=== PATIENT | female | born 1945 | race Caucasian/White ===

== ENCOUNTER 2016-03-24 13:30 | Emergency (ER) | payer OTHER ==
[~2016-03-24] VITALS: Ht 162.6 cm; Wt 52.0 kg
[~2016-03-24 13:30] MED LIST: ASPEC81 PO; CHOL1000 PO; CLB200 PO; Curamin PO; PROCOSA PO; SNK PO; ULT50X PO; [UNRECOGNIZED DRUG - CODE] TOP; [UNRECOGNIZED DRUG - OTHER] TOP
[2016-03-24 13:34] VITALS: TEMP 36.9; Ht 162.6 cm; Wt 52.0 kg
[2016-03-24 14:53] VITALS: O2SAT 97
[2016-03-24] MEDS ORDERED: GABA-113 PO (15:02)
[2016-03-24 15:03] LABS: URINE APPEARANCE CLEAR (CLEAR); URINE BILIRUBIN NEG (NEG); URINE COLOR YELLOW; URINE NITRITE NEG (NEG); URINE PH 8.5 (4.5-7.5); URINE SPECIFIC GRAVITY 1.003 (1.000-1.030); UROBILINOGEN NEG (NEG)
[2016-03-24 15:04] LABS: BASO % 0.2 %; BASO ABS # 0.02 K/uL (0-0.2); COMPLETE YES; EOS % 1.4 %; HEMATOCRIT 45.6 % (37-47); IG% 0.2 %; LYMPH % 24.4 %; LYMPH ABS # 1.98 K/uL (1.2-3.4); MEAN CELL VOLUME 91.2 fL (80-100); MEAN CORPUSCULAR HEMOGLOBIN 30.2 pg (25-34); MEAN CORPUSCULAR HGB CONC 33.1 g/dl (32-36); MEAN PLATELET VOLUME 10.2 fL (7.4-10.4); NEUT % 67.8 %; PLATELET COUNT 234 K/uL (130-400); WHITE BLOOD COUNT 8.11 K/uL (4.8-10.8)
[2016-03-24 15:04] LABS: MANUAL MICROSCOPIC REQUIRED? NO; REVIEW REQ? NO
--- NOTE | 2016-03-24 15:05 | DIAGNOSTIC IMAGING REPORT ---
CHEST ONE VIEW PORTABLE CLINICAL HISTORY: cp hypertension COMPARISON STUDY: 03/07/2015 FINDINGS: The bones soft tissues and hemidiaphragms are normal. The cardiomediastinal silhouette is normal. The lungs are clear. The pulmonary vasculature is normal. Old fracture mid left humeral shaft. Unchanging right upper quadrant calcifications. IMPRESSION: Negative chest. Electronically signed by: Tani Ham M.D. 03/24/2016 3:04 PM Dictated Date/Time: 03/24/2016 3:03 PM
[2016-03-24] MEDS ORDERED: MAGN250T8 PO (15:07)
[2016-03-24 15:25] LABS: BLOOD UREA NITROGEN 16 mg/dl (7-18); CALCIUM 8.9 mg/dl (8.5-10.1); CARBON DIOXIDE 28 mmol/L (21-32); CHLORIDE 104 mmol/L (98-107); CREATININE 0.92 mg/dl (0.60-1.20); GLUCOSE 73 mg/dl (70-99); SODIUM 141 mmol/L (136-145)
[2016-03-24 15:53] LABS: INR 0.9 (0.9-1.1); PROTHROMBIN TIME (PATIENT) 10.1 SECONDS (9.0-12.0)
[2016-03-24 15:56] LABS: POTASSIUM 4.2 mmol/L (3.5-5.1)
[2016-03-24 15:58] LABS: MAGNESIUM 2.6 mg/dl (1.8-2.4)
[2016-03-24] MEDS ORDERED: SODIUM CHLORIDE 0.9% 1000ML 1,000 ML IV SCH (16:38)
--- NOTE | 2016-03-24 16:42 | History and Physical ---
History & Physical Date & Time of Service: Mar 24, 2016 at 16:42 Chief Complaint: High Blood Pressure,Dizziness,Weakness Primary Care Physician: Cecelia Miles M.D. Past Medical/Surgical History Medical Problems: (1) Benign hypertension Status: Chronic Family History Diabetes mellitus Heart disease Hypertension Social History Smoking Status: Never Smoker Immunizations History of Influenza Vaccine: Unknown History of Tetanus Vaccine?: Unknown History of Pneumococcal: Unknown History of Hepatitis B Vaccine: Unknown Multi-Drug Resistant Organisms History of MDRO: No Allergies Coded Allergies: Penicillins (Verified Allergy, Severe, SWELLING OF EYES, HIVES & RASH, ) Hydrocodone (Verified Adverse Reaction, Unknown, NAUSEA AND VOMITING, 03/24) Home Medications Scheduled Gabapentin (Neurontin), 300 MG PO TID [Curamin], 1 CAPSULES PO BID Scheduled PRN Cholecalciferol (Vitamin D3), 1 TAB PO DAILY PRN for PRN Magnesium Oxide (Mg Supplement (Magnesium), 1 TAB PO UD PRN for LOW MAGNESIUM LEVELS Scar Treatment Products (Mederma), 1 DOSE TOP DAILY PRN for Pain Physical Exam Vital Signs Date Time Temp Pulse Resp B/P Pulse Ox O2 Delivery O2 Flow Rate FiO2 03/24/16 16:05 66 18 150/82 98 03/24/16 15:01 68 03/24/16 14:53 97 Room Air 03/24/16 13:34 36.9 76 16 188/89 97 Room Air Diagnostics Laboratory Results Results Past 24 Hours Test 03/24/16 14:40 03/24/16 14:50 03/24/16 14:58 03/24/16 15:37 Range/Units Urine Color YELLOW Urine Appearance CLEAR CLEAR Urine pH 8.5 4.5-7.5 Urine Specific [place] 1.003 1.000-1.030 Urine Protein NEG NEG Urine Glucose (UA) NEG NEG Urine Ketones NEG NEG Urine Occult Blood NEG NEG Urine Nitrite NEG NEG Urine Bilirubin NEG NEG Urine Urobilinogen NEG NEG Urine Leukocyte Esterase TRACE NEG Urine WBC (Auto) 1-5 0-5 /hpf Urine RBC (Auto) 0-4 0-4 /hpf Urine Hyaline Casts (Auto) 0 0-5 /lpf Urine Epithelial Cells (Auto) 10-20 0-5 /lpf Urine Bacteria (Auto) NEG NEG White Blood Count 8.11 4.8-10.8 K/uL Red Blood Count 5.00 4.2-5.4 M/uL Hemoglobin 15.1 12.0-16.0 g/dL Hematocrit 45.6 37-47 % Mean Corpuscular Volume 91.2 80-100 fL Mean Corpuscular Hemoglobin 30.2 25-34 pg Mean Corpuscular Hemoglobin Concent 33.1 32-36 g/dl Platelet Count 234 130-400 K/uL Mean Platelet Volume 10.2 7.4-10.4 fL Neutrophils (%) (Auto) 67.8 % Lymphocytes (%) (Auto) 24.4 % Monocytes (%) (Auto) 6.0 % Eosinophils (%) (Auto) 1.4 % Basophils (%) (Auto) 0.2 % Neutrophils # (Auto) 5.49 1.4-6.5 K/uL Lymphocytes # (Auto) 1.98 1.2-3.4 K/uL Monocytes # (Auto) 0.49 0.11-0.59 K/uL Eosinophils # (Auto) 0.11 0-0.5 K/uL Basophils # (Auto) 0.02 0-0.2 K/uL RDW Standard Deviation 45.4 36.4-46.3 fL RDW Coefficient of Variation 13.7 11.5-14.5 % Immature Granulocyte % (Auto) 0.2 % Immature Granulocyte # (Auto) 0.02 0.00-0.02 K/uL Sodium Level 141 136-145 mmol/L Potassium Level 4.2 3.5-5.1 mmol/L Chloride Level 104 98-107 mmol/L Carbon Dioxide Level 28 21-32 mmol/L Anion Gap 9.0 3-11 mmol/L Blood Urea Nitrogen 16 7-18 mg/dl Creatinine 0.92 0.60-1.20 mg/dl Est Creatinine Clear Calc Drug Dose 45.4 ml/min Estimated GFR () 72.1 Estimated GFR (Non- 62.2 BUN/Creatinine Ratio 17.0 10-20 Random Glucose 73 70-99 mg/dl Calcium Level 8.9 8.5-10.1 mg/dl Magnesium Level 2.6 1.8-2.4 mg/dl Thyroid Stimulating Hormone (TSH) 2.950 0.300-4.500 uIu/ml Free Thyroxine 1.00 0.80-1.60 ng/dl Bedside Troponin I 0.020 0-0.045 ng/ml Prothrombin Time 10.1 9.0-12.0 SECONDS Prothromb Time International Ratio 0.9 0.9-1.1 Activated Partial Thromboplast Time 25.3 21.0-31.0 SECONDS Partial Thromboplastin Ratio 1.0 Test 03/24/16 16:38 Range/Units Impression VTE Prophylaxis VTE Risk Assessment Done? Y/N: Yes Risk Level: Moderate
[2016-03-24] MEDS ORDERED: ALUMINUM/MAGNESIUM/SIMETH (MAALOX MAX) 30 ML UDC PO PRN (16:45)
[2016-03-24] MEDS ORDERED: NITROGLYCERIN 0.4 MG SL PER TAB CHARGE SL PRN (16:45)
[2016-03-24] MEDS ORDERED: ACETAMINOPHEN 325 MG TAB PO PRN (16:45)
[2016-03-24] MEDS ORDERED: KETOROLAC TROMETHAMINE 15 MG/ML VIAL IV PRN (16:45)
[2016-03-24] MEDS ORDERED: [UNRECOGNIZED DRUG - OTHER] SCH (16:45)
[2016-03-24] MEDS ORDERED: ONDANSETRON INJ 2 MG/ML 2 ML VIAL IV PRN (16:45)
[2016-03-24] MEDS ORDERED: CHOLECALCIFEROL 1000 INTER.UNIT TAB PO PRN (16:45)
[2016-03-24] MEDS ORDERED: MAGNESIUM HYDROXIDE SUSP 30 ML UDC PO PRN (16:45)
[2016-03-24] MEDS ORDERED: POLYETHYLENE (MIRALAX) 17 GM PACK PO PRN (16:45)
--- NOTE | 2016-03-24 17:56 | Progress Note ---
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 with chronic radiculopathy chronic neuropathic pain presented to ER with complain of feeling weak, lightheaded, dizzy spell , had some SOB BP was elevated Pt recently started on gabapentin for chronic neuropathic pain Dose increased to 300 mg PO TID on 02/27/16 yesterday she took Motrin for joint pain today checked her BP was elevated SBP in 174mm hg ( no prior hx of HTN -does not take any meds ) office Visits BP shows SBP usually in 120-130's called [facility] weekend clinic -pt is asked to come to ED for evaluation in the ED BP was elevated 188/89 Cxray -no active disease EKG -NSR , T wave inversion on V1 /V6 , compared with EKG in [facility] 07/2008 -no significant change after arrival to ED pt's symptom has resolved no chest pain or SOB BP was elevated due to anxiety pt also mentions of dizzy spell improved markedly P/E: gen ; no apparent distress HEENT : sclera non icteric , PERRLA/EOMI HT: regular S1/S2 Lungs: CTA abdomen : soft , non tender Ext : no lower ext edema neuro : no focal deficit A/P : Dizzy spell /lightheadedness: possible due to Neurontin side effect dose increased recently to 300 mg TID due to neuropathic pain asked to reduce the dose to 300 mg PO BID then gradual taper to 100 mg TID out pt follow up with Family physician Chest discomfort: possible due to HTN /anxiety related no evidence of ACS -no new EKG change , lab work unremarkable symptom resolved pt wants to go home and have evaluation done as out pt out pt stress test HTN: no prior Dx possible due to anxiety takes NSAID's for chronic arthritis pain asked to avoid NSAID's follow up with Family physician in office Pt evaluated in ED medically stable to be discharged home will arrange for ER follow up with Dr Miles
[2016-03-24 18:45] VITALS: BP 156/82; PULSE 74; O2SAT 98
[2016-03-24] MEDS ORDERED: IV FLUIDS COMPLETED PRN (19:30)
[2016-03-24] MEDS ORDERED: HEPARIN SOD 5000 UNIT/0.5 ML CARP SQ SCH (21:00)
[2016-03-24] MEDS ORDERED: GABAPENTIN 300 MG CAP PO SCH (21:00)
--- NOTE | 2016-03-24 21:32 | EMERGENCY ROOM VISIT NOTE ---
History Report prepared by Abbey: Celine Randolph Under the Supervision of: Dr. Edin Hummel M.D. First contact with patient: 14:12 Chief Complaint: WEAKNESS Stated Complaint: HIGH BLOOD PRESSURE,DIZZINESS,WEAKNESS Nursing Triage Summary: pt here with weakness all over pt had knee injected on friday and having some leg pain recently, seen at dr millard office. pt states after injection, pt has been tired and weak, also on gabapentin and it was recently increased History of Present Illness The patient is a 70 year old female who presents to the Emergency Room with complaints of persistent hypertension over the past several days. The patient does not have a history of hypertension and has never been treated for high blood pressure. The patient notes that she was put on gabapentin for neuropathy this past January and had her dose increased on February 26. Four days ago, she had an injection in her left knee at the orthopedics office and the physician employment assistant she was seen by recommended that the patient take Motrin if she was not having relief of her pain with gabapentin. She took Motrin that evening. She took her blood pressure since she took Motrin and noticed that it was elevated. Today it was 174/95. She is unsure when her blood pressure was last taken at her doctor's office, but notes that it has always been normal or slightly low. The patient has never had issues with Motrin in the past but this was the first time that she took it while on gabapentin. She did call [facility] regarding her blood pressure and they both said that there is no interaction with Motrin and gabapentin. Today, the patient noticed some redness to her face. En route to the ER, she had some chest tightness that lasted about 5 minutes and has resolved. She did not feel lightheaded or short of breath. The patient reports that she has been feeling weak but this has been baseline since being started on gabapentin in January. She has had a few minor headaches recently, but denies a headache today. She states that they were not bad enough to take anything for pain. The patient notes that she was admitted to the hospital 10 years ago for an irregular heart rate but she is unsure of the exact details of her diagnosis. Denies fever, cold-like symptoms, abdominal pain, vomiting, urinary symptoms, or other complaints. Source of History: patient Onset: a few days ago Position: other (global) Symptom Intensity: 174/95 Quality: other (hypertension) Timing: other (persistent) Associated Symptoms: + weakness (baseline since starting gapapentin), No SOB , No abdominal pain, No fevers, No urinary symptoms, No vomiting Note: Other symptoms: chest tightness (resolved) Review of Systems See HPI for pertinent positives & negatives. A total of 10 systems reviewed and were otherwise negative. Past Medical & Surgical Medical Problems: (1) Benign hypertension (2) Chest pain Surgical Problems: (1) Post-operative state Family History Diabetes mellitus Heart disease Hypertension Social History Smoking Status: Never Smoker Housing Status: lives alone Current/Historical Medications Scheduled Gabapentin (Neurontin), 300 MG PO TID [Curamin], 1 CAPSULES PO BID Scheduled PRN Cholecalciferol (Vitamin D3), 1 TAB PO DAILY PRN for PRN Magnesium Oxide (Mg Supplement (Magnesium), 1 TAB PO UD PRN for LOW MAGNESIUM LEVELS Scar Treatment Products (Mederma), 1 DOSE TOP DAILY PRN for Pain Allergies Coded Allergies: Penicillins (Verified Allergy, Severe, SWELLING OF EYES, HIVES & RASH, ) Hydrocodone (Verified Adverse Reaction, Unknown, NAUSEA AND VOMITING, 03/24) Physical Exam Vital Signs Date Time Temp Pulse Resp B/P Pulse Ox O2 Delivery O2 Flow Rate FiO2 03/24/16 18:45 74 18 156/82 98 03/24/16 16:05 66 18 150/82 98 03/24/16 15:01 68 03/24/16 14:53 97 Room Air 03/24/16 13:34 36.9 76 16 188/89 97 Room Air Physical Exam Constitutional: Vital signs reviewed. Eyes: Pupils are equal round reactive to light. Conjunctiva are noninjected. ENT: Pharynx is clear without erythema or exudate. Mucous membranes are moist. Neck supple without meningeal signs. Respiratory: Clear to auscultation bilaterally. Breath sounds are equal bilaterally. Cardiovascular: Regular rate and rhythm. No rubs or gallops. GI: Soft, nondistended and nontender. Bowel sounds are present. Musculoskeletal: No peripheral edema. No lower extremity tenderness. Integumentary: No cyanosis. Neurological: The patient is awake and alert. No focal deficits. Psychiatric: Normal affect. Medical Decision & Procedures ER Provider Diagnostic Interpretation: X-ray results as stated below per interpretation by me and the radiologist: CHEST ONE VIEW PORTABLE CLINICAL HISTORY: cp hypertension COMPARISON STUDY: 03/07/2015 FINDINGS: The bones soft tissues and hemidiaphragms are normal. The cardiomediastinal silhouette is normal. The lungs are clear. The pulmonary vasculature is normal. Old fracture mid left humeral shaft. Unchanging right upper quadrant calcifications. IMPRESSION: Negative chest. Electronically signed by: Tani Ham M.D. 03/24/2016 3:04 PM Dictated Date/Time: 03/24/2016 3:03 PM Laboratory Results 03/24/16 14:50 Red Blood Count 5.00, Mean Corpuscular Volume 91.2, Mean Corpuscular Hemoglobin 30.2, Mean Corpuscular Hemoglobin Concent 33.1, Mean Platelet Volume 10.2, Neutrophils (%) (Auto) 67.8, Lymphocytes (%) (Auto) 24.4, Monocytes (%) (Auto) 6.0, Eosinophils (%) (Auto) 1.4, Basophils (%) (Auto) 0.2, Neutrophils # (Auto) 5.49, Lymphocytes # (Auto) 1.98, Monocytes # (Auto) 0.49, Eosinophils # (Auto) 0.11, Basophils # (Auto) 0.02 03/24/16 14:50 03/24/16 15:37 Test 03/24/16 14:40 03/24/16 14:50 03/24/16 14:58 03/24/16 15:37 Urine Color YELLOW Urine Appearance CLEAR (CLEAR) Urine pH 8.5 (4.5-7.5) Urine Specific [place] 1.003 (1.000-1.030) Urine Protein NEG (NEG) Urine Glucose (UA) NEG (NEG) Urine Ketones NEG (NEG) Urine Occult Blood NEG (NEG) Urine Nitrite NEG (NEG) Urine Bilirubin NEG (NEG) Urine Urobilinogen NEG (NEG) Urine Leukocyte Esterase TRACE (NEG) Urine WBC (Auto) 1-5 /hpf (0-5) Urine RBC (Auto) 0-4 /hpf (0-4) Urine Hyaline Casts (Auto) 0 /lpf (0-5) Urine Epithelial Cells (Auto) 10-20 /lpf (0-5) Urine Bacteria (Auto) NEG (NEG) White Blood Count 8.11 K/uL (4.8-10.8) Red Blood Count 5.00 M/uL (4.2-5.4) Hemoglobin 15.1 g/dL (12.0-16.0) Hematocrit 45.6 % (37-47) Mean Corpuscular Volume 91.2 fL (80-100) Mean Corpuscular Hemoglobin 30.2 pg (25-34) Mean Corpuscular Hemoglobin Concent 33.1 g/dl (32-36) Platelet Count 234 K/uL (130-400) Mean Platelet Volume 10.2 fL (7.4-10.4) Neutrophils (%) (Auto) 67.8 % Lymphocytes (%) (Auto) 24.4 % Monocytes (%) (Auto) 6.0 % Eosinophils (%) (Auto) 1.4 % Basophils (%) (Auto) 0.2 % Neutrophils # (Auto) 5.49 K/uL (1.4-6.5) Lymphocytes # (Auto) 1.98 K/uL (1.2-3.4) Monocytes # (Auto) 0.49 K/uL (0.11-0.59) Eosinophils # (Auto) 0.11 K/uL (0-0.5) Basophils # (Auto) 0.02 K/uL (0-0.2) RDW Standard Deviation 45.4 fL (36.4-46.3) RDW Coefficient of Variation 13.7 % (11.5-14.5) Immature Granulocyte % (Auto) 0.2 % Immature Granulocyte # (Auto) 0.02 K/uL (0.00-0.02) Anion Gap 9.0 mmol/L (3-11) Est Creatinine Clear Calc Drug Dose 45.4 ml/min Estimated GFR () 72.1 Estimated GFR (Non- 62.2 BUN/Creatinine Ratio 17.0 (10-20) Calcium Level 8.9 mg/dl (8.5-10.1) Thyroid Stimulating Hormone (TSH) 2.950 uIu/ml (0.300-4.500) Free Thyroxine 1.00 ng/dl (0.80-1.60) Bedside Troponin I 0.020 ng/ml (0-0.045) Prothrombin Time 10.1 SECONDS (9.0-12.0) Prothromb Time International Ratio 0.9 (0.9-1.1) Activated Partial Thromboplast Time 25.3 SECONDS (21.0-31.0) Partial Thromboplastin Ratio 1.0 D-Dimer 660 ug/L FEU (0-500) Magnesium Level 2.6 mg/dl (1.8-2.4) Laboratory results as reviewed by me. ECG Indication: chest pain Rate (beats per minute): 63 Rhythm: normal sinus Findings: RBBB (incomplete), no ectopy, other (no ST elevation) ED Course 1415: The patient was evaluated in room C12. A complete history and physical exam was performed. 1603: I reassessed the patient and talked to her about her test results. I recommended hospitalization for repeat cardiac enzymes. She agreed with the plan. 1610: I discussed the case [facility] The patient will be evaluated for further management. 1724: The patient was evaluated by . She requested that I discharge the patient. The patient will follow up with her doctor in 1-2 days. She requested that I reduce her dose of Neurontin to 300 twice a day. Medical Decision This is a 70-year-old female presents with weakness, elevated blood pressure and chest tightness. Differential diagnosis includes unstable angina, MA, anemia, metabolic derangement, hypertension, infection. I did perform a limited focused review of portions of the patient's old chart on the electronic medical record. The patient has had no recent pertinent visits to this hospital. I did evaluate the patient as noted above. The patient is presenting today with elevated blood pressures for the past several days. She noticed on the way here that she had some chest tightness but isn't sure if this was related to anxiety about her blood pressure. It was brief and only lasted 5 minutes and had no associated symptoms. She does state that she has had generalized weakness but this has been going on since she started gabapentin in January. IV access was established. The patient was placed on a continuous monitoring analyst. I did order and personally review the patient's 12-lead EKG and chest x-ray as described above. I did order and review the patient's blood work as noted in the electronic medical record. Her magnesium is slightly high. She did take a magnesium supplement today. She was told not to take any further supplements. Troponin is negative. Urinalysis did not show signs of infection. I did reassess the patient. She is currently asymptomatic. Her blood pressure improved significantly without any intervention. I did discuss the test results with her. I did recommend hospitalization for repeat cardiac enzymes in case her weakness and chest tightness may be secondary to underlying cardiac disease. She initially did agree. I did have the hospitalist assess the patient and after she was evaluated by the hospital she decided that she would prefer outpatient treatment. The patient was therefore discharged home and told to reduce her Neurontin dosage to 300 mg twice a day. I did discover after the patient was discharged Dr. Choudhury had ordered a d-dimer which came back 660. This is likely a false positive result due to her age. I did speak to Dr. Choudhury who stated that she really had a low clinical suspicion for PE and did not feel the patient needed to be called back to evaluate for pulmonary embolism. The patient had denied shortness of breath when she was here. Consults Time Called: 1605 Consulting Physician: Dr. Choudhuyr [facility] Hospitalist Returned Call: 1610 I discussed the case with her. The patient will be evaluated for further management. Impression Primary Impression: Acute chest pain Additional Impressions: Generalized weakness Elevated blood pressure reading Hypermagnesemia Scribe Attestation The scribe's documentation has been prepared under my direct and personally reviewed by me in its entirety. I confirm that the note above accurately reflects all work, treatment, procedures, and medical decision making performed by me. Departure Information Dispostion Being Evaluated By Hospitalist Referrals Cecelia Miles M.D. (PCP) Patient Instructions My [facility] [address] Problem Qualifiers
[2016-03-25] MEDS ORDERED: ASPIRIN 81 MG ECTAB PO SCH (09:00)
== END 2016-03-24 18:47 | disposition home or self-care (01) ==
LOC: ENRESERVTM → CANRESERV → ENRESERVDT → C.EDB 13:32 → CANBEDREQ 17:32 → C.EDC 18:47
DX: R07.89 Other chest pain (principal); R53.1 Weakness; R03.0 Elevated blood-pressure reading, without diagnosis of hypertension; E83.41 Hypermagnesemia; G62.9 Polyneuropathy, unspecified; I45.10 Unspecified right bundle-branch block; Z79.899 Other long term (current) drug therapy; Z88.0 Allergy status to penicillin; Z88.5 Allergy status to narcotic agent; Z83.3 Family history of diabetes mellitus; Z82.49 Family history of ischemic heart disease and other diseases of the circulatory system

== ENCOUNTER → 2016-06-06 | Outpatient (CLI) | payer OTHER ==
[~2016-06-06] MED LIST changes: -ASPEC81 PO; -CLB200 PO; +GABA-113 PO; +MAGN250T8 PO; -PROCOSA PO; -SNK PO; -ULT50X PO; -[UNRECOGNIZED DRUG - CODE] TOP
--- NOTE | 2016-06-06 15:59 | DIAGNOSTIC IMAGING REPORT ---
MRI OF THE LUMBAR SPINE WITHOUT IV CONTRAST CLINICAL HISTORY: Chronic low back pain. Bilateral lower extremity radiculopathy. COMPARISON STUDY: MRI of the lumbar spine dated 11/10/2006. CT scan of the lumbar spine dated 03/11/2007. TECHNIQUE: MRI of the lumbar spine is performed utilizing various T1 and T2-weighted sequences in the axial and sagittal planes. IV contrast was not administered for this examination. The examination is degraded by susceptibility artifact from extensive orthopedic hardware. FINDINGS: Lumbar spine: Vertebral body height is maintained throughout the lumbar spine. There is minimal retrolisthesis at L1-L2. Alignment is otherwise preserved. Marrow signal intensity is heterogeneous. There are postoperative changes from laminectomy and posterior fusion seen at L2-L3 and L5-S1. The orthopedic hardware is grossly intact. There is partial fusion anteriorly at L5-S1. There is no evidence of spondylolysis. Chronic degenerative endplate change is noted at L2-L3. Intervertebral discs: Findings suggest discectomy at L2-L3 and L5-S1. Degenerative disc desiccation is seen at the remaining lumbar levels. Moderate loss of height is present at L1-L2. Spinal cord: The visualized spinal cord is normal in morphology and signal intensity. The conus visualized terminates at the level of L1. The nerve roots of the cauda equina are normal in morphology. L1-L2: There is minimal posterior disc bulge with annular fissure. The central canal is clear. There is bilateral subarticular stenosis, with possible impingement on the exiting left L1 nerve root. L2-L3: The central canal and neural foramina are patent. L3-L4: There is minimal disc bulge with annular fissure. The central canal and neural foramina are patent. L4-L5: The central canal and neural foramina are patent. L5-S1: The central canal and neural foramina are widely patent. A 10 mm left-sided perineural cyst is again noted. This is similar in appearance to the 2007 examination. Sacrum: The visualized sacrum is normal in morphology and signal intensity. A large hemitransitional left-sided lumbosacral segment is again noted. Soft tissues: There is fatty atrophy of the paraspinous musculature. Again seen is a posterior fluid collection at the L5-S1 level which measures approximately 1.3 cm in AP diameter and 5 cm in transverse diameter. This has not significantly changed from 2007. There is slightly asymmetric atrophy of the right psoas muscle as compared to the left. IMPRESSION: 1. No acute bony abnormality is seen involving the lumbar spine. 2. There are postoperative changes from spinal fusion at L2-L3 and L5-S1. 3. There is no large disc herniation or acquired compromise of the central canal. 4. Degenerative changes as above. See discussion for detailed level by level analysis. Mild retrolisthesis at L1-L2 is new from previous. 5. A fluid collection seen posteriorly at L5-S1 has not significantly changed from 2007 and likely represents a chronic postoperative seroma. 6. A large hemitransitional left lumbosacral segment is again noted. Dictated: 06/06/2016 3:36 PM Transcribed: 06/06/2016 3:58 PM [email or web address] Electronically signed by: Shashank Mendieta M.D. 06/06/2016 4:00 PM Dictated Date/Time: 06/06/2016 3:36 PM
== END ==
LOC: C.MRI 14:46
PROVIDERS: ATTEND Neurological Surgery
DX: M79.2 Neuralgia and neuritis, unspecified (principal)

== ENCOUNTER → 2016-09-06 | Outpatient (CLI) | payer OTHER ==
--- NOTE | 2016-09-06 14:22 | DIAGNOSTIC IMAGING REPORT ---
LEFT ANKLE MIN 3 VIEWS CLINICAL HISTORY: LEFT ANKLE PAIN COMPARISON: None. DISCUSSION: The bones are severely osteopenic. There are old posterior back deformity is of the mid to distal tibia and fibula. No acute fractures are evident. The ankle mortise appears intact on these nonstress views. IMPRESSION: 1. Severe osteopenia 2. No acute fractures 3. Old post traumatic changes Electronically signed by: Shamar Sheridan M.D. 09/06/2016 2:21 PM Dictated Date/Time: 09/06/2016 2:20 PM
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
== END | disposition home or self-care (01) ==
LOC: C.RDSM 14:10
PROVIDERS: ATTEND Physician Assistant
DX: M25.572 Pain in left ankle and joints of left foot (principal); M25.562 Pain in left knee

== ENCOUNTER → 2017-02-06 | Outpatient (CLI) | payer OTHER ==
--- NOTE | 2017-02-06 14:36 | DIAGNOSTIC IMAGING REPORT ---
R FINGER(S) MIN 2 VIEWS CLINICAL HISTORY: TRIGGER THUMB RIGHT HAND COMPARISON: None. DISCUSSION: Interphalangeal joint is held in flexion. Moderate generalized degenerative changes throughout. No significant fracture or dislocation. Bony mineralization slightly diminished. There is no evidence for soft tissue swelling. IMPRESSION: The interphalangeal joint is held in flexion. Moderate generalized degenerative change and osteopenia. The above report was generated using voice recognition software. It may contain grammatical, syntax or spelling errors. Electronically signed by: Tani Ham M.D. 02/06/2017 2:35 PM Dictated Date/Time: 02/06/2017 2:34 PM
== END | disposition home or self-care (01) ==
LOC: C.RDSM 14:26
PROVIDERS: ATTEND Physician Assistant
DX: M65.311 Trigger thumb, right thumb (principal)

== ENCOUNTER → 2017-04-17 | Outpatient (CLI) | payer OTHER ==
--- NOTE | 2017-04-17 14:34 | DIAGNOSTIC IMAGING REPORT ---
R PELVIS UNILATERAL HIP 1 VIEW CLINICAL HISTORY: STATUS POST RIGHT HIP REPLACEMENT RIGHT HIP PAIN COMPARISON: Outside radiographs dated 06/20/2016 DISCUSSION: There are postsurgical changes of bilateral total hip arthroplasties. There is a chronic right hip 20 deformity. There are postsurgical changes present in the lower lumbar spine. There are no acute fractures. Postsurgical changes also involve the proximal right femur. There is exuberant proximal femoral cortical thickening. There is a complete transverse lucency within the lateral cortex of the proximal femur remains unchanged the prior study. IMPRESSION: Extensive postsurgical change, similar to the preceding study Electronically signed by: Shamar Sheridan M.D. 04/17/2017 2:33 PM Dictated Date/Time: 04/17/2017 2:30 PM
== END | disposition home or self-care (01) ==
LOC: C.RDSM 14:00
PROVIDERS: ATTEND Physician Assistant
DX: Z96.641 Presence of right artificial hip joint (principal)

== ENCOUNTER 2020-10-13 13:41 | Observation (INO) ==
[2020-10-13] MEDS ORDERED: levoFLOXacin/D5W 500 MG/100 ML BAG IV STA (13:51)
[2020-10-13] MEDS ORDERED: CLINDAMYCIN 900 MG in DEXTROSE 5% 50 ML IV STA (13:51)
[2020-10-13] MEDS ORDERED: HYDROmorphone INJ 0.5 MG/0.5 ML SYR IV STA (13:57)
--- NOTE | 2020-10-13 14:16 | Emergency Department Note ---
History of Present Illness General Chief complaint: Knee Injury/Pain Stated complaint: Open knee fracture Time Seen by Provider: 10/13/20 13:50 Source: patient and EMS Mode of arrival: EMS History of Present Illness Provider complaint: Right knee pain Onset (ago): hour(s) 1 Location: knee and right Radiation: non-radiation Severity: severe Pain Consistency: + constant Maximum Pain Intensity: 7 Quality: + sharp Relieved By: + movement (Narcotics) Exacerbated By: + movement Associated symptoms: no chest pain, no cough, no fever/chills, no headaches, no nausea/vomiting or no shortness of breath This is a 75-year-old female presenting with right knee pain which occurred about an hour prior to arrival. The patient was at [facility]. She went to the restroom and there was a wooden platform that was wet from the humidity and she slipped on hyperflexing her knee and hitting it. She has severe pain to the right knee. There is an open laceration there and the hardware is exposed. She rates her pain a 7 out of 10 in severity. It is better after she was given morphine by the ambulance crew. It is worse with movement. She describes it as sharp. She denies any other injury from the fall. She is sure she did not hit her head or neck and has no headache or neck pain. She did have some back pain prior to the fall but states that it is no worse at this time. She denies any hip pain or upper extremity injury. She states that she was there with some people and they held her up when she fell. She denies any recent illness, fever, cough or cold symptoms, chest pain, shortness of breath, abdominal pain, vomiting, diarrhea or urinary symptoms. She did have a total knee replacement in [address] Gaytan of [facility]. She states that she last ate breakfast today 30 a.m. She did have some sips of water right after this occurred. Home Medications Medication Instructions Recorded Confirmed Type magnesium 250 mg tablet 250 mg PO DAILY 12/02/17 10/13/20 History medical marijuana 1 applic TOPICAL UD 04/27/19 10/13/20 History cholecalciferol (vitamin D3) 25 25 mcg PO DAILY 05/16/20 10/13/20 History mcg (1,000 unit) capsule gabapentin 300 mg capsule 600 mg PO TID 10/13/20 10/13/20 History Allergies Allergy/AdvReac Type Severity Reaction Status Date / Time Penicillins Allergy Severe SWELLING Verified 10/13/20 14:13 OF EYES, HIVES & RASH hydrocodone AdvReac Unknown NAUSEA AND Verified 10/13/20 14:13 VOMITING Past Med/Surg History Medical History Acute chest pain Chest pain Elbow fracture, left Elbow fracture, right Elevated blood pressure reading Femur open fracture, right Foot pain, left Generalized weakness Hypermagnesemia Leg fracture, left Lumbar pain Lumbar radiculopathy Myofascial pain Osteoarthritis of spine with radiculopathy, cervical region Pelvis fracture Piriformis syndrome Right hip pain Sciatica associated with disorder of lumbar spine Spondylosis without myelopathy or radiculopathy, lumbar region Tibia/fibula fracture Traumatic arthritis of right hip Surgical History History of back surgery History of lumbar laminectomy for spinal cord decompression History of total left hip arthroplasty History of total right hip arthroplasty Postoperative state (03/31/13) Social History Smoking Status: Never smoker Hx Alcohol Use: No Hx Substance Use: Yes (THC) Preferred Language: Faroese Visual Impairment: No Limitations Hearing Ability: Normal marital status: Current Living Situation: Family Current Living Situation Comment: lives with son current occupational status: disabled Feels Safe at Home: Yes Review of Systems See HPI for pertinent positives & negatives. and A total of 10 systems reviewed and were otherwise negative Physical Exam Vital Signs Vital Signs - 24 hr 10/13/20 13:52 10/13/20 13:55 10/13/20 14:00 Temperature 36.6 C Temperature Source Oral Pulse Rate 78 70 76 Pulse Rate [Apical] Pulse Rate [Right Finger] Pulse Rate from SpO2 Sensor 78 75 Pulse Rhythm Regular Pulse Rhythm [Apical] Pulse Rhythm [Right Finger] Pulse Strength Normal Pulse Strength [Apical] Respiratory Rate 20 Respiratory Effort / Characteristics Non-Labored Respiratory Depth Normal Respiratory Pattern Regular Blood Pressure 213/92 H 213/92 H 193/84 H Blood Pressure [Left Arm] Blood Pressure Mean 132 132 120 Blood Pressure Mean [Left Arm] Blood Pressure Position Lying Blood Pressure Position [Left Arm] Pulse Oximetry 100 100 99 Oxygen Delivery Method Room Air Oxygen Flow Rate Sepsis Recent Fever Within 48 Hours No Sepsis New/Unexplained Change in Mental Status N/A Sepsis Action Taken by Nursing No Action Required End-Tidal CO2 10/13/20 14:30 10/13/20 15:00 10/13/20 15:30 Temperature Temperature Source Pulse Rate 66 112 H 82 Pulse Rate [Apical] Pulse Rate [Right Finger] Pulse Rate from SpO2 Sensor 65 109 H 83 Pulse Rhythm Pulse Rhythm [Apical] Pulse Rhythm [Right Finger] Pulse Strength Pulse Strength [Apical] Respiratory Rate Respiratory Effort / Characteristics Respiratory Depth Respiratory Pattern Blood Pressure 181/77 H 176/102 H 164/117 H Blood Pressure [Left Arm] Blood Pressure Mean 111 126 132 Blood Pressure Mean [Left Arm] Blood Pressure Position Blood Pressure Position [Left Arm] Pulse Oximetry 99 99 99 Oxygen Delivery Method Oxygen Flow Rate Sepsis Recent Fever Within 48 Hours Sepsis New/Unexplained Change in Mental Status Sepsis Action Taken by Nursing End-Tidal CO2 10/13/20 16:00 10/13/20 16:30 10/13/20 17:00 Temperature Temperature Source Pulse Rate 65 63 60 Pulse Rate [Apical] Pulse Rate [Right Finger] Pulse Rate from SpO2 Sensor 64 62 Pulse Rhythm Pulse Rhythm [Apical] Pulse Rhythm [Right Finger] Pulse Strength Pulse Strength [Apical] Respiratory Rate Respiratory Effort / Characteristics Respiratory Depth Respiratory Pattern Blood Pressure 164/82 H 168/81 H 175/83 H Blood Pressure [Left Arm] Blood Pressure Mean 109 110 113 Blood Pressure Mean [Left Arm] Blood Pressure Position Blood Pressure Position [Left Arm] Pulse Oximetry 100 100 Oxygen Delivery Method Oxygen Flow Rate Sepsis Recent Fever Within 48 Hours Sepsis New/Unexplained Change in Mental Status Sepsis Action Taken by Nursing End-Tidal CO2 28 25 10/13/20 17:18 10/13/20 18:49 10/13/20 19:05 Temperature 37.2 C 36.0 C L Temperature Source Oral Temporal Artery Scan Temporal Artery Scan Pulse Rate Pulse Rate [Apical] 85 72 Pulse Rate [Right Finger] 65 Pulse Rate from SpO2 Sensor Pulse Rhythm Pulse Rhythm [Apical] Regular Regular Pulse Rhythm [Right Finger] Regular Pulse Strength Pulse Strength [Apical] Normal Normal Respiratory Rate 18 14 13 Respiratory Effort / Characteristics Non-Labored Spontaneous Non-Labored Spontaneous Respiratory Depth Normal Normal Respiratory Pattern Regular Regular Blood Pressure Blood Pressure [Left Arm] 148/91 H 156/75 H 134/67 Blood Pressure Mean Blood Pressure Mean [Left Arm] 110 102 89 Blood Pressure Position Blood Pressure Position [Left Arm] Lying Lying Pulse Oximetry 99 100 100 Oxygen Delivery Method Oxymask Oxymask Oxygen Flow Rate 5 3 Sepsis Recent Fever Within 48 Hours Sepsis New/Unexplained Change in Mental Status Sepsis Action Taken by Nursing End-Tidal CO2 10/13/20 19:15 10/13/20 19:25 10/13/20 19:35 Temperature Temperature Source Temporal Artery Scan Temporal Artery Scan Temporal Artery Scan Pulse Rate Pulse Rate [Apical] 72 73 76 Pulse Rate [Right Finger] Pulse Rate from SpO2 Sensor Pulse Rhythm Pulse Rhythm [Apical] Regular Regular Regular Pulse Rhythm [Right Finger] Pulse Strength Pulse Strength [Apical] Normal Normal Normal Respiratory Rate 17 19 20 Respiratory Effort / Characteristics Non-Labored Spontaneous Non-Labored Spontaneous Non-Labored Spontaneous Respiratory Depth Normal Normal Normal Respiratory Pattern Regular Regular Regular Blood Pressure Blood Pressure [Left Arm] 152/74 H 141/69 H 126/66 Blood Pressure Mean Blood Pressure Mean [Left Arm] 100 93 86 Blood Pressure Position Blood Pressure Position [Left Arm] Lying Lying Lying Pulse Oximetry 100 92 100 Oxygen Delivery Method Nasal Cannula Nasal Cannula Nasal Cannula Oxygen Flow Rate 2 2 2 Sepsis Recent Fever Within 48 Hours Sepsis New/Unexplained Change in Mental Status Sepsis Action Taken by Nursing End-Tidal CO2 Constitutional: Vital signs reviewed. Eyes: Pupils are equal round reactive to light. Conjunctiva are noninjected. ENT: Pharynx is clear without erythema or exudate. Mucous membranes are moist. Neck supple without meningeal signs. Respiratory: Clear to auscultation bilaterally. Breath sounds are equal bilaterally. Cardiovascular: Regular rate and rhythm. No rubs or gallops. GI: Soft, nondistended and nontender. Bowel sounds are present. Musculoskeletal: Large open wound to the right knee with hardware visible. Knee kept in 90 degrees flexion. Normal distal dorsalis pedis pulse. No hip tenderness. Integumentary: No cyanosis. or jaundice. Neurological: The patient is awake and alert. No focal deficits. Motor and sensation are intact in the right toes. Psychiatric: Normal affect. Not anxious appearing. Course Consultations Consultation #1: Santos Aguilar recommended we call [facility] orthopedics as she has seen them. Patient stated that she also saw Dr. Rodriguez and would prefer Dr. Rodriguez. Time: 02:40 Consultation #2: I did discuss the case with Dr. Amador. I did mention that this was an open fracture and that I was treating her with IV antibiotics. He did review the x-rays. He stated he would call Dr. Hayes and call me back. Dr. Hayes called me back at 1505 stating the patient should go to [facility] as the joint was replaced by Dr. Gaytan. Time: 02:53 Consultation #3: Dr. Keys spoke to Dr. Gaytan at [facility] and stated that the patient should be transferred to a tertiary care center. Time: 16:09 Administered Medications Sodium Chloride (Nss) 500 mls @ 80 mls/hr IV .[id number] MARGARETH Stop: 11/12/20 13:59 Last Admin: 10/13/20 14:24 Dose: 80 mls/hr Documented by: [id number] Discontinued Medications Bupivacaine HCl (Bupivacaine 0.25% 30 Ml Vial) Confirm Administered Dose 30 ml .ROUTE .STK-MED ONE Stop: 10/13/20 17:28 Last Admin: 10/13/20 18:38 Dose: 30 ml Documented by: [id number] Epinephrine HCl (Epinephrine Inj 1 Mg/Ml Amp) Confirm Administered Dose 1 mg .ROUTE .STK-MED ONE Stop: 10/13/20 17:28 Last Admin: 10/13/20 18:39 Dose: 0.15 mg Documented by: [id number] Hydromorphone HCl (Hydromorphone Inj 0.5 Mg/0.5 Ml Syr) 0.5 mg IV NOW STA Stop: 10/13/20 13:58 Last Admin: 10/13/20 14:25 Dose: 0.25 mg Documented by: [id number] Clindamycin Phosphate 900 mg/ (Dextrose) 56 mls @ 112 mls/hr IV NOW STA Stop: 10/13/20 14:20 Last Infusion: 10/13/20 15:53 Dose: 0 mls/hr Documented by: [id number] Admin: 10/13/20 14:37 Dose: 112 mls/hr Documented by: [id number] Levofloxacin/Dextrose (Levaquin/D5w) 500 mg in 100 mls @ 100 mls/hr IV NOW STA Stop: 10/13/20 14:50 Last Infusion: 10/13/20 15:54 Dose: 0 mls/hr Documented by: [id number] Admin: 10/13/20 14:37 Dose: 100 mls/hr Documented by: [id number] Ketamine HCl (Ketamine Hcl Inj 50 Mg/Ml 10 Ml Vial) Confirm Administered Dose 500 mg .ROUTE .STK-MED ONE Stop: 10/13/20 16:18 Last Admin: 10/13/20 16:43 Dose: Not Given Documented by: [id number] Ondansetron HCl (Ondansetron Inj 2 Mg/Ml 2 Ml Vial) 4 mg IV NOW STA Stop: 10/13/20 15:25 Last Admin: 10/13/20 15:31 Dose: 4 mg Documented by: [id number] Ondansetron HCl (Ondansetron Inj 2 Mg/Ml 2 Ml Vial) Confirm Administered Dose 4 mg .ROUTE .STK-MED ONE Stop: 10/13/20 17:41 Last Admin: 10/13/20 17:47 Dose: 4 mg Documented by: [id number] Propofol (Propofol Iv Emulsion 10 Mg/Ml 20 Ml Vial) Confirm Administered Dose 200 mg IV .STK-MED ONE Stop: 10/13/20 16:18 Last Admin: 10/13/20 16:43 Dose: Not Given Documented by: [id number] Critical Care Time Critical Care Time: Yes Total Critical Care Time: 40 I have personally spent approximately 40 minutes of critical care time in the direct management of this patient. This includes bedside care, interpretation of diagnostic studies, and testing, discussion with consultants, patient, and family members, and other required patient management activities. These minutes are in excess of all separately billable procedures. Medical Decision Making Differential Diagnosis Femur fracture, tibial fracture, hardware displacement, knee dislocation, patellar dislocation Medical Records Attestation: I reviewed the patient's medical records. I did perform a limited focused review of portions of the patient's old chart on the electronic medical record. The patient was seen by pain management for thoracic facet syndrome in July. Home Medications Current Medication List: was personally reviewed by me Laboratory Data Attestation: I reviewed the patient's lab results. Result diagrams: 10/13/20 14:21 10/13/20 14:21 Lab Results 10/13/20 10/13/20 10/13/20 Range/Units 14:03 14:03 14:21 WBC (4.8-10.8) K/uL RBC (4.2-5.4) M/uL Hgb (12.0-16.0) g/dL Hct (37-47) % MCV (80-100) fL MCH (25-34) pg MCHC (32-36) g/dL RDW Std Deviation (36.4-46.3) fL RDW Coeff of Corby (11.5-14.5) % Plt Count (130-400) K/uL MPV (7.4-10.4) fL Immature Gran % (Auto) % Neut % (Auto) % Lymph % (Auto) % Swain % (Auto) % Eos % (Auto) % Baso % (Auto) % Neut # (Auto) (1.4-6.5) K/uL Lymph # (Auto) (1.2-3.4) K/uL Swain # (Auto) (0.11-0.59) K/uL Eos # (Auto) (0-0.5) K/uL Baso # (Auto) (0-0.2) K/uL Immature Gran # (Auto) (0.00-0.02) K/uL PT 10.3 (9.0-12.0) Seconds INR 1.0 (0.9-1.1) APTT 24.8 (21.0-31.0) Seconds PTT Ratio 0.9 Sodium (136-145) mmol/L Potassium (3.5-5.1) mmol/L Chloride (98-107) mmol/L Carbon Dioxide (21-32) mmol/L Anion Gap (3-11) BUN (7-18) mg/dl Creatinine (0.6-1.2) mg/dl Est Cr Clr Drug Dosing ml/min Est GFR ( Amer) ml/min Est GFR (Non-Af Amer) ml/min BUN/Creatinine Ratio (10-20) Glucose (70-99) mg/dl Calcium (8.5-10.1) mg/dl Total Bilirubin (0.2-1) mg/dl AST (15-37) U/L ALT (12-78) U/L Alkaline Phosphatase (45-117) U/L Total Protein (6.4-8.2) gm/dl Albumin (3.4-5.0) gm/dl Globulin (2.5-4.0) gm/dl Albumin/Globulin Ratio (0.9-2) COVID-19 [facility] SARS-CoV-2, RNA, NAAT NEGATIVE (NEGATIVE) 10/13/20 10/13/20 Range/Units 14:21 14:21 WBC 11.06 H (4.8-10.8) K/uL RBC 4.18 L (4.2-5.4) M/uL Hgb 13.0 (12.0-16.0) g/dL Hct 38.3 (37-47) % MCV 91.6 (80-100) fL MCH 31.1 (25-34) pg MCHC 33.9 (32-36) g/dL RDW Std Deviation 44.4 (36.4-46.3) fL RDW Coeff of Corby 13.3 (11.5-14.5) % Plt Count 295 (130-400) K/uL MPV 9.2 (7.4-10.4) fL Immature Gran % (Auto) 0.4 % Neut % (Auto) 84.4 % Lymph % (Auto) 9.5 % Swain % (Auto) 5.4 % Eos % (Auto) 0.2 % Baso % (Auto) 0.1 % Neut # (Auto) 9.34 H (1.4-6.5) K/uL Lymph # (Auto) 1.05 L (1.2-3.4) K/uL Swain # (Auto) 0.60 H (0.11-0.59) K/uL Eos # (Auto) 0.02 (0-0.5) K/uL Baso # (Auto) 0.01 (0-0.2) K/uL Immature Gran # (Auto) 0.04 H (0.00-0.02) K/uL PT (9.0-12.0) Seconds INR (0.9-1.1) APTT (21.0-31.0) Seconds PTT Ratio Sodium 140 (136-145) mmol/L Potassium 3.9 (3.5-5.1) mmol/L Chloride 112 H (98-107) mmol/L Carbon Dioxide 20 L (21-32) mmol/L Anion Gap 8.0 (3-11) BUN 17 (7-18) mg/dl Creatinine 0.75 (0.6-1.2) mg/dl Est Cr Clr Drug Dosing 54.1 ml/min Est GFR ( Amer) 89.1 ml/min Est GFR (Non-Af Amer) 76.9 ml/min BUN/Creatinine Ratio 23.2 H (10-20) Glucose 109 H (70-99) mg/dl Calcium 8.8 (8.5-10.1) mg/dl Total Bilirubin 0.4 (0.2-1) mg/dl AST 21 (15-37) U/L ALT 15 (12-78) U/L Alkaline Phosphatase 102 (45-117) U/L Total Protein 6.7 (6.4-8.2) gm/dl Albumin 3.3 L (3.4-5.0) gm/dl Globulin 3.4 (2.5-4.0) gm/dl Albumin/Globulin Ratio 1.0 (0.9-2) COVID-19 Eval Order SARS-CoV-2, RNA, NAAT (NEGATIVE) Imaging Data Radiologist's Impression: Chest X-Ray 10/13/20 13:51 XR chest 1V portable CLINICAL HISTORY: knee fracture COMPARISON STUDY: March 24, 2016 FINDINGS: No pneumothorax. No pleural effusion. No large infiltrates or consolidative lesions are seen. Cardiomediastinal silhouette is within normal limits in size. No significant pulmonary vascular congestion.. Osseous structures: Degenerative changes of the spine. IMPRESSION: 1. No acute pulmonary process. ACT 112: Negative or not required by law. The above report was generated using voice recognition software. It may contain grammatical, syntax or spelling errors. Electronically signed by: Glenda Solomon DO 10/13/2020 2:25 PM Knee X-Ray 10/13/20 13:51 RIGHT KNEE 2 VIEWS CLINICAL HISTORY: Right knee pain. Refusal to bear weight. FINDINGS: AP and crosstable lateral portable views of the right knee are correlated with leg length study dated 06/12/2020 and study dated 09/05/2011. The skeletal structures are osteopenic. There is chronic posttraumatic deformity of the femoral shaft status post buttress plate fixation. The stem of a right hip arthroplasty is partially visualized. A hinged right knee arthroplasty is in place with long tibial and femoral stems. There is fracture of the arthroplasty hinge at the femoral attachment, with associated flexion of the knee and anterior translation of the tibia at the knee joint. There is a fracture of the anterior tibial plateau. A large displaced fragment containing anchors is located within the inferior joint space anterior to the hinge of the arthroplasty. Overlying soft tissue edema is noted. There is mild superior subluxation of the patella. No additional fracture is identified. Overlying soft tissue edema is noted. IMPRESSION: 1. There is fracture at the femoral attachment of the arthroplasty hinge with associated flexion of the knee and anterior translation of the tibia at the knee joint. 2. There is an avulsion fracture from the anterior tibia which is displaced superiorly into the joint space. 3. No additional acute fracture is identified. Electronically signed by: Shashank Mendieta M.D. 10/13/2020 2:36 PM ECG Data Attestation: I personally reviewed and interpreted this ECG as follows: Indication: + other (Preop) Rate (beats per minute): 66 Rhythm: + normal sinus ECG [place]: + Normal ECG ST segments: no ST elevation ECG Findings: no PVCs MDM Narrative I did provide prehospital medical command for the patient. The patient was given a total of 10 mg of IV ketamine prior to the medical command call. I did order additional 10 mg of morphine IV and 4 mg of Zofran IV as the transport time was prolonged. I did evaluate the patient immediately on arrival as noted above. She had additional pain and was given 0.25 mg of Dilaudid IV. I did place an order for continuous cardiac monitoring. The monitor showed normal sinus rhythm at a rate of 75 bpm. I did order and personally review the patient's 12-lead EKG as described above. She has no acute ischemic changes. I did order and personally reviewed the images of the patient's chest x-ray and knee x-rays as described above. I did speak to multiple orthopedic physicians regarding this case as soon as I saw the x-rays as noted above. The patient developed vomiting and was given Zofran 4 mg IV. She states that pain medic ation often makes her vomit. I did order and review the patient's blood work as noted in the electronic medical record. Her white count was slightly elevated 11.06. CBC is otherwise unremarkable. Electrolytes demonstrate a chloride of 112 and carbon dioxide of 20. Covid screening is negative. I was speaking to [facility] when Dr. Hayes came down to see another patient in the ED. I did speak to him briefly about their plan to have her transferred to a tertiary care facility. He was gracious enough to offer to reduce the disarticulation under conscious sedation. He did come in to see the patient and when he noticed the severity of the injury he decided to take the patient immediately to the OR. He will arrange for transfer tomorrow to a tertiary care [facility] for more definitive care. She was emergently taken to the operating room. Impression & Plan Open fracture dislocation of knee joint, Dislocation of prosthetic knee joint Discharge Plan Visit Data Chief Complaint: Knee Injury/Pain Stated Complaint: Open knee fracture ED Provider: Edin Hummel Discharge Problem: Open fracture dislocation of knee joint, Dislocation of prosthetic knee joint Patient Disposition: Being Evaluated by Surgeon Discharge Instructions Interventions: ED Discharge Assessment Last Done: 10/13/20 17:09
[2020-10-13] MEDS: SODIUM CHLORIDE 0.9% 500 ML IV SCH ×2 (14:24→21:18)
--- NOTE | 2020-10-13 14:26 | XRay Report ---
XR chest 1V portable CLINICAL HISTORY: knee fracture COMPARISON STUDY: March 24, 2016 FINDINGS: No pneumothorax. No pleural effusion. No large infiltrates or consolidative lesions are seen. Cardiomediastinal silhouette is within normal limits in size. No significant pulmonary vascular congestion.. Osseous structures: Degenerative changes of the spine. IMPRESSION: 1. No acute pulmonary process. ACT 112: Negative or not required by law. The above report was generated using voice recognition software. It may contain grammatical, syntax o r spelling errors. Electronically signed by: Glenda Solomon DO 10/13/2020 2:25 PM
[2020-10-13 14:28] LABS: Basophils # (auto) 0.01 K/uL (0-0.2); Basophils % (auto) 0.1 %; Eosinophils # (auto) 0.02 K/uL (0-0.5); Eosinophils % (auto) 0.2 %; Hematocrit (blood only) 38.3 % (37-47); Immature Granulocytes # (auto) 0.04 K/uL (0.00-0.02); Immature Granulocytes % (auto) 0.4 %; Lymphocytes # (auto) 1.05 K/uL (1.2-3.4); Lymphocytes % (auto) 9.5 %; Mean Corpuscular Hemoglobin 31.1 pg (25-34); Mean Corpuscular Hgb Conc 33.9 g/dL (32-36); Mean Corpuscular Volume 91.6 fL (80-100); Mean Platelet Volume 9.2 fL (7.4-10.4); Monocytes % (auto) 5.4 %; Neutrophils # (auto) 9.34 K/uL (1.4-6.5); Neutrophils % (auto) 84.4 %; Platelet Count 295 K/uL (130-400); RDW Coefficient of Variation 13.3 % (11.5-14.5); RDW Standard Deviation 44.4 fL (36.4-46.3); Red Blood Count 4.18 M/uL (4.2-5.4); White Blood Count 11.06 K/uL (4.8-10.8)
--- NOTE | 2020-10-13 14:38 | XRay Report ---
RIGHT KNEE 2 VIEWS CLINICAL HISTORY: Right knee pain. Refusal to bear weight. FINDINGS: AP and crosstable lateral portable views of the right knee are correlated with leg length s anel dated 06/12/2020 and study dated 09/05/2011. The skeletal structures are osteopenic. There is chronic specialist diogo posttraumatic deformity of the femoral shaft status post buttress plate fixation. The stem of a r ight hip arthroplasty is partially visualized. A hinged right knee arthroplasty is in place with long tibial and femoral stems. There is fracture of the arthroplasty hinge at the femoral attachment, wit h associated flexion of the knee and anterior translation of the tibia at the knee joint. There is a fracture of the anterior tibial plateau. A large displaced fragment containing anchors is located wit hin the inferior joint space anterior to the hinge of the arthroplasty. Overlying soft tissue edema i s noted. There is mild superior subluxation of the patella. No additional fracture is identified. Ove rlying soft tissue edema is noted. IMPRESSION: 1. There is fracture at the femoral attachment of the arthroplasty hinge with associated flexion of t he knee and anterior translation of the tibia at the knee joint. 2. There is an avulsion fracture from the anterior tibia which is displaced superiorly into the joint space. 3. No additional acute fracture is identified. Electronically signed by: Shashank Mendieta M.D. 10/13/2020 2:36 PM
[2020-10-13 14:46] LABS: Partial Thromboplastin Ratio 0.9; Partial Thromboplastin Time 24.8 Seconds (21.0-31.0); Prothrombin Time 10.3 Seconds (9.0-12.0)
[2020-10-13 14:48] LABS: Albumin Level 3.3 gm/dl (3.4-5.0); BUN Creatinine Ratio 23.2 (10-20); Calcium 8.8 mg/dl (8.5-10.1); Creatinine Clr Calc Pharmacy 54.1 ml/min; Est GFR (African American) 89.1 ml/min; Est GFR (Non-African American) 76.9 ml/min; Potassium 3.9 mmol/L (3.5-5.1)
[2020-10-13 14:51] LABS: Bilirubin,Total 0.4 mg/dl (0.2-1); Globulin 3.4 gm/dl (2.5-4.0); Total Protein 6.7 gm/dl (6.4-8.2)
[2020-10-13] MEDS ORDERED: ONDANSETRON INJ 2 MG/ML 2 ML VIAL IV STA (15:24)
[2020-10-13] MEDS ORDERED: PROPOFOL IV EMULSION 10 MG/ML 20 ML VIAL IV ONE ×2 (16:17→17:07)
[2020-10-13] MEDS ORDERED: KETAMINE HCL INJ 50 MG/ML 10 ML VIAL ONE (16:17)
[2020-10-13] MEDS ORDERED: fentaNYL citrate 100 MCG/2 ML VIAL ONE (17:02)
[2020-10-13] MEDS ORDERED: MIDAZOLAM HCL 1 MG/ML 2ML VIAL ONE (17:02)
[2020-10-13] MEDS ORDERED: ONDANSETRON INJ 2 MG/ML 2 ML VIAL ONE ×2 (17:07→17:40)
[2020-10-13] MEDS ORDERED: LIDOCAINE 2% 2 ML VIAL/AMP(20MG/ML) INFIL ONE (17:07)
[2020-10-13] MEDS ORDERED: SUCCINYLCHOLINE CHLORIDE 20 MG/ML 10 ML VIAL IV ONE (17:07)
[2020-10-13] MEDS ORDERED: BUPIVACAINE 0.25% 30 ML VIAL ONE (17:27)
[2020-10-13] MEDS ORDERED: EPINEPHrine INJ 1 MG/ML AMP ONE (17:27)
--- NOTE | 2020-10-13 17:41 | Anesthesiology Consultation ---
Date of Service October 13, 2020 Assessment & Plan (1) Encounter for pre-operative examination: Chart Review Chart Review: Acceptable Risk for Surgery and Patient NOT seen in Pre Admission Testing Consults Requested none ASA [id number] Proposed Anesthesia Anesthesia Type: General (+RSI) Risk / Benefits Reviewed With: PT / POA / Parent / Guardian, Accepts Plan and Informed Consent Obtained History Surgery Operation Date: 10/13/20 11:05 Proposed Procedures p Closed Reduction Right Knee I & D - Aime Hayes, Height/Weight Height: 5 ft 4 in Weight: 54.6 kg Allergies Allergy/AdvReac Type Severity Reaction Status Date / Time Penicillins Allergy Severe SWELLING Verified 10/13/20 14:13 OF EYES, HIVES & RASH hydrocodone AdvReac Unknown NAUSEA AND Verified 10/13/20 14:13 VOMITING Medications Home Medications Medication Instructions Recorded Confirmed Last Taken magnesium 250 mg tablet 250 mg PO DAILY 12/02/17 10/13/20 Unknown medical marijuana 1 applic TOPICAL UD 04/27/19 10/13/20 Unknown cholecalciferol (vitamin D3) 25 25 mcg PO DAILY 05/16/20 10/13/20 Unknown mcg (1,000 unit) capsule gabapentin 300 mg capsule 600 mg PO TID 10/13/20 10/13/20 Unknown Active Medications Generic Name Dose Route Start Last Admin Trade Name Freq PRN Reason Stop Dose Admin Sodium Chloride 500 mls @ 80 mls/hr 10/13/20 14:00 10/13/20 14:24 Nss IV 11/12/20 13:59 80 mls/hr .[id number] MARGARETH Administration Past Medical History Medical History Acute chest pain Chest pain Elbow fracture, left Elbow fracture, right Elevated blood pressure reading Femur open fracture, right Foot pain, left Generalized weakness Hypermagnesemia Leg fracture, left Lumbar pain Lumbar radiculopathy Myofascial pain Osteoarthritis of spine with radiculopathy, cervical region Pelvis fracture Piriformis syndrome Right hip pain Sciatica associated with disorder of lumbar spine Spondylosis without myelopathy or radiculopathy, lumbar region Tibia/fibula fracture Traumatic arthritis of right hip Exercise / Class Metabolic Activity II 4-5 Yardwork/Stairs/Walk up hill Past Surgical History Surgical History History of back surgery History of lumbar laminectomy for spinal cord decompression History of total left hip arthroplasty History of total right hip arthroplasty Postoperative state (03/31/13) Past Anesthesia History No Hx of Anesthesia Complications and No Family Hx of Anesthesia Complications History of PONV No Hx of PONV and No Hx of Motion Sickness Social History Smoking Status: Never smoker Hx Alcohol Use: No Hx Substance Use: Yes (THC) Physical Exam Vital Signs Last Vital Signs Temp 37.2 C 10/13/20 17:18 Pulse 65 10/13/20 17:18 Resp 18 10/13/20 17:18 BP 148/91 H 10/13/20 17:18 Pulse Ox 99 10/13/20 17:18 ENMT Mouth: no dentition abnormality Thyromental Distance: > or= 3.5 Finger Breadths Mallampati Class: II Neck normal visual inspection Respiratory normal respiratory effort Auscultation: lungs clear to auscultation bilaterally Cardiovascular Rate/Rhythm: regular rate and regular rhythm Psychiatric Orientation: alert Testing Laboratory Results 10/13/20 14:21 10/13/20 14:21 PT 10.3 Seconds (9.0-12.0) 10/13/20 14: INR 1.0 (0.9-1.1) 10/13/20 14:21 APTT 24.8 Seconds (21.0-31.0) 10/13/20 14:21
--- NOTE | 2020-10-13 17:43 | History & Physical Report ---
Date of Service October 13, 2020 Assessment & Plan (1) Open wound of leg: I talked to her and her son about the diagnosis and treatment options. This will likely require a revision type of surgery. This may also require future plastics intervention. These are some procedures we will offer at this institution. However, she has a very large open wound on her right leg and I think it is best to take her to the operating room to perform a irrigation debridement and closed reduction. I discussed this with the [facility] orthopedist at the tertiary care facility and he was in agreement with this and we will likely keep her overnight tonight and then transfer her to [facility] tomorrow. Her and her son understand the risk, benefits, and alternatives to procedure elected to proceed. Questions were answered at bedside and consents were signed. The decision was made for surgery. History of Present Illness Chief Complaint: Open periprosthetic fracture dislocation of the right knee. Primary Care Provider: Jacek Jeffery DO Gillette is a pleasant 75-year-old female who underwent a right total knee arthroplasty by Dr. Gaytan in 2003. She had a [place] Scorpio prosthesis. She is a community ambulator without assistance. She lives with her son. She was in her usual state of health today when she tripped and fell directly onto her right knee. She sustained an open fracture dislocation of her right knee. The prosthesis dislocated and the tibial tuberosity fractured off the tibia. There is a large anterior skin tear and the implant is exposed. She came to the emergency room and orthopedics was consulted to evaluate and treat.. Allergies Allergy/AdvReac Type Severity Reaction Status Date / Time Penicillins Allergy Severe SWELLING Verified 10/13/20 14:13 OF EYES, HIVES & RASH hydrocodone AdvReac Unknown NAUSEA AND Verified 10/13/20 14:13 VOMITING Home Medications Medication Instructions Recorded Confirmed Type magnesium 250 mg tablet 250 mg PO DAILY 12/02/17 10/13/20 History medical marijuana 1 applic TOPICAL UD 04/27/19 10/13/20 History cholecalciferol (vitamin D3) 25 25 mcg PO DAILY 05/16/20 10/13/20 History mcg (1,000 unit) capsule gabapentin 300 mg capsule 600 mg PO TID 10/13/20 10/13/20 History Past Med/Surg History Medical History Acute chest pain Chest pain Elbow fracture, left Elbow fracture, right Elevated blood pressure reading Femur open fracture, right Foot pain, left Generalized weakness Hypermagnesemia Leg fracture, left Lumbar pain Lumbar radiculopathy Myofascial pain Osteoarthritis of spine with radiculopathy, cervical region Pelvis fracture Piriformis syndrome Right hip pain Sciatica associated with disorder of lumbar spine Spondylosis without myelopathy or radiculopathy, lumbar region Tibia/fibula fracture Traumatic arthritis of right hip Surgical History History of back surgery History of lumbar laminectomy for spinal cord decompression History of total left hip arthroplasty History of total right hip arthroplasty Postoperative state (03/31/13) Social History Smoking Status: Never smoker Hx Alcohol Use: No Hx Substance Use: Yes (THC) Preferred Language: Citizen Of [place] Visual Impairment: No Limitations Hearing Ability: Normal marital status: Current Living Situation: Family Current Living Situation Comment: lives with son current occupational status: disabled Feels Safe at Home: Yes Review of Systems All systems reviewed & are unremarkable except as noted in HPI & below. Physical Exam Physical examination the right knee, she is locked at 90 degrees. There is a large anterior skin tear and the prosthesis is fully exposed. She does have distal pulses.. Constitutional WD/WN, vitals as above Eyes PERRL, conjunctivae normal, anicteric sclerae ENMT external ear and nose normal, oropharynx normal Neck trachea midline, no thyromegaly Respiratory normal respiratory effort Cardiovascular RRR, no murmur, no edema Gastrointestinal (Abdomen) normal bowel sounds, soft, nontender, no hepatosplenomegaly Psychiatric A+Ox3, euthymic affect Results & Data Results & Data Laboratory Results . Diagnostic Findings X-rays of the right knee show a constrained right total knee arthroplasty with an anterior tibial dislocation and a fracture of the tibial tuberosity.. PG Care Time/CCT Total # of Minutes Spent Total Time Spent with Patient: Total time spent is greater than 50% in coordination of care (as documented) at patient's floor/unit and/or counseling patient: Coding Level of Care Code 39767 Initial Inpt Care Lvl 3 (57 - DECISION FOR SURGERY) Diagnoses Open wound of leg S81.809A
[2020-10-13] MEDS ORDERED: ePHEDrine sulfate 50 MG/ML SYR ONE (18:07)
[2020-10-13] MEDS ORDERED: VANCOMYCIN CONSULT ACTIVE PRN (19:19)
--- NOTE | 2020-10-13 19:30 | Operative Report ---
PG Post Operative Report Pre & Post Diagnosis Operation Date: 10/13/20 11:05 Pre-Op Diagnosis: Right open paraprosthetic fracture dislocation knee Post-Op Diagnosis: Right open paraprosthetic fracture dislocation knee I identified the patient and participated in the time-out.: Yes Procedure Operation Date: 10/13/20 11:05 Actual Procedures p Right Knee Irrigation and Debridement, Closed Reduction, Open Knee Dislocation - Aime Hayes DO Surgeon Aime Hayes DO Shoe Dyer None Estimated Blood Loss 5 Findings Consistent with Post-Op Diagnosis Specimens None Complications none Disposition Disposition: Recovery Room Indications eLta is a 75-year-old female who had a right knee replacement done by Dr. Gaytan in 2003. She was in her usual state of health until this evening when she tripped and fell. She sustained an open fracture dislocation of the right knee. She came to the emergency room. Orthopedics was consulted. The decision was made to go to the operating room to do an irrigation and debridement with a closed reduction of the right knee. Description of Procedure On October 13, 2020 Leta was brought from the emergency room to the preoperative holding area. The operative extremity was identified and signed. She was taken back the operating room and laid on the table in supine position. She was put under general anesthesia. The right knee was prepped and draped in sterile fashion. A timeout was done. The patient and the operative extremity was properly identified. Through manual manipulation the fractured tibial tubercle was lifted out from behind the polyethylene post and the knee was reduced. Once the knee was reduced any loose soft tissue fragments were removed. The knee was then irrigated with 9 L of normal saline solution with pulse lavage. I was able to mostly reduce the fracture but I did not fixate the fracture at this point. The decision already been made to transfer to a tertiary care facility for this part of the procedure. Once the joint had been properly cleaned, the large skin tear was closed with 3-0 nylon suture. She was then placed in a soft dressing and a knee immobilizer. She was then extubated and transferred to a [facility]. She was taken to the post anesthesia care unit in stable condition. She tolerated the procedure well. I attest to the content of the Intraoperative Record and any orders documented therein. Any exceptions are noted below.
--- NOTE | 2020-10-13 20:47 | Pharmacy Report ---
Pharmacy Vanc AUC Short Note - Date of Service October 13, 2020 - Assessment & Plan Assessment 75 year old F receiving vancomycin for treatment of fracture with exposed prothesis. Pertinent microbiologic data includes: N/A Day # 1 of antimicrobial therapy. Plan Vancomycin * AUC/VAMSI is the preferred PK/PD target for vancomycin * AUC guided dosing is effective and associated with decreased risk of nephrotoxicity compared to traditional trough targets * Start dose of 750 mg IV every 12 hours after vancomycin 1250 mg IV x 1 * Trough to be ordered based upon clinical picture Pharmacy will continue to follow and will adjust dose/frequency as necessary. Thank you.
[2020-10-13] MEDS ORDERED: VANCOMYCIN HCL 1,250 MG in SODIUM CHLORIDE 0.9% 250 ML IV ONE (21:00)
[2020-10-13] MEDS: ONDANSETRON INJ 2 MG/ML 2 ML VIAL IV PRN (21:01)
[2020-10-13] MEDS: SODIUM CHLORIDE 0.9% 1000ML 1,000 ML IV SCH (21:02)
--- NOTE | 2020-10-13 21:29 | Anesthesiology Progress Note ---
Date of Service October 13, 2020 Anesthesia Post Procedure Vital Signs Vital Signs: Temp Pulse Pulse Pulse Resp BP BP 10/13/20 20:55 36.3 C L 65 16 162/82 H 10/13/20 20:25 36.3 C L 73 16 136/64 10/13/20 19:55 36.4 C L 67 15 150/72 H 10/13/20 19:45 63 15 152/74 H 10/13/20 19:35 76 20 126/66 10/13/20 19:25 73 19 141/69 H 10/13/20 19:15 72 17 152/74 H 10/13/20 19:05 72 13 134/67 10/13/20 18:49 36.0 C L 85 14 156/75 H 10/13/20 17:18 37.2 C 65 18 148/91 H 10/13/20 17:00 60 175/83 H 10/13/20 16:30 63 168/81 H 10/13/20 16:00 65 164/82 H 10/13/20 15:30 82 164/117 H 10/13/20 15:00 112 H 176/102 H 10/13/20 14:30 66 181/77 H 10/13/20 14:00 76 193/84 H 10/13/20 13:55 36.6 C 70 20 213/92 H 10/13/20 13:52 78 213/92 H Pulse Ox 10/13/20 20:55 99 10/13/20 20:25 96 10/13/20 19:55 100 10/13/20 19:45 99 10/13/20 19:35 100 10/13/20 19:25 92 10/13/20 19:15 100 10/13/20 19:05 100 10/13/20 18:49 100 10/13/20 17:18 99 10/13/20 17:00 100 10/13/20 16:30 100 10/13/20 16:00 10/13/20 15:30 99 10/13/20 15:00 99 10/13/20 14:30 99 10/13/20 14:00 99 10/13/20 13:55 100 10/13/20 13:52 100 Pain Intensity Right Leg: Pain Intensity: 3 Transfer of Care Handoff Completed per policy Notes Mental Status: alert / awake / arousable Patient Amnestic to Procedure: Yes Nausea / Vomiting: adequately controlled Pain: adequately controlled Airway Patency, RR, SpO2: stable & adequate BP & HR: stable & adequate Hydration State: stable & adequate Anesthetic Complications: no major complications apparent
[2020-10-13] MEDS: ASPIRIN 81 MG ECTAB PO SCH (22:20)
[2020-10-13] MEDS: traMADol HCL 50 MG TABLET PO SCH (23:28)
[2020-10-14] MEDS: traMADol HCL 50 MG TABLET PO SCH ×4 (05:42→23:27)
[2020-10-14] MEDS: ONDANSETRON INJ 2 MG/ML 2 ML VIAL IV PRN ×2 (05:46→13:17)
[2020-10-14] MEDS: SODIUM CHLORIDE 0.9% 1000ML 1,000 ML IV SCH (06:18)
--- NOTE | 2020-10-14 08:56 | Orthopedic Progress Note ---
Date of Service October 14, 2020 Assessment & Plan (1) Open fracture dislocation of knee joint: At this point her knee is stable. She will need an open reduction internal fixation of the right tibial tuberosity fracture. She will also probably need subsequent washouts of the right knee joint to ensure it does not become infected. She is currently on IV vancomycin. A transfer to [facility] is already been set up. She is orthopedically stable for discharge to [facility]. She is to be nonweightbearing on her right knee for now. Debo Gillette was seen and examined at bedside this morning. Overall she is feeling much better. Her knee does not hurt her as much. She was able to get some sleep last night. She has no complaints.. Review of Systems All systems reviewed & are unremarkable except as noted in HPI & below. Physical Exam On physical examination of the right knee, the dressing is clean and dry the knee immobilizer is in place. She has active dorsiflexion plantarflexion of her right ankle. Sensation is intact.. Results & Data Results & Data Laboratory Results . Diagnostic Findings . PG Care Time/CCT Total # of Minutes Spent Total Time Spent with Patient: Total time spent is greater than 50% in coordination of care (as documented) at patient's floor/unit and/or counseling patient: Coding Level of Care Code 77952 Post Operative Follow-Up Diagnoses Open fracture dislocation of knee joint
--- NOTE | 2020-10-14 08:59 | Discharge Summary ---
Date of Service October 14, 2020 Admission HPI (Per Admitting) Leta is a pleasant 75-year-old female who underwent a right total knee arthroplasty by Dr. Gatyan in 2003. She had a [place] Scorpio prosthesis. She is a community ambulator without assistance. She lives with her son. She was in her usual state of health today when she tripped and fell directly onto her right knee. She sustained an open fracture dislocation of her right knee. The prosthesis dislocated and the tibial tuberosity fractured off the tibia. There is a large anterior skin tear and the implant is exposed. She came to the emergency room and orthopedics was consulted to evaluate and treat.. Admission Exam (Per Admitting) Physical examination the right knee, she is locked at 90 degrees. There is a large anterior skin tear and the prosthesis is fully exposed. She does have distal pulses.. Principal Diagnosis Same as "Discharge Diagnosis" noted below under Discharge Instructions. Discharge Exam On physical examination of the right knee, the dressing is clean and dry the knee immobilizer is in place. She has active dorsiflexion plantarflexion of her right ankle. Sensation is intact.. Discharge Data Consultations 10/14/20 08:52 Burn CD for patient Routine Procedures Performed Operation Date: 10/13/20 11:05 Actual Procedures p Right Knee Irrigation and Debridement, Closed Reduction, Open Knee Dislocation - Aime Hayes DO Hospital Course (1) Open fracture dislocation of knee joint: On October 13, 2020 Leta arrived at [facility] emergency room with an open fracture dislocation of her right knee. She had a right knee replacement done [address] Gaytan. She fell and fractured the proximal tibia and it was displaced behind the tibial component of the prosthesis. The knee prosthesis was fully exposed. After informed consent, I took her to the emergency room and did an open reduction with irrigation of the right knee. I was able to stabilize the injury. I also spoke with [facility] and a agreed to take the patient for further treatment. She stayed overnight in the hospital on IV vancomycin. The following day she was then discharged to [facility] in a knee immobilizer. PG Care Time/CCT Total # of Minutes Spent Total Time Spent with Patient: Total time spent is greater than 50% in coordination of care (as documented) at patient's floor/unit and/or counseling patient: Discharge Plan Discharge Items Patient Disposition: Transfer Acute Care Hospital Reason For Visit: OPEN FRACTURE DISLOCATION OF RIGHT KNEE Discharge Diagnosis: Open fracture dislocation of the right knee Activity: As commented below Non-emergency contact: Surgeon Call non-emergency contact if: your wound has increased redness and your wound has increased drainage Follow-up/Referrals: Jacek Jeffery DO [Primary Care Provider] - Diet: Regular Addtl Attending Provider Instructions: Remain in right knee immobilizer at all times Nonweightbearing for now Pending Studies at Discharge: No Stand-Alone Forms: My [facility] Skilled Items Patient informed of condition?: Yes DNR: No Discharge Level of Care: Other Communicable Disease: No Discharge Prognosis: Stable Lines: None Urinary Catheter: No Medications and DC Order Prescriptions: Continued magnesium 250 mg tablet 250 mg PO DAILY RF: 0 medical marijuana 1 applic topical UD RF: 0 cholecalciferol (vitamin D3) 25 mcg (1,000 unit) capsule 25 mcg PO DAILY RF: 0 gabapentin 300 mg capsule 600 mg PO TID RF: 0 Discharge Orders: Discharge Order (Routine); Ordered 10/14/20 Ordered By: Aime Hayes Admission Data Admit Date/Time: 10/13/20 19:20 Attending Provider: Aime Hayes Admit Provider: Aime Hayes Primary Care Provider: Jacek Jeffery
[2020-10-14] MEDS: VANCOMYCIN HCL 750 MG in SODIUM CHLORIDE 0.9% 250 ML IV SCH ×2 (09:44→20:21)
[2020-10-14] MEDS: ASPIRIN 81 MG ECTAB PO SCH ×2 (09:44→19:58)
[2020-10-14] MEDS: GABAPENTIN 600 MG TAB PO SCH ×2 (15:57→19:58)
[2020-10-14] MEDS: IBUPROFEN 600 MG TAB PO PRN (22:53)
[2020-10-15] MEDS: traMADol HCL 50 MG TABLET PO SCH ×3 (05:07→12:29)
--- NOTE | 2020-10-15 08:12 | Orthopedic Progress Note ---
Date of Service October 15, 2020 Assessment & Plan (1) Open fracture dislocation of knee joint: Overall she is doing fairly well. She is not any much pain in the right knee. She is on IV vancomycin for antimicrobial prophylaxis. She is on aspirin twice a day for DVT prophylaxis. She is nonweightbearing for now. We are awaiting transfer to [facility] for possible repeat I&D's of the knee and fixation of the tibial fracture. Debo Gillette was seen and examined at bedside this morning. Unfortunate she was unable to be transferred to [facility] yesterday. She is not having much pain in the knee. She is comfortable. She is in good spirits. She has no complaints.. Review of Systems All systems reviewed & are unremarkable except as noted in HPI & below. Physical Exam On physical examination of the right knee, the knee immobilizer is in place. Her foot is warm. She has active dorsiflexion plantarflexion of her right ankle.. Results & Data Results & Data Laboratory Results . Diagnostic Findings . PG Care Time/CCT Total # of Minutes Spent Total Time Spent with Patient: Total time spent is greater than 50% in coordination of care (as documented) at patient's floor/unit and/or counseling patient: Coding Level of Care Code 01369 Post Operative Follow-Up Diagnoses Open fracture dislocation of knee joint
[2020-10-15] MEDS: VANCOMYCIN HCL 750 MG in SODIUM CHLORIDE 0.9% 250 ML IV SCH (09:21)
[2020-10-15] MEDS: ASPIRIN 81 MG ECTAB PO SCH (09:21)
[2020-10-15] MEDS: GABAPENTIN 600 MG TAB PO SCH (09:21)
--- NOTE | 2020-10-15 10:07 | Pharmacy Report ---
Pharmacy Abx Dose Short Note - Date of Service October 15, 2020 - Assessment & Plan Assessment 75 year old F receiving Vancomcyin for fracture with exposed prothesis. Day # 3 Plan * Transfer to [facility] was not done yesterday. * Still awaiting possible transfer today. Ordered Vanco trough in case patient is still here this evening to assess therapy. Pharmacy will continue to follow and will adjust dose/frequency as necessary. Thank you.
[2020-10-15] MEDS: IBUPROFEN 600 MG TAB PO PRN (12:17)
[2020-10-15] MEDS: ONDANSETRON INJ 2 MG/ML 2 ML VIAL IV PRN (12:29)
[2020-10-15] MEDS ORDERED: VANCOMYCIN TROUGH ONE (20:30)
--- NOTE | 2020-10-16 10:09 | Electrocardiogram Report ---
Test Reason : Blood Pressure : / mmHG Vent. Rate : 066 BPM Atrial Rate : 066 BPM P-R Int : 128 ms QRS Dur : 092 ms QT Int : 454 ms P-R-T Axes : 065 004 074 degrees QTc Int : 475 ms Normal sinus rhythm Normal ECG When compared with ECG of 24-MAR-2016 14:42, No significant change Confirmed by Xavi Draper ([id number]) on 10/16/2020 10:09:04 AM Referred By: REFERRED SELF Confirmed By:Xavi Draper
== END 2020-10-15 12:53 | disposition short-term general hospital (02) ==
LOC: ED 13:41 → 3W 17:17 → OR 17:17

== ENCOUNTER 2022-02-01 12:47 | Inpatient (IN) ==
[2022-02-01 14:34] LABS: Basophils # (auto) 0.03 K/uL (0-0.2); Basophils % (auto) 0.2 %; Eosinophils # (auto) 0.03 K/uL (0-0.50); Eosinophils % (auto) 0.2 %; Hemoglobin 13.8 g/dl (12.0-16.0); Immature Granulocytes # (auto) 0.03 K/uL (0.00-0.02); Immature Granulocytes % (auto) 0.2 %; Lymphocytes # (auto) 0.94 K/uL (1.2-3.4); Lymphocytes % (auto) 7.4 %; Mean Corpuscular Hemoglobin 31.9 pg (25.0-34.0); Mean Corpuscular Hgb Conc 33.7 g/dL (32.0-36.0); Mean Corpuscular Volume 94.9 fL (80.0-100.0); Mean Platelet Volume 9.3 fL (9.4-12.3); Monocytes # (auto) 0.82 K/uL (0.24-0.82); Monocytes % (auto) 6.5 %; Neutrophils # (auto) 10.82 K/uL (1.4-6.5); Neutrophils % (auto) 85.5 %; Platelet Count 229 K/uL (130-400); RDW Coefficient of Variation 12.8 % (11.5-14.5); RDW Standard Deviation 45.1 fL (36.4-46.3); Red Blood Count 4.32 M/uL (3.93-5.22); White Blood Count 12.67 K/ul (4.8-10.8)
[2022-02-01 14:37] LABS: Appearance Urine Turbid (Clear); Bacteria Urine Automated 4+ (Negative); Bilirubin Urine Negative (Negative); Blood Urine 3+ (Negative); Color Urine Yellow; Epithelial Cell Urine Auto 20-30 /lpf (0-5); Glucose Urine UA Negative (Negative); Ketones Urine Negative (Negative); Leukocyte Esterase Urine 3+ (Negative); Nitrite Urine Positive (Negative); Protein Urine 2+ (Negative); RBC Urine Automated >30 /hpf (0-4); Specific Gravity Urine 1.019 (1.000-1.030); Urobilinogen Urine Negative (Negative); WBC Urine Automated >30 /hpf (0-5)
[2022-02-01 14:52] LABS: Albumin Globulin Ratio 1.3 (0.9-2); Albumin Level 4.1 gm/dl (3.4-5.0); BUN Creatinine Ratio 25.7 (10-20); Bilirubin,Total 0.6 mg/dl (0.2-1.0); Creatinine Clr Calc Pharmacy 49.2 ml/min; Est GFR (African American) 96.2 ml/min; Globulin 3.1 gm/dl (2.5-4.0); Potassium 4.4 mmol/L (3.5-5.1); Total Protein 7.2 gm/dl (6.0-8.3)
[2022-02-01] MEDS ORDERED: ACETAMINOPHEN 325 MG TAB PO STA (15:35)
[2022-02-01] MEDS ORDERED: cefTRIAXone SODIUM 2,000 MG/70 ML BAG IV STA (15:35)
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
[2022-02-01] MEDS ORDERED: SODIUM CHLORIDE 0.9% 1000ML 1,000 ML IV ONE (15:36)
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
[2022-02-01] MEDS ORDERED: VANCOMYCIN CONSULT ACTIVE PRN (17:50)
--- NOTE | 2022-02-01 18:22 | XRay Report ---
RIGHT KNEE 3 VIEWS CLINICAL HISTORY: Atraumatic right knee pain FINDINGS: AP, crosstable lateral, and sunrise views of the right knee are compared to study dated 09/25. The skeletal structures are osteopenic. No fracture is seen. A hinged right knee arthroplasty is in near anatomic alignment. There has been undersurface remodeling of the patella. No periprosthe tic lucency is seen. There is a joint effusion. Soft tissue swelling is seen around the knee. Posttra umatic change is partially visualized involving distal femoral shaft with a buttress plate partially imaged along the lateral cortex. IMPRESSION: 1. Soft tissue swelling and joint effusion with no acute bony abnormality identified. 2. A right knee arthroplasty is in near anatomic alignment. 3. Additional posttraumatic and postoperative changes as above. Electronically signed by: Shashank Mendieta M.D. 02/01/2022 6:20 PM
[2022-02-01] MEDS ORDERED: OPTIRAY 350 100ml IV ONE (18:45)
[2022-02-01] MEDS ORDERED: ACETAMINOPHEN 325 MG TAB PO PRN (18:55)
[2022-02-01] MEDS ORDERED: VANCOMYCIN HCL 1,000 MG in SODIUM CHLORIDE 0.9% 250 ML IV SCH (20:30)
--- NOTE | 2022-02-01 21:00 | CT Scan Report ---
CT SCAN OF THE RIGHT KNEE WITH IV CONTRAST CLINICAL HISTORY: Right knee swelling. COMPARISON STUDY: Radiographs of the right knee dated 02/01/2022. TECHNIQUE: Following the IV administration of 86 cc of Optiray 350, CT scan of the right knee is perf ormed from distal femur to the proximal tibia and fibula. Images reviewed in the axial, sagittal, and coronal planes. IV contrast was administered without complication. A dose lowering technique was uti lized adhering to the principles of ALARA. The examination is severely degraded by metallic artifact from a right knee arthroplasty and a buttress plate along the distal femur. This compromises diagnost ic utility. CT DOSE: 341.20 mGycm FINDINGS: The skeletal structures are heterogeneously osteopenic. There is chronic posttraumatic defo rmity of the distal femoral shaft with a buttress plate along the lateral cortex. There is also chron ic posttraumatic deformity of the proximal tibia. A right knee arthroplasty is in place. There has be en undersurface remodeling of the patella. Question periprosthetic lucency around the tibial componen t of the arthroplasty, greatest anteriorly. Surgical anchors are present in the anterior cortex of th e proximal tibia. No acute fracture is clearly identified. The joint space cannot be evaluated. Mild soft tissue swelling is present around the knee and in the upper calf. No organized fluid collection is seen to indicate abscess. There is generalized atrophy of the regional musculature. There is an in traluminal filling defect suggested within the popliteal vein. IMPRESSION: 1. The examination is severely degraded by metallic artifact from a right knee arthroplasty and a but tress plate in the distal femur. This compromises diagnostic utility. 2. There is an apparent intraluminal filling defect within the popliteal vein. This may be artifactua l. Consider a venous ultrasound to assess for deep venous thrombosis. 3. No acute bony abnormality is identified. 4. Periprosthetic lucency is suggested around the tibial component of the arthroplasty. Loosening is not excluded. 5. Nonspecific soft tissue edema is present around the knee and the upper calf. Correlate clinically for evidence of cellulitis. 6. No organized/drainable fluid collection is seen to suggest abscess. 7. The joint space cannot be evaluated. ACT 112: Negative or not required by law. Dictated: 02/01/2022 7:11 PM Transcribed: 02/01/2022 7:37 PM Britany [id number] [facility] Electronically signed by: Shashank Mendieta M.D. 02/01/2022 8:58 PM
[2022-02-01] MEDS: FERROUS SULFATE 325 MG TAB PO SCH (21:10)
[2022-02-01] MEDS: GABAPENTIN 600 MG TAB PO SCH (21:11)
[2022-02-02] MEDS ORDERED: IBUPROFEN 200 MG TAB PO STA (04:01)
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
[2022-02-02 07:58] LABS: Hematocrit (blood only) 37.3 % (34.1-44.9); Hemoglobin 12.3 g/dl (12.0-16.0); Mean Corpuscular Hemoglobin 31.5 pg (25.0-34.0); Mean Corpuscular Volume 95.6 fL (80.0-100.0); Mean Platelet Volume 9.2 fL (9.4-12.3); Platelet Count 194 K/uL (130-400); RDW Coefficient of Variation 12.9 % (11.5-14.5); RDW Standard Deviation 45.1 fL (36.4-46.3); White Blood Count 7.34 K/ul (4.8-10.8)
[2022-02-02] MEDS: GABAPENTIN 600 MG TAB PO SCH ×3 (08:19→20:17)
[2022-02-02] MEDS: FERROUS SULFATE 325 MG TAB PO SCH ×2 (08:19→20:17)
[2022-02-02] MEDS: CHOLECALCIFEROL 1,000 UNITS 25 MCG TAB PO SCH (08:21)
[2022-02-02] MEDS: CYANOCOBALAMIN (B-12) 500 MCG TABLET PO SCH (08:21)
[2022-02-02] MEDS: MAGNESIUM OXIDE 400 MG TAB PO SCH (08:22)
[2022-02-02 08:29] LABS: BUN Creatinine Ratio 19.4 (10-20); Creatinine Clr Calc Pharmacy 51.6 ml/min; Est GFR (African American) 97.6 ml/min; Est GFR (Non-African American) 84.2 ml/min; Potassium 3.8 mmol/L (3.5-5.1)
[2022-02-02 08:51] LABS: Appearance Synovial Fluid Cloudy; Color Synovial Fluid Pale Yellow; Mononuclear WBC Synovial 3.6 %; Polynuclear WBC Synovial 96.4 %; RBC Synovial Fluid Auto 10000 /uL; Source Synovial Fluid Right Knee; WBC Synovial Fluid Auto 61090 /ul (0-200)
--- NOTE | 2022-02-02 10:47 | Ultrasound Report ---
BILATERAL LOWER EXTREMITY VENOUS DOPPLER CLINICAL HISTORY: Lower extremity edema. Evaluate for deep venous thrombus. COMPARISON STUDY: No previous studies for comparison. TECHNIQUE: Sonography of the deep venous system of the bilateral lower extremities was performed. Co mpression and augmentation were evaluated. FINDINGS: The bilateral common femoral, superficial femoral and popliteal veins were compressible. A ugmentation was normal. Flow was shown within the deep calf vessels. IMPRESSION: No evidence of deep venous thrombus within the bilateral lower extremities. ACT 112: Negative or not required by law. Electronically signed by: Christoph Loco M.D. 02/02/2022 10:45 AM
--- NOTE | 2022-02-02 13:02 | Hospitalist Progress Note ---
Date of Service February 02, 2022 Assessment & Plan (1) Right knee pain: Plan: Right knee septic arthritis versus cellulitis: Complex past surgical history of right knee. Had right knee replacement in 2003; sustained open fracture dislocation of right knee in 2020. Underwent full revision of right knee replacement in [facility]. Presents with pain, swelling and overlying erythema of right knee. Leukocytosis present on admission. CRP and ESR mildly elevated. Venous duplex did not show any evidence of DVT Joint aspiration done on 02/02/2022; bili undersigned revealed: With 61,000 WBC with 96% polymorphonuclear cell and 10,000 RBC Gram stain and culture pending Plan; Continue on vancomycin for now; we will follow-up on culture and sensitivity results from microbiology. We will follow-up on recommendation by orthopedic. (2) Urinary tract infection: Plan: Started on ceftriaxone Urine culture gram-negative bacilli Await final culture and sensitivity. Plan Chronic conditions; Neuropathycontinue on gabapentin. DVT PPX on hold for possible DNR/DNI Admission and Anticipated Discharge Date Admission Date: February 01, 2022 Subjective Patient seen and examined at bedside. She reports improvement in pain and swelling of her right knee. She also reports improvement in her UTI symptoms. She underwent joint aspiration today by orthopedic. Review of Systems Review of Systems: All systems reviewed & are unremarkable except as noted in Subjective Physical Exam Physical Exam: General:She is alert oriented x3; not in any distress Chestbilateral vesicular breath sound CVSS1-S2 no murmur Abdomensoft nontender, BS =nt Extremitiesright kneeswelling present in superior aspect; redness improved compared to yesterday. ROM less painful. Skin-no rash. Neuro- grossly intact Results & Data Results & Data ([facility]) Vital Signs (Past 12 Hours) Vital Signs Temp Pulse Resp BP Pulse Ox O2 Del Method 02/02/22 07:42 36.6 C 61 16 126/63 96 Room Air Laboratory Results Laboratory Results WBC 7.34 K/ul (4.8-10.8) 02/02/22 07:32 RBC 3.90 M/uL (3.93-5.22) L 02/02/22 07:32 Hgb 12.3 g/dl (12.0-16.0) 02/02/22 07:32 Hct 37.3 % (34.1-44.9) 02/02/22 07:32 MCV 95.6 fL (80.0-100.0) 02/02/22 07:32 MCH 31.5 pg (25.0-34.0) 02/02/22 07:32 MCHC 33.0 g/dL (32.0-36.0) 02/02/22 07:32 RDW Std Deviation 45.1 fL (36.4-46.3) 02/02/22 07:32 RDW Coeff of Corby 12.9 % (11.5-14.5) 02/02/22 07:32 Plt Count 194 K/uL (130-400) 02/02/22 07:32 MPV 9.2 fL (9.4-12.3) L 02/02/22 07:32 Immature Gran % (Auto) 0.2 % 02/01/22 14:17 Neut % (Auto) 85.5 % 02/01/22 14:17 Lymph % (Auto) 7.4 % 02/01/22 14:17 Appling % (Auto) 6.5 % 02/01/22 14:17 Eos % (Auto) 0.2 % 02/01/22 14:17 Baso % (Auto) 0.2 % 02/01/22 14:17 Neut # (Auto) 10.82 K/uL (1.4-6.5) H 02/01/22 14:17 Lymph # (Auto) 0.94 K/uL (1.2-3.4) L 02/01/22 14:17 Appling # (Auto) 0.82 K/uL (0.24-0.82) 02/01/22 14:17 Eos # (Auto) 0.03 K/uL (0-0.50) 02/01/22 14:17 Baso # (Auto) 0.03 K/uL (0-0.2) 02/01/22 14:17 Immature Gran # (Auto) 0.03 K/uL (0.00-0.02) H 02/01/22 14:17 ESR 50 mm/hr (0-30) H 02/01/22 14:17 Sodium 139 mmol/L (136-145) 02/02/22 07:32 Potassium 3.8 mmol/L (3.5-5.1) 02/02/22 07:32 Chloride 109 mmol/L (98-107) H 02/02/22 07:32 Carbon Dioxide 25 mmol/L (21-32) 02/02/22 07:32 Anion Gap 5 (3-11) 02/02/22 07:32 BUN 13 mg/dl (6-23) 02/02/22 07:32 Creatinine 0.67 mg/dl (0.6-1.2) 02/02/22 07:32 Est Cr Clr Drug Dosing 51.6 ml/min 02/02/22 07:32 Est GFR ( Amer) 97.6 ml/min 02/02/22 07:32 Est GFR (Non-Af Amer) 84.2 ml/min 02/02/22 07:32 BUN/Creatinine Ratio 19.4 (10-20) 02/02/22 07:32 Glucose 72 mg/dl (70-99(Fasting)) 02/02/22 07:32 Lactate 0.7 mmol/L (0.4-2.0) 02/01/22 17:46 Calcium 8.0 mg/dl (8.5-10.1) L 02/02/22 07:32 Total Bilirubin 0.6 mg/dl (0.2-1.0) 02/01/22 14:17 AST 24 U/L (13-39) 02/01/22 14:17 ALT 15 U/L (7-52) 02/01/22 14:17 Alkaline Phosphatase 91 U/L (34-104) 02/01/22 14:17 C-Reactive Protein 1.42 mg/dl (0-0.5) H 02/01/22 14:17 Total Protein 7.2 gm/dl (6.0-8.3) 02/01/22 14:17 Albumin 4.1 gm/dl (3.4-5.0) 02/01/22 14:17 Globulin 3.1 gm/dl (2.5-4.0) 02/01/22 14:17 Albumin/Globulin Ratio 1.3 (0.9-2) 02/01/22 14:17 Urine Color Yellow 02/01/22 14:17 Urine Appearance Turbid (Clear) A 02/01/22 14:17 Urine pH 6.0 (4.5-7.5) 02/01/22 14:17 Ur Specific Golden 1.019 (1.000-1.030) 02/01/22 14:17 Urine Protein 2+ (Negative) H 02/01/22 14:17 Urine Glucose (UA) Negative (Negative) 02/01/22 14:17 Urine Ketones Negative (Negative) 02/01/22 14:17 Urine Blood 3+ (Negative) H 02/01/22 14:17 Urine Nitrite Positive (Negative) A 02/01/22 14:17 Urine Bilirubin Negative (Negative) 02/01/22 14:17 Urine Urobilinogen Negative (Negative) 02/01/22 14:17 Ur Leukocyte Esterase 3+ (Negative) H 02/01/22 14:17 Urine WBC (Auto) >30 /hpf (0-5) H 02/01/22 14:17 Urine RBC (Auto) >30 /hpf (0-4) H 02/01/22 14:17 U Hyaline Cast (Auto) 1-5 /lpf (0-5) 02/01/22 14:17 U Epithel Cells (Auto) 20-30 /lpf (0-5) H 02/01/22 14:17 Urine Bacteria (Auto) 4+ (Negative) H 02/01/22 14:17 Urine Yeast Not Reportable 02/01/22 14:17 Fluid Comment 02/02/22 Unknown Synovial Source Right Knee 02/02/22 Unknown Synovial Color Pale Yellow 02/02/22 Unknown Synovial Appearance Cloudy 02/02/22 Unknown Synovial WBC (Auto) 40366 /ul (0-200) H 02/02/22 Unknown Synovial RBC (Auto) 93661 /uL 02/02/22 Unknown Synovial Polynuclear % 96.4 % 02/02/22 Unknown Synovial Mononuclear % 3.6 % 02/02/22 Unknown SARS-CoV-2, RNA, NAAT NEGATIVE (NEGATIVE) 02/01/22 16:25 Impressions Knee X-Ray 02/01/22 15:39 RIGHT KNEE 3 VIEWS CLINICAL HISTORY: Atraumatic right knee pain FINDINGS: AP, crosstable lateral, and sunrise views of the right knee are compared to study dated 10/13/2020. The skeletal structures are osteopenic. No fracture is seen. A hinged right knee arthroplasty is in near anatomic a lignment. There has been undersurface remodeling of the patella. No periprosthetic lucency is seen. There is a joint effusion. Soft tissue swelling is seen around the knee. Posttraumatic change is partially visualized involving distal femoral shaft with a buttress plate partially imaged along the lateral cortex. IMPRESSION: 1. Soft tissue swelling and joint effusion with no acute bony abnormality identified. 2. A right knee arthroplasty is in near anatomic alignment. 3. Additional posttraumatic and postoperative changes as above. Electronically signed by: Shashnak Mendieta M.D. 02/01/2022 6:[address] 02/01/22 17:36 CT SCAN OF THE RIGHT KNEE WITH IV CONTRAST CLINICAL HISTORY: Right knee swelling. COMPARISON STUDY: Radiographs of the right knee dated 02/01/2022. TECHNIQUE: Following the IV administration of 86 cc of Optiray 350, CT scan of the right knee is performed from distal femur to the proximal tibia and fibula. Images reviewed in the axial, sagittal, and coronal planes. IV contrast was administered without complication. A dose lowering technique was utilized adhering to the principles of ALARA. The examination is severely degraded by metallic artifact from a right knee arthroplasty and a buttress plate along the distal femur. This compromises diagnostic utility. CT DOSE: 341.20 mGycm FINDINGS: The skeletal structures are heterogeneously osteopenic. There is chronic posttraumatic deformity of the distal femoral shaft with a buttress plate along the lateral cortex. There is also chronic posttraumatic deformity of the proximal tibia. A right knee arthroplasty is in place. There has been undersurface remodeling of the patella. Question periprosthetic lucency around the tibial component of the arthroplasty, greatest anteriorly. Surgical anchors are present in the anterior cortex of the proximal tibia. No acute fracture is clearly identified. The joint space cannot be evaluated. Mild soft tissue swelling is present around the knee and in the upper calf. No organized fluid collection is seen to indicate abscess. There is generalized atrophy of the regional musculature. There is an intraluminal filling defect suggested within the popliteal vein. IMPRESSION: 1. The examination is severely degraded by metallic artifact from a right knee arthroplasty and a buttress plate in the distal femur. This compromises diagnostic utility. 2. There is an apparent intraluminal filling defect within the popliteal vein. This may be artifactual. Consider a venous ultrasound to assess for deep venous thrombosis. 3. No acute bony abnormality is identified. 4. Periprosthetic lucency is suggested around the tibial component of the arthroplasty. Loosening is not excluded. 5. Nonspecific soft tissue edema is present around the knee and the upper calf. Correlate clinically for evidence of cellulitis. 6. No organized/drainable fluid collection is seen to suggest abscess. 7. The joint space cannot be evaluated. ACT 112: Negative or not required by law. Dictated: 02/01/2022 7:11 PM Transcribed: 02/01/2022 7:37 PM Britany [id number] [facility] Electronically signed by: Shashank Mendieta M.D. 02/01/2022 8:58 PM Venous Doppler Study 02/02/22 08:17 BILATERAL LOWER EXTREMITY VENOUS DOPPLER CLINICAL HISTORY: Lower extremity edema. Evaluate for deep venous thrombus. COMPARISON STUDY: No previous studies for comparison. TECHNIQUE: Sonography of the deep venous system of the bilateral lower extremities was performed. Compression and augmentation were evaluated. FINDINGS: The bilateral common femoral, superficial femoral and popliteal veins were compressible. Augmentation was normal. Flow was shown within the deep calf vessels. IMPRESSION: No evidence of deep venous thrombus within the bilateral lower extremities. ACT 112: Negative or not required by law. Electronically signed by: Christoph Loco M.D. 02/02/2022 10:45 AM
[2022-02-02] MEDS: cefTRIAXone SODIUM 2,000 MG in DEXTROSE 5% 50 ML IV SCH (15:29)
[2022-02-02] MEDS: VANCOMYCIN HCL 1,000 MG in SODIUM CHLORIDE 0.9% 250 ML IV SCH (20:14)
[2022-02-02] MEDS ORDERED: diphenhydrAMINE Capsule 25 MG CAP PO ONE (22:58)
[2022-02-03] MEDS: CHOLECALCIFEROL 1,000 UNITS 25 MCG TAB PO SCH (07:29)
[2022-02-03] MEDS: MAGNESIUM OXIDE 400 MG TAB PO SCH (07:29)
[2022-02-03] MEDS: CYANOCOBALAMIN (B-12) 500 MCG TABLET PO SCH (07:29)
[2022-02-03] MEDS: FERROUS SULFATE 325 MG TAB PO SCH ×2 (07:29→20:47)
[2022-02-03] MEDS: GABAPENTIN 600 MG TAB PO SCH ×3 (07:29→20:47)
--- NOTE | 2022-02-03 08:08 | Orthopedic Progress Note ---
Date of Service February 03, 2022 Assessment & Plan (1) Septic joint of right knee joint: Unfortunately, the aspiration came back with 61,000 white count and 96% polys. This is diagnostic for infection of the right knee. She is currently on IV vancomycin and ceftriaxone. She is not having much pain in the right knee at this time. As already been revised and removing all of the hardware is unlikely. She will likely need chronic suppressive antibiotics for her right knee. I would recommend consulting infectious disease and following their recommendations for chronic suppressive antibiotics once the cultures come back. She may also want to follow-up with her knee replacement surgeon in [place] so that they are aware and for their agreement with the chronic suppressive antibiotics. Please feel free to contact me by [place] text or personally on my cell phone at [phone] Subjective Leta was seen and examined at bedside this morning. Overall she is doing fairly well and in good spirits. She is not having much pain in the right knee. She has no new complaints.. Review of Systems All systems reviewed & are unremarkable except as noted in HPI & below. Physical Exam On physical examination of the right knee, there is no effusion today. There is no redness or signs of infection. She has good range of motion.. Results & Data Results & Data Laboratory Results . Diagnostic Findings . PG Care Time/CCT Total # of Minutes Spent Total Time Spent with Patient: Total time spent is greater than 50% in coordination of care (as documented) at patient's floor/unit and/or counseling patient: Coding Level of Care Code 54045 Subseq Hosp Care Lvl 2 Diagnoses Septic joint of right knee joint M00.9
[2022-02-03 08:13] LABS: Basophils # (auto) 0.03 K/uL (0-0.2); Basophils % (auto) 0.5 %; Eosinophils # (auto) 0.34 K/uL (0-0.50); Eosinophils % (auto) 6.1 %; Hematocrit (blood only) 39.8 % (34.1-44.9); Hemoglobin 13.1 g/dl (12.0-16.0); Immature Granulocytes # (auto) 0.02 K/uL (0.00-0.02); Immature Granulocytes % (auto) 0.4 %; Lymphocytes # (auto) 1.28 K/uL (1.2-3.4); Lymphocytes % (auto) 22.9 %; Mean Corpuscular Hemoglobin 31.7 pg (25.0-34.0); Mean Corpuscular Hgb Conc 32.9 g/dL (32.0-36.0); Mean Corpuscular Volume 96.4 fL (80.0-100.0); Mean Platelet Volume 9.1 fL (9.4-12.3); Monocytes # (auto) 0.43 K/uL (0.24-0.82); Monocytes % (auto) 7.7 %; Neutrophils # (auto) 3.49 K/uL (1.4-6.5); Neutrophils % (auto) 62.4 %; Platelet Count 213 K/uL (130-400); RDW Coefficient of Variation 12.9 % (11.5-14.5); RDW Standard Deviation 45.9 fL (36.4-46.3); Red Blood Count 4.13 M/uL (3.93-5.22); White Blood Count 5.59 K/ul (4.8-10.8)
[2022-02-03 08:41] LABS: BUN Creatinine Ratio 18.8 (10-20); Calcium 8.2 mg/dl (8.5-10.1); Est GFR (African American) 99.1 ml/min; Est GFR (Non-African American) 85.5 ml/min; Potassium 4.3 mmol/L (3.5-5.1)
--- NOTE | 2022-02-03 11:27 | Hospitalist Progress Note ---
Date of Service February 03, 2022 Assessment & Plan (1) Right knee pain: Plan: Right knee septic arthritis Complex past surgical history of right knee. Had right knee replacement in 2003; sustained open fracture dislocation of right knee in 2020. Underwent full revision of right knee replacement in [facility]. Presents with pain, swelling and overlying erythema of right knee. Leukocytosis present on admission. CRP and ESR mildly elevated. Venous duplex did not show any evidence of DVT Joint aspiration done on 02/02/2022; : With 61,000 WBC with 96% polymorphonuclear cell and 10,000 RBC Gram stain showed many polymorphonuclear cells Culture pending Plan; Evaluated by orthopedic today. As the knee has already been revised and removing of all hardware is unlikely. Patient will require chronic suppressive antibiotic for her right knee. Recommend consulting infectious disease and following recommendation for chronic suppressive antibiotic once culture come back. Awaiting culture results; will continue on ceftriaxone and vancomycin for now. We will consult ID after culture results are back. (2) Urinary tract infection: Plan: Started on ceftriaxone E. coli which is pansensitive. Plan Chronic conditions; Neuropathycontinue on gabapentin. DVT PPX on hold for possible DNR/DNI Admission and Anticipated Discharge Date Admission Date: February 01, 2022 Subjective Patient reports improvement in pain and swelling of her knee. She also reports that her urinary tract infection has improved. Afebrile in last 48 hours. Vital stable. Review of Systems Review of Systems: All systems reviewed & are unremarkable except as noted in Subjective Physical Exam Physical Exam: General:She is alert oriented x3; not in any distress Chestbilateral vesicular breath sound CVSS1-S2 no murmur Abdomensoft nontender, BS =nt Extremitiesright kneeswelling present in superior aspect; redness improved compared to yesterday. ROM less painful. Skin-no rash. Neuro- grossly intact Results & Data Results & Data ([facility]) Vital Signs (Past 12 Hours) Vital Signs Temp Pulse Resp BP Pulse Ox O2 Del Method 02/03/22 07:14 36.4 C L 74 16 165/80 H 93 Room Air Laboratory Results Laboratory Results WBC 5.59 K/ul (4.8-10.8) 02/03/22 07:52 RBC 4.13 M/uL (3.93-5.22) 02/03/22 07:52 Hgb 13.1 g/dl (12.0-16.0) 02/03/22 07:52 Hct 39.8 % (34.1-44.9) 02/03/22 07:52 MCV 96.4 fL (80.0-100.0) 02/03/22 07:52 MCH 31.7 pg (25.0-34.0) 02/03/22 07:52 MCHC 32.9 g/dL (32.0-36.0) 02/03/22 07:52 RDW Std Deviation 45.9 fL (36.4-46.3) 02/03/22 07:52 RDW Coeff of [place] 12.9 % (11.5-14.5) 02/03/22 07:52 Plt Count 213 K/uL (130-400) 02/03/22 07:52 MPV 9.1 fL (9.4-12.3) L 02/03/22 07:52 Immature Gran % (Auto) 0.4 % 02/03/22 07:52 Neut % (Auto) 62.4 % 02/03/22 07:52 Lymph % (Auto) 22.9 % 02/03/22 07:52 [place] % (Auto) 7.7 % 02/03/22 07:52 Eos % (Auto) 6.1 % 02/03/22 07:52 Baso % (Auto) 0.5 % 02/03/22 07:52 Neut # (Auto) 3.49 K/uL (1.4-6.5) 02/03/22 07:52 Lymph # (Auto) 1.28 K/uL (1.2-3.4) 02/03/22 07:52 [place] # (Auto) 0.43 K/uL (0.24-0.82) 02/03/22 07:52 Eos # (Auto) 0.34 K/uL (0-0.50) 02/03/22 07:52 Baso # (Auto) 0.03 K/uL (0-0.2) 02/03/22 07:52 Immature Gran # (Auto) 0.02 K/uL (0.00-0.02) 02/03/22 07:52 ESR 50 mm/hr (0-30) H 02/01/22 14:17 Sodium 139 mmol/L (136-145) 02/03/22 07:52 Potassium 4.3 mmol/L (3.5-5.1) 02/03/22 07:52 Chloride 110 mmol/L (98-107) H 02/03/22 07:52 Carbon Dioxide 22 mmol/L (21-32) 02/03/22 07:52 Anion Gap 7 (3-11) 02/03/22 07:52 BUN 12 mg/dl (6-23) 02/03/22 07:52 Creatinine 0.64 mg/dl (0.6-1.2) 02/03/22 07:52 Est Cr Clr Drug Dosing 54.0 ml/min 02/03/22 07:52 Est GFR ( Amer) 99.1 ml/min 02/03/22 07:52 Est GFR (Non-Af Amer) 85.5 ml/min 02/03/22 07:52 BUN/Creatinine Ratio 18.8 (10-20) 02/03/22 07:52 Glucose 78 mg/dl (70-99(Fasting)) 02/03/22 07:52 Lactate 0.7 mmol/L (0.4-2.0) 02/01/22 17:46 Calcium 8.2 mg/dl (8.5-10.1) L 02/03/22 07:52 Total Bilirubin 0.6 mg/dl (0.2-1.0) 02/01/22 14:17 AST 24 U/L (13-39) 02/01/22 14:17 ALT 15 U/L (7-52) 02/01/22 14:17 Alkaline Phosphatase 91 U/L (34-104) 02/01/22 14:17 C-Reactive Protein 1.42 mg/dl (0-0.5) H 02/01/22 14:17 Total Protein 7.2 gm/dl (6.0-8.3) 02/01/22 14:17 Albumin 4.1 gm/dl (3.4-5.0) 02/01/22 14:17 Globulin 3.1 gm/dl (2.5-4.0) 02/01/22 14:17 Albumin/Globulin Ratio 1.3 (0.9-2) 02/01/22 14:17 Urine Color Yellow 02/01/22 14:17 Urine Appearance Turbid (Clear) A 02/01/22 14:17 Urine pH 6.0 (4.5-7.5) 02/01/22 14:17 Ur Specific [place] 1.019 (1.000-1.030) 02/01/22 14:17 Urine Protein 2+ (Negative) H 02/01/22 14:17 Urine Glucose (UA) Negative (Negative) 02/01/22 14:17 Urine Ketones Negative (Negative) 02/01/22 14:17 Urine Blood 3+ (Negative) H 02/01/22 14:17 Urine Nitrite Positive (Negative) A 02/01/22 14:17 Urine Bilirubin Negative (Negative) 02/01/22 14:17 Urine Urobilinogen Negative (Negative) 02/01/22 14:17 Ur Leukocyte Esterase 3+ (Negative) H 02/01/22 14:17 Urine WBC (Auto) >30 /hpf (0-5) H 02/01/22 14:17 Urine RBC (Auto) >30 /hpf (0-4) H 02/01/22 14:17 U Hyaline Cast (Auto) 1-5 /lpf (0-5) 02/01/22 14:17 U Epithel Cells (Auto) 20-30 /lpf (0-5) H 02/01/22 14:17 Urine Bacteria (Auto) 4+ (Negative) H 02/01/22 14:17 Urine Yeast Not Reportable 02/01/22 14:17 Fluid Comment 02/02/22 Unknown Synovial Source Right Knee 02/02/22 Unknown Synovial Color Pale Yellow 02/02/22 Unknown Synovial Appearance Cloudy 02/02/22 Unknown Synovial WBC (Auto) 32803 /ul (0-200) H 02/02/22 Unknown Synovial RBC (Auto) 02290 /uL 02/02/22 Unknown Synovial Polynuclear % 96.4 % 02/02/22 Unknown Synovial Mononuclear % 3.6 % 02/02/22 Unknown SARS-CoV-2, RNA, NAAT NEGATIVE (NEGATIVE) 02/01/22 16:25 Impressions Knee X-Ray 02/01/22 15:39 RIGHT KNEE 3 VIEWS CLINICAL HISTORY: Atraumatic right knee pain FINDINGS: AP, crosstable lateral, and sunrise views of the right knee are compared to study dated 10/13/2020. The skeletal structures are osteopenic. No fracture is seen. A hinged right knee arthroplasty is in near anatomic alignment. There has been undersurface remodeling of the patella. No periprosthetic lucency is seen. There is a joint effusion. Soft tissue swelling is seen around the knee. Posttraumatic change is partially visualized involving distal femoral shaft with a buttress plate partially imaged along the lateral cortex. IMPRESSION: 1. Soft tissue swelling and joint effusion with no acute bony abnormality identified. 2. A right knee arthroplasty is in near anatomic alignment. 3. Additional posttraumatic and postoperative changes as above. Electronically signed by: Shashank Mendieta M.D. 02/01/2022 6:[address] 02/01/22 17:36 CT SCAN OF THE RIGHT KNEE WITH IV CONTRAST CLINICAL HISTORY: Right knee swelling. COMPARISON STUDY: Radiographs of the right knee dated 02/01/2022. TECHNIQUE: Following the IV administration of 86 cc of Optiray 350, CT scan of the right knee is performed from distal femur to the proximal tibia and fibula. Images reviewed in the axial, sagittal, and coronal planes. IV contrast was administered without complication. A dose lowering technique was utilized adhering to the principles of ALARA. The examination is severely degraded by metallic artifact from a right knee arthroplasty and a buttress plate along the distal femur. This compromises diagnostic utility. CT DOSE: 341.20 mGycm FINDINGS: The skeletal structures are heterogeneously osteopenic. There is chronic posttraumatic deformity of the distal femoral shaft with a buttress plate along the lateral cortex. There is also chronic posttraumatic deformity of the proximal tibia. A right knee arthroplasty is in place. There has been undersurface remodeling of the patella. Question periprosthetic lucency around the tibial component of the arthroplasty, greatest anteriorly. Surgical anchors are present in the anterior cortex of the proximal tibia. No acute fracture is clearly identified. The joint space cannot be evaluated. Mild soft tissue sw elling is present around the knee and in the upper calf. No organized fluid collection is seen to indicate abscess. There is generalized atrophy of the regional musculature. There is an intraluminal filling defect suggested within the popliteal vein. IMPRESSION: 1. The examination is severely degraded by metallic artifact from a right knee arthroplasty and a buttress plate in the distal femur. This compromises diagnostic utility. 2. There is an apparent intraluminal filling defect within the popliteal vein. This may be artifactual. Consider a venous ultrasound to assess for deep venous thrombosis. 3. No acute bony abnormality is identified. 4. Periprosthetic lucency is suggested around the tibial component of the arthroplasty. Loosening is not excluded. 5. Nonspecific soft tissue edema is present around the knee and the upper calf. Correlate clinically for evidence of cellulitis. 6. No organized/drainable fluid collection is seen to suggest abscess. 7. The joint space cannot be evaluated. ACT 112: Negative or not required by law. Dictated: 02/01/2022 7:11 PM Transcribed: 02/01/2022 7:37 PM Britany [id number] [facility] Electronically signed by: Shashank Mendieta M.D. 02/01/2022 8:58 PM Venous Doppler Study 02/02/22 08:17 BILATERAL LOWER EXTREMITY VENOUS DOPPLER CLINICAL HISTORY: Lower extremity edema. Evaluate for deep venous thrombus. COMPARISON STUDY: No previous studies for comparison. TECHNIQUE: Sonography of the deep venous system of the bilateral lower extremities was performed. Compression and augmentation were evaluated. FINDINGS: The bilateral common femoral, superficial femoral and popliteal veins were compressible. Augmentation was normal. Flow was shown within the deep calf vessels. IMPRESSION: No evidence of deep venous thrombus within the bilateral lower extremities. ACT 112: Negative or not required by law. Electronically signed by: Christoph Loco M.D. 02/02/2022 10:45 AM
--- NOTE | 2022-02-03 12:18 | Pharmacy Report ---
Pharmacy PK ABX Note - Date of Service February 03, 2022 - Assessment and Plan Assessment * 76 year old F receiving ceftriaxone and vancomycin for treatment of israel- sensitive E. coli UTI and septic arthritis (no growth in culture yet). Plan Vancomycin * Maintenance dose: 1000 mg IV every 24 hours * Regimen is predicted to achieve target AUC/VAMSI of 400-600 mg/L.hr * Random level ordered for: 02/04 Pharmacy will continue to follow and will adjust dose/frequency as necessary. Thank you. Pharmacy has transitioned to AUC monitoring for vancomycin. AUC/VAMSI is the preferred PK/PD target and is associated with decreased risk of nephrotoxicity compared to traditional trough targets.
[2022-02-03] MEDS: cefTRIAXone SODIUM 2,000 MG in DEXTROSE 5% 50 ML IV SCH (15:29)
[2022-02-03] MEDS: VANCOMYCIN HCL 1,000 MG in SODIUM CHLORIDE 0.9% 250 ML IV SCH (20:48)
[2022-02-04] MEDS: FERROUS SULFATE 325 MG TAB PO SCH ×2 (08:20→20:09)
[2022-02-04] MEDS: CYANOCOBALAMIN (B-12) 500 MCG TABLET PO SCH (08:20)
[2022-02-04] MEDS: GABAPENTIN 600 MG TAB PO SCH ×3 (08:21→20:08)
[2022-02-04] MEDS: ENOXAPARIN INJ 40 MG/0.4 ML SYR SQ SCH (08:21)
[2022-02-04] MEDS: CHOLECALCIFEROL 1,000 UNITS 25 MCG TAB PO SCH (08:21)
[2022-02-04] MEDS: MAGNESIUM OXIDE 400 MG TAB PO SCH (08:21)
[2022-02-04 08:57] LABS: Creatinine Clr Calc Pharmacy 42.1 ml/min; Est GFR (African American) 79.4 ml/min; Est GFR (Non-African American) 68.5 ml/min
--- NOTE | 2022-02-04 10:19 | Pharmacy Report ---
Pharmacy Vanc AUC Short Note - Date of Service February 04, 2022 - Assessment & Plan Assessment * 76 year old F receiving ceftriaxone and vancomycin for treatment of is[place]- sensitive E. coli UTI and septic arthritis (no growth in culture yet). Plan Vancomycin * AUC/VAMSI is the preferred PK/PD target for vancomycin * AUC guided dosing is effective and associated with decreased risk of nephrotoxicity compared to traditional trough targets * Random vancomycin level this AM was ~14 mcg/ml - current dosing of vancomycin 1000 mg iv q 24 hrs appropriate. This dosing regimen is estimated to achieve an AUC/VAMSI of 400-600 and may be associated with a 9% risk of nephrotoxicity * Will consider checking another random level in next 48 hours if continued * ID consulted, awaiting recommendations Pharmacy will continue to follow and will adjust dose/frequency as necessary. Thank you.
--- NOTE | 2022-02-04 10:38 | Hospitalist Progress Note ---
Date of Service February 04, 2022 Assessment & Plan (1) Right knee pain: Plan: Right knee septic arthritis Complex past surgical history of right knee. Had right knee replacement in 2003; sustained open fracture dislocation of right knee in 2020. Underwent full revision of right knee replacement in [facility]. Presents with pain, swelling and overlying erythema of right knee. Leukocytosis present on admission. CRP and ESR mildly elevated. Venous duplex did not show any evidence of DVT Joint aspiration done on 02/02/2022; : With 61,000 WBC with 96% polymorphonuclear cell and 10,000 RBC Gram stain showed many polymorphonuclear cells Culture no growth till date Plan; Cultures so far have been negative from the aspirate. She has responded well with ceftriaxone and vancomycin. Orthopedic recommends chronic suppressive antibiotic therapy for her knee to preserve her hardware. ID consulted; we will follow-up on recommendation. Awaiting culture results; will continue on ceftriaxone and vancomycin for now. (2) Urinary tract infection: Plan: on ceftriaxone day 3 Urine Cx pansensitive E.coli Plan Chronic conditions; Neuropathycontinue on gabapentin. DVT PPX on hold for possible DNR/DNI Admission and Anticipated Discharge Date Admission Date: February 01, 2022 Subjective Patient is comfortable; not in distress. Reports that her knee swelling has resolved. She is able to walk down the hallways without any difficulty. Review of Systems Review of Systems: All systems reviewed & are unremarkable except as noted in Subjective Physical Exam Physical Exam: General:She is alert oriented x3; not in any distress Chestbilateral vesicular breath sound CVSS1-S2 no murmur Abdomensoft nontender, BS =nt Extremities right knee; slightly swollen. ROM nonpainful. No erythema noticed. Skin-no rash. Neuro- grossly intact Results & Data Results & Data ([facility]) Vital Signs (Past 12 Hours) Vital Signs Temp Pulse Resp BP Pulse Ox O2 Del Method 02/04/22 07:56 36.6 C 84 18 146/68 H 96 Room Air Laboratory Results Laboratory Results WBC 5.59 K/ul (4.8-10.8) 02/03/22 07:52 RBC 4.13 M/uL (3.93-5.22) 02/03/22 07:52 Hgb 13.1 g/dl (12.0-16.0) 02/03/22 07:52 Hct 39.8 % (34.1-44.9) 02/03/22 07:52 MCV 96.4 fL (80.0-100.0) 02/03/22 07:52 MCH 31.7 pg (25.0-34.0) 02/03/22 07:52 MCHC 32.9 g/dL (32.0-36.0) 02/03/22 07:52 RDW Std Deviation 45.9 fL (36.4-46.3) 02/03/22 07:52 RDW Coeff of [place] 12.9 % (11.5-14.5) 02/03/22 07:52 Plt Count 213 K/uL (130-400) 02/03/22 07:52 MPV 9.1 fL (9.4-12.3) L 02/03/22 07:52 Immature Gran % (Auto) 0.4 % 02/03/22 07:52 Neut % (Auto) 62.4 % 02/03/22 07:52 Lymph % (Auto) 22.9 % 02/03/22 07:52 [place] % (Auto) 7.7 % 02/03/22 07:52 Eos % (Auto) 6.1 % 02/03/22 07:52 Baso % (Auto) 0.5 % 02/03/22 07:52 Neut # (Auto) 3.49 K/uL (1.4-6.5) 02/03/22 07:52 Lymph # (Auto) 1.28 K/uL (1.2-3.4) 02/03/22 07:52 [place] # (Auto) 0.43 K/uL (0.24-0.82) 02/03/22 07:52 Eos # (Auto) 0.34 K/uL (0-0.50) 02/03/22 07:52 Baso # (Auto) 0.03 K/uL (0-0.2) 02/03/22 07:52 Immature Gran # (Auto) 0.02 K/uL (0.00-0.02) 02/03/22 07:52 ESR 50 mm/hr (0-30) H 02/01/22 14:17 Sodium 139 mmol/L (136-145) 02/03/22 07:52 Potassium 4.3 mmol/L (3.5-5.1) 02/03/22 07:52 Chloride 110 mmol/L (98-107) H 02/03/22 07:52 Carbon Dioxide 22 mmol/L (21-32) 02/03/22 07:52 Anion Gap 7 (3-11) 02/03/22 07:52 BUN 12 mg/dl (6-23) 02/03/22 07:52 Creatinine 0.82 mg/dl (0.6-1.2) 02/04/22 08:10 Est Cr Clr Drug Dosing 42.1 ml/min 02/04/22 08:10 Est GFR ( Amer) 79.4 ml/min 02/04/22 08:10 Est GFR (Non-Af Amer) 68.5 ml/min 02/04/22 08:10 BUN/Creatinine Ratio 18.8 (10-20) 02/03/22 07:52 Glucose 78 mg/dl (70-99(Fasting)) 02/03/22 07:52 Lactate 0.7 mmol/L (0.4-2.0) 02/01/22 17:46 Calcium 8.2 mg/dl (8.5-10.1) L 02/03/22 07:52 Total Bilirubin 0.6 mg/dl (0.2-1.0) 02/01/22 14:17 AST 24 U/L (13-39) 02/01/22 14:17 ALT 15 U/L (7-52) 02/01/22 14:17 Alkaline Phosphatase 91 U/L (34-104) 02/01/22 14:17 C-Reactive Protein 1.42 mg/dl (0-0.5) H 02/01/22 14:17 Total Protein 7.2 gm/dl (6.0-8.3) 02/01/22 14:17 Albumin 4.1 gm/dl (3.4-5.0) 02/01/22 14:17 Globulin 3.1 gm/dl (2.5-4.0) 02/01/22 14:17 Albumin/Globulin Ratio 1.3 (0.9-2) 02/01/22 14:17 Urine Color Yellow 02/01/22 14:17 Urine Appearance Turbid (Clear) A 02/01/22 14:17 Urine pH 6.0 (4.5-7.5) 02/01/22 14:17 Ur Specific [place] 1.019 (1.000-1.030) 02/01/22 14:17 Urine Protein 2+ (Negative) H 02/01/22 14:17 Urine Glucose (UA) Negative (Negative) 02/01/22 14:17 Urine Ketones Negative (Negative) 02/01/22 14:17 Urine Blood 3+ (Negative) H 02/01/22 14:17 Urine Nitrite Positive (Negative) A 02/01/22 14:17 Urine Bilirubin Negative (Negative) 02/01/22 14:17 Urine Urobilinogen Negative (Negative) 02/01/22 14:17 Ur Leukocyte Esterase 3+ (Negative) H 02/01/22 14:17 Urine WBC (Auto) >30 /hpf (0-5) H 02/01/22 14:17 Urine RBC (Auto) >30 /hpf (0-4) H 02/01/22 14:17 U Hyaline Cast (Auto) 1-5 /lpf (0-5) 02/01/22 14:17 U Epithel Cells (Auto) 20-30 /lpf (0-5) H 02/01/22 14:17 Urine Bacteria (Auto) 4+ (Negative) H 02/01/22 14:17 Urine Yeast Not Reportable 02/01/22 14:17 Fluid Comment 02/02/22 Unknown Synovial Source Right Knee 02/02/22 Unknown Synovial Color Pale Yellow 02/02/22 Unknown Synovial Appearance Cloudy 02/02/22 Unknown Synovial WBC (Auto) 15594 /ul (0-200) H 02/02/22 Unknown Synovial RBC (Auto) 35464 /uL 02/02/22 Unknown Synovial Polynuclear % 96.4 % 02/02/22 Unknown Synovial Mononuclear % 3.6 % 02/02/22 Unknown Synovial Crystals 02/02/22 Unknown Random Vancomycin 13.3 mcg/ml (10-20) 02/04/22 08:10 SARS-CoV-2, RNA, NAAT NEGATIVE (NEGATIVE) 02/01/22 16:25 Impressions Knee X-Ray 02/01/22 15:39 RIGHT KNEE 3 VIEWS CLINICAL HISTORY: Atraumatic right knee pain FINDINGS: AP, crosstable lateral, and sunrise views of the right knee are compared to study dated 10/13/2020. The skeletal structures are osteopenic. No fracture is seen. A hinged right knee arthroplasty is in near anatomic alignment. There has been undersurface remodeling of the patella. No periprosthetic lucency is seen. There is a joint effusion. Soft tissue swelling is seen around the knee. Posttraumatic change is partially visualized involving distal femoral shaft with a buttress plate partially imaged along the lateral cortex. IMPRESSION: 1. Soft tissue swelling and joint effusion with no acute bony abnormality identified. 2. A right knee arthroplasty is in near anatomic alignment. 3. Additional posttraumatic and postoperative changes as above. Electronically signed by: Shashank Mendieta M.D. 02/01/2022 6:[address] 02/01/22 17:36 CT SCAN OF THE RIGHT KNEE WITH IV CONTRAST CLINICAL HISTORY: Right knee swelling. COMPARISON STUDY: Radiographs of the right knee dated 02/01/2022. TECHNIQUE: Following the IV administration of 86 cc of Optiray 350, CT scan of the right knee is performed from distal femur to the proximal tibia and fibula. Images reviewed in the axial, sagittal, and coronal planes. IV contrast was administered without complication. A dose lowering technique was utilized adhering to the principles of ALARA. The examination is severely degraded by metallic artifact from a right knee arthroplasty and a buttress plate along the distal femur. This compromises diagnostic utility. CT DOSE: 341.20 mGycm FINDINGS: The skeletal structures are heterogeneously osteopenic. There is chronic posttraumatic deformity of the distal femoral shaft with a buttress plate along the lateral cortex. There is also chronic posttraumatic deformity of the proximal tibia. A right knee arthroplasty is in place. There has been undersurface remodeling of the patella. Question periprosthetic lucency around the tibial component of the arthroplasty, greatest anteriorly. Surgical anchors are present in the anterior cortex of the proximal tibia. No acute fracture is clearly identified. The joint space cannot be evaluated. Mild soft tissue swelling is present around the knee and in the upper calf. No organized fluid collection is seen to indicate abscess. There is generalized atrophy of the regional musculature. There is an intraluminal filling defect suggested within the popliteal vein. IMPRESSION: 1. The examination is severely degraded by metallic artifact from a right knee arthroplasty and a buttress plate in the distal femur. This compromises diagnostic utility. 2. There is an apparent intraluminal filling defect within the popliteal vein. This may be artifactual. Consider a venous ultrasound to assess for deep venous thrombosis. 3. No acute bony abnormality is identified. 4. Periprosthetic lucency is suggested around the tibial component of the arthroplasty. Loosening is not excluded. 5. Nonspecific soft tissue edema is present around the knee and the upper calf. Correlate clinically for evidence of cellulitis. 6. No organized/drainable fluid collection is seen to suggest abscess. 7. The joint space cannot be evaluated. ACT 112: Negative or not required by law. Dictated: 02/01/2022 7:11 PM Transcribed: 02/01/2022 7:37 PM Britany [id number] [facility] Electronically signed by: Shashank Mendieta M.D. 02/01/2022 8:58 PM Venous Doppler Study 02/02/22 08:17 BILATERAL LOWER EXTREMITY VENOUS DOPPLER CLINICAL HISTORY: Lower extremity edema. Evaluate for deep venous thrombus. COMPARISON STUDY: No previous studies for comparison. TECHNIQUE: Sonography of the deep venous system of the bilateral lower extremities was performed. Compression and augmentation were evaluated. FINDINGS: The bilateral common femoral, superficial femoral and popliteal veins were compressible. Augmentation was normal. Flow was shown within the deep calf vessels. IMPRESSION: No evidence of deep venous thrombus within the bilateral lower extremities. ACT 112: Negative or not required by law. Electronically signed by: Christoph Loco M.D. 02/02/2022 10:45 AM
[2022-02-04] MEDS: cefTRIAXone SODIUM 1,000 MG in DEXTROSE 5% 50 ML IV SCH (12:00)
[2022-02-04] MEDS: VANCOMYCIN HCL 1,250 MG in SODIUM CHLORIDE 0.9% 250 ML IV SCH (14:12)
--- NOTE | 2022-02-04 17:44 | XRay Report ---
SINGLE VIEW CHEST CLINICAL HISTORY: PICC placement. FINDINGS: An AP, portable, upright chest radiograph is compared to study dated 10/13/2020. A left PICC line has been placed. The catheter is coiled within the region of the left innominate vein. The card iomediastinal silhouette is unremarkable. Chronic interstitial thickening similar to previous. The clotilde ngs and pleural spaces are clear. No pneumothorax is seen. The skeletal structures are osteopenic. Th e bony thorax is grossly intact. Fusion hardware is partially visualized in the lumbar spine. Gallsto mundo are seen in the right upper quadrant. IMPRESSION: 1. A PICC line is coiled in the region of the left innominate vein. Repositioning is indicated. 2. There is no airspace consolidation or pleural effusion. ACT 112: Negative or not required by law. Electronically signed by: Shashank Mendieta M.D. 02/04/2022 5:43 PM
[2022-02-04] MEDS ORDERED: VANCOMYCIN LEVEL ONE (19:30)
--- NOTE | 2022-02-04 20:19 | XRay Report ---
SINGLE VIEW CHEST CLINICAL HISTORY: PICC repositioning. FINDINGS: An AP, portable, upright chest radiograph is compared to study dated 02/04/2022. A left PIC C line has been repositioned. The tip projects over the cavoatrial junction. The cardiomediastinal si lhouette is unremarkable. Chronic interstitial thickening similar to previous. The lungs and pleural spaces are clear. No pneumothorax is seen. The skeletal structures are osteopenic. The bony thorax is grossly intact. Fusion hardware is partially visualized in the lumbar spine. Gallstones are seen in the right upper quadrant. IMPRESSION: 1. A PICC line has been repositioned. The tip now projects over the cavoatrial junction. 2. There is no airspace consolidation or pleural effusion. ACT 112: Negative or not required by law. Electronically signed by: Shashank Mendieta M.D. 02/04/2022 8:18 PM
[2022-02-04] MEDS ORDERED: IBUPROFEN 200 MG TAB PO PRN (20:32)
--- NOTE | 2022-02-05 06:50 | Orthopedic Progress Note ---
Date of Service February 05, 2022 Assessment & Plan (1) Septic joint of right knee joint: Unfortunately she is done with a septic right knee joint. She has extensive hardware in her knee including stems on both the femoral and tibial sides. Removing the hardware is not an option at this point. Her knee actually looks pretty good. She has good range of motion and minimal pain. Aspiration does show signs of a chronic infection. I think this is best treated with lifelong chronic suppressive antibiotics. It seems to be a fairly low virulent infection. I do not think that taking her to the operating room and washing out her knee would be of much benefit at this point, as her knee seems to be doing f airly well at this point and she will need lifelong chronic suppressive antibiotics anyway. I read the infectious disease report and I recommend following their recommendations for chronic suppressive antibiotics as well as follow-up with her orthopedist at [facility] in [place] to make sure that he is aware. If you have any further questions please feel free to contact me by [place] text or personally on my cell phone at [phone]. Debo Gillette was seen and examined at bedside. Overall she is doing okay. She was seen by infectious disease yesterday. She has a little bit of swelling in her knee but is not too bad. She is not having much knee pain. Her pain is improved since admission. She has no new complaints.. Review of Systems All systems reviewed & are unremarkable except as noted in HPI & below. Physical Exam On physical examination of the right knee, there is a minimal effusion. She has good range of motion. She has no signs of infection and little to no pain.. Results & Data Results & Data Laboratory Results . Diagnostic Findings . PG Care Time/CCT Total # of Minutes Spent Total Time Spent with Patient: Total time spent is greater than 50% in coordination of care (as documented) at patient's floor/unit and/or counseling patient: Coding Level of Care Code 32599 Subseq Hosp Care Lvl 2 Diagnoses Septic joint of right knee joint M00.9
[2022-02-05] MEDS: CYANOCOBALAMIN (B-12) 500 MCG TABLET PO SCH (08:30)
[2022-02-05] MEDS: FERROUS SULFATE 325 MG TAB PO SCH (08:30)
[2022-02-05] MEDS: cefTRIAXone SODIUM 1,000 MG in DEXTROSE 5% 50 ML IV SCH (08:30)
[2022-02-05] MEDS: GABAPENTIN 600 MG TAB PO SCH ×2 (08:30→15:32)
[2022-02-05] MEDS: CHOLECALCIFEROL 1,000 UNITS 25 MCG TAB PO SCH (08:30)
[2022-02-05] MEDS: ENOXAPARIN INJ 40 MG/0.4 ML SYR SQ SCH ×2 (08:31→08:39)
[2022-02-05] MEDS: MAGNESIUM OXIDE 400 MG TAB PO SCH (08:31)
[2022-02-05 10:04] LABS: Creatinine Clr Calc Pharmacy 47.3 ml/min; Est GFR (African American) 91.4 ml/min; Est GFR (Non-African American) 78.9 ml/min
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
[2022-02-05] MEDS: VANCOMYCIN HCL 1,250 MG in SODIUM CHLORIDE 0.9% 250 ML IV SCH (15:32)
[2022-02-06] MEDS ORDERED: VANCOMYCIN LEVEL ONE (13:30)
== END 2022-02-05 18:35 | disposition home or self-care (01) | DRG 560 ==
LOC: ED 12:47 → 3N 16:39

== ENCOUNTER 2023-05-22 14:48 | Inpatient (IN) ==
[2023-05-22 16:01] LABS: Basophils # (auto) 0.04 K/uL (0.00-0.20); Basophils % (auto) 0.6 %; Eosinophils # (auto) 0.16 K/uL (0.00-0.50); Eosinophils % (auto) 2.5 %; Hematocrit (blood only) 38.2 % (37.0-47.0); Hemoglobin 13.1 g/dl (12.0-16.0); Immature Granulocytes # (auto) 0.01 K/uL (0.01-0.20); Immature Granulocytes % (auto) 0.2 %; Lymphocytes # (auto) 1.48 K/uL (1.20-3.40); Lymphocytes % (auto) 22.7 %; Mean Corpuscular Hemoglobin 31.8 pg (25.0-34.0); Mean Corpuscular Hgb Conc 34.3 g/dL (32.0-36.0); Mean Corpuscular Volume 92.7 fL (80.0-100.0); Mean Platelet Volume 9.7 fL (9.4-12.4); Monocytes # (auto) 0.51 K/uL (0.11-0.59); Monocytes % (auto) 7.8 %; Neutrophils # (auto) 4.33 K/uL (1.40-6.50); Neutrophils % (auto) 66.2 %; Platelet Count 270 K/uL (130-400); RDW Coefficient of Variation 13.2 % (11.5-14.5); RDW Standard Deviation 44.7 fL (36.4-46.3); Red Blood Count 4.12 M/uL (4.20-5.40); White Blood Count 6.53 K/ul (4.8-10.8)
[2023-05-22 16:12] LABS: Partial Thromboplastin Time 28 Seconds (21-31); Prothrombin Time 10.5 Seconds (9.0-12.0)
[2023-05-22 16:29] LABS: Troponin I High Sensitivity 5.2 pg/ml (0-14)
[2023-05-22 16:31] LABS: Albumin Level 3.7 gm/dl (3.4-5.0); Bilirubin,Total 0.4 mg/dl (0.2-1.0); Calcium 9.2 mg/dl (8.6-10.3); Magnesium 2.3 mg/dl (1.7-2.4)
[2023-05-22 16:37] LABS: Albumin Globulin Ratio 1.2 (0.9-2); BUN Creatinine Ratio 24.1 (10-20); Creatinine Clr Calc Pharmacy 39.6 ml/min; Est GFR (African American) 73.4 ml/min; Est GFR (Non-African American) 63.4 ml/min; Total Protein 6.7 gm/dl (6.0-8.3)
[2023-05-22 16:39] LABS: Thyroid Stimulating Hormone 1.051 uIu/ml (0.300-4.500)
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
[2023-05-22] MEDS ORDERED: VANCOMYCIN CONSULT ACTIVE PRN (19:35)
[2023-05-22] MEDS: VANCOMYCIN HCL 1,250 MG in SODIUM CHLORIDE 0.9% 250 ML IV STA (20:04)
[2023-05-22 20:46] LABS: Appearance Urine Cloudy (Clear); Bacteria Urine Automated 4+ (Negative); Bilirubin Urine Negative (Negative); Blood Urine Trace (Negative); Color Urine Yellow; Glucose Urine UA Negative (Negative); Ketones Urine Negative (Negative); Leukocyte Esterase Urine 3+ (Negative); Nitrite Urine Positive (Negative); Protein Urine Negative (Negative); Specific Gravity Urine 1.008 (1.000-1.030); Urobilinogen Urine Negative (Negative); WBC Urine Automated >30 /hpf (0-5)
[2023-05-22] MEDS ORDERED: ALUMINUM/MAGNESIUM SUSP 30 ML UDC PO PRN (22:36)
[2023-05-22] MEDS ORDERED: ACETAMINOPHEN 325 MG TAB PO PRN (22:36)
[2023-05-22] MEDS ORDERED: MAGNESIUM HYDROXIDE SUSP 30 ML UDC PO PRN (22:36)
[2023-05-22] MEDS ORDERED: ONDANSETRON INJ 2 MG/ML 2 ML VIAL IV PRN (22:36)
[2023-05-22] MEDS ORDERED: POLYETHYLENE (MIRALAX) 17 GM PACK PO PRN (22:36)
[2023-05-22] MEDS: DULoxetine HCL 20 MG CAP PO SCH (22:58)
[2023-05-22] MEDS: MAGNESIUM OXIDE 400 MG TAB PO SCH (22:59)
[2023-05-22] MEDS: GABAPENTIN 600 MG TAB PO SCH (22:59)
[2023-05-22] MEDS: SACCHAROMYCES BOULARDII 250 MG CAP PO SCH (23:01)
--- OUTSIDE RECORDS SUMMARY | 2023-05-23 04:42 | External Medical Summary ---
Author Name Unknown Address Unknown Organization K[facility] [address] [place] [address] Laboratory Report Ordering Provider Test Date Status JENNI ROMAN 05/22/2023 09:15:48 Final Observation Date Value Abnormality Reference (Units ) Status TSH 05/22/2023 09:15:48 1.70 0.27-4.20 (uIU/mL) Final Performing Location [facility] - [address] [place] [address]
--- OUTSIDE RECORDS SUMMARY | 2023-05-23 04:42 | External Medical Summary | Summary of Care ---
Author Name Unknown Organization [facility] Address [address] [place] [address] Phone [phone] Care Team Providers Care Transition Program Manager Name Role Phone Robert Leta Rivera DO Primary Care Provider [phone] Encounter Details Date Type Department Care Team (Late st Contact Info) Description 05/20/2023 Documentation [facility] Elvira Silveira, Health Prison Guard Allergies Active Allergy Reactions Criticality Noted Date Comments Oxycodone Nausea/vomiting 10/15/2020 Penicillins 04/14/2001 rash,hives documented as of this encounter (statuses as of 05/21/2023) Medications Medication Sig Dispensed Refills Start Date End Date Status Magnesium 250 MG Oral Tablet Take 1 Tablet by mouth in the morning and 1 Tablet before bedtime. 0 Active PreserVision AREDS 2+Multi Vit Oral Capsule Take by mouth 1 Tablet 2 times a day . 0 Active Turmeric 500 MG Oral Tablet Take by mouth 2 times a day. 0 Active B-12 1000-400 MCG Sublingual Tablet Sublingual Place under the tongue . 0 Active Ferrous Sulfate 325 (65 Fe) MG Oral Tablet (Feosol)Indication s:Iron deficiency anemia, unspecified iron deficiency anemia type Take by mouth 1 Tablet in the morning AND 1 Tablet before bedtime. 60 Tablet 5 05/21/2021 Active Additional Information Patient taking differently:325 mg Oral Daily(AM), Blood Builder Iron-vitamin c 15 mg Folate 600 mcg Vitamin b 12 30 mcg Iron 26 mg, Informant: Patient, Reported on 01/02/2023 Triamcinolone Acetonide 0.5 % External CreamIndications:D ermatitis Apply topically to affected area 2 times a day . To affected area. 60 g 1 10/12/2021 Active SURGICAL COMPRESSION STOCKING 20-30 mm Hg compression stockings 2 Each 2 12/07/2021 Active Gabapentin 600 MG Oral Tablet (Neurontin) TAKE ONE TABLET BY MOUTH THREE TIMES A DAY IN THE MORNING, NOON AND BEDTIME 300 Tablet 3 04/24/2022 06/20/2023 Active Diclofenac Sodium 1 % External Gel (Voltaren) Apply topically to affected area 4 times a day. Apply to area lateral to the right hip/greater troch 150 g 6 09/25/2022 Active Probiotic Daily Oral Capsule Take 1 Capsule by mouth in the morning. 60 billion. 0 Active Vitamin D3 50 MCG (2000 UT) Oral Capsule Take 1 Capsule by mouth in the morning. With K1 1000 mcg K2 5000 mcg 100 mcg. 0 Active Acetaminophen-Code ine 300-30 MG Oral TabletIndications: Traumatic arthritis of right hip,Traumatic arthritis of left hip,Pyogenic arthritis of right knee joint, due to unspecified organism (HCC) Take 1 Tablet by mouth every 6 hours as needed for Pain, Severe. 60 Tablet 0 01/02/2023 Active Saccharomyces boulardii 250 MG Oral Capsule (Florastor) Take 1 Capsule by mouth in the morning and 1 Capsule before bedtime. 180 Capsule 1 01/07/2023 Active Sertraline HCl 25 MG Oral Tablet (Zoloft) Take 1 Tablet by mouth in the morning. 0 02/06/2023 Active Doxycycline Hyclate 100 MG Oral CapsuleIndications :Pyogenic arthritis of right knee joint, due to unspecified organism (HCC) Take 1 Capsule by mouth in the morning and 1 Capsule before bedtime. 200 Capsule 1 04/25/2023 Active Clobetasol Propionate 0.05 % External Cream (Temovate)Indicati ons:Rash and nonspecific skin eruption Apply topically to affected area 2 times a day. To affected area for up to two weeks. 60 g 1 05/01/2023 Active DULoxetine HCl 20 MG Oral Capsule Delayed Release Particles (duloxetine) Take 1 Capsule by mouth in the morning. 0 04/27/2023 Active documented as of this encounter (statuses as of 05/21/2023) Active Problems Problem Noted Date Diagnosed Date Caregiver stress 02/28/2023 Pyogenic arthritis of right knee joint 3 Last Assessment & Plan: Self administration of her antibiotics and seems to be doing quite well. 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 She is very knowledgeable regarding her medical care and plans to keep all scheduled appts. Other atherosclerosis of yvonne kristopher arteries of extremities, bilateral legs 12/13/2021 Esophageal web 10/02/2021 Iron deficiency anemia 08/14/2021 Leg length discrepancy 05/14/2021 Age-related osteoporosis wit hout current pathological fracture 04/17/2021 Open fracture of right tibial tuberosity 021 Knee dislocation, right, sequela 10/13/2020 Periprosthetic fracture arou nd internal prosthetic right knee joint 10/13/2020 Right ventricular conduction delay 03/28/2016 Overview: Perhaps related to Gabapentin Traumatic arthritis of left hip 04/06/2015 Traumatic arthritis of right hip 04/06/2015 Spondylosis of lumbar region without myelopathy or radiculopathy 04/06/2015 Overview: With intermittent radiculopathy, post traumatic History of lumbar laminectomy for spinal cord de compression 04/06/2015 Traumatic arthropathy of right elbow 04/06/2015 Osteoarthritis of spine with radiculopathy, cerv ical region 04/06/2015 Sciatica 03/30/1999 documented as of this encounter (statuses as of 05/21/2023) Resolved Problems Problem Noted Date Diagnosed Date Resolved Date Laceration of right leg excl uding thigh, initial encounter 10/13/2020 02/12/2021 Sacroiliitis, not elsewhere classified 05/04/2020 03/04/2022 Peripheral vascular disease 05/04/2020 02/12/2021 Stage 3a chronic kidney disease 01/03/2020 10/02/2021 Overview: Per CKD protocol - Per CKD protocol Kidney disease, chronic, sta ge III (GFR 30-59 ml/min) 12/06/2019 01/06/2020 Overview: Per CKD protocol 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 HX-SKIN MALIGNANCY NEC - L forearm ([facility]) 10/06/2009 10/20/2019 Overview: 2006 Historical. documented as of this encounter (statuses as of 05/21/2023) Immunizations Name Administration Dates Next Due COVID-19 mRNA, LNP-s, No Pre serve, 2-Dose Series ([employer]) 04/19/2020,03/29/2020 COVID-19, LNP-s, No Preserve , [place]-sucrose, Ages 12+ ([employer]) 08/14/2021,01/01/2021 COVID-19, MRNA-LNP, 23-24, P F, 30 MCG/0.3 mL, 12 YRS AND ABOVE, IM ([employer]bik[employer]-Comirnat) 12/12/2022 Covid-19, Mrna, Lnp-s, Pf, B ivalent, 30 Mcg, IM, 12 yrs and above ([employer]) 01/07/2022 Pneumococcal Conjugate Vacc, 13 Valent (Prevnar) 06/17/2014 Pneumococcal Polysaccharide PPV23 (Pneumovax) Season Influenza, Quad, PF, Adjuvanted, 65+ Yrs, IM (FLUAD) 11/03/2019 Seasonal Influenza Virus Vac cine, Unspecified Formulation 11/24/2020 Seasonal Influenza, Quadrivalent Hd (Fluzone Hd) 12/13/2021 Seasonal Influenza, Split, IIV3, With Preserve, Inj 11/13/2012,12/24/2010 TD, Preservative Free 01/02/2009 TDAP (age 10 and older)(Boostrix) 11/13/2017 Varicella Zoster Vaccine (Adult) 01/13/2013 Zoster Vaccine Recombinant (Shingrix) 05/04/2020 ,11/03/2019 documented as of this encounter Social History Tobacco Use Types Packs/Day Years Used Date Smoking Tobacco: Never Passive Smoke Exposure: Past Smokeless Tobacco: Never Alcohol Use Standard Drinks/Week Comments Yes 0 (1 standard drink = 0.6 oz pur e alcohol) rarely AUDIT-C Answer Date Recorded Q1: How often do you have a drink containing alc ohol? Monthly or less 02/12/2021 Q2: How many drinks containi ng alcohol do you have on a typical day when you are drinking? 1 or 2 02/12/2021 Q3: How often do you have si x or more drinks on one occasion? Never 02/12/2021 PHQ-2 Answer Date Recorded PHQ Adult Total Score 2 02/28/2023 Hunger Vital Sign Answer Date Recorded Within the past 12 months, y ou worried that your food would run out before you got the money to buy more. Never true 02/28/19 24 Within the past 12 months, t he food you bought just didn't last and you didn't have money to get more. Never true 02/28/2023 Sex and Gender Information Value Date Recorded Sex Assigned at Female 05/03/2019 2:12 PM EDT Gender Identity Female 05/03/2019 2:12 PM EDT Sexual Orientation Straight 05/03/2019 2: 12 PM EDT Job Start Date Occupation Industry Not on file Not on file Not on file documented as of this encounter Functional Status Functional Status Response Date of Assess ment Are you deaf or do you have serious difficulty h earing? No 10/15/2020 Are you blind or do you have serious difficulty seeing, even when wearing glasses? No 10/15/2020 Do you have serious difficul ty walking or climbing stairs? (5 years old or older) Yes 10/16/2020 Do you have difficulty dress ing or bathing? (5 years old or older) No 10/15/2020 Because of a physical, menta l, or emotional condition, do you have difficulty doing errands alone such as visiting a doctor s office or shopping? (15 years old or older) No 10/16/19 Cognitive Status Response Date of Assessm ent Because of a physical, menta l, or emotional condition, do you have serious difficulty concentrating, remembering, or making decisions? (5 years old or older) No 10/15/2020 documented as of this encounter Progress Notes * Elvira Silveira, Health Prison Guard - 05/20/2023 4:27 PM EDT Did patient attend session 5 of 10 of the small group balance program? Yes: Patient attended session 5 of 10 of the small group balance program. Session 5 focused on a review of fall prevention in the home, lower extremity strengthening and hand eye coordination drills from the previous sessions. Pr acticed exercises as a group. documented in this encounter Plan of Treatment Upcoming Encounters Date Type Department Care Team (Late st Contact Info) Description 05/22/2023 10:30 AM EDT Scheduled Telephone Family Practice [address] [place] [phone] [place], Nurse Fam Prac [address] [place] [address] 05/23/2023 11:00 AM EDT Office Visit Family Practice 65 [facility] [address] [place] [phone] [place], Health Prison Guard Pee Prac [address] [place] [address] 05/27/2023 9:20 AM EDT Office Visit Family Practice 65 [facility] [address] [place] [phone] Leta Jones, DO [address] [place] [address] 08/06/2023 11:20 AM EDT Office Visit Family Practice [address] [place] [phone] Leta Jones, DO [address] [place] [address], [place] [address] Health Maintenance Due Date Last Done Comments *BISPHONATE OR OTHER ACCEPTABLE MEDICATION NEEDED FOR OSTEOPOROSIS (REFER TO SMARTSET #1146) 10/24/2022 Influenza Vaccine (FLU shot) (#1) 2022 12/13/2021, 11/24/2020, 11/03/2019, Additional history exists Depression Screening 02/29/2024 02/28/2023 DTaP,Tdap,and Td Vaccines (2 - Td or Tdap) 11/14/2027 11/13/2017, 01/02/2009 Pneumococcal Vaccine: 65+ Years Completed 06/17/2014, 01/02/2009 Zoster Vaccines Completed 05/04/2020, 10/2019, 01/13/2013 DXA Scan Discontinued 04/16/2021, 03/28, 11/30/2012, Additional history exists COVID-19 Vaccine Completed 12/12/2022, , 08/14/2021, Additional history exists VITAMIN D LEVEL ONCE IN A LIFETIME-USE SMARTSET# 86590 Completed 01/02/2023, 02/12/2021, 07/25/2008 GARDASIL-HPV IMMUNIZATION SERIES Aged Out No longer eligible based on patient's age to complete this topic Hepatitis B Aged Out No longer eligi ble based on patient's age to complete this topic MENINGOCOCCAL (MENACTRA/MENVEO) Aged Out No longer eligible based on patient's age to complete this topic documented as of this encounter Medical Devices Implanted Type Area Cleaner Laboratory Equipment Device Identifier Shelf Expiration Date Model / Serial / Lot Clip Quick 2.8mm 230cm - [id number] Implanted:Qty: 1 on 07/12/2021 by Kate Cancino MD at [facility] [employer] 10/25/2023 [id number] / / [id number] documented as of this encounter Advance Directives Documents on File Type Date Recorded Patient Conference Concierge Expl anation Power of Metal Control Worker 11/29/2016 POWER OF A TTORNEY PACE UNABLE TO REIMBURSE - DRONABINOL Latest Code Status on File Code Status Date Activated Date Inactivated Comments Full Code 04/11/2022 5:17 PM 04/11/2022 10:58 PM This order reflects the patients wishes and were consensually agreed upon. Question Answer Comments Discussion of Advance Directives occurred with: Not Discussed due to patient's condition Code Status History Code Status Date Activated Date Inactivated Comments Full Code 10/17/2020 4:36 PM 10/24/2020 1:25 PM This order reflects the patients wishes and were consensually agreed upon. Question Answer Comments Discussion of Advance Directives occurred with: Patient Does the patient have a Living Will? No Does the patient have Health Care Power of Metal Control Worker? No Full Code 10/17/2020 3:32 PM 10/17/2020 4:36 PM This order reflects the patients wishes and were consensually agreed upon. Full Code 10/15/2020 4:47 PM 10/17/2020 3:32 PM This order reflects the patients wishes and were consensually agreed upon. Healthcare Agents on File Name Relationship Healthcare Agent [facility] p Communication Michaelarya Abdul Adult Child Second Alternate Health Care Agent (per Health Care Power of Metal Control Worker document) Care Teams Transition Program Manager Relationship Specialty Start Date End Date Leta Jones DO [address] [place] [address], [place] [address] PCP - General Family Medicine 01/30/22 documented as of this encounter
--- OUTSIDE RECORDS SUMMARY | 2023-05-23 04:42 | External Medical Summary | Summary of Care ---
Author Name Unknown Organization [facility] Address [address] [place] [address] Phone [phone] Care Team Providers Care Insurance Examining Clerk Name Role Phone Leta Jones DO Primary Care Provider Reason for Visit * Reason Onset Date Comments Nurse Documentation 05/02/202305/01, 05/04 Test Results 05/02/202305/06 Encounter Details Date Type Department Care Team (Late st Contact Info) Description 05/02/2023 1:00 PM EST Scheduled Telephone Family Practice [address] [place] [address] [place] [address] College, Nurse [facility] Prac [address] [facility] [address] [place] [address] Allergies Active Allergy Reactions Criticality Noted Date [...] compression stockings 2 Each 2 12/07/2021 Active Doxycycline Hyclate 100 MG Oral CapsuleIndications :Pyogenic arthritis of right knee joint, due to unspecified organism (HCC) Take 1 Capsule by mouth in the morning and 1 Capsule before bedtime. Do all this for 20 days. 200 Capsule 3 08/21/2022 Active Gabapentin 600 MG Oral Tablet (Neurontin) [...] two weeks. 60 g 1 05/01/2023 Active documented as of this encounter (statuses as of 05/21/2023) Active Problems Problem Noted Date Diagnosed Date Caregiver stress 02/28/2023 Pyogenic arthritis of right knee joint Last Assessment & Plan: Self administration of her antibiotics and seems to be doing quite well. 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 HX-SKIN MALIGNANCY NEC - L forearm ([facility]) 10/06/2009 10/20/2019 Overview: 2006 Historical. documented as of this encounter (statuses as of 05/21/2023) Immunizations Name Administration Dates Next Due COVID-19 mRNA, LNP-s, No Pre serve, 2-Dose Series (Trefis) 04/19/2020,03/29/2020 COVID-19, LNP-s, No Preserve , [place]ico-sucrose, Ages 12+ (Pfizer) 08/14/2021,01/01/2021 COVID-19, MRNA-LNP, 23-24, P F, 30 MCG/0.3 mL, 12 YRS AND ABOVE, IM (AppyZoo-Comirnat) 12/12/2022 Covid-19, Mrna, Lnp-s, Pf, B ivalent, 30 Mcg, IM, 12 yrs and above (Trefis) 01/07/2022 Pneumococcal Conjugate Vacc, 13 Valent (Prevnar) [...] No 10/15/2020 documented as of this encounter Miscellaneous Notes * Telephone Encounter - Leta Jones DO - 05/20/2023 5:29 PM EDT See nursing note. * Telephone Encounter - Cecelia Rich LPN - 05/20/2023 10:28 AM EDT Called patient, she states her bp yesterday was 152/84 today bp is 149/89 States she is fatigued, has not chest pain or sob. She said she is on her way here for exercise, advised her we can check her bp if she would like * Telephone Encounter - Leta Jones DO - 05/20/2023 9:44 AM EDT To be clear it is not a brace. It is basically shorts with hip padding. This is what she was initially asking about. I cannot say if this is going to be of help to her so if she wants to spend her money on it she can. If she looks up "hip protector", this brings up a lot of options as to what she was looking at in the office. * Telephone Encounter - Cecelia Rich LPN - 05/19/2023 10:14 AM EDT Patient is aware and will comply. Please schedule us as directed. Can not find brace, looked on Optim[employer] and Inviragen. Wondering how to move forward. Thank you * Telephone Encounter - Leta Jones DO - 05/19/2023 9:58 AM EDT If there is no change in her hip discomfort, I do not think that she needs a scan as there was no fracture identified on the x-ray. The chronic things we know are wrong are there. It is up to her if she wants to proceed with US. My suggestion is to proceed so we can see the extent of the gallstones and if anything needs to be done about them. * Telephone Encounter - Jennifer Dial LPN - 05/07/2023 2:54 PM EDT Call placed to pt and relayed information from Dr. Jones. Pt states Dr. Hinson discussed with her at on 05/05 that she may need a scan of her hip due to all of the metal after her x-rays were reviewed. Pt asking if a scan of her his is recommended. Pt reports cough much improved. Pt reports she discussed gallstones with Dr. Hinson at appt yesterday. States she has no discomfortrelated to them and is asking if US is necessary. Please advise. * Telephone Encounter - Leta Jones DO - 05/07/2023 2:22 PM EDT Please let pt know there is no fracture identified on the hip x-ray. Her chest x-ray showed no cause for her cough. There are possible gallstones seen. We can get an US if this to further evaluate if she is agreeable. * Telephone Encounter - Cecelia Rich LPN - 05/05/2023 3:35 PM EDT Patient reviewed her chest xray and questioned about gall stones, does not have pain there but doeshave some discomfort. Area of right hip where has a broken screw, needs donor bone area is discolored and tended. Placed on DR hinson's schedule tomorrow. Advised if worsens she should call office . Thank you * Telephone Encounter - Layla Cecelia FitzpatrickSHARIFA - 05/05/2023 3:34 PM EDT Patient is aware and will comply. Thank you * Telephone Encounter - Cecelia Rich LPN - 05/05/2023 1:55 PM EDT Called, left message for patient to return call. Thank you * Telephone Encounter - Jennifer Dial LPN - 05/02/2023 3:51 PM EST Call placed to patient - no answer. Message left to return call to [phone]. * Telephone Encounter - Leta Jones DO - 05/02/2023 3:47 PM EST She can try the cream there as well. Let us know if it does not improve. * Telephone Encounter - Jennifer Dial LPN - 05/02/2023 12:46 PM EST Nurse phone call placed to patient to follow up from yesterday appt with Dr. Jones. Patient reports she still has rash. States she started clobetasol cream today to eyebrow and chest. Pt reports spot on her ring finger on left hand that she has had for about 5 days. States it is a raised area; no drainage. States it does not look like other areas she is applying cream to. States she showed area to Dr. Jones but was unsure if she should use the clobetasol cream on that area aswell. Please advise. documented in this encounter Plan of Treatment Upcoming Encounters Date Type Department Care Team (Late st Contact Info) Description 05/22/2023 10:30 AM EDT Scheduled Telephone Family Practice 65 [facility] 293 [place] [phone] [place], Nurse Fam Prac [address] [place] [address] 05/23/2023 11:00 AM EDT Office Visit Family Practice 65 [facility] 293 [place] [phone] [place], Health Stem Cutter Fam Prac [address] [place] [address] 05/27/2023 9:20 AM EDT Office Visit Family Practice 65 [facility] 293 [place] [phone] Leta Jones, DO 293 [facility] [place] [address] 08/06/2023 11:20 AM EDT Office Visit Family Practice [address] [place] [address], [place] [phone] Leta Jones, DO 293 [facility] [place] [address] Health Maintenance Due Date Last Done Comments [...] D LEVEL ONCE IN A LIFETIME-USE SMARTSET# [id number] Completed 01/02/2023, 02/12/2021, 07/25/2008 GARDASIL-HPV IMMUNIZATION SERIES Aged Out No longer eligible based on patient's age to complete this topic Hepatitis B Aged Out No longer eligi ble based on patient's age to complete this topic MENINGOCOCCAL (MENACTRA/MENVEO) Aged Out No longer eligible based on patient's age to complete this topic documented as of this encounter Medical Devices Implanted Type Area Developer Prover Upholstering Device Identifier Shelf Expiration Date Model / Serial / Lot Clip Quick 2.8mm 230cm - [id number] Implanted:Qty: 1 on 07/12/2021 by Kate Cancino MD at ENDOSCOPY [facility] [employer] 10/25/2023 HX-202UR.A / / [id number] documented as of this encounter Advance Directives Documents on File Type Date Recorded Patient Mastic Floor Layer Expl anation Power of Relationship Specialist 11/29/2016 POWER OF A TTORNEY PACE UNABLE [...] the patient have Health Care Power of Relationship Specialist? No Full Code 10/17/2020 3:32 PM 10/17/2020 4:36 PM This order reflects the patients wishes and were consensually agreed upon. Full Code 10/15/2020 4:47 PM 10/17/2020 3:32 PM This order reflects the patients wishes and were consensually agreed upon. Healthcare Agents on File Name Relationship Healthcare Agent Relationshi p Communication Michael Abdul Adult Child Second Alternate Health Care Agent (per Health Care Power of Relationship Specialist document) Care Teams Insurance Examining Clerk Relationship Specialty Start Date End Date Leta Jones DO [address] [place] [address] PCP - General Family Medicine 01/30/22 documented as of this encounter
--- OUTSIDE RECORDS SUMMARY | 2023-05-23 04:42 | External Medical Summary | Summary of Care ---
Author Name Unknown Organization [facility] Address [address] [place] [address] Phone [phone] Care Team Providers Care Relocation Specialist Name Role Phone Leta Jones DO Primary Care Provider [phone] Reason for Visit * Reason Comments Outpatient Testing Encounter Details Date Type Department Care Team (Late st Contact Info) Description 05/22/2023 9:10 AM EDT Laboratory Laboratory, [facility] [address] [place] [address] [facility] [address] [place] [address] Infective endocarditis, due to unspecified organism, unspecified chronicity Allergies Active Allergy Reactions Criticality Noted Date Comments Oxycodone Nausea/vomiting 10/15/2020 Penicillins 04/14/2001 rash,hives documented as of this encounter (statuses as of 05/22/2023) Medications Medication Sig Dispensed Refills Start Date [...] Pain, Severe. 60 Tablet 0 01/02/2023 Active Additional Information Patient not taking.Reported on 05/22/2023 Saccharomyces boulardii 250 MG Oral Capsule (Florastor) [...] as of this encounter (statuses as of 05/22/2023) Active Problems Problem Noted Date Diagnosed Date Caregiver stress 02/28/2023 Pyogenic arthritis of right knee joint Last Assessment & Plan: Self administration of her antibiotics and seems to be doing quite well. She voices concern about being on antibiotics nursing home and hoping ortho may be able to [...] as of this encounter (statuses as of 05/22/2023) Resolved Problems Problem Noted Date Diagnosed Date [...] HX-SKIN MALIGNANCY NEC - L forearm ([facility]) 10/06/2009 10/20/2019 Overview: 2006 Historical. documented as of this encounter (statuses as of 05/22/2023) Immunizations Name Administration Dates Next Due COVID-19 mRNA, LNP-s, No Pre serve, 2-Dose Series (Uni-Pixel) 04/19/2020,03/29/2020 COVID-19, LNP-s, No Preserve , [place]ico-sucrose, Ages 12+ (Pfizer) 08/14/2021,01/01/2021 COVID-19, MRNA-LNP, 23-24, P F, 30 MCG/0.3 mL, 12 YRS AND ABOVE, IM ([facility]) 12/12/2022 Covid-19, Mrna, Lnp-s, Pf, B ivalent, 30 Mcg, IM, 12 yrs and above (Uni-Pixel) 01/07/2022 Pneumococcal Conjugate Vacc, 13 Valent (Prevnar) [...] (15 years old or older) No 10/16/19 21 Cognitive Status Response Date of Assessm ent Because of a physical, menta l, or emotional condition, do you have serious difficulty concentrating, remembering, or making decisions? (5 years old or older) No 10/15/2020 documented as of this encounter Plan of Treatment Upcoming Encounters Date Type Department Care Team (Late st Contact Info) Description 05/22/2023 10:30 AM EDT Scheduled Telephone Family Practice 65 [facility] 293 [place] [phone] [place], Nurse Fam Prac [address] [place] [address] Arrived 05/23/2023 11:00 AM EDT Office Visit Family Practice 65 [facility] 293 [place] [phone] [place], Health Networks Software Consultant Fam Prac [address] [place] [address] 05/27/2023 9:20 AM EDT Office Visit Family Practice 65 [facility] 293 [place] [phone] Leta Jones, 293 [place] [address] 06/09/2023 11:35 AM EDT Cardiac Studies Cardiac Studies, [facility] 132 [facility] [place] [address] 07/01/2023 10:30 AM EDT Office Visit Cardiology, [facility] [address] [facility] [place] [address] Wagner Ramos, 132 [facility] [place] [address] 08/06/2023 11:20 AM EDT Office Visit Family Practice [address] [place] [address] 293 [place] [phone] Leta Jones, DO [address] [place] [address] Pending Results Name Type Priority Associated Diagnoses Date /Time TSH Lab Routine Infective endocarditis, due to unspecified organism, unspecified chronicity 05/22/2023 9:15 AM EDT CULTURE, BLOOD Lab Routine Infective endocarditis, due to unspecified organism, unspecified chronicity 05/22/2023 9:15 AM EDT Health Maintenance Due Date Last Done Comments [...] D LEVEL ONCE IN A LIFETIME-USE SMARTSET# [id number] Completed 01/02/2023, 02/12/2021, 07/25/2008 GARDASIL-HPV IMMUNIZATION SERIES Aged Out No longer eligible based on patient's age to complete this topic Hepatitis B Aged Out No longer eligi ble based on patient's age to complete this topic MENINGOCOCCAL (MENACTRA/MENVEO) Aged Out No longer eligible based on patient's age to complete this topic documented as of this encounter Medical Devices Implanted Type Area Cleaning Manager Device Identifier Shelf Expiration Date Model / Serial / Lot Clip Quick 2.8mm 230cm - [id number] Implanted:Qty: 1 on 07/12/2021 by Kate Cancino MD at ENDOSCOPY [facility] [employer] 10/25/2023 [id number]-202UR.A / / [id number] documented as of this encounter Visit Diagnoses Diagnosis Infective endocarditis, due to unspecified organism, unspecified chronicity documented in this encounter Advance Directives Documents on File Type Date Recorded Patient Manager Casino Expl anation Power of Food Beverage Server 11/29/2016 POWER OF A TTORNEY PACE UNABLE [...] the patient have Health Care Power of Food Beverage Server? No Full Code 10/17/2020 3:32 PM 10/17/2020 4:36 PM This order reflects the patients wishes and were consensually agreed upon. Full Code 10/15/2020 4:47 PM 10/17/2020 3:32 PM This order reflects the patients wishes and were consensually agreed upon. Healthcare Agents on File Name Relationship [facility] Agent [facility] Communication Michael Abdul Adult Child Second Alternate Health Care Agent (per Health Care Power of Food Beverage Server document) Care Teams Relocation Specialist Relationship Specialty Start Date End Date Leta Jones DO [address] [place] [id number] PCP - General Family Medicine 01/30/22 documented as of this encounter
--- OUTSIDE RECORDS SUMMARY | 2023-05-23 04:42 | External Medical Summary | Summary of Care ---
Author Name Unknown Organization [facility] Address [address] [place] [address] Phone [phone] Care Team Providers Care Health Equipment Servicer Name Role Phone Leta Jones DO Primary Care Provider [phone] Reason for Visit * Reason Onset Date Comments Nurse Documentation 05/02/202305/01, 05/04 Test Results 05/02/202305/06 Encounter Details Date Type Department Care Team (Late st Contact Info) Description 05/02/2023 1:00 PM EST Scheduled Telephone Family Practice [address] [place] [address] [place] [address] College, Nurse [facility] Prac [address] [facility] [address] [place] [address] Allergies Active Allergy Reactions Criticality Noted Date Comments Oxycodone Nausea/vomiting 10/15/2020 Penicillins 04/14/2001 rash,hives documented as of this encounter (statuses as of 05/20/2023) Medications Medication Sig Dispensed Refills Start Date [...] as of this encounter (statuses as of 05/20/2023) Active Problems Problem Noted Date Diagnosed Date Caregiver stress 02/28/2023 Pyogenic arthritis of right knee joint Last Assessment & Plan: Self administration of her antibiotics and seems to be doing quite well. 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 HX-SKIN MALIGNANCY NEC - L forearm ([facility]) 10/06/2009 10/20/2019 Overview: 2006 Historical. documented as of this encounter (statuses as of 05/20/2023) Immunizations Name Administration Dates Next Due COVID-19 mRNA, LNP-s, No Pre serve, 2-Dose Series ([employer]) 04/19/2020,03/29/2020 COVID-19, LNP-s, No Preserve , [place]ico-sucrose, Ages 12+ (Pfizer) 08/14/2021,01/01/2021 COVID-19, MRNA-LNP, 23-24, P F, 30 MCG/0.3 mL, 12 YRS AND ABOVE, IM ([employer] Raven and Stag-Comirnat) 12/12/2022 Covid-19, Mrna, Lnp-s, Pf, B ivalent, 30 Mcg, IM, 12 yrs and above ([employer] Decisions) 01/07/2022 Pneumococcal Conjugate Vacc, 13 Valent (Prevnar) [...] encounter Miscellaneous Notes * Telephone Encounter - Layla Missy, LPN - 05/20/2023 10:28 AM EDT Called [...] in the office. * Telephone Encounter - Layla Missy, LPN - 05/19/2023 10:14 AM EDT Patient is aware and will comply. Please schedule us as directed. Can not find brace, looked on [employer] and [employer]. Wondering how to move forward. Thank you [...] states Dr. Hinson discussed with her at OV on 05/05 that she may need a [...] . Thank you * Telephone Encounter - Cecelia Rich LPN - 05/05/2023 3:34 PM EDT Patient is aware and will comply. Thank you * Telephone Encounter - Cecelia Rich LPN - 05/05/2023 1:55 PM EDT Called, left message for patient to return call. Thank you * Telephone Encounter - Jennifer Dial LPN - 05/02/2023 3:51 PM EST Call placed to patient - no answer. Message left to return call to [phone]. * Telephone Encounter - Leta Jones DO [...] Team (Late st Contact Info) Description 05/20/2023 11:00 AM EDT Office Visit Family Practice 65 [facility] 293 [place] [phone] [place], Health Director Nurses' Registry Fam Prac [address] [facility] 293 [place] [address] 05/23/2023 11:00 AM EDT Office Visit Family Practice 65 [facility] 293 [place] [phone] [place], Health Director Nurses' Registry Fam Prac [address] [facility] [address] [place] [address] 08/06/2023 11:20 AM EDT Office Visit Family Practice 65 [facility] 293 [place] [phone] Leta Jones, DO 293 [place] [address] Health Maintenance Due Date Last Done Comments [...] D LEVEL ONCE IN A LIFETIME-USE SMARTSET# [id number] Completed 01/02/2023, 02/12/2021, 07/25/2008 GARDASIL-HPV IMMUNIZATION SERIES Aged Out No longer eligible based on patient's age to complete this topic Hepatitis B Aged Out No longer eligi ble based on patient's age to complete this topic MENINGOCOCCAL (MENACTRA/MENVEO) Aged Out No longer eligible based on patient's age to complete this topic documented as of this encounter Medical Devices Implanted Type Area Nuclear Design Engineer Device Identifier Shelf Expiration Date Model / Serial / Lot Clip Quick 2.8mm 230cm - [id number] Implanted:Qty: 1 on 07/12/2021 by Kate Cancino MD at ENDOSCOPY [facility] [employer] 10/25/2023 HX-202UR.A / / [id number] documented as of this encounter Advance Directives Documents on File Type Date Recorded Patient Health Promotion Coordinator Expl anation Power of Elevator Erector 11/29/2016 POWER OF A TTORNEY PACE UNABLE [...] the patient have Health Care Power of Elevator Erector? No Full Code 10/17/2020 3:32 PM 10/17/2020 4:36 PM This order reflects the patients wishes and were consensually agreed upon. Full Code 10/15/2020 4:47 PM 10/17/2020 3:32 PM This order reflects the patients wishes and were consensually agreed upon. Healthcare Agents on File Name Relationship Healthcare Agent [facility] Communication Michael Abdul Adult Child Second Alternate Health Care Agent (per Health Care Power of Elevator Erector document) Care Teams Health Equipment Servicer Relationship Specialty Start Date End Date Leta Jones DO [address] [place] [address] PCP - General Family Medicine 01/30/22 documented as of this encounter
--- OUTSIDE RECORDS SUMMARY | 2023-05-23 04:42 | External Medical Summary | Summary of Care ---
Author Name Unknown Organization [facility] Address [address] [place] [address] Phone [phone] Care Team Providers Care Cash Posting Specialist Name Role Phone Leta Jones DO Primary Care Provider Reason for Visit * Reason Onset Date Comments Nurse Documentation 05/02/202305/01, 05/04 Test Results 05/02/202305/06 Encounter Details Date Type Department Care Team (Late st Contact Info) Description 05/02/2023 1:00 PM EST Scheduled Telephone Family Practice [address] [place] [address] [place] [address] College, Nurse [facility] Prac [address] 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 HX-SKIN MALIGNANCY NEC - L forearm ([facility]) 10/06/2009 10/20/2019 Overview: 2006 Historical. documented as of this encounter (statuses as of 05/20/2023) Immunizations Name Administration Dates Next Due COVID-19 mRNA, LNP-s, No Pre serve, 2-Dose Series ([employer]) 04/19/2020,03/29/2020 COVID-19, LNP-s, No Preserve , [place]-sucrose, Ages 12+ (Pfizer) 08/14/2021,01/01/2021 COVID-19, MRNA-LNP, 23-24, P F, 30 MCG/0.3 mL, 12 YRS AND ABOVE, IM ([employer]-Comirnat) 12/12/2022 Covid-19, Mrna, Lnp-s, Pf, B ivalent, 30 Mcg, IM, 12 yrs and above ([employer]) 01/07/2022 Pneumococcal Conjugate Vacc, 13 Valent (Prevnar) [...] directed. Can not find brace, looked on [employer] (HDS) and [employer]. Wondering how to move forward. Thank you [...] answer. Message left to return call to [phone]. * Telephone Encounter - Leta Jones DO [...] AM EDT Office Visit Family Practice 65 [facility] 293 [facility] [place] [address] [place], Health Attending Anesthesiologist [facility] [address]ac [address] [address] 05/23/2023 11:00 AM EDT Office Visit Family [facility] 65 [facility] 293 [facility] [place] [phone] [place], Health Attending Anesthesiologist Fam Prac [address] [place] [address] 08/06/2023 11:20 AM EDT Office Visit Family Practice 65 [facility] 293 [facility] [place] [address] Leta Jones, 293 [place] [address] Health Maintenance Due Date Last Done Comments [...] D LEVEL ONCE IN A LIFETIME-USE SMARTSET# [id number] Completed 01/02/2023, 02/12/2021, 07/25/2008 GARDASIL-HPV IMMUNIZATION SERIES Aged Out No longer eligible based on patient's age to complete this topic Hepatitis B Aged Out No longer eligi ble based on patient's age to complete this topic MENINGOCOCCAL (MENACTRA/MENVEO) Aged Out No longer eligible based on patient's age to complete this topic documented as of this encounter Medical Devices Implanted Type Area Medical Instrument Technician Device Identifier Shelf Expiration Date Model / Serial / Lot Clip Quick 2.8mm 230cm - [id number] Implanted:Qty: 1 on 07/12/2021 by Kate Cancino MD at ENDOSCOPY [facility] Colon [employer] 10/25/2023 HX-202UR.A / / [id number] documented as of this encounter Advance Directives Documents on File Type Date Recorded Patient Cheese Tester Expl anation Power of Industrial Maintenance Electrician 11/29/2016 POWER OF A TTORNEY PACE UNABLE [...] the patient have Health Care Power of Industrial Maintenance Electrician? No Full Code 10/17/2020 3:32 PM 10/17/2020 4:36 PM This order reflects the patients wishes and were consensually agreed upon. Full Code 10/15/2020 4:47 PM 10/17/2020 3:32 PM This order reflects the patients wishes and were consensually agreed upon. Healthcare Agents on File Name Relationship Healthcare Agent [facility] p Communication Michael Abdul Adult Child Second Alternate Health Care Agent (per Health Care Power of Industrial Maintenance Electrician document) Care Teams Cash Posting Specialist Relationship Specialty Start Date End Date Leta Jones DO [address] [place] [id number] PCP - General Family Medicine 01/30/22 documented as of this encounter
--- OUTSIDE RECORDS SUMMARY | 2023-05-23 04:42 | External Medical Summary | Summary of Care ---
Author Name Unknown Organization [facility] Address [address] [place] [address] Phone [phone] Care Team Providers Care Manufacturing Worker Name Role Phone Leta Jones DO Primary Care Provider Reason for Visit * Reason Onset Date Comments Nurse Documentation 05/02/202305/01, 05/04 Test Results 05/02/202305/06 Encounter Details Date Type Department Care Team (Late st Contact Info) Description 05/02/2023 1:00 PM EST Scheduled Telephone Family Practice [address], [place] [address] [place] [address] College, Nurse [facility] Prac [address] [facility] [address] [place] [address] Allergies Active Allergy Reactions Criticality [...] She voices concern about being on 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 HX-SKIN MALIGNANCY NEC - L forearm ([facility]) 10/06/2009 10/20/2019 Overview: 2006 Historical. documented as of this encounter (statuses as of 05/20/2023) Immunizations Name Administration Dates Next Due COVID-19 mRNA, LNP-s, No Pre serve, 2-Dose Series ([employer]) 04/19/2020,03/29/2020 COVID-19, LNP-s, No Preserve , [place]ico-sucrose, Ages 12+ (Pfizer) 08/14/2021,01/01/2021 COVID-19, MRNA-LNP, 23-24, P F, 30 MCG/0.3 mL, 12 YRS AND ABOVE, IM (8aweek-Comirnat) 12/12/2022 Covid-19, Mrna, Lnp-s, Pf, B ivalent, 30 Mcg, IM, 12 yrs and above ([employer]) 01/07/2022 Pneumococcal Conjugate Vacc, 13 Valent (Prevnar) [...] directed. Can not find brace, looked on [employer] and [employer]. Wondering how to move forward. Thank you [...] answer. Message left to return call to [phone]. * Telephone Encounter - Leta Jones DO [...] AM EDT Scheduled Telephone Family Practice 65 [facility] 293 [place] [phone] [place], Nurse Fam Prac [address] [place] [address] 05/23/2023 11:00 AM EDT Office Visit Family Practice 65 [facility] 293 [facility] [phone] [place], Health Cylinder Head Assembler Fam Prac [address] [place] [address] 05/27/2023 9:20 AM EDT Office Visit Family Practice 65 [facility] 293 [place] [phone] Leta Jones, DO 293 [place] [address] 08/06/2023 11:20 AM EDT Office Visit Family Practice [address] [place] [address], [place] [phone] Leta Jones, DO 293 [place] [address] Health Maintenance Due Date Last Done Comments [...] D LEVEL ONCE IN A LIFETIME-USE SMARTSET# [id number] Completed 01/02/2023, 02/12/2021, 07/25/2008 GARDASIL-HPV IMMUNIZATION SERIES Aged Out No longer eligible based on patient's age to complete this topic Hepatitis B Aged Out No longer eligi ble based on patient's age to complete this topic MENINGOCOCCAL (MENACTRA/MENVEO) Aged Out No longer eligible based on patient's age to complete this topic documented as of this encounter Medical Devices Implanted Type Area Striping Machine Operator Device Identifier Shelf Expiration Date Model / Serial / Lot Clip Quick 2.8mm 230cm - [id number] Implanted:Qty: 1 on 07/12/2021 by Kate Cancino MD at ENDOSCOPY [facility] Colon [employer] 10/25/2023 HX-202UR.A / / [id number] documented as of this encounter Advance Directives Documents on File Type Date Recorded Patient Bankruptcy Paralegal Expl anation Power of Meter Readers Supervisor 11/29/2016 POWER OF A TTORNEY PACE UNABLE [...] the patient have Health Care Power of Meter Readers Supervisor? No Full Code 10/17/2020 3:32 PM 10/17/2020 [...] Care Agent (per Health Care Power of Meter Readers Supervisor document) Care Teams Manufacturing Worker Relationship Specialty Start Date End Date Leta Jones DO 293 [place] [address] PCP - General Family Medicine 01/30/22 documented as of this encounter
--- OUTSIDE RECORDS SUMMARY | 2023-05-23 04:42 | External Medical Summary | Summary of Care ---
Author Name Unknown Organization [facility] Address [address] [place] [address] Phone [phone] Care Team Providers Care Orthotic Assistant Name Role Phone Leta Jones DO Primary Care Provider Reason for Visit * Reason Onset Date Comments Test Results 05/21/202305/20 Encounter Details Date Type Department Care Team (Late st Contact Info) Description 05/21/2023 Telephone Family Practice [address], [place] [address] [place] [address] Leta Jones DO [address] [place] [address] Test Results (05/20) Allergies Active Allergy Reactions Criticality Noted Date [...] She voices concern about being on antibiotics 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 HX-SKIN MALIGNANCY NEC - L forearm (Sun) 10/06/2009 10/20/2019 Overview: 2006 Historical. documented as of this encounter (statuses as of 05/21/2023) Immunizations Name Administration Dates Next Due COVID-19 mRNA, LNP-s, No Pre serve, 2-Dose Series ([employer])) 04/19/2020,03/29/2020 COVID-19, LNP-s, No Preserve , Chico-sucrose, Ages 12+ (Whisk (formerly [employer]see)) 08/14/2021,01/01/2021 COVID-19, MRNA-LNP, 23-24, P F, 30 MCG/0.3 mL, 12 YRS AND ABOVE, IM ([facility]-Comirnat) 12/12/2022 Covid-19, Mrna, Lnp-s, Pf, B ivalent, 30 Mcg, IM, 12 yrs and above (Whisk (formerly Zypsee)) 01/07/2022 Pneumococcal Conjugate Vacc, 13 Valent (Prevnar) [...] encounter Miscellaneous Notes * Telephone Encounter - Jennifer Dial LPN - 05/21/2023 1:57 PM EDT Call placed to patient and relayed information from Dr. Hinson. Pt acknowledged understanding. No questions at this time. * Telephone Encounter - Severo Hinson DO - 05/21/2023 1:51 PM EDT Flu, COVID, and RSV test is negative. Viral gastroenteritis should improve with conservative care * Telephone Encounter - Jennifer Dial LPN - 05/21/2023 11:15 AM EDT Call placed to patient and relayed information from Dr. Jones. Pt reports she continues to have loose stools and feels weak. Took some imodium on Friday. No nausea/vomiting. States she looked at her Sodium level and noted it was low. Sodium was 135. Informed pt this was in the normal range. States she is eating and drinking green tea and water. States weakness started on Friday. States she coughed once last evening. Pt states she is concerned it may be her heart. Denies chest pain. States she just feels tired. States son was born in 1980 and she had heart issues - high blood pressure - told she had severe eclampsia. States in [phone] she had elevated BP and was seen in the hospital. States she read that Demerol injections can affect your heart - states she had Demerol injections back in the 1960s. Reviewed BRAT diet. Aware we are awaiting results of resp swab. * Telephone Encounter - Leta Jones DO - 05/21/2023 10:02 AM EDT Please let pt know: Her lab studies looked good. No explanation for fatigue. No evidence of infection. Swab not yet back. ?gastroenteritis as she had some loose stools. Monitor and call with issues. documented in this encounter Plan of Treatment Upcoming Encounters Date Type Department Care Team (Late st Contact Info) Description 05/22/2023 8:30 AM EDT Office Visit Cardiology, [facility] 132 [facility] [place] [address] Wagner Ramos, 132 [facility] [place] [address] 05/22/2023 10:30 AM EDT Scheduled Telephone Family Practice [address] [place] [phone] [place], Nurse Fam Prac [address] [place] [address] 05/23/2023 11:00 AM EDT Office Visit Family Practice 65 [facility] 293 [place] [phone] [place], Health Burring Machine Operator Fam Prac [address] [place] [address] 05/27/2023 9:20 AM EDT Office Visit Family Practice [address] [place] [phone] Leta Jones, 293 [place] [address] 08/06/2023 11:20 AM EDT Office Visit Family Practice [address] [place] [phone] [facility] [address] Health Maintenance Due Date Last Done Comments [...] D LEVEL ONCE IN A LIFETIME-USE SMARTSET# [id number] Completed 01/02/2023, 02/12/2021, 07/25/2008 GARDASIL-HPV IMMUNIZATION SERIES Aged Out No longer eligible based on patient's age to complete this topic Hepatitis B Aged Out No longer eligi ble based on patient's age to complete this topic MENINGOCOCCAL (MENACTRA/MENVEO) Aged Out No longer eligible based on patient's age to complete this topic documented as of this encounter Medical Devices Implanted Type Area Manager Educational Device Identifier Shelf Expiration Date Model / Serial / Lot Clip Quick 2.8mm 230cm - [id number] Implanted:Qty: 1 on 07/12/2021 by Kate Cancino MD at ENDOSCOPY [facility] Colon [employer] 10/25/2023 HX-202UR.A / / [id number] documented as of this encounter Advance Directives Documents on File Type Date Recorded Patient Vacation Guide Expl anation Power of Food Science Technician 11/29/2016 POWER OF A TTORNEY PACE UNABLE [...] patient have Health Care Power of Food Science Technician? No Full Code 10/17/2020 3:32 PM 10/17/2020 [...] Agent (per Health Care Power of Food Science Technician document) Care Teams Orthotic Assistant Relationship Specialty Start Date End Date Leta Jones DO [address] [place] [address] PCP - General Family Medicine 01/30/22 documented as of this encounter
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
--- OUTSIDE RECORDS SUMMARY | 2023-05-23 04:43 | External Medical Summary ---
Author Name Unknown Address Unknown Organization K01:LABORATORY [facility] [place] - [address] [facility] [address] Laboratory Report Ordering Provider Test Date Status CATALINA VALENCIA 05/20/2023 12:49:33 Final Observation Date Value Abnormality Reference (Units ) Status WBC, Total 05/20/2023 12:49:33 7.38 4.00-10.80 (K/uL) Final RBC 05/20/2023 12:49:33 4.51 3.85-5.15 (M/uL) Final Hemoglobin 05/20/2023 12:49:33 14.5 12.0-15.3 (g/dL) Final HCT 05/20/2023 12:49:33 44.0 36.0-45.2 (%) Final MCV 05/20/2023 12:49:33 97.6 81.5-97.5 (fL) Final MCH 05/20/2023 12:49:33 32.2 27.0-34.0 (pg) Final MCHC 05/20/2023 12:49:33 33.0 32.0-36.0 (g/dL) Final RDW 05/20/2023 12:49:33 13.4 11.5-15.5 (%) Final Platelets 05/20/2023 12:49:33 290 140-400 (K/uL) Final MPV 05/20/2023 12:49:33 10.3 6.6-11.1 (fL) Final Nucleated erythrocytes/100 leukocytes [Ratio] in Blood by Automated count 05/20/2023 12:49:33 0 <=0 (/100 WBCs) Final Performing Location LABORATORY [facility] [place] - [address] [place] [address]
--- OUTSIDE RECORDS SUMMARY | 2023-05-23 04:43 | External Medical Summary | Summary of Care ---
Author Name Unknown Organization [facility] Address [address] [place] [address] Phone [phone] Care Team Providers Care Field Map Editor Name Role Phone Robert Leta Rivera DO Primary Care Provider Encounter Details Date Type Department Care Team (Late st Contact Info) Description 05/13/2023 Documentation HEALTH & WELLNESS Elvira Silveira, Health Scraper Burrer Allergies Active Allergy Reactions Criticality Noted Date Comments Oxycodone Nausea/vomiting 10/15/2020 Penicillins 04/14/2001 rash,hives documented as of this encounter (statuses as of 05/13/2023) Medications Medication Sig Dispensed Refills Start Date [...] as of this encounter (statuses as of 05/13/2023) Active Problems Problem Noted Date Diagnosed Date Caregiver stress 02/28/2023 Pyogenic arthritis of right knee joint Last Assessment & Plan: Self administration of her antibiotics and seems to be doing quite well. 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 HX-SKIN MALIGNANCY NEC - L forearm ([facility]) 10/06/2009 10/20/2019 Overview: 2006 Historical. documented as of this encounter (statuses as of 05/13/2023) Immunizations Name Administration Dates Next Due COVID-19 mRNA, LNP-s, No Pre serve, 2-Dose Series ([employer]) 04/19/2020,03/29/2020 COVID-19, LNP-s, No Preserve , [place]ico-sucrose, Ages 12+ (Pfizer) 08/14/2021,01/01/2021 COVID-19, MRNA-LNP, 23-24, P F, 30 MCG/0.3 mL, 12 YRS AND ABOVE, IM ([employer].-Comirnaty) 12/12/2022 Covid-19, Mrna, Lnp-s, Pf, B ivalent, 30 Mcg, IM, 12 yrs and above (Kerlink) 01/07/2022 Pneumococcal Conjugate Vacc, 13 Valent (Prevnar) [...] encounter Progress Notes * Elvira Silveira, Health Scraper Burrer - 05/13/2023 3:20 PM EDT Did patient attend session 3 of 10 of the small group balance program? Yes: Patient attended session 3 of 10 of the small group balance program. Session 3 focused on a review of fall prevention in the home, lower extremity strengthening and hand eye coordination drills from the previous sessions. Pr acticed exercises as a group. documented in this encounter Plan of Treatment Upcoming Encounters Date Type Department Care Team (Late st Contact Info) Description 05/16/2023 11:00 AM EDT Office Visit Family Practice [address] [place] [address] [address] [place] [address] [facility] Health Scraper Burrer [address] [place] [address] 08/06/2023 11:20 AM EDT Office Visit [address] 293 [place] [phone] Leta Jones DO 293 [place] [address] Health Maintenance Due Date Last Done Comments [...] D LEVEL ONCE IN A LIFETIME-USE SMARTSET# 17545 Completed 01/02/2023, 02/12/2021, 07/25/2008 GARDASIL-HPV IMMUNIZATION SERIES Aged Out No longer eligible based on patient's age to complete this topic Hepatitis B Aged Out No longer eligi ble based on patient's age to complete this topic MENINGOCOCCAL (MENACTRA/MENVEO) Aged Out No longer eligible based on patient's age to complete this topic documented as of this encounter Medical Devices Implanted Type Area Stator Connector Device Identifier Shelf Expiration Date Model / Serial / Lot Clip Quick 2.8mm 230cm - [id number] Implanted:Qty: 1 on 07/12/2021 by Kate Cancion MD at ENDOSCOPY [facility] [employer] 10/25/2023 HX-202UR.A / / [id number] documented as of this encounter Advance Directives Documents on File Type Date Recorded Patient Maintenance Construction Helper Expl anation Power of Inspector Printed Circuit Boards 11/29/2016 POWER OF A TTORNEY PACE UNABLE [...] the patient have Health Care Power of Inspector [employer]ed Circuit Boards? No Full Code 10/17/2020 3:32 PM 10/17/2020 [...] Care Agent (per Health Care Power of Inspector Printed Circuit Boards document) Care Teams Field Map Editor Relationship Specialty Start Date End Date Leta Jones DO [address] [facility] [place] [address] PCP - General Family Medicine 01/30/22 documented as of this encounter
--- OUTSIDE RECORDS SUMMARY | 2023-05-23 04:43 | External Medical Summary ---
Author Name Unknown Address Unknown Organization K01:[facility] - [address] [place] [address] Laboratory Report Ordering Provider Test Date Status CATALINA VALENCIA 05/20/2023 12:49:33 Final Observation Date Value Abnormality Reference (Units ) Status Magnesium 05/20/2023 12:49:33 2.4 1.5-2.6 (m g/dL) Final Performing Location [facility] - [address] [place] [address]
--- OUTSIDE RECORDS SUMMARY | 2023-05-23 04:43 | External Medical Summary ---
Author Name Unknown Address Unknown Organization [id number]:[facility] [place] [address] [facility] [address] Laboratory Report Ordering Provider Test Date Status CATALINA VALENCIA 05/20/2023 12:38:43 Final Observation Date Value Abnormality Reference (Units ) Status SARS Coronavirus 2 05/20/2023 12:38:43 Negative N egative Final No SARS-CoV2 Coronavirus RNA detected by PCR (amplified probe).
This automated test was developed and its performance characteristics determined by [facility]. It has not been cleared or approved by the U.S. Food and Drug Administration (FDA). FDA does not require this test to go thru premarket FDA review. This test is used for clinical purposes. It should not be regarded as investigational or for research. This laboratory is certified under the Clinical Laboratory Improvement Amendments (CLIA) as qualified to perform high complexity clinical laboratory testing.

This test is a nucleic acid amplification test (NAAT), a reverse transcriptase polymerase chain reaction (RT-PCR) test, or a Centers for Disease Control-acceptable equivalent. The test is performed in a high complexity Clinical Laboratory Improvement Amendments-(CLIA) certified laboratory. The test is acceptable for SARS-CoV-2 diagnosis, surveillance, and travel within the [place] and to most countries. Please check with local testing authorities about requirements before travel.

The validation of bronchial specimens, tracheal aspirates, and sputum for this assay was developed and performance characteristics determined by [facility]. The validation of alternate specimen types has not been cleared or approved by the U.S. Food and Drug Administration (FDA). It has been determined that such clearance or approval is not necessary. Influenza virus A RNA [Prese nce] in Specimen by KRISTEN with probe detection 05/20/2023 12:38:43 Negative Negative Final No Influenza A RNA detected by PCR (amplified probe) Influenza virus B RNA [Prese nce] in Specimen by KRISTEN with probe detection 05/20/2023 12:38:43 Negative Negative Final No Influenza B RNA detected by PCR (amplified probe) Respiratory syncytial virus RNA [Identifier] in Specimen by KRISTEN with probe detection 05/20/2023 12:38:43 Negative Negative Final No Respiratory Syncytial Vir us RNA detected by PCR (amplified probe) Performing Location [address]ATORY [address] [place] [facility] [address]
--- OUTSIDE RECORDS SUMMARY | 2023-05-23 04:43 | External Medical Summary | Summary of Care ---
Author Name Unknown Organization [facility] Address [address] [place] [address] Phone [phone] Care Team Providers Care Rural Mail Contractor Name Role Phone Leta Jones DO Primary Care Provider Reason for Visit * Reason Onset Date Comments Nurse Documentation 05/02/202305/01, 05/04 Test Results 05/02/202305/06 Encounter Details Date Type Department Care Team (Late st Contact Info) Description 05/02/2023 1:00 PM EST Scheduled Telephone Family Practice [address], [place] [address] [place] [address] College, Nurse [facility] Prac [address] [facility] [address] [place] [address] Allergies Active Allergy Reactions Criticality Noted Date Comments Oxycodone Nausea/vomiting 10/15/2020 Penicillins 04/14/2001 rash,hives documented as of this encounter (statuses as of 05/19/2023) Medications Medication Sig Dispensed Refills Start Date [...] as of this encounter (statuses as of 05/19/2023) Active Problems Problem Noted Date Diagnosed Date Caregiver stress 02/28/2023 Pyogenic arthritis of right knee joint Last Assessment & Plan: Self administration of her antibiotics and seems to be doing quite well. 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 documented as of this encounter (statuses as of 05/19/2023) Immunizations Name Administration Dates Next Due COVID-19 mRNA, LNP-s, No Pre serve, 2-Dose Series ([employer]) 04/19/2020,03/29/2020 COVID-19, LNP-s, No Preserve , Chico-sucrose, Ages 12+ (Pfizer) 08/14/2021,01/01/2021 COVID-19, MRNA-LNP, 23-24, P F, 30 MCG/0.3 mL, 12 YRS AND ABOVE, IM ([employer]-Comirnat) 12/12/2022 Covid-19, Mrna, Lnp-s, Pf, B ivalent, 30 Mcg, IM, 12 yrs and above (DAQRI) 01/07/2022 Pneumococcal Conjugate Vacc, 13 Valent (Prevnar) [...] encounter Miscellaneous Notes * Telephone Encounter - Cecelia Rich ESHARIFA - 05/19/2023 10:14 AM EDT Patient is aware and will comply. Please schedule us as directed. Can not find brace, looked on amazon and beModel. Wondering how to move forward. Thank you [...] she is agreeable. * Telephone Encounter - Layla Missy, LPN - 05/05/2023 3:35 PM EDT Patient reviewed her chest xray and questioned about gall stones, does not have pain there but doeshave some discomfort. Area of right hip where has a broken screw, needs donor bone area is discolored and tended. Placed on DR hinson's schedule tomorrow. Advised if worsens she should call office . Thank you * Telephone Encounter - Layla Missy, LPN - 05/05/2023 3:34 PM EDT Patient is aware and will comply. Thank you * Telephone Encounter - Cecelia Rich LPN - 05/05/2023 1:55 PM EDT Called, left message for patient to return call. Thank you * Telephone Encounter - Jennifer Dial LPN - 05/02/2023 3:51 PM EST Call placed to patient - no answer. Message left to return call to [phone]. * Telephone Encounter - Leta Jones DO [...] Care Team (Late st Contact Info) Description 08/06/2023 11:20 AM EDT Office Visit Family Practice [address], [place] [address] [place] [address] Leta Jones DO [address] [place] [address] Health Maintenance Due Date Last Done Comments *BISPHONATE OR OTHER ACCEPTABLE MEDICATION NEEDED FOR OSTEOPOROSIS (REFER TO SMARTSET #1146) 10/24/2022 Influenza Vaccine (FLU shot) (#1) 2022 12/13/2021, 11/24/2020, 11/03/2019, Additional history exists Depression Screening 02/29/2024 02/28/2023 DTaP,Tdap,and Td Vaccines (2 - Td or Tdap) 11/14/2027 11/13/2017, 01/02/2009 Pneumococcal Vaccine: 65+ Years Completed 06/17/2014, 01/02/2009 Zoster Vaccines Completed 05/04/2020, 09/0 10/2019, 01/13/2013 DXA Scan Discontinued 04/16/2021, 03/28, 11/30/2012, Additional history exists COVID-19 Vaccine Completed 12/12/2022, , 08/14/2021, Additional history exists VITAMIN D LEVEL ONCE IN A LIFETIME-USE SMARTSET# 76706 Completed 01/02/2023, 02/12/2021, 07/25/2008 GARDASIL-HPV IMMUNIZATION SERIES Aged Out No longer eligible based on patient's age to complete this topic Hepatitis B Aged Out No longer eligi ble based on patient's age to complete this topic MENINGOCOCCAL (MENACTRA/MENVEO) Aged Out No longer eligible based on patient's age to complete this topic documented as of this encounter Medical Devices Implanted Type Area Dietary Clerk Device Identifier Shelf Expiration Date Model / Serial / Lot Clip Quick 2.8mm 230cm - [id number] Implanted:Qty: 1 on 07/12/2021 by Kaet Cancino MD at ENDOSCOPY [facility] Colon [employer] 10/25/2023 HX-202UR.A / / [id number] documented as of this encounter Advance Directives Documents on File Type Date Recorded Patient Floor Layer Helper Expl anation Power of Recruiting Operations Consultant 11/29/2016 POWER OF A TTORNEY PACE UNABLE [...] the patient have Health Care Power of Recruiting Operations Consultant? No Full Code 10/17/2020 3:32 PM 10/17/2020 4:36 PM This order reflects the patients wishes and were consensually agreed upon. Full Code 10/15/2020 4:47 PM 10/17/2020 3:32 PM This order reflects the patients wishes and were consensually agreed upon. Healthcare Agents on File Name Relationship Healthcare Agent [facility] p Communication Michael Abdul Adult Child Second Alternate Health Care Agent (per Health Care Power of Recruiting Operations Consultant document) Care Teams Rural Mail Contractor Relationship Specialty Start Date End Date Leta Jones DO [address] [place] [facility] [place] [address] PCP - General Family Medicine 01/30/22 documented as of this encounter
--- OUTSIDE RECORDS SUMMARY | 2023-05-23 04:43 | External Medical Summary | Summary of Care ---
Author Name Unknown Organization [facility] Address [address] [place] [address] Phone [phone] Care Team Providers Care Power Shovel Engineer Name Role Phone Robert Leta Rivera DO Primary Care Provider [phone] Encounter Details Date Type Department Care Team (Late st Contact Info) Description 05/16/2023 Documentation HEALTH & WELLNESS Elvira Silveira, Health Installation Supervisor Allergies Active Allergy Reactions Criticality Noted Date Comments Oxycodone Nausea/vomiting 10/15/2020 Penicillins 04/14/2001 rash,hives documented as of this encounter (statuses as of 05/16/2023) Medications Medication Sig Dispensed Refills Start Date [...] as of this encounter (statuses as of 05/16/2023) Active Problems Problem Noted Date Diagnosed Date Caregiver stress 02/28/2023 Pyogenic arthritis of right knee joint Last Assessment & Plan: Self administration of her antibiotics and seems to be doing quite well. 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 HX-SKIN MALIGNANCY NEC - L forearm ([facility]) 10/06/2009 10/20/2019 Overview: 2006 Historical. documented as of this encounter (statuses as of 05/16/2023) Immunizations Name Administration Dates Next Due COVID-19 mRNA, LNP-s, No Pre serve, 2-Dose Series ([employer]) 04/19/2020,03/29/2020 COVID-19, LNP-s, No Preserve , [place]ico-sucrose, Ages 12+ (Pfizer) 08/14/2021,01/01/2021 COVID-19, MRNA-LNP, 23-24, P F, 30 MCG/0.3 mL, 12 YRS AND ABOVE, IM ([employer]-Comirnaty) 12/12/2022 Covid-19, Mrna, Lnp-s, Pf, B ivalent, 30 Mcg, IM, 12 yrs and above ([employer]) 01/07/2022 Pneumococcal Conjugate Vacc, 13 Valent (Prevnar) [...] encounter Progress Notes * Elvira Silveira, Health Installation Supervisor - 05/16/2023 2:12 PM EDT Did patient attend session 4 of 10 of the small group balance program? Yes: Patient attended session 4 of 10 of the small group balance program. Session 4 focused on a review of fall prevention in the home, lower extremity strengthening and hand eye coordination drills from the previous sessions. Pr acticed exercises as a group. documented in this encounter Plan of Treatment Upcoming Encounters Date Type Department Care Team (Late st Contact Info) Description 08/06/2023 11:20 AM EDT Office Visit Family Practice [address], [place] [address] [place] [address] Leta Jones, [address] [place] [address] Health Maintenance Due Date Last Done Comments [...] D LEVEL ONCE IN A LIFETIME-USE SMARTSET# 38914 Completed 01/02/2023, 02/12/2021, 07/25/2008 GARDASIL-HPV IMMUNIZATION SERIES Aged Out No longer eligible based on patient's age to complete this topic Hepatitis B Aged Out No longer eligi ble based on patient's age to complete this topic MENINGOCOCCAL (MENACTRA/MENVEO) Aged Out No longer eligible based on patient's age to complete this topic documented as of this encounter Medical Devices Implanted Type Area Senior Support Engineer Device Identifier Shelf Expiration Date Model / Serial / Lot Clip Quick 2.8mm 230cm - [id number] Implanted:Qty: 1 on 07/12/2021 by Kate Cancino MD at ENDOSCOPY [facility] Colon [employer] 10/25/2023 HX-202UR.A / / [id number] documented as of this encounter Advance Directives Documents on File Type Date Recorded Patient Process Control Specialist Expl anation Power of Full Stack Engineer 11/29/2016 POWER OF A TTORNEY PACE UNABLE [...] the patient have Health Care Power of Full Stack Engineer? No Full Code 10/17/2020 3:32 PM 10/17/2020 [...] Care Agent (per Health Care Power of Full Stack Engineer document) Care Teams Power Shovel Engineer Relationship Specialty Start Date End Date Leta Jones DO [address] [place] [address] PCP - General Family Medicine 01/30/22 documented as of this encounter
--- OUTSIDE RECORDS SUMMARY | 2023-05-23 04:43 | External Medical Summary | Summary of Care ---
Author Name Unknown Organization [facility] Address [address] [place] [address] Phone [phone] Care Team Providers Care Blueprint Reproducer Name Role Phone Leta Jones DO Primary Care Provider Reason for Visit * Reason Onset Date Comments Nurse Documentation 05/02/202305/01, 05/04 Test Results 05/02/202305/06 Encounter Details Date Type Department Care Team (Late st Contact Info) Description 05/02/2023 1:00 PM EST Scheduled Telephone Family Practice [address], [place] [address] [place] [address] College, Nurse [facility] Prac [address] [facility] [address] [place] [address] Allergies Active Allergy Reactions Criticality [...] 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 HX-SKIN MALIGNANCY NEC - L forearm ([facility]) 10/06/2009 10/20/2019 Overview: 2006 Historical. documented as of this encounter (statuses as of 05/19/2023) Immunizations Name Administration Dates Next Due COVID-19 mRNA, LNP-s, No Pre serve, 2-Dose Series ([employer]) 04/19/2020,03/29/2020 COVID-19, LNP-s, No Preserve , Chico-sucrose, Ages 12+ (Pfizer) 08/14/2021,01/01/2021 COVID-19, MRNA-LNP, 23-24, P F, 30 MCG/0.3 mL, 12 YRS AND ABOVE, IM ([employer]-Comirnat) 12/12/2022 Covid-19, Mrna, Lnp-s, Pf, B ivalent, 30 Mcg, IM, 12 yrs and above ([employer]) 01/07/2022 Pneumococcal Conjugate Vacc, 13 Valent (Prevnar) [...] answer. Message left to return call to [phone]. * Telephone Encounter - Leta Jones DO [...] EDT Office Visit Family Practice [address], [place] [address] [place] [phone] Leta Jones DO [address] [place] [address] Health Maintenance Due Date Last Done Comments [...] D LEVEL ONCE IN A LIFETIME-USE SMARTSET# [id number] Completed 01/02/2023, 02/12/2021, 07/25/2008 GARDASIL-HPV IMMUNIZATION SERIES Aged Out No longer eligible based on patient's age to complete this topic Hepatitis B Aged Out No longer eligi ble based on patient's age to complete this topic MENINGOCOCCAL (MENACTRA/MENVEO) Aged Out No longer eligible based on patient's age to complete this topic documented as of this encounter Medical Devices Implanted Type Area Cloud Architect Device Identifier Shelf Expiration Date Model / Serial / Lot Clip Quick 2.8mm 230cm - [id number] Implanted:Qty: 1 on 07/12/2021 by Kate Cancino MD at ENDOSCOPY [facility] [employer] [facility] 10/25/2023 HX-202UR.A / / [id number] documented as of this encounter Advance Directives Documents on File Type Date Recorded Patient Pin Or Clip Fastener Expl anation Power of Landscape Specialist 11/29/2016 POWER OF A TTORNEY PACE [...] the patient have Health Care Power of Landscape Specialist? No Full Code 10/17/2020 3:32 PM [...] Care Agent (per Health Care Power of Landscape Specialist document) Care Teams Blueprint Reproducer Relationship Specialty Start Date End Date Leta Jones DO [address] [place] [address] PCP - General Family Medicine 01/30/22 documented as of this encounter
--- OUTSIDE RECORDS SUMMARY | 2023-05-23 04:43 | External Medical Summary ---
Author Name Unknown Address Unknown Organization K01:[facility] [place] [address] [facility] [address] Laboratory Report Ordering Provider Test Date Status ERIKCATALINA 05/20/2023 12:49:33 Final Observation Date Value Abnormality Reference (Units ) Status BUN 05/20/2023 12:49:33 17 6-20 (mg/dL) Final Creatinine 05/20/2023 12:49:33 0.9 0.5-1.0 (mg/dL) Final Glomerular filtration rate/1.73 sq M.predicted [Volume Rate/Area] in Serum, Plasma or Blood by Creatinine-based formula (CKD-EPI) 05/20/2023 12:49:33 70 >=60 (mL/min) Final eGFR is calculated based on the CKD-EPI 2020 equation Sodium 05/20/2023 12:49:33 135 135-146 (m mol/L) Final Potassium 05/20/2023 12:49:33 5.1 3.5-5.1 (m mol/L) Final Cl 05/20/2023 12:49:33 99 98-107 (mm ol/L) Final CO2 05/20/2023 12:49:33 24 22-32 (mmo l/L) Final Anion gap 05/20/2023 12:49:33 12 7-15 (mmol /L) Final Glucose 05/20/2023 12:49:33 79 70-120 (mg /dL) Final Albumin 05/20/2023 12:49:33 4.1 3.8-5.0 (g /dL) Final AST (Aspartate aminotransferase) 05/20/2023 12:49:33 26 10-35 (U/L) Fin al Alk Phos 05/20/2023 12:49:33 135 Above high normal 35 -130 (U/L) Final Bilirubin, Total 05/20/2023 12:49:33 0.3 <=1 .2 (mg/dL) Final Calcium 05/20/2023 12:49:33 9.5 8.4-10.2 ( mg/dL) Final Protein 05/20/2023 12:49:33 6.3 6.0-8.3 (g /dL) Final ALT (Alanine aminotransferase) 05/20/2023 12:49:33 17 10-35 (U/L) Piyush alva Performing Location [facility] [place] [facility] [address] [facility] [address]
--- OUTSIDE RECORDS SUMMARY | 2023-05-23 04:43 | External Medical Summary ---
Author Name Unknown Address Unknown Organization K01:[facility] [place] [address] [facility] [address] Laboratory Report Ordering Provider Test Date Status CATALINA VALENCIA 05/20/2023 12:49:33 Final Observation Date Value Abnormality Reference (Units ) Status SYNC LEUKOCYTES IN BLOOD BY AUTOMATED COUNT 05/20/2023 12:49:33 7.38 4.00-10.80 (K/uL) Final Segs 05/20/2023 12:49:33 68.3 40.0-75.0 (%) Final Lymphs % 05/20/2023 12:49:33 17.8 Below low normal 18.0-42.0 (%) Final Monos 05/20/2023 12:49:33 9.1 1.0-11.0 (%) Final Eosinophils 05/20/2023 12:49:33 4.2 0.0-6.0 (%) Final Basos 05/20/2023 12:49:33 0.5 0.0-2.0 (%) Final Immature Granulocyte, Percent 05/20/2023 12:49:33 0.1 0.0-2.0 (%) Final Absolute Segs 05/20/2023 12:49:33 5.04 1.80-7.70 (K/uL) Final Lymphs, absolute 05/20/2023 12:49:33 1.31 1.00-4.80 (K/ul) Final Monos, Abs 05/20/2023 12:49:33 0.67 0.00-1.10 (K/uL) Final Eos, Abs 05/20/2023 12:49:33 0.31 0.00-0.70 (K/uL) Final Basos, Abs 05/20/2023 12:49:33 0.04 0.00-0.20 (K/uL) Final Immature Granulocytes, Number 05/20/2023 12:49:33 0.01 0.00-0.20 (K/uL) Final Performing Location [facility]ORY [facility] [place] - [address] [facility] [address]
--- OUTSIDE RECORDS SUMMARY | 2023-05-23 04:44 | External Medical Summary | Summary of Care ---
Author Name Unknown Organization [facility] Address [address] [place] [address] Phone [phone] Care Team Providers Care Orthopedic Rn Name Role Phone Leta Jones DO Primary Care Provider [phone] Reason for Visit * Reason Onset Date Comments Nurse Documentation 05/02/202305/01 Encounter Details Date Type Department Care Team (Late st Contact Info) Description 05/02/2023 1:00 PM EST Scheduled Telephone Family Practice [address] [place] [address] College, Nurse [facility] Prac [address] [facility] [address] [place] [address] Allergies Active Allergy Reactions Criticality Noted Date Comments Oxycodone Nausea/vomiting 10/15/2020 Penicillins 04/14/2001 rash,hives documented as of this encounter (statuses as of 05/02/2023) Medications Medication Sig Dispensed Refills Start Date [...] as of this encounter (statuses as of 05/02/2023) Active Problems Problem Noted Date Diagnosed Date Caregiver stress 02/28/2023 Pyogenic arthritis of right knee joint Last Assessment & Plan: Self administration of her antibiotics and seems to be doing quite well. 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 documented as of this encounter (statuses as of 05/02/2023) Immunizations Name Administration Dates Next Due COVID-19 mRNA, LNP-s, No Pre serve, 2-Dose Series ([employer]) 04/19/2020,03/29/2020 COVID-19, LNP-s, No Preserve , [place]-sucrose, Ages 12+ (Pfizer) 08/14/2021,01/01/2021 COVID-19, MRNA-LNP, 23-24, P F, 30 MCG/0.3 mL, 12 YRS AND ABOVE, IM ([facility]) 12/12/2022 Covid-19, Mrna, Lnp-s, Pf, B ivalent, 30 Mcg, IM, 12 yrs and above ([employer]) 01/07/2022 Pneumococcal Conjugate Vacc, 13 Valent (Prevnar) [...] EDT Office Visit Family Practice [address] [place] [address] Leta Jones, [address] [place] [address] Health Maintenance Due Date Last Done Comments [...] D LEVEL ONCE IN A LIFETIME-USE SMARTSET# [id number] Completed 01/02/2023, 02/12/2021, 07/25/2008 GARDASIL-HPV IMMUNIZATION SERIES Aged Out No longer eligible based on patient's age to complete this topic Hepatitis B Aged Out No longer eligi ble based on patient's age to complete this topic MENINGOCOCCAL (MENACTRA/MENVEO) Aged Out No longer eligible based on patient's age to complete this topic documented as of this encounter Medical Devices Implanted Type Area Production Coordinator Device Identifier Shelf Expiration Date Model / Serial / Lot Clip Quick 2.8mm 230cm - [id number] Implanted:Qty: 1 on 07/12/2021 by Kate Cancino MD at ENDOSCOPY [facility] [employer] 10/25/2023 HX-202UR.A / / [id number] documented as of this encounter Advance Directives Documents on File Type Date Recorded 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 No Full Code 10/17/2020 3:32 PM 10/17/2020 4:36 PM This order reflects the patients wishes and were consensually agreed upon. Full Code 10/15/2020 4:47 PM 10/17/2020 3:32 PM This order reflects the patients wishes and were consensually agreed upon. Healthcare Agents on File Name Relationship Healthcare Agent [facility] p Communication Michael Abdul Adult Child Second Alternate Health Care Agent (per Health Care Power of Pocket Assembler document) Care Teams Orthopedic Rn Relationship Specialty Start Date End Date Leta Jones DO [address] [facility] [place] [address] PCP - General Family Medicine 01/30/22 documented as of this encounter
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
--- OUTSIDE RECORDS SUMMARY | 2023-05-23 04:44 | External Medical Summary | Summary of Care ---
Author Name Unknown Organization [facility] Address [address] [place] [address] Phone [phone] Care Team Providers Care Mottler Operator Name Role Phone Leta Jones DO Primary Care Provider Reason for Visit * Reason Onset Date Comments Nurse Documentation 05/02/202305/01 Encounter Details Date Type Department Care Team (Late st Contact Info) Description 05/02/2023 1:00 PM EST Scheduled Telephone Family Practice [address] [place] [address] [place] [address] College, Nurse [facility] Prac [address] [facility] [address] [place] [address] Allergies Active Allergy Reactions Criticality Noted Date [...] Acute. HX-SKIN MALIGNANCY NEC - L forearm ([facility]) 10/06/2009 10/20/2019 Overview: 2006 Historical. documented as of this encounter (statuses as of 05/02/2023) Immunizations Name Administration Dates Next Due COVID-19 mRNA, LNP-s, No Pre serve, 2-Dose Series ([employer]) 04/19/2020,03/29/2020 COVID-19, LNP-s, No Preserve , [place]-sucrose, Ages 12+ (Pfizer) 08/14/2021,01/01/2021 COVID-19, MRNA-LNP, 23-24, P F, 30 MCG/0.3 mL, 12 YRS AND ABOVE, IM [facility] 12/12/2022 Covid-19, Mrna, Lnp-s, Pf, B ivalent, 30 Mcg, IM, 12 yrs and above ([employer]) 01/07/2022 Pneumococcal Conjugate Vacc, 13 Valent (Prevnar) [...] answer. Message left to return call to [phone]. * Telephone Encounter - Leta Jones DO [...] EDT Office Visit Family Practice [address] [place] [address] [place] [phone] [facility] [address] [facility] [address] Health Maintenance Due Date Last Done Comments [...] D LEVEL ONCE IN A LIFETIME-USE SMARTSET# [id number] Completed 01/02/2023, 02/12/2021, 07/25/2008 GARDASIL-HPV IMMUNIZATION SERIES Aged Out No longer eligible based on patient's age to complete this topic Hepatitis B Aged Out No longer eligi ble based on patient's age to complete this topic MENINGOCOCCAL (MENACTRA/MENVEO) Aged Out No longer eligible based on patient's age to complete this topic documented as of this encounter Medical Devices Implanted Type Area World Designer Device Identifier Shelf Expiration Date Model / Serial / Lot Clip Quick 2.8mm 230cm - [id number] Implanted:Qty: 1 on 07/12/2021 by Kate Cancino MD at ENDOSCOPY [facility] [employer] 10/25/2023 HX-202UR.A / / [id number] documented as of this encounter Advance Directives Documents on File Type Date Recorded Patient Per Diem Registered Nurse Expl anation Power of Hand Molder And Caster 11/29/2016 POWER OF A TTORNEY PACE UNABLE [...] the patient have Health Care Power of Hand Molder And Caster? No Full Code 10/17/2020 3:32 PM 10/17/2020 [...] Care Agent (per Health Care Power of Hand Molder And Caster document) Care Teams Mottler Operator Relationship Specialty Start Date End Date Leta Jones DO [address] [place] [address] PCP - General Family Medicine 01/30/22 documented as of this encounter
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
--- OUTSIDE RECORDS SUMMARY | 2023-05-23 04:44 | External Medical Summary | Summary of Care ---
Author Name Unknown Organization [facility] Address [address] [place] [address] Phone [phone] Care Team Providers Care Jewelry Facer Name Role Phone Leta Jones DO Primary Care Provider [phone] Reason for Visit * Reason Onset Date Comments Nurse Documentation 05/02/202305/01, 05/04 Encounter Details Date Type Department Care Team (Late st Contact Info) Description 05/02/2023 1:00 PM EST Scheduled Telephone Family Practice [address] [facility], [place] [address] [place] [phone] College, Nurse [facility] Prac [address] [facility] [address] [place] [address] Allergies Active Allergy Reactions Criticality Noted Date Comments Oxycodone Nausea/vomiting 10/15/2020 Penicillins 04/14/2001 rash,hives documented as of this encounter (statuses as of 05/05/2023) Medications Medication Sig Dispensed Refills Start Date [...] as of this encounter (statuses as of 05/05/2023) Active Problems Problem Noted Date Diagnosed Date [...] as of this encounter (statuses as of 05/05/2023) Resolved Problems Problem Noted Date Diagnosed Date [...] Acute. HX-SKIN MALIGNANCY NEC - L forearm ([facility]) 10/06/2009 10/20/2019 Overview: 2006 Historical. documented as of this encounter (statuses as of 05/05/2023) Immunizations Name Administration Dates Next Due COVID-19 mRNA, LNP-s, No Pre serve, 2-Dose Series ([facility]) 04/19/2020,03/29/2020 COVID-19, LNP-s, No Preserve , [place]-sucrose, Ages 12+ (Pfizer) 08/14/2021,01/01/2021 COVID-19, MRNA-LNP, 23-24, P F, 30 MCG/0.3 mL, 12 YRS AND ABOVE, IM ([facility]) 12/12/2022 Covid-19, Mrna, Lnp-s, Pf, B ivalent, 30 Mcg, IM, 12 yrs and above ([facility]) 01/07/2022 Pneumococcal Conjugate Vacc, 13 Valent (Prevnar) [...] answer. Message left to return call to [phone]. * Telephone Encounter - Leta Jones DO [...] Care Team (Late st Contact Info) Description 05/06/2023 4:40 PM EDT Office Visit Family Practice [address] [place] [phone] Severo Hinson, [address] [place] [address] 08/06/2023 11:20 AM EDT Office Visit [address] [place] [phone] Leta Jones, [address] [place] [address] Health Maintenance Due Date Last Done Comments [...] D LEVEL ONCE IN A LIFETIME-USE SMARTSET# [id number] Completed 01/02/2023, 02/12/2021, 07/25/2008 GARDASIL-HPV IMMUNIZATION SERIES Aged Out No longer eligible based on patient's age to complete this topic Hepatitis B Aged Out No longer eligi ble based on patient's age to complete this topic MENINGOCOCCAL (MENACTRA/MENVEO) Aged Out No longer eligible based on patient's age to complete this topic documented as of this encounter Medical Devices Implanted Type Area Cooking Teacher Device Identifier Shelf Expiration Date Model / Serial / Lot Clip Quick 2.8mm 230cm - [id number] Implanted:Qty: 1 on 07/12/2021 by Kate Cancino MD at [facility]COPY [facility] Colon [employer] [facility] 10/25/2023 HX-202UR.A / / [id number] documented as of this encounter Advance Directives Documents on File Type Date Recorded 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 No Full Code 10/17/2020 3:32 PM 10/17/2020 4:36 PM This order reflects the patients wishes and were consensually agreed upon. Full Code 10/15/2020 4:47 PM 10/17/2020 3:32 PM This order reflects the patients wishes and were consensually agreed upon. Healthcare Agents on File Name Relationship Healthcare Agent Relationshi p Communication Michael Franko Adult Child Second Alternate Health Care Agent (per Health Care Power of Machine Setter document) Care Teams Jewelry Facer Relationship Specialty Start Date End Date Leta Jones DO [address] [place] [address] PCP - General Family Medicine 01/30/22 documented as of this encounter
--- OUTSIDE RECORDS SUMMARY | 2023-05-23 04:44 | External Medical Summary | Summary of Care ---
Author Name Unknown Organization [facility] Address [address] [place] [address] Phone [phone] Care Team Providers Care Wood Machinist Apprentice Name Role Phone Leta Jones DO Primary Care Provider [phone] Reason for Visit * Reason Onset Date Comments Nurse Documentation 05/02/202305/01, 05/04 Encounter Details Date Type Department Care Team (Late st Contact Info) Description 05/02/2023 1:00 PM EST Scheduled Telephone Family Practice [address] [facility], [place] [address] [place] [phone] College, Nurse [facility] Prac [address] [facility] [address] [place] [address] Allergies Active Allergy Reactions Criticality Noted Date [...] concern about being on antibiotics long term 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 HX-SKIN MALIGNANCY NEC - L forearm ([facility]) 10/06/2009 10/20/2019 Overview: 2006 Historical. documented as of this encounter (statuses as of 05/05/2023) Immunizations Name Administration Dates Next Due COVID-19 mRNA, LNP-s, No Pre serve, 2-Dose Series ([email or web address]) 04/19/2020,03/29/2020 COVID-19, LNP-s, No Preserve , [place]-sucrose, Ages 12+ (Pfizer) 08/14/2021,01/01/2021 COVID-19, MRNA-LNP, 23-24, P F, 30 MCG/0.3 mL, 12 YRS AND ABOVE, IM ([facility]) 12/12/2022 Covid-19, Mrna, Lnp-s, Pf, B ivalent, 30 Mcg, IM, 12 yrs and above ([email or web address]) 01/07/2022 Pneumococcal Conjugate Vacc, 13 Valent (Prevnar) [...] Notes * Telephone Encounter - Cecelia Rich LPN - 05/05/2023 1:55 PM EDT Called, left message for patient to return call. Thank you * Telephone Encounter - Jennifer Dial LPN - 05/02/2023 3:51 PM EST Call placed to patient - no answer. Message left to return call to [phone]. * Telephone Encounter - Leta Jones DO [...] EDT Office Visit Family Practice [address], [address], [place] [address] Leta Jones, DO [address] [place] [address] Health Maintenance Due Date Last Done Comments [...] D LEVEL ONCE IN A LIFETIME-USE SMARTSET# [id number] Completed 01/02/2023, 02/12/2021, 07/25/2008 GARDASIL-HPV IMMUNIZATION SERIES Aged Out No longer eligible based on patient's age to complete this topic Hepatitis B Aged Out No longer eligi ble based on patient's age to complete this topic MENINGOCOCCAL (MENACTRA/MENVEO) Aged Out No longer eligible based on patient's age to complete this topic documented as of this encounter Medical Devices Implanted Type Area [employer]arer [employer] Device Identifier Shelf Expiration Date Model / Serial / Lot Clip Quick 2.8mm 230cm - [id number] Implanted:Qty: 1 on 07/12/2021 by Kate Cancino MD at ENDOSCOPY [facility] Colon [employer] 10/25/2023 HX-202UR.A / / [id number] documented as of this encounter Advance Directives Documents on File Type Date Recorded 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 No Full Code 10/17/2020 3:32 PM 10/17/2020 [...] Care Agent (per Health Care Power of County Library Director document) Care Teams Wood Machinist Apprentice Relationship Specialty Start Date End Date Leta Jones DO [address] [place] [address] PCP - General Family Medicine 01/30/22 documented as of this encounter
--- OUTSIDE RECORDS SUMMARY | 2023-05-23 04:44 | External Medical Summary | Summary of Care ---
Author Name Unknown Organization [facility] Address [address] [place] [address] Phone [phone] Care Team Providers Care Mini Baccarat Dealer Name Role Phone Leta Jones DO Primary Care Provider Reason for Visit * Reason Onset Date Comments Nurse Documentation 05/02/202305/01, 05/04 Encounter Details Date Type Department Care Team (Late st Contact Info) Description 05/02/2023 1:00 PM EST Scheduled Telephone Family Practice 65 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 HX-SKIN MALIGNANCY NEC - L forearm ([facility]) 10/06/2009 10/20/2019 Overview: 2006 Historical. documented as of this encounter (statuses as of 05/05/2023) Immunizations Name Administration Dates Next Due COVID-19 mRNA, LNP-s, No Pre serve, 2-Dose Series ([employer]) 04/19/2020,03/29/2020 COVID-19, LNP-s, No Preserve , [place]-sucrose, Ages 12+ (Pfizer) 08/14/2021,01/01/2021 COVID-19, MRNA-LNP, 23-24, P F, 30 MCG/0.3 mL, 12 YRS AND ABOVE, IM ([facility]) 12/12/2022 Covid-19, Mrna, Lnp-s, Pf, B ivalent, 30 Mcg, IM, 12 yrs and above ([employer]sperse) 01/07/2022 Pneumococcal Conjugate Vacc, 13 Valent (Prevnar) [...] encounter Miscellaneous Notes * Telephone Encounter - aLylaCeceliaSHARIFA - 05/05/2023 3:35 PM EDT Patient reviewed her chest xray and questioned about gall stones, does not have pain there but doeshave some discomfort. . Thank you * Telephone Encounter - Layla Missy, LPN - 05/05/2023 3:34 PM EDT Patient is aware and will comply. Thank you * Telephone Encounter - Layla Missy, LPN - 05/05/2023 1:55 PM EDT Called, left message for patient to return call. Thank you * Telephone Encounter - Jennifer Dial LPN - 05/02/2023 3:51 PM EST Call placed to patient - no answer. Message left to return call to [phone]. * Telephone Encounter - Leta Jones DO [...] EDT Office Visit Family Practice [address], [place] [address] [place] [address] Leta Jones, [address] [place] [address] Health Maintenance Due Date Last Done Comments [...] D LEVEL ONCE IN A LIFETIME-USE SMARTSET# [id number] Completed 01/02/2023, 02/12/2021, 07/25/2008 GARDASIL-HPV IMMUNIZATION SERIES Aged Out No longer eligible based on patient's age to complete this topic Hepatitis B Aged Out No longer eligi ble based on patient's age to complete this topic MENINGOCOCCAL (MENACTRA/MENVEO) Aged Out No longer eligible based on patient's age to complete this topic documented as of this encounter Medical Devices Implanted Type Area Termite Treater Helper Device Identifier Shelf Expiration Date Model / Serial / Lot Clip Quick 2.8mm 230cm - [id number] Implanted:Qty: 1 on 07/12/2021 by Kate Cancino MD at ENDOSCOPY [facility] Colon [employer] 10/25/2023 HX-202UR.A / / [id number] documented as of this encounter Advance Directives Documents on File Type Date Recorded Patient Supervisor Floor Assembly Expl anation Power of Curriculum And Instruction Specialist 11/29/2016 POWER OF A TTORNEY PACE [...] the patient have Health Care Power of Curriculum And Instruction Specialist? No Full Code 10/17/2020 3:32 PM [...] Care Agent (per Health Care Power of Curriculum And Instruction Specialist document) Care Teams Mini Baccarat Dealer Relationship Specialty Start Date End Date Leta Jones DO [address] [place] [address] PCP - General Family Medicine 01/30/22 documented as of this encounter
--- OUTSIDE RECORDS SUMMARY | 2023-05-23 04:44 | External Medical Summary | Summary of Care ---
Author Name Unknown Organization [facility] Address [address] [place] [address] Phone [phone] Care Team Providers Care Administrative Support Assoc Name Role Phone Leta Jones DO Primary Care Provider [phone] Reason for Visit * Reason Onset Date Comments Nurse Documentation 05/02/202305/01, 05/04 Test Results 05/02/202305/06 Encounter Details Date Type Department Care Team (Late st Contact Info) Description 05/02/2023 1:00 PM EST Scheduled Telephone Family Practice [address], [place] [address] [place] [address] College, Nurse [facility] Prac [address] [facility] [address] [place] [address] Allergies Active Allergy Reactions Criticality [...] 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 HX-SKIN MALIGNANCY NEC - L forearm ([facility]) 10/06/2009 10/20/2019 Overview: 2006 Historical. documented as of this encounter (statuses as of 05/07/2023) Immunizations Name Administration Dates Next Due COVID-19 mRNA, LNP-s, No Pre serve, 2-Dose Series ([employer]) 04/19/2020,03/29/2020 COVID-19, LNP-s, No Preserve , Chico-sucrose, Ages 12+ (Pfizer) 08/14/2021,01/01/2021 COVID-19, MRNA-LNP, 23-24, P F, 30 MCG/0.3 mL, 12 YRS AND ABOVE, IM ([employer]) 12/12/2022 Covid-19, Mrna, Lnp-s, Pf, B ivalent, 30 Mcg, IM, 12 yrs and above ([employer]) 01/07/2022 Pneumococcal Conjugate Vacc, 13 Valent (Prevnar) [...] answer. Message left to return call to [phone]. * Telephone Encounter - Leta Jones DO [...] EDT Office Visit Family Practice [address], [address] [place] [phone] College, Health Compliance Tester Fam Prac [address] [facility] [address] [place] [address] 08/06/2023 11:20 AM EDT Office Visit Family Practice [address], [place] [address] [place] [phone] Leta Jones, DO [address] [place] [address] Health Maintenance Due Date Last Done Comments [...] D LEVEL ONCE IN A LIFETIME-USE SMARTSET# [id number] Completed 01/02/2023, 02/12/2021, 07/25/2008 GARDASIL-HPV IMMUNIZATION SERIES Aged Out No longer eligible based on patient's age to complete this topic Hepatitis B Aged Out No longer eligi ble based on patient's age to complete this topic MENINGOCOCCAL (MENACTRA/MENVEO) Aged Out No longer eligible based on patient's age to complete this topic documented as of this encounter Medical Devices Implanted Type Area Station Worker Device Identifier Shelf Expiration Date Model / Serial / Lot Clip Quick 2.8mm 230cm - [id number] Implanted:Qty: 1 on 07/12/2021 by Kate Cancino MD at ENDOSCOPY [facility] Colon [employer] 10/25/2023 HX-202UR.A / / [id number] documented as of this encounter Advance Directives Documents on File Type Date Recorded Patient Electronic Equipment Set Up Operator Expl anation Power of Community Living Instructor 11/29/2016 POWER OF A TTORNEY PACE UNABLE [...] the patient have Health Care Power of Community Living Instructor? No Full Code 10/17/2020 3:32 PM 10/17/2020 [...] Care Agent (per Health Care Power of Community Living Instructor document) Care Teams Administrative Support Assoc Relationship Specialty Start Date End Date Leta Jones DO [address] [place] [address] PCP - General Family Medicine 01/30/22 documented as of this encounter
--- OUTSIDE RECORDS SUMMARY | 2023-05-23 04:44 | External Medical Summary | Summary of Care ---
Author Name Unknown Organization [facility] Address [address] [place] [address] Phone [phone] Care Team Providers Care Health Center Manager Name Role Phone Robert Leta Rivera DO Primary Care Provider Encounter Details Date Type Department Care Team (Late st Contact Info) Description 05/09/2023 Documentation HEALTH & WELLNESS Elvira Silveira, Health Licensed Club Manager Allergies Active Allergy Reactions Criticality Noted Date Comments Oxycodone Nausea/vomiting 10/15/2020 Penicillins 04/14/2001 rash,hives documented as of this encounter (statuses as of 05/09/2023) Medications Medication Sig Dispensed Refills Start Date [...] as of this encounter (statuses as of 05/09/2023) Active Problems Problem Noted Date Diagnosed Date Caregiver stress 02/28/2023 Pyogenic arthritis of right knee joint Last Assessment & Plan: Self administration of her antibiotics and seems to be doing quite well. 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 HX-SKIN MALIGNANCY NEC - L forearm ([facility]) 10/06/2009 10/20/2019 Overview: 2006 Historical. documented as of this encounter (statuses as of 05/09/2023) Immunizations Name Administration Dates Next Due COVID-19 mRNA, LNP-s, No Pre serve, 2-Dose Series ([employer]) 04/19/2020,03/29/2020 COVID-19, LNP-s, No Preserve , [place]ico-sucrose, Ages 12+ (Pfizer) 08/14/2021,01/01/2021 COVID-19, MRNA-LNP, 23-24, P F, 30 MCG/0.3 mL, 12 YRS AND ABOVE, IM ([employer]ilex-Comirnaty) 12/12/2022 Covid-19, Mrna, Lnp-s, Pf, B ivalent, 30 Mcg, IM, 12 yrs and above (NONO) 01/07/2022 Pneumococcal Conjugate Vacc, 13 Valent (Prevnar) [...] encounter Progress Notes * Elvira Silveira, Health Licensed Club Manager - 05/09/2023 2:47 PM EDT Did patient attend session 2 of 10 of the small group balance program? No: Patient did not attend session 1 of 10 of the small group balance program. Patient did not attend session 2 of 10. documented in this encounter Plan of Treatment Upcoming Encounters Date Type Department Care Team (Late st Contact Info) Description 08/06/2023 11:20 AM EDT Office Visit Family Practice [address], [place] [address] [place] [address] Leta Jones, [address] [place] [address] Health Maintenance Due Date Last Done Comments [...] D LEVEL ONCE IN A LIFETIME-USE SMARTSET# [id number] Completed 01/02/2023, 02/12/2021, 07/25/2008 GARDASIL-HPV IMMUNIZATION SERIES Aged Out No longer eligible based on patient's age to complete this topic Hepatitis B Aged Out No longer eligi ble based on patient's age to complete this topic MENINGOCOCCAL (MENACTRA/MENVEO) Aged Out No longer eligible based on patient's age to complete this topic documented as of this encounter Medical Devices Implanted Type Area Manager Ed Device Identifier Shelf Expiration Date Model / Serial / Lot Clip Quick 2.8mm 230cm - [id number] Implanted:Qty: 1 on 07/12/2021 by Kate Cancino MD at ENDOSCOPY [facility] Colon [employer] 10/25/2023 HX-202UR.A / / [id number] documented as of this encounter Advance Directives Documents on File Type Date Recorded Patient Hairspring Staker Expl anation Power of Public Services Assistant 11/29/2016 POWER OF A TTORNEY PACE UNABLE TO REIMBURSE - DRONABINOL Latest Code Status on File Code Status Date Activated Date Inactivated Comments Full Code 04/11/2022 5:17 PM 04/11/2022 10:58 PM Thi s order reflects the patients wishes and were [...] the patient have Health Care Power of Public Services Assistant? No Full Code 10/17/2020 3:32 PM 10/17/2020 4:36 PM This order reflects the patients wishes and were consensually agreed upon. Full Code 10/15/2020 4:47 PM 10/17/2020 3:32 PM This order reflects the patients wishes and were consensually agreed upon. Healthcare Agents on File Name Relationship Healthcare Agent [facility] Communication Michael Abdul Adult Child Second Alternate Health Care Agent (per Health Care Power of Public Services Assistant document) Care Teams Health Center Manager Relationship Specialty Start Date End Date Leta Jones DO [address] [place] [address] PCP - General Family Medicine 01/30/22 documented as of this encounter
--- OUTSIDE RECORDS SUMMARY | 2023-05-23 04:44 | External Medical Summary | Summary of Care ---
Author Name Unknown Organization [facility] Address [address] [place] [address] Phone [phone] Care Team Providers Care Director Of Slot Operations Name Role Phone Leta Jones DO Primary Care Provider Reason for Visit * Reason Onset Date Comments Nurse Documentation 05/02/202305/01 Encounter Details Date Type Department Care Team (Late st Contact Info) Description 05/02/2023 1:00 PM EST Scheduled Telephone Family Practice [address], [place] [address] [place] [address] College, Nurse [facility] Prac [address] [facility] [address] [place] [address] Allergies Active Allergy Reactions Criticality Noted Date [...] 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 HX-SKIN MALIGNANCY NEC - L forearm ([facility]) 10/06/2009 10/20/2019 Overview: 2006 Historical. documented as of this encounter (statuses as of 05/02/2023) Immunizations Name Administration Dates Next Due COVID-19 mRNA, LNP-s, No Pre serve, 2-Dose Series ([employer]) 04/19/2020,03/29/2020 COVID-19, LNP-s, No Preserve , Chico-sucrose, Ages 12+ (Pfizer) 08/14/2021,01/01/2021 COVID-19, MRNA-LNP, 23-24, P F, 30 MCG/0.3 mL, 12 YRS AND ABOVE, IM ([facility]) 12/12/2022 Covid-19, Mrna, Lnp-s, Pf, B ivalent, 30 Mcg, IM, 12 yrs and above ([employer]) 01/07/2022 Pneumococcal Conjugate Vacc, 13 Valent (Prevnar) [...] EDT Office Visit Family Practice [address], [place] [address] [place] [address] Leta Jones DO [address] [place] [address] Health Maintenance Due Date Last Done Comments [...] D LEVEL ONCE IN A LIFETIME-USE SMARTSET# [id number] Completed 01/02/2023, 02/12/2021, 07/25/2008 GARDASIL-HPV IMMUNIZATION SERIES Aged Out No longer eligible based on patient's age to complete this topic Hepatitis B Aged Out No longer eligi ble based on patient's age to complete this topic MENINGOCOCCAL (MENACTRA/MENVEO) Aged Out No longer eligible based on patient's age to complete this topic documented as of this encounter Medical Devices Implanted Type Area Quarter Supervisor Device Identifier Shelf Expiration Date Model / Serial / Lot Clip Quick 2.8mm 230cm - [id number] Implanted:Qty: 1 on 07/12/2021 by Kate Cancino MD at ENDOSCOPY [facility] Colon [employer] 10/25/2023 HX-202UR.A / / [id number] documented as of this encounter Advance Directives Documents on File Type Date Recorded Patient Trimming Operator Expl anation Power of President And Cmo 11/29/2016 POWER OF A TTORNEY PACE UNABLE [...] the patient have Health Care Power of President And Cmo? No Full Code 10/17/2020 3:32 PM 10/17/2020 4:36 PM This order reflects the patients wishes and were consensually agreed upon. Full Code 10/15/2020 4:47 PM 10/17/2020 3:32 PM This order reflects the patients wishes and were consensually agreed upon. Healthcare Agents on File Name Relationship Healthcare Agent Relationshi p Communication Michaelarya Abdul Adult Child Second Alternate Health Care Agent (per Health Care Power of President And Cmo document) Care Teams Director Of Slot Operations Relationship Specialty Start Date End Date Leta Jones DO [address] [place] [address] PCP - General Family Medicine 01/30/22 documented as of this encounter
--- OUTSIDE RECORDS SUMMARY | 2023-05-23 04:44 | External Medical Summary | Summary of Care ---
Author Name Unknown Organization [facility] Address [address] [place] [address] Phone [phone] Care Team Providers Care City Administrator Name Role Phone Leta Jones DO Primary Care Provider Reason for Visit * Reason Onset Date Comments Nurse Documentation 05/02/202305/01, 05/04 Encounter Details Date Type Department Care Team (Late st Contact Info) Description 05/02/2023 1:00 PM EST Scheduled Telephone Family Practice 65 [facility], [place] [address] [place] [phone] College, Nurse [facility] Prac [address] [facility] [address] [place] [address] Allergies Active Allergy Reactions Criticality Noted Date [...] 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 HX-SKIN MALIGNANCY NEC - L forearm ([facility]) 10/06/2009 10/20/2019 Overview: 2006 Historical. documented as of this encounter (statuses as of 05/07/2023) Immunizations Name Administration Dates Next Due COVID-19 mRNA, LNP-s, No Pre serve, 2-Dose Series ([employer]) 04/19/2020,03/29/2020 COVID-19, LNP-s, No Preserve , Chico-sucrose, Ages 12+ (Pfizer) 08/14/2021,01/01/2021 COVID-19, MRNA-LNP, 23-24, P F, 30 MCG/0.3 mL, 12 YRS AND ABOVE, IM ([facility]) 12/12/2022 Covid-19, Mrna, Lnp-s, Pf, B ivalent, 30 Mcg, IM, 12 yrs and above ([employer]) 01/07/2022 Pneumococcal Conjugate Vacc, 13 Valent (Prevnar) [...] is discolored and tended. Placed on DR alvarez's schedule tomorrow. Advised if worsens she should [...] answer. Message left to return call to [phone]. * Telephone Encounter - Leta Jones DO [...] AM EDT Office Visit Family Practice 65 [facility] 293 [place] [phone] [place], Health Security Guard [facility] Prac [address] [place] [address] 08/06/2023 11:20 AM EDT Office Visit [facility] 65 [facility] [address] [place] [phone] Leta Jones DO [address] [facility], [place] [phone] Health Maintenance Due Date Last Done Comments [...] D LEVEL ONCE IN A LIFETIME-USE SMARTSET# [id number] Completed 01/02/2023, 02/12/2021, 07/25/2008 GARDASIL-HPV IMMUNIZATION SERIES Aged Out No longer eligible based on patient's age to complete this topic Hepatitis B Aged Out No longer eligi ble based on patient's age to complete this topic MENINGOCOCCAL (MENACTRA/MENVEO) Aged Out No longer eligible based on patient's age to complete this topic documented as of this encounter Medical Devices Implanted Type Area Occ Ther Device Identifier Shelf Expiration Date Model / Serial / Lot Clip Quick 2.8mm 230cm - [id number] Implanted:Qty: 1 on 07/12/2021 by Kate Cancino MD at ENDOSCOPY [facility] Colon [employer] 10/25/2023 HX-202UR.A / / [id number] documented as of this encounter Advance Directives Documents on File Type Date Recorded Patient Medical Lab Director Expl anation Power of Grant Manager 11/29/2016 POWER OF A TTORNEY PACE UNABLE [...] the patient have Health Care Power of [place] Manager? No Full Code 10/17/2020 3:32 PM 10/17/2020 4:36 PM This order reflects the patients wishes and were consensually agreed upon. Full Code 10/15/2020 4:47 PM 10/17/2020 3:32 PM This order reflects the patients wishes and were consensually agreed upon. Healthcare Agents on File Name Relationship Healthcare Agent [facility] p Communication Michael Abdul Adult Child Second Alternate Health Care Agent (per Health Care Power of [place] Manager document) Care Teams City Administrator Relationship Specialty Start Date End Date Leta Jones DO [address] [place] [address] PCP - General Family Medicine 01/30/22 documented as of this encounter
--- OUTSIDE RECORDS SUMMARY | 2023-05-23 04:44 | External Medical Summary | Summary of Care ---
Author Name Unknown Organization [facility] Address [address] [place] [address] Phone [phone] Care Team Providers Care Case Liner Name Role Phone Leta Jones DO Primary Care Provider Reason for Visit * Reason Onset Date Comments Nurse Documentation 05/02/202305/01, 05/04 Encounter Details Date Type Department Care Team (Late st Contact Info) Description 05/02/2023 1:00 PM EST Scheduled Telephone Family Practice 65 [facility] [place] [address] [place] [phone] College, Nurse [facility] Prac [address] [facility] [address] [place] [address] Allergies Active Allergy Reactions Criticality Noted Date [...] 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 HX-SKIN MALIGNANCY NEC - L forearm ([facility]) 10/06/2009 10/20/2019 Overview: 2006 Historical. documented as of this encounter (statuses as of 05/05/2023) Immunizations Name Administration Dates Next Due COVID-19 mRNA, LNP-s, No Pre serve, 2-Dose Series ([employer]) 04/19/2020,03/29/2020 COVID-19, LNP-s, No Preserve , Chico-sucrose, Ages 12+ (Pfizer) 08/14/2021,01/01/2021 COVID-19, MRNA-LNP, 23-24, P F, 30 MCG/0.3 mL, 12 YRS AND ABOVE, IM ([facility]) 12/12/2022 Covid-19, Mrna, Lnp-s, Pf, B ivalent, 30 Mcg, IM, 12 yrs and above ([employer]) 01/07/2022 Pneumococcal Conjugate Vacc, 13 Valent (Prevnar) [...] encounter Miscellaneous Notes * Telephone Encounter - LaylaCeceliaSHARIFA - 05/05/2023 3:34 PM EDT Patient is aware and will comply. Thank you * Telephone Encounter - Layla Cecelia FitzpatrickSHARIFA - 05/05/2023 1:55 PM EDT Called, left message for patient to return call. Thank you * Telephone Encounter - Jennifer Dial LPN - 05/02/2023 3:51 PM EST Call placed to patient - no answer. Message left to return call to [phone]. * Telephone Encounter - Leta Jones DO [...] EDT Office Visit Family Practice [address], [place] [address] [facility] [place] [phone] Leta Jones DO [address] [place] [address] Health Maintenance Due Date Last Done Comments [...] D LEVEL ONCE IN A LIFETIME-USE SMARTSET# [id number] Completed 01/02/2023, 02/12/2021, 07/25/2008 GARDASIL-HPV IMMUNIZATION SERIES Aged Out No longer eligible based on patient's age to complete this topic Hepatitis B Aged Out No longer eligi ble based on patient's age to complete this topic MENINGOCOCCAL (MENACTRA/MENVEO) Aged Out No longer eligible based on patient's age to complete this topic documented as of this encounter Medical Devices Implanted Type Area Bioinformatics Programmer Device Identifier Shelf Expiration Date Model / Serial / Lot Clip Quick 2.8mm 230cm - [id number] Implanted:Qty: 1 on 07/12/2021 by Kate Cancino MD at ENDOSCOPY [facility] Colon [employer] 10/25/2023 HX-202UR.A / / [id number] documented as of this encounter Advance Directives Documents on File Type Date Recorded Patient Jackhammer Operator Expl anation Power of Destaticizer Feeder 11/29/2016 POWER OF A TTORNEY PACE UNABLE [...] the patient have Health Care Power of Destaticizer Feeder? No Full Code 10/17/2020 3:32 PM 10/17/2020 4:36 PM This order reflects the patients wishes and were consensually agreed upon. Full Code 10/15/2020 4:47 PM 10/17/2020 3:32 PM This order reflects the patients wishes and were consensually agreed upon. Healthcare Agents on File Name Relationship Healthcare Agent [facility] Communication Michael Abdul Adult Child Second Alternate Health Care Agent (per Health Care Power of Destaticizer Feeder document) Care Teams Case Liner Relationship Specialty Start Date End Date Leta Jones DO [address] [place] [address] PCP - General Family Medicine 01/30/22 documented as of this encounter
--- OUTSIDE RECORDS SUMMARY | 2023-05-23 04:45 | External Medical Summary | Summary of Care ---
Author Name Unknown Organization [facility] Address [address] [place] [address] Phone [phone] Care Team Providers Care Subscription Agent Name Role Phone Leta Jones DO Primary Care Provider Reason for Visit * Reason Onset Date Comments Test Results 01/07/2023 Encounter Details Date Type Department Care Team (Late st Contact Info) Description 01/07/2023 Telephone Family Practice [address] [place] [address] [place] [address] Leta Joens DO [address] [place] [address] Test Results Allergies Active Allergy Reactions Criticality Noted Date Comments Oxycodone Nausea/vomiting 10/15/2020 Penicillins 04/14/2001 rash,hives documented as of this encounter (statuses as of 04/08/2023) Medications Medication Sig Dispensed Refills Start Date [...] hip/greater troch 150 g 6 09/25/2022 Active Additional Information Patient not taking.Reported on 01/02/2023 Probiotic Daily Oral Capsule Take 1 Capsule by mouth in the morning. 60 billion. 0 Active Doxycycline Hyclate 100 MG Oral CapsuleIndications :Pyogenic arthritis of right knee joint, due to unspecified organism (HCC) Take 1 Capsule by mouth in the morning and 1 Capsule before bedtime. 200 Capsule 1 10/09/2022 Active Vitamin D3 50 MCG (2000 UT) Oral Capsule Take 1 Capsule by mouth in the morning. With K1 1000 mcg K2 5000 mcg 100 mcg. 0 Active NATURAL SUPPLEMENT Take 2 Capsules by mouth in the morning. annatrol. 0 Active Acetaminophen-Code ine 300-30 MG Oral TabletIndications: Traumatic arthritis of right hip,Traumatic arthritis of left hip,Pyogenic arthritis of right knee joint, due to unspecified organism (HCC) Take 1 Tablet by mouth every 6 hours as needed for Pain, Severe. 60 Tablet 0 01/02/2023 Active Additional Information Patient not taking.Reported on 01/14/2023 Saccharomyces boulardii 250 MG Oral Capsule (Florastor) Take 1 Capsule by mouth in the morning and 1 Capsule before bedtime. 180 Capsule 1 01/07/2023 Active documented as of this encounter (statuses as of 04/08/2023) Active Problems Problem Noted Date Diagnosed Date Caregiver stress 02/28/2023 Pyogenic arthritis of right knee joint Last Assessment & Plan: Self administration of her antibiotics and seems to be doing quite well. She voices concern about being on antibiotics intermediate and hoping ortho may be able to [...] as of this encounter (statuses as of 04/08/2023) Resolved Problems Problem Noted Date Diagnosed Date [...] HX-SKIN MALIGNANCY NEC - L forearm ([facility]) 10/06/2009 10/20/2019 Overview: 2006 Historical. documented as of this encounter (statuses as of 04/08/2023) Immunizations Name Administration Dates Next Due COVID-19 mRNA, LNP-s, No Pre serve, 2-Dose Series ([facility]) 04/19/2020,03/29/2020 COVID-19, LNP-s, No Preserve , [place]-sucrose, Ages 12+ (Pfizer) 08/14/2021,01/01/2021 COVID-19, MRNA-LNP, 23-24, P F, 30 MCG/0.3 mL, 12 YRS AND ABOVE, IM ([employer]) 12/12/2022 Covid-19, Mrna, Lnp-s, Pf, B ivalent, 30 Mcg, IM, 12 yrs and above ([facility]) 01/07/2022 Pneumococcal Conjugate Vacc, 13 Valent (Prevnar) [...] Telephone Encounter - Leta Jones DO - 01/07/2023 2:09 PM EST Rx sent. * Telephone Encounter - Cecelia Rich LPN - 01/07/2023 12:30 PM EST Patient is aware and will comply. Please send to gloria at [facility] * Telephone Encounter - Leta Jones DO - 01/07/2023 9:43 AM EST Please let pt know; Her C.diff is negative. I can send a prescription probiotic to the pharmacy to try if she would like. Her lab studies looked good. Her ferritin was up some. This can be a marker of inflammation. I would like her to repeat in 2 weeks. She should be sure to take her doxycycline regularly as prescribed. documented in this encounter Plan of Treatment Upcoming Encounters Date Type Department Care Team (Late st Contact Info) Description 04/11/2023 2:30 PM EST Office Visit Family Practice [address] [place] [phone] [place] [address] [address] 05/01/2023 2:20 PM EST Office Visit Family [address] [phone] Leta Jones DO [address] [place] [address] Scheduled Orders Name Type Priority Associated Diagnoses Orde r Schedule FERRITIN Lab Routine Elevated ferritin Expected: 01/07/2023 (Approximate), Expires: 01/07/2024 HEPATIC FUNCTION PANEL Lab Routine Elevated ferritin Expected: 01/07/2023 (Approximate), Expires: 01/07/2024 CRP (INFLAMMATORY MARKER) Lab Routine Elevated ferritin Pyogenic arthritis of right knee joint, due to unspecified organism (HCC) Expected: 01/07/2023 (Approximate), Expires: 01/07/2024 ERYTHROCYTE SEDIMENTATION RATE (ESR) Lab Routine Elevated ferritin Pyogenic arthritis of right knee joint, due to unspecified organism (HCC) Expected: 01/07/2023 (Approximate), Expires: 01/07/2024 Health Maintenance Due Date Last Done Comments [...] D LEVEL ONCE IN A LIFETIME-USE SMARTSET# [id number] Completed 01/02/2023, 02/12/2021, 07/25/2008 GARDASIL-HPV IMMUNIZATION SERIES Aged Out No longer eligible based on patient's age to complete this topic Hepatitis B Aged Out No longer eligi ble based on patient's age to complete this topic MENINGOCOCCAL (MENACTRA/MENVEO) Aged Out No longer eligible based on patient's age to complete this topic documented as of this encounter Medical Devices Implanted Type Area Court Magistrate Device Identifier Shelf Expiration Date Model / Serial / Lot Clip Quick 2.8mm 230cm - [id number] Implanted:Qty: 1 on 07/12/2021 by Kate Cancino MD at ENDOSCOPY [facility] [employer] 10/25/2023 [id number]-202UR.A / / [id number] documented as of this encounter Visit Diagnoses Diagnosis Elevated ferritin- Primary Other abnormal blood chemistry Pyogenic arthritis of right knee joint, due to unspecified organism (HCC) documented in this encounter Advance Directives Documents on File Type Date Recorded Patient Test Baker Expl anation Power of Marine Propulsion Technician 11/29/2016 POWER OF A TTORNEY PACE [...] the patient have Health Care Power of Marine Propulsion Technician? No Full Code 10/17/2020 3:32 PM 10/17/2020 4:36 PM This order reflects the patients wishes and were consensually agreed upon. Full Code 10/15/2020 4:47 PM 10/17/2020 3:32 PM This order reflects the patients wishes and were consensually agreed upon. Healthcare Agents on File Name Relationship [facility] Agent [facility] Communication Michael Abdul Adult Child Second Alternate Health Care Agent (per Health Care Power of Marine Propulsion Technician document) Care Teams Subscription Agent Relationship Specialty Start Date End Date Leta Jones DO [address] [place] [address], [place] [address] PCP - General Family Medicine 01/30/22 documented as of this encounter
--- OUTSIDE RECORDS SUMMARY | 2023-05-23 04:45 | External Medical Summary | Summary of Care ---
Author Name Unknown Organization [facility] Address [address] [place] [address] Phone [phone] Care Team Providers Care Structural Drafter Name Role Phone Leta Jones DO Primary Care Provider Reason for Visit * Reason Onset Date Comments Information 04/04/202304/04 Encounter Details Date Type Department Care Team (Late st Contact Info) Description 04/04/2023 Telephone Family Practice [address], [place] [address] [place] [address] Leta Jones DO [address] [place], [place] [phone] Information (04/04) Allergies Active Allergy Reactions Criticality Noted Date Comments Oxycodone Nausea/vomiting 10/15/2020 Penicillins 04/14/2001 rash,hives documented as of this encounter (statuses as of 04/04/2023) Medications Medication Sig Dispensed Refills Start Date [...] mouth in the morning. 0 02/06/2023 Active documented as of this encounter (statuses as of 04/04/2023) Active Problems Problem Noted Date Diagnosed Date Caregiver stress 02/28/2023 Pyogenic arthritis of right knee joint Last Assessment & Plan: Self administration of her antibiotics and seems to be doing quite well. She voices concern about being on antibiotics shelter and hoping ortho may be able to [...] as of this encounter (statuses as of 04/04/2023) Resolved Problems Problem Noted Date Diagnosed Date [...] [facility] - [facility] 10/06/2009 10/20/2019 Overview: 2006 Historical. documented as of this encounter (statuses as of 04/04/2023) Immunizations Name Administration Dates Next Due COVID-19 mRNA, LNP-s, No Pre serve, 2-Dose Series ([employer]) 04/19/2020,03/29/2020 COVID-19, LNP-s, No Preserve , [place]-sucrose, Ages 12+ (Pfizer) 08/14/2021,01/01/2021 COVID-19, MRNA-LNP, 23-24, P F, 30 MCG/0.3 mL, 12 YRS AND ABOVE, IM ([employer]) 12/12/2022 Covid-19, Mrna, Lnp-s, Pf, B ivalent, 30 Mcg, IM, 12 yrs and above ([employer]) 01/07/2022 Pneumococcal Conjugate Vacc, 13 Valent (Prevnar) [...] encounter Miscellaneous Notes * Telephone Encounter - Jayro, Jennifer, WINDER CONTORT OPERATOR - 04/04/2023 4:47 PM EST Pt dropped off [employer] 2023 Uxyn-ibs-Ogra[employer] Product Catalog and asked if hip protectors would tanja helpful. Per Dr. Jones - Pt can try if she wants. Not sure if it will work. May help with sitting. Call placed to patient and relayed information from Dr. Jones. Pt acknowledged understanding. States she will cloth picker catalog next week when in for exercise. Catalog on Jennifer's desk. documented in this encounter Plan of Treatment Upcoming Encounters Date Type Department Care Team (Late st Contact Info) Description 05/01/2023 2:20 PM EST Office Visit Family Practice [address], [place] [address] [place] [phone] Leta Jones, [address] [place] [address] Health Maintenance Due Date Last Done Comments [...] D LEVEL ONCE IN A LIFETIME-USE SMARTSET# [id number] Completed 01/02/2023, 02/12/2021, 07/25/2008 GARDASIL-HPV IMMUNIZATION SERIES Aged Out No longer eligible based on patient's age to complete this topic Hepatitis B Aged Out No longer eligi ble based on patient's age to complete this topic MENINGOCOCCAL (MENACTRA/MENVEO) Aged Out No longer eligible based on patient's age to complete this topic documented as of this encounter Medical Devices Implanted Type Area Director Of [employer] Device Identifier Shelf Expiration Date Model / Serial / Lot Clip Quick 2.8mm 230cm - [id number] Implanted:Qty: 1 on 07/12/2021 by Kate Cancino MD at ENDOSCOPY [facility] Colon [employer] 10/25/2023 HX-202UR.A / / [id number] documented as of this encounter Advance Directives Documents on File Type Date Recorded Patient Process Control Board Operator Expl anation Power of Resource Program Teacher 11/29/2016 POWER OF A TTORNEY PACE UNABLE [...] the patient have Health Care Power of Resource Program Teacher? No Full Code 10/17/2020 3:32 PM 10/17/2020 [...] Care Agent (per Health Care Power of Resource Program Teacher document) Care Teams Structural Drafter Relationship Specialty Start Date End Date Leta Jones DO [address] [place] [facility] [place] [address] PCP - General Family Medicine 01/30/22 documented as of this encounter
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
--- OUTSIDE RECORDS SUMMARY | 2023-05-23 04:45 | External Medical Summary | Summary of Care ---
Author Name Unknown Organization [facility] Address [address] [place] [address] Phone [phone] Care Team Providers Care Teaching Associate Name Role Phone Leta Arnold DO Primary Care Provider Reason for Visit * Reason Comments Medication Refill Encounter Details Date Type Department Care Team (Late st Contact Info) Description 04/25/2023 Refill Family Practice [address] [place] [address] [place] [phone] Leta Arnold DO [address] [place] [address] Pyogenic arthritis of right knee joint, due to unspecified organism (HCC) Allergies Active Allergy Reactions Criticality Noted Date Comments Oxycodone Nausea/vomiting 10/15/2020 Penicillins 04/14/2001 rash,hives documented as of this encounter (statuses as of 04/25/2023) Medications Medication Sig Dispensed Refills Start Date [...] mouth in the morning. annatrol. 0 Active Acetaminophen-Cod eine 300-30 MG Oral [...] before bedtime. 200 Capsule 1 04/25/2023 Active Doxycycline Hyclate 100 MG Oral CapsuleIndication s:Pyogenic arthritis of right knee joint, due to unspecified organism (HCC) Take 1 Capsule by mouth in the morning and 1 Capsule before bedtime. 200 Capsule 1 10/09/2022 4 Discontinue d(Refill) documented as of this encounter (statuses as of 04/25/2023) Active Problems Problem Noted Date Diagnosed Date Caregiver stress 02/28/2023 Pyogenic arthritis of right knee joint 3 Last Assessment & Plan: Self administration of her antibiotics and seems to be doing quite well. 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 HX-SKIN MALIGNANCY NEC - L forearm ([facility]) 10/06/2009 10/20/2019 Overview: 2006 Historical. documented as of this encounter (statuses as of 04/25/2023) Immunizations Name Administration Dates Next Due COVID-19 mRNA, LNP-s, No Pre serve, 2-Dose Series (PhotoThera) 04/19/2020,03/29/2020 COVID-19, LNP-s, No Preserve , Cihco-sucrose, Ages 12+ (Pfizer) 08/14/2021,01/01/2021 COVID-19, MRNA-LNP, 23-24, P F, 30 MCG/0.3 mL, 12 YRS AND ABOVE, IM (Cardiio-Comirnat) 12/12/2022 Covid-19, Mrna, Lnp-s, Pf, B ivalent, 30 Mcg, IM, 12 yrs and above (PhotoThera) 01/07/2022 Pneumococcal Conjugate Vacc, 13 Valent (Prevnar) [...] Miscellaneous Notes * Telephone Encounter - Leta Arnold DO - 04/25/2023 3:31 PM ESTSigned Prescriptions: Disp Refills Doxycycline Hyclate 100 MG Oral Capsule 200 Ca*1 Sig: Take 1 Capsule by mouth in the morning and 1 Capsule before bedtime. Authorizing Provider: LETA ARNOLD * Telephone Encounter - Cecelia Rich LPN - 04/25/2023 3:25 PM ESTPending Prescriptions: Disp Refills Doxycycline Hyclate 100 MG Oral Capsule 200 Ca*1 Sig: Take 1 Capsule by mouth in the morning and 1 Capsule before bedtime. * Telephone Encounter - Cecelia Rich LPN - 04/25/2023 3:24 PM EST Did you pend patient's preferred pharmacy and medication before forwarding?yes Pharmacy: [facility] Pending Prescriptions: Disp Refills Doxycycline Hyclate 100 MG Oral Capsule 200 Ca*1 Sig: Take 1 Capsule by mouth in the morning and 1 Capsule before bedtime. Last Visit: 02/28/2023 (in office), Visit date not found (telemedicine) Next Visit: 05/01/2023 If no future appointments scheduled, and last appointment is greater than a year ago, please schedule patient for a follow-up appointment Last date the medication was ordered: Is this request for a controlled substance?No Urine Drug Screen:No results found. However, due to the size of the patient record, not all encounters were searched. Please check Results Review for a complete set of results. Patient Phone Numbers Labs: Lab Results Component Value Date/Time CREAT 0.9 01/02/2023 11:51 AM CREAT 0.9 11/03/2019 03:13 PM POTASSIUM 4.7 01/02/2023 11:51 AM POTASSIUM 4.4 11/03/2019 03:13 PM TSH 1.44 07/02/2022 03:07 PM TSH 1.32 06/17/2014 04:01 PM LDLCALC 83 07/09/2022 08:29 AM LDLCALC 128 (H) 01/02/2009 09:51 AM LDLDIRECT 112 11/03/2019 03:13 PM LDLDIRECT 114 08/14/2017 04:12 PM ALT 16 07/02/2022 03:07 PM ALT 16 08/14/2017 04:12 PM HGBA1C 5.0 01/11/2021 09:26 AM HGBA1C 5.3 09/25/2018 03:41 PM * Telephone Encounter - Zion Vicente - 04/25/2023 6:01 AM ESTPending Prescriptions: Disp Refills Doxycycline Hyclate 100 MG Oral Capsule 200 Ca*1 Sig: Take 1 Capsule by mouth in the morning and 1 Capsule before bedtime. documented in this encounter Plan of Treatment Upcoming Encounters Date Type Department Care Team (Late st Contact Info) Description 05/01/2023 2:20 PM EST Office Visit Family Practice [address] [place] [address] [place] [phone] Leta Arnold DO [address] [place] [address] Health Maintenance Due Date Last Done Comments [...] D LEVEL ONCE IN A LIFETIME-USE SMARTSET# [id number] Completed 01/02/2023, 02/12/2021, 07/25/2008 GARDASIL-HPV IMMUNIZATION SERIES Aged Out No longer eligible based on patient's age to complete this topic Hepatitis B Aged Out No longer eligi ble based on patient's age to complete this topic MENINGOCOCCAL (MENACTRA/MENVEO) Aged Out No longer eligible based on patient's age to complete this topic documented as of this encounter Medical Devices Implanted Type Area Fagot Heater Device Identifier Shelf Expiration Date Model / Serial / Lot Clip Quick 2.8mm 230cm - [id number] Implanted:Qty: 1 on 07/12/2021 by Kate Cancino MD at [facility] [employer] 10/25/2023 [id number]-202UR.[id number] / / [id number] documented as of this encounter Visit Diagnoses Diagnosis Pyogenic arthritis of right knee joint, due to unspecified organism (HCC) documented in this encounter Advance Directives Documents on File Type Date Recorded Patient Failure Analysis Technician Expl anation Power of Technical Services Analyst 11/29/2016 POWER OF A TTORNEY PACE UNABLE [...] the patient have Health Care Power of Technical Services Analyst? No Full Code 10/17/2020 3:32 PM 10/17/2020 4:36 PM This order reflects the patients wishes and were consensually agreed upon. Full Code 10/15/2020 4:47 PM 10/17/2020 3:32 PM This order reflects the patients wishes and were consensually agreed upon. Healthcare Agents on File Name Relationship [facility] Agent [facility] Michael Abdul Adult Child Second Alternate Health Care Agent (per Health Care Power of Technical Services Analyst document) Care Teams Teaching Associate Relationship Specialty Start Date End Date Leta Arnold DO [address] [place] [address] PCP - General Family Medicine 01/30/22 documented as of this encounter
--- OUTSIDE RECORDS SUMMARY | 2023-05-23 04:45 | External Medical Summary | Summary of Care ---
Author Name Unknown Organization [facility] Address [address] [place] [address] Phone [phone] Care Team Providers Care Crane Follower Name Role Phone Robert Leta Rivera DO Primary Care Provider Encounter Details Date Type Department Care Team (Late st Contact Info) Description 05/01/2023 Documentation HEALTH & WELLNESS Elvira Silveira, Health Needle Molder Allergies Active Allergy Reactions Criticality Noted Date [...] before bedtime. 200 Capsule 1 04/25/2023 Active documented as of this encounter (statuses as of 05/01/2023) Active Problems Problem Noted Date Diagnosed Date Caregiver stress 02/28/2023 Pyogenic arthritis of right knee joint 3 Last Assessment & Plan: Self administration of her antibiotics and seems to be doing quite well. 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 and hoping ortho may be able to [...] mRNA, LNP-s, No Pre serve, 2-Dose Series (Ymagis) 04/19/2020,03/29/2020 COVID-19, LNP-s, No Preserve , [place]-sucrose, Ages 12+ (Ymagis) 08/14/2021,01/01/2021 COVID-19, MRNA-LNP, 23-24, P F, 30 MCG/0.3 mL, 12 YRS AND ABOVE, IM ([facility]-ComirnatVessix) 12/12/2022 Covid-19, Mrna, Lnp-s, Pf, B ivalent, 30 Mcg, IM, 12 yrs and above (Ymagis) 01/07/2022 Pneumococcal Conjugate Vacc, 13 Valent (Prevnar) [...] encounter Progress Notes * Elvira Silveira, Health Needle Molder - 05/01/2023 1:22 PM EST SESSION TYPE: One-on-one exercise session: Exercise Subtype or Modality: Multi Exercise Weight: Blood pressure: Planned Exercise Routine: Balance/Stability: partial tandem stance, narrow stance feet together, narrow stance feet together on foam, Lower Body Strength: plantar flexion with resistance band, dorsiflexion with resistance band, heel raises, seated knee lifts, and Upper Body Strength: bicep curls, chest presses, resistance band rows, triceps extension with resistance band Frequency: 1x week Duration: 30-45 minutes Patient completed a one-on-one exercise session which consisted of resistance and balance training.She tolerated exercise well. She states she fell before coming in today. Her spanish speaking nanny was helping her into the car and she thinks she just got her feet twisted. She didn't hit her head. She fell on left hip/buttocks area. She reports no pain at rest or with exercise. [facility] 5 weeks. She expressed some interest. I will call her tomorrow to see if she is interested in participating and give her the start date. documented in this encounter Plan of Treatment Upcoming Encounters Date Type Department Care Team (Late st Contact Info) Description 05/01/2023 2:20 PM EST Office Visit Family Practice [address] [place] [address] [place] [address] Leta Jones, [address] [place] [address] Arrived Health Maintenance Due Date Last Done Comments [...] D LEVEL ONCE IN A LIFETIME-USE SMARTSET# [id number] Completed 01/02/2023, 02/12/2021, 07/25/2008 GARDASIL-HPV IMMUNIZATION SERIES Aged Out No longer eligible based on patient's age to complete this topic Hepatitis B Aged Out No longer eligi ble based on patient's age to complete this topic MENINGOCOCCAL (MENACTRA/MENVEO) Aged Out No longer eligible based on patient's age to complete this topic documented as of this encounter Medical Devices Implanted Type Area Stock Manager Device Identifier Shelf Expiration Date Model / Serial / Lot Clip Quick 2.8mm 230cm - [id number] Implanted:Qty: 1 on 07/12/2021 by Kate Cancino MD at ENDOSCOPY [facility] [employer] 10/25/2023 HX-202UR.A / / [id number] documented as of this encounter Advance Directives Documents on File Type Date Recorded Patient Car Washer Expl anation Power of Tube Heater 11/29/2016 POWER OF A TTORNEY PACE UNABLE [...] the patient have Health Care Power of Tube Heater? No Full Code 10/17/2020 3:32 PM 10/17/2020 [...] Care Agent (per Health Care Power of Tube Heater document) Care Teams Crane Follower Relationship Specialty Start Date End Date Leta Jones DO [address] [place] [address] PCP - General Family Medicine 01/30/22 documented as of this encounter
--- OUTSIDE RECORDS SUMMARY | 2023-05-23 04:45 | External Medical Summary | Summary of Care ---
Author Name Unknown Organization [facility] Address [address] [place] [address] Phone [phone] Care Team Providers Care Community Health Nurse Supervisor Name Role Phone Robert Leta Rivera DO Primary Care Provider [phone] Encounter Details Date Type Department Care Team (Late st Contact Info) Description 04/03/2023 Documentation HEALTH & WELLNESS Elvira Silveira, Health Quarter Supervisor Allergies Active Allergy Reactions Criticality Noted Date Comments Oxycodone Nausea/vomiting 10/15/2020 Penicillins 04/14/2001 rash,hives documented as of this encounter (statuses as of 04/03/2023) Medications Medication Sig Dispensed Refills Start Date [...] as of this encounter (statuses as of 04/03/2023) Active Problems Problem Noted Date Diagnosed Date Caregiver stress 02/28/2023 Pyogenic arthritis of right knee joint 3 Last Assessment & Plan: Self administration of her antibiotics and seems to be doing quite well. 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 be able [...] as of this encounter (statuses as of 04/03/2023) Resolved Problems Problem Noted Date Diagnosed Date [...] as of this encounter (statuses as of 04/03/2023) Immunizations Name Administration Dates Next Due COVID-19 mRNA, LNP-s, No Pre serve, 2-Dose Series (ShoorK) 04/19/2020,03/29/2020 COVID-19, LNP-s, No Preserve , [place]ico-sucrose, Ages 12+ (ShoorK) 08/14/2021,01/01/2021 COVID-19, MRNA-LNP, 23-24, P F, 30 MCG/0.3 mL, 12 YRS AND ABOVE, IM (Basha-ComirnatHireology) 12/12/2022 Covid-19, Mrna, Lnp-s, Pf, B ivalent, 30 Mcg, IM, 12 yrs and above (ShoorK) 01/07/2022 Pneumococcal Conjugate Vacc, 13 Valent (Prevnar) [...] encounter Progress Notes * Elvira Silveira, Health Quarter Supervisor - 04/03/2023 3:48 PM EST SESSION TYPE: One-on-one exercise session: Exercise Subtype or Modality: Resistance Training Flexibility Training Weight: Blood pressure: Planned Exercise Routine: Flexibility/ROM: lumbar flexion, hamstring stretch, Lower Body Strength: seated knee lifts with ankle weight (L), seated knee extension (L) plantar flexion with resistance band (L), dorsiflexion(L), and Upper Body Strength: bicep curls, chest presses, overhead press, triceps extension with resistance band Frequency: 1x week Duration: 30-45 minutes Patient completed a one-on-one exercise session which consisted of flexibility and resistance training. She tolerated exercise well and had no complaints. documented in this encounter Plan of Treatment Upcoming Encounters Date Type Department Care Team (Late st Contact Info) Description 05/01/2023 2:20 PM EST Office Visit Family Practice [address], [place] [address] [place] [address] Leta Jones DO [address] [place] [address] Health Maintenance Due Date Last Done Comments [...] D LEVEL ONCE IN A LIFETIME-USE SMARTSET# [id number] Completed 01/02/2023, 02/12/2021, 07/25/2008 GARDASIL-HPV IMMUNIZATION SERIES Aged Out No longer eligible based on patient's age to complete this topic Hepatitis B Aged Out No longer eligi ble based on patient's age to complete this topic MENINGOCOCCAL (MENACTRA/MENVEO) Aged Out No longer eligible based on patient's age to complete this topic documented as of this encounter Medical Devices Implanted Type Area Vine Pruner Device Identifier Shelf Expiration Date Model / Serial / Lot Clip Quick 2.8mm 230cm - [id number] Implanted:Qty: 1 on 07/12/2021 by Kate Cancino MD at [facility]COPY [facility] [employer] [facility] 10/25/2023 HX-202UR.A / / [id number] documented as of this encounter Advance Directives Documents on File Type Date Recorded Patient Marketing Development Specialist Expl anation Power of Inseamer 11/29/2016 POWER OF A TTORNEY PACE UNABLE [...] the patient have Health Care Power of Inseamer? No Full Code 10/17/2020 3:32 PM 10/17/2020 [...] Care Agent (per Health Care Power of Inseamer document) Care Teams Community Health Nurse Supervisor Relationship Specialty Start Date End Date Leta Jones DO [address] [place] [address] PCP - General Family Medicine 01/30/22 documented as of this encounter
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
--- OUTSIDE RECORDS SUMMARY | 2023-05-23 04:46 | External Medical Summary | Summary of Care ---
Author Name Unknown Organization [facility] Address [address] [place] [address] Phone [phone] Care Team Providers Care Entry Level Software Engineer Name Role Phone Leta Jones DO Primary Care Provider [phone] Reason for Visit * Reason Onset Date Comments Advice 01/29/2023 antibiotic Information 01/29/202301/29 Encounter Details Date Type Department Care Team (Late st Contact Info) Description 01/29/2023 Telephone Family Practice [address] [place] [address] [place] [address] Leta Jones DO [address] [place] [address] Advice (antibiotic); Information (01/29 ) Allergies Active Allergy Reactions Criticality Noted Date Comments Oxycodone Nausea/vomiting 10/15/2020 Penicillins 04/14/2001 rash,hives documented as of this encounter (statuses as of 01/29/2023) Medications Medication Sig Dispensed Refills Start Date [...] as of this encounter (statuses as of 01/29/2023) Active Problems Problem Noted Date Diagnosed Date Pyogenic arthritis of right knee joint Last Assessment & Plan: Self administration of her antibiotics and seems to be doing quite well. 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 HX-SKIN MALIGNANCY NEC - L forearm ([facility]) 10/06/2009 10/20/2019 Overview: 2006 Historical. documented as of this encounter (statuses as of 01/29/2023) Immunizations Name Administration Dates Next Due COVID-19 mRNA, LNP-s, No Pre serve, 2-Dose Series ([employer]) 04/19/2020,03/29/2020 COVID-19, LNP-s, No Preserve , [place]-sucrose, Ages 12+ ([employer]) 08/14/2021,01/01/2021 COVID-19, MRNA-LNP, 23-24, P F, 30 MCG/0.3 mL, 12 YRS AND ABOVE, IM ([email or web address]) 12/12/2022 Covid-19, Mrna, Lnp-s, Pf, B ivalent, 30 Mcg, IM, 12 yrs and above ([employer]) 01/07/2022 Pneumococcal Conjugate Vacc, 13 Valent (Prevnar) [...] Date Recorded PHQ Adult Total Score 2 01/14/2023 Hunger Vital Sign Answer Date Recorded Within the past 12 months, y ou worried that your food would run out before you got the money to buy more. Never true 01/15/20 23 Within the past 12 months, t he food you bought just didn't last and you didn't have money to get more. Never true 01/14/2023 Sex and Gender Information Value Date Recorded [...] Telephone Encounter - Jennifer Dial LPN - 01/29/2023 4:52 PM EST Call placed to patient and relayed message from Dr. Jones. Patient acknowledged understanding. States she is not sure she is up to a trip to [place], but will think about it. Provided her with phone number for [facility] to request CD of images. Instructed to contact office with any further questions or concerns. * Telephone Encounter - Leta Jones DO - 01/29/2023 4:25 PM EST Up to pt if she wants to see the surgeon. Not sure there is much of a point if the surgery would not be covered anyway at the facility. She will need to contact radiology for CD for all of her imaging studies. * Telephone Encounter - Jennifer Dial LPN - 01/29/2023 11:24 AM EST Call placed to patient for clarification. She reports the following: She is taking Doxycyline BID. Symptoms started 4 days ago - cloudy urine, frequency, burning. Offered she come for urine sample - she declined. States symptoms improved today. Only slight burning this morning. Urine has cleared, less urgency - states she has increased fluid intake. States she thinks she called in too soon and will call back tomorrow to provide an update on urinary status. She also reports that she received a phone call from ortho surgeon in [place]. States insurance will cover surgeon - but not the hospital. Surgeon is willing to see her. Has an appt. 03/07/23. She will be taking a bus to [place] for appointment. She states the Surgeon would like a CD of all her X-rays from [facility]. * Telephone Encounter - Leta Jones DO - 01/29/2023 11:13 AM EST Please clarify message. She should be on doxycycline chronically every day. Is this saying she feels that it is causing a UTI or she feels she has a UTI and is asking if this will handle it? Please get symptoms, etc. Should come in for specimen if she feels she has UTI. * Telephone Encounter - Grace Hess OSA - 01/29/2023 9:04 AM EST Pt calling to advise the antibiotic given for her knee but is now having a bladder infection. She is asking for a refill on antibiotic or a diff one. She can be reached [phone] documented in this encounter Plan of Treatment Upcoming Encounters Date Type Department Care Team (Late st Contact Info) Description 02/28/2023 3:00 PM EST Office Visit Family Practice [address], [place] [address] [place] [address] Leta Jones DO [address] [place] [address] Health Maintenance Due Date Last Done Comments *BISPHONATE OR OTHER ACCEPTABLE MEDICATION NEEDED FOR OSTEOPOROSIS (REFER TO SMARTSET #1146) 10/24/2022 Influenza Vaccine (FLU shot) (#1) 2022 12/13/2021, 11/24/2020, 11/03/2019, Additional history exists Depression Screening 01/15/2024 01/14/2023 DTaP,Tdap,and Td Vaccines (2 - Td or Tdap) 11/14/2027 11/13/2017, 01/02/2009 Pneumococcal Vaccine: 65+ Years Completed 06/17/2014, 01/02/2009 Zoster Vaccines Completed 05/04/2020, 10/2019, 01/13/2013 DXA Scan Discontinued 04/16/2021, 08/2012, 11/30/2012, Additional history exists COVID-19 Vaccine Completed 12/12/2022, , 08/14/2021, Additional history exists VITAMIN D LEVEL ONCE IN A LIFETIME-USE SMARTSET# 08272 Completed 01/02/2023, 02/12/2021, 07/25/2008 GARDASIL-HPV IMMUNIZATION SERIES Aged Out No longer eligible based on patient's age to complete this topic Hepatitis B Aged Out No longer eligi ble based on patient's age to complete this topic MENINGOCOCCAL (MENACTRA/MENVEO) Aged Out No longer eligible based on patient's age to complete this topic documented as of this encounter Medical Devices Implanted Type Area Technical Applications Specialist Device Identifier Shelf Expiration Date Model / Serial / Lot Clip Quick 2.8mm 230cm - [id number] Implanted:Qty: 1 on 07/12/2021 by Kate Cancino MD at ENDOSCOPY [facility] [employer] [facility] 10/25/2023 [id number] / [id number] documented as of this encounter Advance Directives Documents on File Type Date Recorded Patient Dental Insurance Coordinator Expl anation Power of Uncrater 11/29/2016 POWER OF A TTORNEY PACE UNABLE [...] the patient have Health Care Power of Uncrater? No Full Code 10/17/2020 3:32 PM 10/17/2020 [...] Care Agent (per Health Care Power of Uncrater document) Care Teams Entry Level Software Engineer Relationship Specialty Start Date End Date Holencik, Leta M, DO [address] [facility] [address] PCP - General Family Medicine 01/30/22 documented as of this encounter
--- OUTSIDE RECORDS SUMMARY | 2023-05-23 04:46 | External Medical Summary | Summary of Care ---
Author Name Unknown Organization [facility] Address [address] [place] [address] Phone [phone] Care Team Providers Care Athletic Agent Name Role Phone Leta Jones DO Primary Care Provider [phone] Reason for Visit * Reason Comments Dosage Adjustment In Person (Anticoag Cl inic) Medication Management Encounter Details Date Type Department Care Team (Late st Contact Info) Description 01/14/2023 2:20 PM [facility] Pharmacy Family Practice [address] [facility] [address] [place] [phone] College, Pharmacist [address] [address] Encounter for long-term (current) use of medications* Allergies Active Allergy Reactions Criticality Noted Date Comments Oxycodone Nausea/vomiting 10/15/2020 Penicillins 04/14/2001 rash,hives documented as of this encounter (statuses as of 01/14/2023) Medications Medication Sig Dispensed Refills Start Date [...] as of this encounter (statuses as of 01/14/2023) Active Problems Problem Noted Date Diagnosed Date Pyogenic arthritis of right knee joint Last Assessment & Plan: Self administration of her antibiotics and seems to be doing quite well. 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 [...] as of this encounter (statuses as of 01/14/2023) Resolved Problems Problem Noted Date Diagnosed Date [...] as of this encounter (statuses as of 01/14/2023) Immunizations Name Administration Dates Next Due COVID-19 mRNA, LNP-s, No Pre serve, 2-Dose Series (N-Sided) 04/19/2020,03/29/2020 COVID-19, LNP-s, No Preserve , [place]ico-sucrose, Ages 12+ (N-Sided) 08/14/2021,01/01/2021 COVID-19, MRNA-LNP, 23-24, P F, 30 MCG/0.3 mL, 12 YRS AND ABOVE, IM ([facility]) 12/12/2022 Covid-19, Mrna, Lnp-s, Pf, B ivalent, 30 Mcg, IM, 12 yrs and above (N-Sided) 01/07/2022 Pneumococcal Conjugate Vacc, 13 Valent (Prevnar) [...] Date Recorded PHQ Adult Total Score 2 01/02/2023 Hunger Vital Sign Answer Date Recorded Within the past 12 months, y ou worried that your food would run out before you got the money to buy more. Never true 01/03/20 23 Within the past 12 months, t he food you bought just didn't last and you didn't have money to get more. Never true 01/02/2023 Sex and Gender Information Value Date Recorded [...] as of this encounter Progress Notes * Asia Doss, [facility] - 01/14/2023 4:08 PM EST Medication Therapy [facility] - Medication Reconciliation Reviewed patient's medications for safety and efficacy. Prescription insurance information: [employer]Crista Pimentel Do you have any other prescription coverage: Yes, MICHELLE Preferred pharmacy: [facility] [x] Problem list reviewed [x] Allergies reviewed and updated if needed [x] Drug interaction check completed [x] HEDIS list addressed Medication Organization/Adherence: Has home care nurse or caregiver: no How often do you experience side effects from your medications? Daily Reports specifically diarrhea - possibly due to chronic doxycycline, but also discovered that the components in Annatrol cause diarrhea. Labs/Vitals/Risk Scores: The ASCVD Risk score (Jose RANDOLPH, et al., 2019) failed to calculate for the following reasons: The patient has a prior VT or stroke diagnosis BP Readings from Last 3 Encounters: 01/14/23 126/76 01/02/23 120/78 10/24/22 100/64 No results for input(s): "HGBA1C" in the last 31899 hours. Recent Labs Units 01/02/23 1151 08/31/22 1026 07/02/22 1507 ESTIMATED GLOMERULAR FILTRATION RATE - [facility] mL/min 63 73 72 Serum creatinine: 0.9 mg/dL 01/02/23 1151 Estimated creatinine clearance: 37 mL/min Assessment & Plan: Medication discrepancies identified: none Dose/frequency of medications appropriate for current renal function? yes Other medication problems identified: Chronic diarrhea. Upon looking into patient's medications further, the annatrol she is taking for bone health has components of vitamin E and annotto which are both linked to diarrhea. Patient education provided: Regarding potential of OTC supplement to cause diarrhea Referral pended for follow up management of: N/A Summary- Changes & Recommendations: Med review completed. Advised pcp and patient about natural supplement to potentially cause diarrhea. Patient will finish current supply and not take any more. Repeat med rec visit in 1 year Asia Lema RPh Clinical Pharmacist - Sales Representative Health Insurance Medication Therapy Management [facility] 01/14/2023, 4:08 PM documented in this encounter Plan of Treatment Upcoming Encounters Date Type Department Care Team (Late st Contact Info) Description 02/28/2023 3:00 PM EST Office Visit Family Practice [address] [place] [phone] Leta Jones [address] [place] [address] Health Maintenance Due Date Last Done Comments *BISPHONATE OR OTHER ACCEPTABLE MEDICATION NEEDED FOR OSTEOPOROSIS (REFER TO SMARTSET #1146) 10/24/2022 Influenza Vaccine (FLU shot) (#1) 2022 12/13/2021, 11/24/2020, 11/03/2019, Additional history exists Depression Screening 01/03/2024 01/02/2023 DTaP,Tdap,and Td Vaccines (2 - Td or Tdap) 11/14/2027 11/13/2017, 01/02/2009 Pneumococcal Vaccine: 65+ Years Completed 06/17/2014, 01/02/2009 Zoster Vaccines Completed 05/04/2020, 10/2019, 01/13/2013 DXA Scan Discontinued 04/16/2021, 08/2012, 11/30/2012, Additional history exists COVID-19 Vaccine Completed 12/12/2022, , 08/14/2021, Additional history exists VITAMIN D LEVEL ONCE IN A LIFETIME-USE SMARTSET# 38001 Completed 01/02/2023, 02/12/2021, 07/25/2008 GARDASIL-HPV IMMUNIZATION SERIES Aged Out No longer eligible based on patient's age to complete this topic Hepatitis B Aged Out No longer eligi ble based on patient's age to complete this topic MENINGOCOCCAL (MENACTRA/MENVEO) Aged Out No longer eligible based on patient's age to complete this topic documented as of this encounter Medical Devices Implanted Type Area Cooler Man Device Identifier Shelf Expiration Date Model / Serial / Lot Clip Quick 2.8mm 230cm - [id number] Implanted:Qty: 1 on 07/12/2021 by Kate Cancino MD at ENDOSCOPY [facility] [employer] 10/25/2023 [id number] / [id number] documented as of this encounter Visit Diagnoses Diagnosis Encounter for long-term (current) use of medications- Primary Encounter for long-term (current) use of other medications documented in this encounter Advance Directives Documents on File Type Date Recorded Patient Supplier Diversity Director Expl anation Power of Time Clock Inspector 11/29/2016 POWER OF A TTORNEY PACE UNABLE [...] the patient have Health Care Power of Time Clock Inspector? No Full Code 10/17/2020 3:32 PM 10/17/2020 [...] Care Agent (per Health Care Power of Time Clock Inspector document) Care Teams Athletic Agent Relationship Specialty Start Date End Date Leta Jones DO [address] [place] [id number] PCP - General Family Medicine 01/30/22 documented as of this encounter
--- OUTSIDE RECORDS SUMMARY | 2023-05-23 04:46 | External Medical Summary ---
Author Name Unknown Address Unknown Organization [id number]:[facility] [place] [address] [place] [id number] Laboratory Report Ordering Provider Test Date Status CATALINA VALENCIA 01/03/2023 10:23:50 Final Observation Date Value Abnormality Reference (Units) Status Source 01/03/2023 10:23:50 Liquid Final Clostridioides difficile toxin and [id number] strain DNA panel - Stool by KRISTEN with probe detection 01/03/2023 10:23:50 Negative. No C. difficile toxin B gene DNA detected by PCR (Amplified Probe). Negative Final Performing Location [facility] [place] [address] [place] [id number]
--- OUTSIDE RECORDS SUMMARY | 2023-05-23 04:46 | External Medical Summary | Summary of Care ---
Author Name Unknown Organization [facility] Address [address] [place] [address] Phone [phone] Care Team Providers Care Spring Coiler Hand Name Role Phone Robert Leta Rivera DO Primary Care Provider Encounter Details Date Type Department Care Team (Late st Contact Info) Description 03/07/2023 Documentation [facility] Elvira Silveira, Health Electrolysis Engineer Allergies Active Allergy Reactions Criticality Noted Date Comments Oxycodone Nausea/vomiting 10/15/2020 Penicillins 04/14/2001 rash,hives documented as of this encounter (statuses as of 03/07/2023) Medications Medication Sig Dispensed Refills Start Date [...] as of this encounter (statuses as of 03/07/2023) Active Problems Problem Noted Date Diagnosed Date Caregiver stress 02/28/2023 Pyogenic arthritis of right knee joint 3 Last Assessment & Plan: Self administration of her antibiotics and seems to be doing quite well. 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 [...] as of this encounter (statuses as of 03/07/2023) Resolved Problems Problem Noted Date Diagnosed Date [...] as of this encounter (statuses as of 03/07/2023) Immunizations Name Administration Dates Next Due COVID-19 mRNA, LNP-s, No Pre serve, 2-Dose Series (Ivy[employer]) 04/19/2020,03/29/2020 COVID-19, LNP-s, No Preserve , [place]ico-sucrose, Ages 12+ (IvyDate) 08/14/2021,01/01/2021 COVID-19, MRNA-LNP, 23-24, P F, 30 MCG/0.3 mL, 12 YRS AND ABOVE, IM ([employer]) 12/12/2022 Covid-19, Mrna, Lnp-s, Pf, B ivalent, 30 Mcg, IM, 12 yrs and above (IvyDate) 01/07/2022 Pneumococcal Conjugate Vacc, 13 Valent (Prevnar) [...] encounter Progress Notes * Elvira Silveira, Health Electrolysis Engineer - 03/07/2023 3:59 PM EST SESSION TYPE: One-on-one exercise session: Exercise Subtype or Modality: Resistance Training Weight: Blood pressure: Planned Exercise Routine: Lower Body Strength: seated knee raises (L), plantar flexion with resistance band (L), dorsiflexionwith resistance band (L), hamstring curls with resistance band (L), heel raises and Upper Body Strength: bicep curls, chest presses, triceps extension with resistance band Frequency: 1x week Duration: 30-45 minutes Patient completed a one-on-one exercise session which consisted of resistance training. She tolerated exercise well and had no complaints. documented in this encounter Plan of Treatment Upcoming Encounters Date Type Department Care Team (Late st Contact Info) Description 05/01/2023 2:20 PM EST Office Visit Family Practice [address] [place] [address] [facility] [place] [phone] Leta Jones DO [address] [facility] [place] [address] Health Maintenance Due Date Last Done Comments [...] D LEVEL ONCE IN A LIFETIME-USE SMARTSET# [id number] Completed 01/02/2023, 02/12/2021, 07/25/2008 GARDASIL-HPV IMMUNIZATION SERIES Aged Out No longer eligible based on patient's age to complete this topic Hepatitis B Aged Out No longer eligi ble based on patient's age to complete this topic MENINGOCOCCAL (MENACTRA/MENVEO) Aged Out No longer eligible based on patient's age to complete this topic documented as of this encounter Medical Devices Implanted Type Area Employee Communications Specialist Device Identifier Shelf Expiration Date Model / Serial / Lot Clip Quick 2.8mm 230cm - [id number] Implanted:Qty: 1 on 07/12/2021 by Kate Cancino MD at ENDOSCOPY [facility] [employer] [facility] 10/25/2023 [id number] / / [id number] documented as of this encounter Advance Directives Documents on File Type Date Recorded 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 No Full Code 10/17/2020 3:32 PM 10/17/2020 [...] Care Agent (per Health Care Power of Pattern Keeper document) Care Teams Spring Coiler Hand Relationship Specialty Start Date End Date Leta Jones DO [address] [facility] [place] [address] PCP - General Family Medicine 01/30/22 documented as of this encounter
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
--- OUTSIDE RECORDS SUMMARY | 2023-05-23 04:46 | External Medical Summary | Summary of Care ---
Author Name Unknown Organization [facility] Address [address] [place] [address] Phone [phone] Care Team Providers Care Bridge Instructor Name Role Phone Robert Leta Rivera DO Primary Care Provider Encounter Details Date Type Department Care Team (Late st Contact Info) Description 01/21/2023 Orders Only Outcomes Research Department [address] [place] [address] Rossi Mcgraw CHRA [employer] Research Other*[id number] Allergies Active Allergy Reactions Criticality Noted Date Comments Oxycodone Nausea/vomiting 10/15/2020 Penicillins 04/14/2001 rash,hives documented as of this encounter (statuses as of 01/21/2023) Medications Medication Sig Dispensed Refills Start Date [...] as of this encounter (statuses as of 01/21/2023) Active Problems Problem Noted Date Diagnosed Date [...] as of this encounter (statuses as of 01/21/2023) Resolved Problems Problem Noted Date Diagnosed Date [...] HX-SKIN MALIGNANCY NEC - L forearm ([facility]) 10/06/2009 10/20/2019 Overview: 2006 Historical. documented as of this encounter (statuses as of 01/21/2023) Immunizations Name Administration Dates Next Due COVID-19 mRNA, LNP-s, No Pre serve, 2-Dose Series ([employer]) 04/19/2020,03/29/2020 COVID-19, LNP-s, No Preserve , [place]-sucrose, Ages 12+ ([employer]) 08/14/2021,01/01/2021 COVID-19, MRNA-LNP, 23-24, P F, 30 MCG/0.3 mL, 12 YRS AND ABOVE, IM ([employer]) 12/12/2022 Covid-19, Mrna, Lnp-s, Pf, B ivalent, 30 Mcg, IM, 12 yrs and above ([employer]) 01/07/2022 Pneumococcal Conjugate Vacc, 13 Valent (Prevnar) [...] Care Team (Late st Contact Info) Description 01/24/2023 1:15 PM EST Office Visit Family Practice [address] [facility] [address] [facility] [address] [facility], [employer] Steward/Stewardess Lounge Fam Prac [address] [facility] [address] [facility] [address] 02/28/2023 3:00 PM EST Office Visit Family Practice [address] [place] [address] [place] [address] Leta Jones DO [address] [facility] [place] [address] Scheduled Orders Name Type Priority Associated Diagnoses Orde r Schedule MYCODE SUBSEQUENT ADULT Lab Routine MyCode Research Other*[id number] Every 6 Months for 2 Occurrences starting 01/21/2023 until 02/10/2024 Health Maintenance Due Date Last Done Comments [...] D LEVEL ONCE IN A LIFETIME-USE SMARTSET# [id number] Completed 01/02/2023, 02/12/2021, 07/25/2008 GARDASIL-HPV IMMUNIZATION SERIES Aged Out No longer eligible based on patient's age to complete this topic Hepatitis B Aged Out No longer eligi ble based on patient's age to complete this topic MENINGOCOCCAL (MENACTRA/MENVEO) Aged Out No longer eligible based on patient's age to complete this topic documented as of this encounter Medical Devices Implanted Type Area Quad Stayer Device Identifier Shelf Expiration Date Model / Serial / Lot Clip Quick 2.8mm 230cm - [id number] Implanted:Qty: 1 on 07/12/2021 by Kate Cancino MD at ENDOSCOPY [facility] [employer] 10/25/2023 [id number] / [id number] documented as of this encounter Visit Diagnoses Diagnosis MyCode Research Other*[id number] documented in this encounter Advance Directives Documents on File Type Date Recorded Patient Firepot Operator And Tender Expl anation Power of Director Of Global Talent 11/29/2016 POWER OF A TTORNEY PACE UNABLE [...] the patient have Health Care Power of Director Of Global Talent? No Full Code 10/17/2020 3:32 PM 10/17/2020 [...] Care Agent (per Health Care Power of Director Of Global Talent document) Care Teams Bridge Instructor Relationship Specialty Start Date End Date Leta Jones DO [address] [place] [address], [place] [address] PCP - General Family Medicine 01/30/22 documented as of this encounter
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
--- OUTSIDE RECORDS SUMMARY | 2023-05-23 04:46 | External Medical Summary | Summary of Care ---
Author Name Unknown Organization [facility] Address [address] [place] [address] Phone [phone] Care Team Providers Care Sider Mechanic Name Role Phone Robert Leta Rivera DO Primary Care Provider Encounter Details Date Type Department Care Team (Late st Contact Info) Description 01/24/2023 Documentation [facility] Elvira Silveira, Health Merchant Mill Utility Worker Allergies Active Allergy Reactions Criticality Noted Date Comments Oxycodone Nausea/vomiting 10/15/2020 Penicillins 04/14/2001 rash,hives documented as of this encounter (statuses as of 01/24/2023) Medications Medication Sig Dispensed Refills Start Date [...] as of this encounter (statuses as of 01/24/2023) Active Problems Problem Noted Date Diagnosed Date Pyogenic arthritis of right knee joint 3 Last Assessment & Plan: Self administration of her antibiotics and seems to be doing quite well. She voices concern about being on antibiotics group home and hoping ortho may be able [...] as of this encounter (statuses as of 01/24/2023) Resolved Problems Problem Noted Date Diagnosed Date [...] as of this encounter (statuses as of 01/24/2023) Immunizations Name Administration Dates Next Due COVID-19 mRNA, LNP-s, No Pre serve, 2-Dose Series ([employer]) 04/19/2020,03/29/2020 COVID-19, LNP-s, No Preserve , [place]-sucrose, Ages 12+ (Pfizer) 08/14/2021,01/01/2021 COVID-19, MRNA-LNP, 23-24, P F, 30 MCG/0.3 mL, 12 YRS AND ABOVE, IM ([employer]) 12/12/2022 Covid-19, Mrna, Lnp-s, Pf, B ivalent, 30 Mcg, IM, 12 yrs and above (Proxino) 01/07/2022 Pneumococcal Conjugate Vacc, 13 Valent (Prevnar) [...] encounter Progress Notes * Elvira Silveira, Health Merchant Mill Utility Worker - 01/24/2023 1:50 PM EST SESSION TYPE: One-on-one exercise session: Exercise Subtype or Modality: Resistance Training Weight: Blood pressure: Planned Exercise Routine: Lower Body Strength: ball squeeze, seated knee raises, seated knee extension, mini squat and Upper Body Strength: bicep curls, chest presses, triceps push from chair, curl and press, resistance band punches Frequency: 2x week Duration: 15-30 minutes Patient was given HEP for upper and lower body resistance training. She was explained how to properly and safely perform each exercise. She was instructed to stop any exercise that causes pain. She tolerated exercises well today. Offered to schedule one-on-one exercise sessions with her and she stated she will try the exercises at home and see how it goes. I will check in with her next week. documented in this encounter Plan of Treatment Upcoming Encounters Date Type Department Care Team (Late st Contact Info) Description 02/28/2023 3:00 PM EST Office Visit Family Practice [address], [place] [address] [facility] [place] [phone] Leta Jones DO [address] [facility] [place] [address] Health Maintenance Due Date Last Done Comments [...] D LEVEL ONCE IN A LIFETIME-USE SMARTSET# [id number] Completed 01/02/2023, 02/12/2021, 07/25/2008 GARDASIL-HPV IMMUNIZATION SERIES Aged Out No longer eligible based on patient's age to complete this topic Hepatitis B Aged Out No longer eligi ble based on patient's age to complete this topic MENINGOCOCCAL (MENACTRA/MENVEO) Aged Out No longer eligible based on patient's age to complete this topic documented as of this encounter Medical Devices Implanted Type Area Dewaterer Operator Device Identifier Shelf Expiration Date Model / Serial / Lot Clip Quick 2.8mm 230cm - [id number] Implanted:Qty: 1 on 07/12/2021 by Kate Cancino MD at ENDOSCOPY [facility] [employer] [facility] 10/25/2023 [id number]-202UR.[id number] / / [id number] documented as of this encounter Advance Directives Documents on File Type Date Recorded 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 No Full Code 10/17/2020 3:32 PM 10/17/2020 [...] Care Agent (per Health Care Power of Local Owner Operator Truck Driver document) Care Teams Sider Mechanic Relationship Specialty Start Date End Date Leta Jones DO [address] [place] [address] PCP - General Family Medicine 01/30/22 documented as of this encounter
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
--- OUTSIDE RECORDS SUMMARY | 2023-05-23 04:46 | External Medical Summary | Summary of Care ---
Author Name Unknown Organization [facility] Address [address] [place] [address] Phone [phone] Care Team Providers Care Quality Engineering Manager Name Role Phone Leta Jones DO Primary Care Provider Reason for Visit * Reason Onset Date Comments Information 01/17/202301/17 Encounter Details Date Type Department Care Team (Late st Contact Info) Description 01/17/2023 Telephone Family Practice [address] [place] [address] [place] [address] Leta Jones DO [address] [place], [place] [id number] Information (01/17) Allergies Active Allergy Reactions Criticality Noted Date Comments Oxycodone Nausea/vomiting 10/15/2020 Penicillins 04/14/2001 rash,hives documented as of this encounter (statuses as of 01/17/2023) Medications Medication Sig Dispensed Refills Start Date [...] as of this encounter (statuses as of 01/17/2023) Active Problems Problem Noted Date Diagnosed Date Pyogenic arthritis of right knee joint 3 Last Assessment & Plan: Self administration of her antibiotics and seems to be doing quite well. She voices concern about being on antibiotics snf and hoping ortho may be able to [...] as of this encounter (statuses as of 01/17/2023) Resolved Problems Problem Noted Date Diagnosed Date [...] as of this encounter (statuses as of 01/17/2023) Immunizations Name Administration Dates Next Due COVID-19 mRNA, LNP-s, No Pre serve, 2-Dose Series ([employer]) 04/19/2020,03/29/2020 COVID-19, LNP-s, No Preserve , [place]-sucrose, Ages 12+ (Pfizer) 08/14/2021,01/01/2021 COVID-19, MRNA-LNP, 23-24, P F, 30 MCG/0.3 mL, 12 YRS AND ABOVE, IM ([employer]-Comirnat) 12/12/2022 Covid-19, Mrna, Lnp-s, Pf, B ivalent, 30 Mcg, IM, 12 yrs and above ([employer]) 01/07/2022 Pneumococcal Conjugate Vacc, 13 Valent (Prevnar) [...] Telephone Encounter - Leta Jones DO - 01/17/2023 4:47 PM EST Form completed. In Fax bin. * Telephone Encounter - Jennifer Dial LPN - 01/17/2023 4:44 PM EST Patient returned call. States she is looking for caregiver assistance a few hours a week. Looking for help with grocery shopping in the winter, assistance with housekeeping, and help putting on her socks. * Telephone Encounter - Jennifer Dial LPN - 01/17/2023 4:27 PM EST Received application from Department of Human Services for Waiver Services. Attempted to contact patient for more information as to what she is looking for in regards to services. No answer. Message left to return call. documented in this encounter Plan of Treatment Upcoming Encounters Date Type Department Care Team (Late st Contact Info) Description 02/28/2023 3:00 PM EST Office Visit Family Practice [address] [place] [address] [place] [phone] Leta Jones DO [address] [place] [address] Health Maintenance Due Date Last Done Comments [...] D LEVEL ONCE IN A LIFETIME-USE SMARTSET# [id number] Completed 01/02/2023, 02/12/2021, 07/25/2008 GARDASIL-HPV IMMUNIZATION SERIES Aged Out No longer eligible based on patient's age to complete this topic Hepatitis B Aged Out No longer eligi ble based on patient's age to complete this topic MENINGOCOCCAL (MENACTRA/MENVEO) Aged Out No longer eligible based on patient's age to complete this topic documented as of this encounter Medical Devices Implanted Type Area Fishing Vessel Operator Device Identifier Shelf Expiration Date Model / Serial / Lot Clip Quick 2.8mm 230cm - [id number] Implanted:Qty: 1 on 07/12/2021 by Kate Cancino MD at ENDOSCOPY [facility] Colon [employer] 10/25/2023 HX-202UR.A / / [id number] documented as of this encounter Advance Directives Documents on File Type Date Recorded Patient Concrete Finisher Apprentice Expl anation Power of Well Logging Captain 11/29/2016 POWER OF A TTORNEY PACE UNABLE [...] the patient have Health Care Power of Well Logging Captain? No Full Code 10/17/2020 3:32 PM 10/17/2020 4:36 PM This order reflects the patients wishes and were consensually agreed upon. Full Code 10/15/2020 4:47 PM 10/17/2020 3:32 PM This order reflects the patients wishes and were consensually agreed upon. Healthcare Agents on File Name Relationship Healthcare Agent Relationshi p Communication Michael Weinbergtin Adult Child Second Alternate Health Care Agent (per Health Care Power of Well Logging Captain document) Care Teams Quality Engineering Manager Relationship Specialty Start Date End Date Leta Jones DO [address] [place] [address] PCP - General Family Medicine 01/30/22 documented as of this encounter
--- OUTSIDE RECORDS SUMMARY | 2023-05-23 04:46 | External Medical Summary | Summary of Care ---
Author Name Unknown Organization [facility] Address [address] [place] [address] Phone [phone] Care Team Providers Care Payroll Officer Name Role Phone Leta Jones DO Primary Care Provider Reason for Visit * Reason Onset Date Comments Other 01/31/2023 Encounter Details Date Type Department Care Team (Latest Contact Info) Description 01/31/2023 Telephone HEALTH & WELLNESS Leta Jones DO [address] [place] [address] Other Allergies Active Allergy Reactions Criticality Noted Date Comments Oxycodone Nausea/vomiting 10/15/2020 Penicillins 04/14/2001 rash,hives documented as of this encounter (statuses as of 01/31/2023) Medications Medication Sig Dispensed Refills Start Date [...] as of this encounter (statuses as of 01/31/2023) Active Problems Problem Noted Date Diagnosed Date Pyogenic arthritis of right knee joint 3 Last Assessment & Plan: Self administration of her antibiotics and seems to be doing quite well. She voices concern about being on antibiotics rn long term care and hoping ortho may [...] as of this encounter (statuses as of 01/31/2023) Resolved Problems Problem Noted Date Diagnosed Date [...] Acute. HX-SKIN MALIGNANCY NEC - L forearm ([facility]) 10/06/2009 10/20/2019 Overview: 2006 Historical. documented as of this encounter (statuses as of 01/31/2023) Immunizations Name Administration Dates Next Due COVID-19 mRNA, LNP-s, No Pre serve, 2-Dose Series ([employer]) 04/19/2020,03/29/2020 COVID-19, LNP-s, No Preserve , [place]-sucrose, Ages 12+ ([employer]) 08/14/2021,01/01/2021 COVID-19, MRNA-LNP, 23-24, P F, 30 MCG/0.3 mL, 12 YRS AND ABOVE, IM [facility] 12/12/2022 Covid-19, Mrna, Lnp-s, Pf, B ivalent, 30 Mcg, IM, 12 yrs and above ([employer]) 01/07/2022 Pneumococcal Conjugate Vacc, 13 Valent (Prevnar) [...] encounter Miscellaneous Notes * Telephone Encounter - Elvira Silveira, Health Engineering Team Supervisor - 01/31/2023 11:50 AM EST Called to check on patient to see how her home exercise program has been going. She states that some of the exercises bother her hip. I instructed her to avoid any exercises that increase any pain inthe hip she is having issues with. She was agreeable. I encouraged her to reach out with any questions. documented in this encounter Plan of Treatment Upcoming Encounters Date Type Department Care Team (Late st Contact Info) Description 02/28/2023 3:00 PM EST Office Visit Family Practice [address], [place] [address] [place] [address] Leta Jones, [address] [place] [address] Health Maintenance Due Date Last Done Comments [...] D LEVEL ONCE IN A LIFETIME-USE SMARTSET# [id number] Completed 01/02/2023, 02/12/2021, 07/25/2008 GARDASIL-HPV IMMUNIZATION SERIES Aged Out No longer eligible based on patient's age to complete this topic Hepatitis B Aged Out No longer eligi ble based on patient's age to complete this topic MENINGOCOCCAL (MENACTRA/MENVEO) Aged Out No longer eligible based on patient's age to complete this topic documented as of this encounter Medical Devices Implanted Type Area Cager Operator Device Identifier Shelf Expiration Date Model / Serial / Lot Clip Quick 2.8mm 230cm - [id number] Implanted:Qty: 1 on 07/12/2021 by Kate Cancino MD at ENDOSCOPY [facility] Colon [employer] 10/25/2023 HX-202UR.A / / [id number] documented as of this encounter Advance Directives Documents on File Type Date Recorded Patient Layout Mechanic Expl anation Power of Custodial Services Manager 11/29/2016 POWER OF A TTORNEY PACE [...] the patient have Health Care Power of Custodial Services Manager? No Full Code 10/17/2020 3:32 PM [...] Care Agent (per Health Care Power of Custodial Services Manager document) Care Teams Payroll Officer Relationship Specialty Start Date End Date Leta Jones DO [address] [place] [address], [place] [address] PCP - General Family Medicine 01/30/22 documented as of this encounter
--- OUTSIDE RECORDS SUMMARY | 2023-05-23 04:46 | External Medical Summary | Summary of Care ---
Author Name Unknown Organization [facility] Address [address] [place] [address] Phone [phone] Care Team Providers Care Flexographic Printing Press Operator Name Role Phone Leta Jones DO Primary Care Provider Reason for Visit * Reason Onset Date Comments Other 03/03/2023 Encounter Details Date Type Department Care Team (Latest Contact Info) Description 03/03/2023 Telephone HEALTH & WELLNESS Leta Jones DO [address] [place] [address] Other Allergies Active Allergy Reactions Criticality Noted Date Comments Oxycodone Nausea/vomiting 10/15/2020 Penicillins 04/14/2001 rash,hives documented as of this encounter (statuses as of 03/03/2023) Medications Medication Sig Dispensed Refills Start Date [...] as of this encounter (statuses as of 03/03/2023) Active Problems Problem Noted Date Diagnosed Date Caregiver stress 02/28/2023 Pyogenic arthritis of right knee joint Last Assessment & Plan: Self administration of her antibiotics and seems to be doing quite well. She voices concern about being on antibiotics senior living and hoping ortho may be able to [...] as of this encounter (statuses as of 03/03/2023) Resolved Problems Problem Noted Date Diagnosed Date [...] Acute. HX-SKIN MALIGNANCY NEC - L forearm ([facility]) 10/06/2009 10/20/2019 Overview: 2006 Historical. documented as of this encounter (statuses as of 03/03/2023) Immunizations Name Administration Dates Next Due COVID-19 mRNA, LNP-s, No Pre serve, 2-Dose Series ([employer]) 04/19/2020,03/29/2020 COVID-19, LNP-s, No Preserve , Chico-sucrose, Ages 12+ ([employer]) 08/14/2021,01/01/2021 COVID-19, MRNA-LNP, 23-24, P F, 30 MCG/0.3 mL, 12 YRS AND ABOVE, IM ([employer]-Comirnat) 12/12/2022 Covid-19, Mrna, Lnp-s, Pf, B ivalent, 30 Mcg, IM, 12 yrs and above ([employer]) 01/07/2022 Pneumococcal Conjugate Vacc, 13 Valent (Prevnar) [...] * Telephone Encounter - Elvira Silveira, Health Backpackers Manager - 03/03/2023 3:21 PM EST Called to see how home exercise program is going. LVM to return my call if she has any questions. documented in this encounter Plan of Treatment Upcoming Encounters Date Type Department Care Team (Late st Contact Info) Description 05/01/2023 2:20 PM EST Office Visit Family Practice [address], [place] [address] [place] [address] Leta Jones, [address] [place] [address] Health Maintenance Due Date Last Done Comments [...] D LEVEL ONCE IN A LIFETIME-USE SMARTSET# [id number] Completed 01/02/2023, 02/12/2021, 07/25/2008 GARDASIL-HPV IMMUNIZATION SERIES Aged Out No longer eligible based on patient's age to complete this topic Hepatitis B Aged Out No longer eligi ble based on patient's age to complete this topic MENINGOCOCCAL (MENACTRA/MENVEO) Aged Out No longer eligible based on patient's age to complete this topic documented as of this encounter Medical Devices Implanted Type Area Specialist Icu Device Identifier Shelf Expiration Date Model / Serial / Lot Clip Quick 2.8mm 230cm - [id number] Implanted:Qty: 1 on 07/12/2021 by Kate Cancino MD at ENDOSCOPY [facility] Colon [employer] 10/25/2023 HX-202UR.A / / [id number] documented as of this encounter Advance Directives Documents on File Type Date Recorded Patient Landing Scaler Expl anation Power of Land Examiner 11/29/2016 POWER OF A TTORNEY PACE UNABLE [...] the patient have Health Care Power of Land Examiner? No Full Code 10/17/2020 3:32 PM 10/17/2020 [...] Care Agent (per Health Care Power of Land Examiner document) Care Teams Flexographic Printing Press Operator Relationship Specialty Start Date End Date Leta Jones DO [address] [place] [address], [place] [address] PCP - General Family Medicine 01/30/22 documented as of this encounter
--- OUTSIDE RECORDS SUMMARY | 2023-05-23 04:47 | External Medical Summary ---
Author Name Unknown Address Unknown Organization K01:[facility] [place] [address] [facility] [address] Laboratory Report Ordering Provider Test Date Status CATALINA VALENCIA 01/02/2023 11:51:09 Final Observation Date Value Abnormality Reference (Units ) Status Ferritin 01/02/2023 11:51:09 401 Above high normal 13 -150 (ng/mL) Final Postmenopausal women have hi gher ferritin levels than pre-menopausal women. The above reference interval is based on pre-menopausal women. Performing Location [facility] [place] [address] [facility] [address]
--- OUTSIDE RECORDS SUMMARY | 2023-05-23 04:47 | External Medical Summary | Summary of Care ---
Author Name Unknown Organization [facility] Address [address] [place] [address] Phone [phone] Care Team Providers Care Confectionery Cooker Name Role Phone Leta Jones DO Primary Care Provider Reason for Visit * Reason Onset Date Comments Films 12/03/2022 Encounter Details Date Type Department Care Team Description 12/03/2022 Telephone Radiology Film File [address] [place] [address] [place], [address] [place] [address] Films Allergies Active Allergy Reactions Severity Noted Date Comments Oxycodone Nausea/vomiting 10/15/2020 Penicillins 04/14/2001 rash,hives documented as of this encounter (statuses as of 12/03/2022) Medications Medication Sig Dispensed Refills Start Date End Date Status Magnesium 250 MG Oral Tablet Take 1 Tablet by mouth in the morning and 1 Tablet before bedtime. 0 Active Vitamin D3 25 MCG (1000 UT) Oral Tablet (Vitamin D3) Take 2 Tabs by mouth daily. 30 Tab 0 10/24/2020 Active PreserVision AREDS 2+Multi Vit Oral Capsule [...] Additional Information Patient taking differently:325 mg Oral BID (.AM/PM),Takes in am and at dinner, Informant: Patient, Reported on 04/11/2022 Triamcinolone Acetonide 0.5 % External CreamIndications:D ermatitis [...] Capsule by mouth in the morning. 0 Active Doxycycline Hyclate 100 MG Oral CapsuleIndications :Pyogenic arthritis of right knee joint, due to unspecified organism (HCC) Take 1 Capsule by mouth in the morning and 1 Capsule before bedtime. 200 Capsule 1 10/09/2022 Active documented as of this encounter (statuses as of 12/03/2022) Active Problems Problem Noted Date Pyogenic arthritis of right knee joint 0 03/04/2022 Last Assessment & Plan: Self administration of her antibiotics and seems to be doing quite well. She voices concern about being on antibiotics fdc and hoping ortho may be able to offer operative alterative. She is very knowledgeable regarding her medical care and plans to keep all scheduled appts. 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 10/13/2020 Right ventricular conduction delay 03/28 Overview: Perhaps related to Gabapentin Traumatic arthritis of left hip 04/06/19 16 Traumatic arthritis of right hip 016 Spondylosis of lumbar region without mye lopathy or radiculopathy 04/06/2015 Overview: With intermittent radiculopathy, post traumatic History of lumbar laminectomy for spinal cord decompression 04/06/2015 Traumatic arthropathy of right elbow 12/2015 Osteoarthritis of spine with radiculopat hy, cervical region 04/06/2015 Sciatica 03/30/1999 documented as of this encounter (statuses as of 12/03/2022) Resolved Problems Problem Noted Date Resolved Date Laceration of right leg excluding thigh, initial encounter 10/13/2020 02/12/2021 Sacroiliitis, not elsewhere classified 03/04/2022 Peripheral vascular disease 05/04/202001/25 Stage 3a chronic kidney disease 01/03/2020 10/02/2021 Overview: Per CKD protocol - Per CKD protocol Kidney disease, chronic, stage III (GFR 30-59 ml /min) 12/06/2019 01/06/2020 Overview: Per CKD protocol 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 HX-SKIN MALIGNANCY NEC - L forearm ([employer]) 09/2410/20/2019 Overview: 2006 Historical. documented as of this encounter (statuses as of 12/03/2022) Immunizations Name Administration Dates Next Due COVID-19 mRNA, LNP-s, No Pre serve, 2-Dose Series ([employer]) 04/19/2020,03/29/2020 COVID-19, LNP-s, No Preserve , Chico-sucrose, Ages 12+ ([employer]) 08/14/2021,01/01/2021 Covid-19, Mrna, Lnp-s, Pf, B ivalent, 30 [...] = 0.6 oz pur e alcohol) rarely Alcohol Habits Answer Date Recorded How often do you have a drink containing alcohol ? Monthly or less 02/12/2021 How many drinks containing a lcohol do you have on a typical day when you are drinking? 1 or 2 02/12/2021 How often do you have six or more drinks on one occasion? Never 02/12/2021 Food Insecurity Answer Date Recorded Within the past 12 months, y ou worried that your food would run out before you got money to buy more. Never true 10/24/2022 Within the past 12 months, t he food you bought just didn't last and you didn't have money to get more. Never true 10/24/2022 Sex Assigned at Date Recorded Female 05/03/2019 2:12 PM E DT Job Start Date Occupation Industry Not on [...] encounter Miscellaneous Notes * Telephone Encounter - ANNABEL Grant - 12/03/2022 2:50 PM EDT [facility] requesting 09-25-22 hip/knee xray images be pushed to their system. [place] Authorization to Release on file. Images pushed to [facility] external connection through PACs Report(s) faxed to [phone]. Successful fax confirmation received. documented in this encounter Plan of Treatment Upcoming Encounters Date Type Specialty Care Team Description 01/02/2023 Office Visit Family Medicine Leta Jones, DO [address] [place] [address] 01/03/2023 Office Visit Orthopedics Garret Ramirez MD [address] [place] [address] [facility] [place] [address] Health Maintenance Due Date Last Done Comments *BISPHONATE OR OTHER ACCEPTABLE MEDICATION NEEDED FOR OSTEOPOROSIS (REFER TO SMARTSET #1146) 10/24/2022 COVID-19 Vaccine ( season) 2022 01/07/2022, 08/14/2021, 01/01/2021, Additional history exists Influenza Vaccine (FLU shot) (#1) 2022 12/13/2021, 11/24/2020, 11/03/2019, Additional history exists Depression Screening 10/25/2023 10/24/2022 DTaP,Tdap,and Td Vaccines (2 - Td or Tdap) 11/14/2027 11/13/2017, 01/02/2009 Pneumococcal Vaccine: 65+ Years Completed 06/17/2014, 01/02/2009 Zoster Vaccines Completed 05/04/2020, 10/2019, 01/13/2013 VITAMIN D LEVEL ONCE IN A LIFETIME-USE SMARTSET# [id number] Completed 02/12/2021, 07/25/2008 DXA Scan Discontinued 04/16/2021, 08/2012, 11/30/2012, Additional history exists GARDASIL-HPV IMMUNIZATION SERIES Aged Out No longer eligible based on patient's age to complete this topic Hepatitis B Aged Out No longer eligi ble based on patient's age to complete this topic MENINGOCOCCAL (MENACTRA/MENVEO) Aged Out No longer eligible based on patient's age to complete this topic documented as of this encounter Medical Devices Implanted Type Area Controls Operator Molded Goods Device Identifier Shelf Expiration Date Model / Serial / Lot Clip Quick 2.8mm 230cm - [id number] Implanted:Qty: 1 on 07/12/2021 by Kate Cancino MD at ENDOSCOPY [facility] Colon [employer] 10/25/2023 HX-202UR.A / / [id number] documented as of this encounter Advance Directives Documents on File Type Date Recorded Patient Multilith Operator Expl anation Power of Front Counter Attendant 11/29/2016 POWER OF A TTORNEY PACE UNABLE [...] the patient have Health Care Power of Front Counter Attendant? No Full Code 10/17/2020 3:32 PM 10/17/2020 4:36 PM This order reflects the patients wishes and were consensually agreed upon. Full Code 10/15/2020 4:47 PM 10/17/2020 3:32 PM This order reflects the patients wishes and were consensually agreed upon. Healthcare Agents on File Name Relationship Healthcare Agent [facility] p Communication Michael Abdul Adult Child Second Alternate Health Care Agent (per Health Care Power of Front Counter Attendant document) Care Teams Confectionery Cooker Relationship Specialty Start Date End Date Leta Jones, DO [address] [place] [address] PCP - General Family Medicine 01/30/22 documented as of this encounter
--- OUTSIDE RECORDS SUMMARY | 2023-05-23 04:47 | External Medical Summary | Summary of Care ---
Author Name Unknown Organization [facility] Address [address] [place] [address] Phone [phone] Care Team Providers Care Used Car Lot Attendant Name Role Phone Leta Jones DO Primary Care Provider [phone] Reason for Visit * Reason Onset Date Comments Films 12/03/2022 Encounter Details Date Type Department Care Team Description 12/03/2022 Telephone Radiology Film File [address] [place] [address] Wagner Shelton, [address] [place] [address] Films Allergies Active Allergy Reactions [...] She voices concern about being on antibiotics halfway and hoping ortho may be able to offer operative alterative. She is very knowledgeable regarding her medical care and plans to keep all scheduled appts. Other atherosclerosis of [place] arteries of extremities, bilateral legs 12/13/2021 Esophageal [...] mRNA, LNP-s, No Pre serve, 2-Dose Series ([employer]) 04/19/2020,03/29/2020 COVID-19, LNP-s, No Preserve , Chico-sucrose, Ages 12+ ([employer]) 08/14/2021,01/01/2021 Covid-19, Mrna, Lnp-s, Pf, B ivalent, [...] ANNABEL Grant - 12/03/2022 2:50 PM EDT [facility] requesting 09-25-22 hip/knee xray images be pushed to their system. [place] Authorization to Release on file. Images pushed to [facility] external connection through PACs Report(s) faxed to [phone]. Successful fax confirmation received. documented in this encounter Plan of Treatment Upcoming Encounters Date Type Specialty Care Team Description 01/02/2023 Office Visit Family Medicine Leta Jones, DO [address] [place] [place] [address] 01/03/2023 Office Visit Orthopedics Garret Ramirez MD [address] [place] [address] [facility] [place] [address] Health Maintenance Due Date Last [...] D LEVEL ONCE IN A LIFETIME-USE SMARTSET# [id number] Completed 02/12/2021, 07/25/2008 DXA Scan Discontinued 04/16/2021, [...] this encounter Medical Devices Implanted Type Area Thermodynamic Physicist Device Identifier Shelf Expiration Date Model / Serial / Lot Clip Quick 2.8mm 230cm - [id number] Implanted:Qty: 1 on 07/12/2021 by Kate Cancino MD at ENDOSCOPY [facility] Colon [employer] 10/25/2023 HX-202UR.A / / [id number] documented as of this encounter Advance Directives Documents on File Type Date Recorded Patient Roll Mill Operator Expl anation Power of Copy Preparer 11/29/2016 POWER OF A TTORNEY PACE UNABLE [...] the patient have Health Care Power of Copy Preparer? No Full Code 10/17/2020 3:32 PM 10/17/2020 4:36 PM This order reflects the patients wishes and were consensually agreed upon. Full Code 10/15/2020 4:47 PM 10/17/2020 3:32 PM This order reflects the patients wishes and were consensually agreed upon. Healthcare Agents on File Name Relationship Healthcare Agent [facility] Communication iMchael Abdul Adult Child Second Alternate Health Care Agent (per Health Care Power of Copy Preparer document) Care Teams Used Car Lot Attendant Relationship Specialty Start Date End Date Leta Jones, DO [address] [place] [address] PCP - General Family Medicine 01/30/22 documented as of this encounter
--- OUTSIDE RECORDS SUMMARY | 2023-05-23 04:47 | External Medical Summary ---
Author Name Unknown Address Unknown Organization [id number][place] [place] [address] [place] [address] Laboratory Report Ordering Provider Test Date Status CATALINA VALENCIA 01/02/2023 11:51:09 Final Observation Date Value Abnormality Reference (Units ) Status Iron 01/02/2023 11:51:09 94 33-151 (ug /dL) Final Iron-binding capacity 01/02/2023 11:51:09 255 250-425 (ug/dL) Final Transferrin Sat % 01/02/2023 11:51:09 37 15 -55 (%) Final Performing Location [facility] [place] [address] [place] [address]
--- OUTSIDE RECORDS SUMMARY | 2023-05-23 04:47 | External Medical Summary ---
Author Name Unknown Address Unknown Organization [id number]:[facility] [place] [address] [facility] [address] Laboratory Report Ordering Provider Test Date Status YAW VALENCIAINESEL 01/02/2023 11:51:09 Final Observation Date Value Abnormality Reference (Units ) Status WBC, Total 01/02/2023 11:51:09 7.47 4.00-10.80 (K/uL) Final RBC 01/02/2023 11:51:09 4.83 3.85-5.15 (M/uL) Final Hemoglobin 01/02/2023 11:51:09 15.4 Above high normal 12.0-15.3 (g/dL) Final HCT 01/02/2023 11:51:09 48.6 Above high normal 36.0-45.2 (%) Final MCV 01/02/2023 11:51:09 100.6 81.5-97.5 (fL) Final MCH 01/02/2023 11:51:09 31.9 27.0-34.0 (pg) Final MCHC 01/02/2023 11:51:09 31.7 32.0-36.0 (g/dL) Final RDW 01/02/2023 11:51:09 13.1 11.5-15.5 (%) Final Platelets 01/02/2023 11:51:09 321 140-400 (K/uL) Final MPV 01/02/2023 11:51:09 10.2 6.6-11.1 (fL) Final Nucleated erythrocytes/100 leukocytes [Ratio] in Blood by Automated count 01/02/2023 11:51:09 0 <=0 (/100 WBCs) Final Performing Location [facility] [place] [address] [facility] [address]
--- OUTSIDE RECORDS SUMMARY | 2023-05-23 04:47 | External Medical Summary | Summary of Care ---
Author Name Unknown Organization [facility] Address [address] [place] [address] Phone [phone] Care Team Providers Care Tube Fitter Name Role Phone Leta Jones DO Primary Care Provider Encounter Details Date Type Department Care Team Description 12/12/2022 Immunization Ancillary 65 [facility] [address] [place] [address] College, Covid19 Vaccine [address] [address] Arrived Allergies Active Allergy Reactions Severity Noted Date Comments Oxycodone Nausea/vomiting 10/15/2020 Penicillins 04/14/2001 rash,hives documented as of this encounter (statuses as of 12/12/2022) Medications Medication Sig Dispensed Refills Start Date [...] as of this encounter (statuses as of 12/12/2022) Active Problems Problem Noted Date Pyogenic arthritis of right knee joint 0 03/04/2022 Last Assessment & Plan: Self administration of her antibiotics and seems to be doing quite well. She voices concern about being on antibiotics detention and hoping ortho may be able to offer operative alterative. She is very knowledgeable regarding her medical care and plans to keep all scheduled appts. Other atherosclerosis of kiana arteries of extremities, bilateral legs 12/13/2021 Esophageal [...] as of this encounter (statuses as of 12/12/2022) Resolved Problems Problem Noted Date Resolved Date [...] L forearm ([facility]) 09/2410/20/2019 Overview: 2006 Historical. documented as of this encounter (statuses as of 12/12/2022) Immunizations Name Administration Dates Next Due COVID-19 mRNA, LNP-s, No Pre serve, 2-Dose Series ([employer]) 04/19/2020,03/29/2020 COVID-19, LNP-s, No Preserve , [place]-sucrose, Ages 12+ ([employer]) 08/14/2021,01/01/2021 COVID-19, MRNA-LNP, 23-24, P F, 30 [...] Visit Family Medicine Leta Jones, DO [address] [place] [address] Health Maintenance Due Date Last Done Comments [...] D LEVEL ONCE IN A LIFETIME-USE SMARTSET# [id number] Completed 02/12/2021, 07/25/2008 DXA Scan Discontinued 04/16/2021, [...] this encounter Medical Devices Implanted Type Area Water Aerobics Instructor Device Identifier Shelf Expiration Date Model / Serial / Lot Clip Quick 2.8mm 230cm - [id number] Implanted:Qty: 1 on 07/12/2021 by Kate Cancino MD at [facility] [employer] 10/25/2023 [id number] / / [id number] documented as of this encounter Advance Directives Documents on File Type Date Recorded Patient Dampproofer Expl anation Power of Mural Painter 11/29/2016 POWER OF A TTORNEY PACE UNABLE [...] the patient have Health Care Power of Mural Painter? No Full Code 10/17/2020 3:32 PM 10/17/2020 [...] Care Agent (per Health Care Power of Mural Painter document) Care Teams Tube Fitter Relationship Specialty Start Date End Date Leta Jones DO [address] [place], [place] [id number] PCP - General Family Medicine 01/30/22 documented as of this encounter
--- OUTSIDE RECORDS SUMMARY | 2023-05-23 04:47 | External Medical Summary ---
Author Name Unknown Address Unknown Organization [id number][place] [place] [address] [place] [address] Laboratory Report Ordering Provider Test Date Status CATALINA VALENCIA 01/02/2023 11:51:09 Final Deficient: <20 ng/mL
Ins ufficient: 20-29 ng/mL
Recommended/Optimum:30-50 ng/mL

Vitamin D intoxication is rare. If suspicious of Vitamin D toxicity, evaluation of serum Calcium and PTH is recommended. Observation Date Value Abnormality Reference (Units ) Status 25-OH Vitamin D total 01/02/2023 11:51:09 43 >19 (ng/mL) Final Performing Location [facility] [place] [address] [place] [address]
--- OUTSIDE RECORDS SUMMARY | 2023-05-23 04:47 | External Medical Summary ---
Author Name Unknown Address Unknown Organization [id number]:[facility] [place] - [address] [place] [address] Laboratory Report Ordering Provider Test Date Status CATALINA VALENCIA 01/02/2023 11:51:09 Final Observation Date Value Abnormality Reference (Units ) Status BUN 01/02/2023 11:51:09 18 6-20 (mg/dL) Final Creatinine 01/02/2023 11:51:09 0.9 0.5-1.0 (mg/dL) Final Glomerular filtration rate/1.73 sq M.predicted [Volume Rate/Area] in Serum, Plasma or Blood by Creatinine-based formula (CKD-EPI) 01/02/2023 11:51:09 63 >=60 (mL/min) Final eGFR is calculated based on the CKD-EPI 2020 equation SODIUM 01/02/2023 11:51:09 138 135-146 (m mol/L) Final Potassium 01/02/2023 11:51:09 4.7 3.5-5.1 (m mol/L) Final Cl 01/02/2023 11:51:09 103 98-107 (mm ol/L) Final CO2 01/02/2023 11:51:09 22 22-32 (mmo l/L) Final Anion gap 01/02/2023 11:51:09 13 7-15 (mmol /L) Final Glucose 01/02/2023 11:51:09 72 70-120 (mg /dL) Final Calcium 01/02/2023 11:51:09 10.0 8.4-10.2 ( mg/dL) Final Performing Location [facility] [place] - [address] [place] [address]
[2023-05-23 06:52] LABS: Basophils # (auto) 0.03 K/uL (0.00-0.20); Basophils % (auto) 0.6 %; Eosinophils # (auto) 0.32 K/uL (0.00-0.50); Eosinophils % (auto) 6.2 %; Hematocrit (blood only) 35.1 % (37.0-47.0); Hemoglobin 11.9 g/dl (12.0-16.0); Immature Granulocytes # (auto) 0.01 K/uL (0.01-0.20); Immature Granulocytes % (auto) 0.2 %; Lymphocytes # (auto) 1.01 K/uL (1.20-3.40); Lymphocytes % (auto) 19.5 %; Mean Corpuscular Hemoglobin 31.5 pg (25.0-34.0); Mean Corpuscular Hgb Conc 33.9 g/dL (32.0-36.0); Mean Corpuscular Volume 92.9 fL (80.0-100.0); Mean Platelet Volume 9.7 fL (9.4-12.4); Monocytes # (auto) 0.42 K/uL (0.11-0.59); Monocytes % (auto) 8.1 %; Neutrophils % (auto) 65.4 %; Platelet Count 213 K/uL (130-400); RDW Coefficient of Variation 13.2 % (11.5-14.5); RDW Standard Deviation 45.5 fL (36.4-46.3); Red Blood Count 3.78 M/uL (4.20-5.40); White Blood Count 5.19 K/ul (4.8-10.8)
[2023-05-23 07:08] LABS: Albumin Globulin Ratio 1.3 (0.9-2); Albumin Level 3.3 gm/dl (3.4-5.0); BUN Creatinine Ratio 21.8 (10-20); Bilirubin,Total 0.3 mg/dl (0.2-1.0); C Reactive Protein 1.08 mg/dl (0-0.5); Calcium 8.7 mg/dl (8.6-10.3); Creatinine Clr Calc Pharmacy 40.5 ml/min; Est GFR (African American) 83.8 ml/min; Est GFR (Non-African American) 72.3 ml/min; Globulin 2.6 gm/dl (2.5-4.0); Magnesium 2.1 mg/dl (1.7-2.4); Potassium 4.1 mmol/L (3.5-5.1); Total Protein 5.9 gm/dl (6.0-8.3)
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
[2023-05-23] MEDS ORDERED: NON-FORMULARY MEDICATION (Turmeric 400 mg Capsule) PO SCH (09:00)
--- NOTE | 2023-05-23 09:02 | Communication Note ---
Date of Service: May 23, 2023 Transesophageal echocardiogram performed uneventfully. Study demonstrated no evidence of vegetation or cardiac infection. Mild sclerotic changes of the aortic valve and mitral valve, normal LV function. All valve structures well-visualized
--- NOTE | 2023-05-23 09:22 | Anesthesiology Progress Note ---
Date of Service May 23, 2023 Anesthesia Post Procedure Vital Signs Vital Signs: Temp Pulse Pulse Resp BP BP BP 05/23/23 09:02 36.8 C 73 18 146/84 H 05/23/23 07:58 36.8 C 72 18 126/93 05/23/23 07:57 71 05/23/23 07:20 36.8 C 77 18 119/73 05/23/23 03:50 36.6 C 86 18 109/66 05/23/23 00:09 69 05/22/23 23:35 36.6 C 71 18 175/81 H 05/22/23 22:36 36.9 C 77 18 170/97 H 05/22/23 22:36 05/22/23 21:00 67 20 168/88 H 05/22/23 19:22 70 05/22/23 19:00 67 20 178/92 H 05/22/23 18:10 71 20 05/22/23 18:00 145/84 H 05/22/23 18:00 68 15 05/22/23 17:50 70 12 05/22/23 17:40 68 20 05/22/23 17:30 150/87 H 05/22/23 17:30 72 17 05/22/23 17:20 72 20 05/22/23 17:10 72 16 05/22/23 17:04 05/22/23 17:01 72 13 05/22/23 17:01 141/67 H 05/22/23 17:00 75 20 05/22/23 16:50 83 20 05/22/23 16:40 70 20 05/22/23 16:30 72 20 05/22/23 16:20 74 16 05/22/23 16:10 71 20 05/22/23 16:00 74 19 05/22/23 15:50 76 16 05/22/23 15:46 05/22/23 15:46 05/22/23 15:40 74 16 05/22/23 15:30 82 12 05/22/23 15:28 77 05/22/23 15:20 76 16 05/22/23 15:10 77 15 05/22/23 15:04 78 17 05/22/23 14:38 18 05/22/23 14:38 05/22/23 14:38 36.8 C 97 H 18 137/93 Pulse Ox Pulse Ox O2 Del Method O2 Del Method O2 Flow Rate 05/23/23 09:02 99 Room Air 05/23/23 07:58 95 Room Air 05/23/23 07:57 05/23/23 07:20 97 Room Air 05/23/23 03:50 98 Room Air 05/23/23 00:09 05/22/23 23:35 96 Room Air 05/22/23 22:36 97 Room Air 05/22/23 22:36 97 Room Air 0 05/22/23 21:00 97 Room Air 05/22/23 19:22 05/22/23 19:00 97 Room Air 05/22/23 18:10 96 05/22/23 18:00 05/22/23 18:00 96 05/22/23 17:50 97 05/22/23 17:40 97 05/22/23 17:30 05/22/23 17:30 97 05/22/23 17:20 95 05/22/23 17:10 97 05/22/23 17:04 96 05/22/23 17:01 98 05/22/23 17:01 05/22/23 17:00 99 05/22/23 16:50 99 05/22/23 16:40 97 05/22/23 16:30 97 05/22/23 16:20 98 05/22/23 16:10 98 05/22/23 16:00 96 05/22/23 15:50 98 05/22/23 15:46 96 05/22/23 15:46 Room Air 05/22/23 15:40 97 05/22/23 15:30 96 05/22/23 15:28 05/22/23 15:20 96 05/22/23 15:10 97 05/22/23 15:04 05/22/23 14:38 05/22/23 14:38 Room Air 05/22/23 14:38 96 Room Air Transfer of Care Handoff Completed per policy Notes Mental Status: alert / awake / arousable and participated in evaluation Patient Amnestic to Procedure: Yes Nausea / Vomiting: adequately controlled Pain: adequately controlled Airway Patency, RR, SpO2: stable & adequate BP & HR: stable & adequate Hydration State: stable & adequate Anesthetic Complications: no major complications apparent
--- NOTE | 2023-05-23 09:24 | Pharmacy Report ---
Pharmacy PK ABX Note - Date of Service May 23, 2023 - Assessment and Plan Assessment 77 year old F receiving vancomycin/ceftriaxone for treatment of chronic knee infection/UTI vs endocarditis?. Pertinent microbiologic data includes: blood cultures pending, urine culture with gram negative bacilli. Day # 1 of antimicrobial therapy. Plan Vancomycin * Loading dose: 1250 mg IV x 1 * Maintenance dose: 1000 mg IV every 24 hours * Regimen is predicted to achieve target AUC/VAMSI of 400-600 mg/L.hr * Random level ordered for: 05/26/23 with AM labs Pharmacy will continue to follow and will adjust dose/frequency as necessary. Thank you. Pharmacy has transitioned to AUC monitoring for vancomycin. AUC/VAMSI is the preferred PK/PD target and is associated with decreased risk of nephrotoxicity compared to traditional trough targets.
--- OUTSIDE RECORDS SUMMARY | 2023-05-23 09:28 | External Medical Summary | Summary of Care ---
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 HX-SKIN MALIGNANCY NEC - L forearm ([facility]) 10/06/2009 10/20/2019 Overview: 2006 Historical. documented as of this encounter (statuses as of 05/22/2023) Immunizations Name Administration Dates Next Due COVID-19 mRNA, LNP-s, No Pre serve, 2-Dose Series ([employer]) 04/19/2020,03/29/2020 COVID-19, LNP-s, No Preserve , [place]ico-sucrose, Ages 12+ ([employer]) 08/14/2021,01/01/2021 COVID-19, MRNA-LNP, 23-24, P F, 30 MCG/0.3 mL, 12 YRS AND ABOVE, IM ([facility]) 12/12/2022 Covid-19, Mrna, Lnp-s, Pf, B ivalent, 30 Mcg, IM, 12 yrs and above ([employer]) 01/07/2022 Pneumococcal Conjugate Vacc, 13 Valent (Prevnar) [...] encounter Miscellaneous Notes * Telephone Encounter - Leonel Silverio, RN - 05/22/2023 1:34 PM EDT Called and spoke to the patient and explained that Dr. Ramos reviewed her echo and she needs to be admitted to the hospital. She stated she will find some one to take her. Told her to go to the ER. Dr. Ramos will notify Dr. Brooks and I will notify the ER charge nurse. documented in this encounter Plan of Treatment Upcoming Encounters Date Type Department Care Team (Late st Contact Info) Description 05/23/2023 11:00 AM EDT Office Visit Family Practice [address] [place] [address] 293 [facility] [place] [phone] [facility] Health Lead Relay Tester [facility] [address] [address] 05/27/2023 9:20 AM EDT Office Visit [address] 293 [facility] [place] [phone] Leta Jones, DO 293 [place] [address] 07/01/2023 10:30 AM EDT Office Visit Cardiology, [facility] 132 [facility] [place] [address] Wagner Ramos, [address] [place] [address] 08/06/2023 11:20 AM EDT Office Visit [address] 293 [facility] [place] [address] Leta Jones, DO 293 [place] [address] Health Maintenance Due Date Last Done Comments [...] D LEVEL ONCE IN A LIFETIME-USE SMARTSET# [id number] Completed 01/02/2023, 02/12/2021, 07/25/2008 GARDASIL-HPV IMMUNIZATION SERIES Aged Out No longer eligible based on patient's age to complete this topic Hepatitis B Aged Out No longer eligi ble based on patient's age to complete this topic MENINGOCOCCAL (MENACTRA/MENVEO) Aged Out No longer eligible based on patient's age to complete this topic documented as of this encounter Medical Devices Implanted Type Area Intermediate Card Tender Device Identifier Shelf Expiration Date Model / Serial / Lot Clip Quick 2.8mm 230cm - [id number] Implanted:Qty: 1 on 07/12/2021 by Kate Cancino MD at ENDOSCOPY [facility] Colon [employer] 10/25/2023 HX-202UR.A / / [id number] documented as of this encounter Advance Directives Documents on File Type Date Recorded 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 No Full Code 10/17/2020 3:32 PM 10/17/2020 [...] Care Agent (per Health Care Power of Color Buffer document) Care Teams Water And Gas Helper Relationship Specialty Start Date End Date Leta Jones DO [address] [place] [address] PCP - General Family Medicine 01/30/22 documented as of this encounter
--- OUTSIDE RECORDS SUMMARY | 2023-05-23 09:29 | External Medical Summary | Summary of Care ---
Author Name Unknown Organization [facility] Address [address] [place] [address] Phone [phone] Care Team Providers Care Vulcanized Fiber Unit Operator Name Role Phone Leta Jones DO Primary Care Provider Reason for Visit * Reason Onset Date Comments Nurse Documentation 05/22/202305/21 Encounter Details Date Type Department Care Team (Late st Contact Info) Description 05/22/2023 10:30 AM EDT Scheduled Telephone Family Practice [address] [place] 293 [place] [address] College, Nurse [facility] Prac [address] [facility] 293 [place] [address] Arrived Allergies Active Allergy Reactions Criticality Noted Date [...] 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 HX-SKIN MALIGNANCY NEC - L forearm ([facility]) 10/06/2009 10/20/2019 Overview: 2006 Historical. documented as of this encounter (statuses as of 05/22/2023) Immunizations Name Administration Dates Next Due COVID-19 mRNA, LNP-s, No Pre serve, 2-Dose Series ([employer]) 04/19/2020,03/29/2020 COVID-19, LNP-s, No Preserve , Chico-sucrose, Ages 12+ ([employer]) 08/14/2021,01/01/2021 COVID-19, MRNA-LNP, 23-24, P F, 30 MCG/0.3 mL, 12 YRS AND ABOVE, IM ([facility] 12/12/2022 Covid-19, Mrna, Lnp-s, Pf, B ivalent, 30 Mcg, IM, 12 yrs and above ([employer]) 01/07/2022 Pneumococcal Conjugate Vacc, 13 Valent (Prevnar) [...] encounter Miscellaneous Notes * Telephone Encounter - Severo Hinson DO - 05/22/2023 1:19 PM EDT Noted Await echo results * Telephone Encounter - Jennifer Dial LPN - 05/22/2023 1:00 PM EDT Call placed to patient to follow up. States she is still feeling weak and sleeping. States she doesnot feel she has an intestinal problem, thinks it is her heart. States she gets fatigued after exercise classes. Had cardio appt with Dr. Ramos today and had an EKG and ECHO today as well. Pt had Blood cultures and TSH drawn today. Pt has balance class scheduled with Kaylee tomorrow. States she will see how she feels in the morning as to whether she comes or not. * Telephone Encounter - Jennifer Dial LPN - 05/22/2023 11:20 AM EDT Nurse phone call placed - no answer. Message left to return call to [phone]. documented in this encounter Plan of Treatment Upcoming Encounters Date Type Department Care Team (Late st Contact Info) Description 05/23/2023 11:00 AM EDT Office Visit Family Practice 65 [facility] 293 [place] [phone] College, Health Clerical Warehouseman [facility] Prac [address] [facility] 293 [facility], [place] [address] 05/27/2023 9:20 AM EDT Office Visit Family Practice 65 [facility] 293 [place] [address] Leta Jones, DO 293 [place] [address] 07/01/2023 10:30 AM EDT Office Visit Cardiology, [facility] 132 [place] [address] Wagner Ramos, DO 132 [place] [address] 08/06/2023 11:20 AM EDT Office Visit [address] 293 [place] [phone] Leta Jones, DO 293 [place] [address] Health Maintenance Due Date Last Done Comments [...] D LEVEL ONCE IN A LIFETIME-USE SMARTSET# [id number] Completed 01/02/2023, 02/12/2021, 07/25/2008 GARDASIL-HPV IMMUNIZATION SERIES Aged Out No longer eligible based on patient's age to complete this topic Hepatitis B Aged Out No longer eligi ble based on patient's age to complete this topic MENINGOCOCCAL (MENACTRA/MENVEO) Aged Out No longer eligible based on patient's age to complete this topic documented as of this encounter Medical Devices Implanted Type Area Keg Washer Device Identifier Shelf Expiration Date Model / Serial / Lot Clip Quick 2.8mm 230cm - [id number] Implanted:Qty: 1 on 07/12/2021 by Kate Cancino MD at ENDOSCOPY [facility] Colon [employer] 10/25/2023 HX-202UR.A / / [id number] documented as of this encounter Advance Directives Documents on File Type Date Recorded Patient Camera Repairer Expl anation Power of Automation Developer 11/29/2016 POWER OF A TTORNEY PACE UNABLE [...] the patient have Health Care Power of Automation Developer? No Full Code 10/17/2020 3:32 PM 10/17/2020 4:36 PM This order reflects the patients wishes and were consensually agreed upon. Full Code 10/15/2020 4:47 PM 10/17/2020 3:32 PM This order reflects the patients wishes and were consensually agreed upon. Healthcare Agents on File Name Relationship Healthcare [facility] Michael Abdul Adult Child Second Alternate Health Care Agent (per Health Care Power of Automation Developer document) Care Teams Vulcanized Fiber Unit Operator Relationship Specialty Start Date End Date Leta Jones DO [address] [place] [address] PCP - General Family Medicine 01/30/22 documented as of this encounter
--- OUTSIDE RECORDS SUMMARY | 2023-05-23 09:29 | External Medical Summary | Summary of Care ---
Author Name Unknown Organization [facility] Address [address] [place] [address] Phone [phone] Care Team Providers Care Tricot Knitting Machine Operator Name Role Phone Leta Jones DO Primary Care Provider Reason for Visit * Reason Onset Date Comments Nurse Documentation 05/22/202305/21 Encounter Details Date Type Department Care Team (Late st Contact Info) Description 05/22/2023 10:30 AM EDT Scheduled Telephone Family Practice [address], [place] 293 [place] [address] College, Nurse [facility] Prac [address] [facility] 293 [place] [address] Arrived Allergies Active Allergy Reactions Criticality Noted [...] She voices concern about being on antibiotics emt intermediate and hoping ortho may be able [...] MALIGNANCY NEC - L forearm ([facility]) 10/06/2009 10/20/2019 Overview: 2006 Historical. documented as of this encounter (statuses as of 05/22/2023) Immunizations Name Administration Dates Next Due COVID-19 mRNA, LNP-s, No Pre serve, 2-Dose Series ([employer]) 04/19/2020,03/29/2020 COVID-19, LNP-s, No Preserve , Chico-sucrose, Ages 12+ ([employer]) 08/14/2021,01/01/2021 COVID-19, MRNA-LNP, 23-24, P F, 30 MCG/0.3 mL, 12 YRS AND ABOVE, IM ([facility]) 12/12/2022 Covid-19, Mrna, Lnp-s, Pf, B ivalent, 30 Mcg, IM, 12 yrs and above ([employer]) 01/07/2022 Pneumococcal Conjugate Vacc, 13 Valent (Prevnar) [...] Encounter - Jennifer Dial LPN - 05/22/2023 1:38 PM EDT Patient called in to office and stated she received a call from cardiology and was told to "pack a bag and go to the ED." Pt states she has contacted a friend to take her. Discussed calling ambulanceif friend unable. Pt stated friend is able to take her. Instructed pt to contact office if she needs any further assistance. Also aware she can call [phone] if she needs to. Pt states she will have friend take her. * Telephone Encounter - Severo Hinson DO [...] answer. Message left to return call to [phone]. documented in this encounter Plan of Treatment Upcoming Encounters Date Type Department Care Team (Late st Contact Info) Description 05/23/2023 11:00 AM EDT Office Visit Family Practice [address] [place] [address] 293 [facility] [place] [phone] College, Health Ore Roaster [facility] Prac [address] [place] [address], [place] [address] 05/27/2023 9:20 AM EDT Office Visit Family Practice [address] [place] [address] 293 [facility] [place] [phone] Leta Jones, DO 293 [place] [address] 07/01/2023 10:30 AM EDT Office Visit Cardiology, [facility] 132 [place] [address] Wagner Ramos, DO 132 [facility] [place] [address] 08/06/2023 11:20 AM EDT Office Visit [address] [place] [phone] Leta Jones, DO 293 [place] [address] Health Maintenance Due Date Last Done Comments [...] D LEVEL ONCE IN A LIFETIME-USE SMARTSET# [id number] Completed 01/02/2023, 02/12/2021, 07/25/2008 GARDASIL-HPV IMMUNIZATION SERIES Aged Out No longer eligible based on patient's age to complete this topic Hepatitis B Aged Out No longer eligi ble based on patient's age to complete this topic MENINGOCOCCAL (MENACTRA/MENVEO) Aged Out No longer eligible based on patient's age to complete this topic documented as of this encounter Medical Devices Implanted Type Area Sheriff'S Detective Device Identifier Shelf Expiration Date Model / Serial / Lot Clip Quick 2.8mm 230cm - [id number] Implanted:Qty: 1 on 07/12/2021 by Kate Cancino MD at ENDOSCOPY [facility] Colon [employer] 10/25/2023 HX-202UR.A / / [id number] documented as of this encounter Advance Directives Documents on File Type Date Recorded Patient Finance Advisor Expl anation Power of Line Builder 11/29/2016 POWER OF A TTORNEY PACE UNABLE [...] the patient have Health Care Power of Line Builder? No Full Code 10/17/2020 3:32 PM 10/17/2020 [...] Care Agent (per Health Care Power of Line Builder document) Care Teams Tricot Knitting Machine Operator Relationship Specialty Start Date End Date Leta Jones DO 293 [place] [address] PCP - General Family Medicine 01/30/22 documented as of this encounter
--- OUTSIDE RECORDS SUMMARY | 2023-05-23 09:29 | External Medical Summary ---
Author Name Unknown Address Unknown Organization K01:[facility] [address] [facility] Laboratory Report Ordering Provider Test Date Status JENNI ROMAN 05/22/2023 09:15:48 Preliminary Observation Date Value Abnormality Reference (Units) Status Bacteria identified in Specimen by Culture 05/22/2023 09:15:48 No growth to date Preliminary Test: Culture, Blood
Spe cimen Source: Blood, Venous
Specimen Type: Blood
Specimen Date: 05/22/2023 9:15 AM
Result Date: 05/22/2023 7:01 PM
Result Status: Preliminary result
Resulting Lab: [facility]
[address]
[place] [address]

CULTURE

No growth to date

null Performing Location [facility] [address] [place] [address]
--- OUTSIDE RECORDS SUMMARY | 2023-05-23 09:29 | External Medical Summary | Summary of Care ---
Author Name Unknown Organization [facility] Address [address] [place] [address] Phone [phone] Care Team Providers Care Project Management It Specialist Name Role Phone Leta Jones DO Primary Care Provider Reason for Visit * Reason Onset Date Comments Nurse Documentation 05/22/202305/21 Encounter Details Date Type Department Care Team (Late st Contact Info) Description 05/22/2023 10:30 AM EDT Scheduled Telephone Family Practice [address] [place] 293 [place] [address] College, Nurse [facility] Prac [address] [facility] 293 [place] [address] Arrived Allergies Active Allergy Reactions Criticality Noted [...] HX-SKIN MALIGNANCY NEC - L forearm ([facility]) 10/06/2009 10/20/2019 Overview: 2006 Historical. documented as of this encounter (statuses as of 05/22/2023) Immunizations Name Administration Dates Next Due COVID-19 mRNA, LNP-s, No Pre serve, 2-Dose Series ([employer]) 04/19/2020,03/29/2020 COVID-19, LNP-s, No Preserve , Chico-sucrose, Ages 12+ ([employer]) 08/14/2021,01/01/2021 COVID-19, MRNA-LNP, 23-24, P F, 30 MCG/0.3 mL, 12 YRS AND ABOVE, IM ([facility]) 12/12/2022 Covid-19, Mrna, Lnp-s, Pf, B ivalent, 30 Mcg, IM, 12 yrs and above ([employer]) 01/07/2022 Pneumococcal Conjugate Vacc, 13 Valent (Prevnar) [...] answer. Message left to return call to [phone]. documented in this encounter Plan of Treatment Upcoming Encounters Date Type Department Care Team (Late st Contact Info) Description 05/23/2023 11:00 AM EDT Office Visit Family Practice 65 [facility] 293 [place] [address] College, Health Grocery Store Manager [facility] Prac [address] [facility] 293 [facility], [place] [address] 05/27/2023 9:20 AM EDT Office Visit Family Practice 65 [facility] [address] [place] [address] Leta Jones, DO 293 [place] [address] 07/01/2023 10:30 AM EDT Office Visit Cardiology, [facility] 132 [place] [address] Wagner Ramos, DO 132 [place] [address] 08/06/2023 11:20 AM EDT Office Visit [address] 293 [place] [address] Leta Jones, DO 293 [place] [address] Health Maintenance Due Date Last Done Comments [...] D LEVEL ONCE IN A LIFETIME-USE SMARTSET# [id number] Completed 01/02/2023, 02/12/2021, 07/25/2008 GARDASIL-HPV IMMUNIZATION SERIES Aged Out No longer eligible based on patient's age to complete this topic Hepatitis B Aged Out No longer eligi ble based on patient's age to complete this topic MENINGOCOCCAL (MENACTRA/MENVEO) Aged Out No longer eligible based on patient's age to complete this topic documented as of this encounter Medical Devices Implanted Type Area Bulk Picker Device Identifier Shelf Expiration Date Model / Serial / Lot Clip Quick 2.8mm 230cm - [id number] Implanted:Qty: 1 on 07/12/2021 by Kate Cancino MD at ENDOSCOPY [facility] Colon [employer] 10/25/2023 HX-202UR.A / / [id number] documented as of this encounter Advance Directives Documents on File Type Date Recorded Patient Embedded Case Manager Expl anation Power of Chiller Technician 11/29/2016 POWER OF A TTORNEY PACE [...] the patient have Health Care Power of Chiller Technician? No Full Code 10/17/2020 3:32 PM 10/17/2020 4:36 PM This order reflects the patients wishes and were consensually agreed upon. Full Code 10/15/2020 4:47 PM 10/17/2020 3:32 PM This order reflects the patients wishes and were consensually agreed upon. Healthcare Agents on File Name Relationship Healthcare Agent [facility] Michael Abdul Adult Child Second Alternate Health Care Agent (per Health Care Power of Chiller Technician document) Care Teams Project Management It Specialist Relationship Specialty Start Date End Date Leta Jones DO [address] [place] [address] PCP - General Family Medicine 01/30/22 documented as of this encounter
--- OUTSIDE RECORDS SUMMARY | 2023-05-23 09:29 | External Medical Summary | Summary of Care ---
Author Name Unknown Organization [facility] Address [address] [place] [address] Phone [phone] Care Team Providers Care Gaming Surveillance Observer Name Role Phone Leta Jones DO Primary Care Provider Reason for Visit * Reason Onset Date Comments Test Results 05/22/2023 Encounter Details Date Type Department Care Team (Late st Contact Info) Description 05/22/2023 Telephone Cardiology, [facility] [address] [facility] [place] [id number] Wagner Ramos DO [address] [place] [address] Test Results Allergies Active Allergy Reactions Criticality [...] voices concern about being on antibiotics senior care and hoping ortho may be able [...] mRNA, LNP-s, No Pre serve, 2-Dose Series ([employer]) 04/19/2020,03/29/2020 COVID-19, LNP-s, No Preserve , Chico-sucrose, Ages 12+ ([employer]) 08/14/2021,01/01/2021 COVID-19, MRNA-LNP, 23-24, P F, 30 MCG/0.3 mL, 12 YRS AND ABOVE, IM ([facility]) 12/12/2022 Covid-19, Mrna, Lnp-s, Pf, B ivalent, 30 Mcg, IM, 12 yrs and above ([employer]) 01/07/2022 Pneumococcal Conjugate Vacc, 13 Valent (Prevnar) [...] 11:00 AM EDT Office Visit Family Practice [address] [place] [address] 293 [place] [phone] [facility] Health Insurance Sales Agent [facility] [address] [address] 05/27/2023 9:20 AM EDT Office Visit [address] 293 [place] [phone] Leta Jones, DO 293 [place] [address] 07/01/2023 10:30 AM EDT Office Visit Cardiology, [facility] 132 [facility] [place] [address] Wagner Ramos, [address] [place] [address] 08/06/2023 11:20 AM EDT Office Visit [address] 293 [place] [address] Leta Jones, DO 293 [place] [address] Health Maintenance Due Date Last Done Comments [...] D LEVEL ONCE IN A LIFETIME-USE SMARTSET# [id number] Completed 01/02/2023, 02/12/2021, 07/25/2008 GARDASIL-HPV IMMUNIZATION SERIES Aged Out No longer eligible based on patient's age to complete this topic Hepatitis B Aged Out No longer eligi ble based on patient's age to complete this topic MENINGOCOCCAL (MENACTRA/MENVEO) Aged Out No longer eligible based on patient's age to complete this topic documented as of this encounter Medical Devices Implanted Type Area Rn Liaison Device Identifier Shelf Expiration Date Model / Serial / Lot Clip Quick 2.8mm 230cm - [id number] Implanted:Qty: 1 on 07/12/2021 by Kate Cancino MD at ENDOSCOPY [facility] Colon [employer] 10/25/2023 HX-202UR.A / / [id number] documented as of this encounter Advance Directives Documents on File Type Date Recorded Patient Line And Frame Poler Expl anation Power of Club Manager 11/29/2016 POWER OF A TTORNEY PACE [...] the patient have Health Care Power of Club Manager? No Full Code 10/17/2020 3:32 PM [...] Care Agent (per Health Care Power of Club Manager document) Care Teams Gaming Surveillance Observer Relationship Specialty Start Date End Date Leta Jones DO 293 [place] [address] PCP - General Family Medicine 01/30/22 documented as of this encounter
[2023-05-23] MEDS: CEROVITE ADV FORMULA TAB PO SCH (09:45)
[2023-05-23] MEDS: CYANOCOBALAMIN (B-12) 500 MCG TABLET PO SCH (09:45)
[2023-05-23] MEDS: CHOLECALCIFEROL 25 MCG (1000 UNITS) TAB PO SCH (09:45)
[2023-05-23] MEDS: BENZOCAINE/TETRACAIN/BUTAM 50 APPLN/5 GM CAN EXT ONE (09:46)
[2023-05-23] MEDS: PROPOFOL IV EMULSION 10 MG/ML 20 ML VIAL IV ONE (09:46)
[2023-05-23] MEDS: LIDOCAINE 2% 2 ML VIAL/AMP(20MG/ML) INFIL ONE (09:46)
[2023-05-23] MEDS: cefTRIAXone SODIUM 2,000 MG in DEXTROSE 5 % MINI-B 50 ML IV SCH (10:20)
--- NOTE | 2023-05-23 10:48 | Hospitalist Progress Note ---
Date of Service May 23, 2023 Assessment & Plan (1) Abnormal echocardiogram: (2) Chronic infection of knee joint prosthesis: Plan This is a 77 yo F w/ osteoarthritis, multiple orthopedic issues, history of lumbar laminectomy and iron deficiency anemia who was referred to ED by cardiology due to concern for infective endocarditis Abnormal Echocardiogram Fatigue Chronic infection of R knee prosthesis PCU outpatient echo revealed EF 65 to 69% with a mobile echodensity of the left atrial aspect of the posterior mitral valve that is 0.6 cm in length with noted mitral annular calcification and possible subtle vegetation. There also was a focal echodensity of the aortic valve likely along the noncoronary cusp consistent with aortic valve sclerosis however vegetation cannot be excluded. Blood cultures were drawn in outpatient as well as ED - pending Lab work looks unremarkable and she is afebrile Cardiology consulted - ABIODUN today (05/22) -mild sclerotic changes of the aortic and mitral valve. No vegetations or abscesses identified. No echocardiographic findings of cardiac infection. Hold pt home doxycycline for her chronic suppressive therapy ( Her previous R knee prosthetic infection was culture negative) Empiric IV Vancomycin for now UTI Ucultx posit. for Gram negat. bacilli- follow final results - cont. Rocephin emp. for now DVT ppx: SCDS for now FULL CODE PCP: Dr. Jones Dispo: PCU Admission and Anticipated Discharge Date Admission Date: May 22, 2023 Subjective Pt seen in follow up of poss. endocarditis. Ucultx positive ABIODUN this AM - w/o any vegetations Currently laying in bed in NAD Reports that she gets easily short of breath, feels she "overdid it" on Friday Denies chest pain, fever, chills, abd. pain, n/v Review of Systems Review of Systems: All systems reviewed & are unremarkable except as noted in Subjective Physical Exam Physical Exam: Constitutional: WD/WN F in NAD Head: Normocephalic, Atraumatic Eyes: PERRL, conjunctivae normal, anicteric sclerae Neck: normal visual inspection Respiratory: normal respiratory effort, lungs clear to auscultation, no wheeze, rales, rhonchi. Cardiovascular: RRR, no murmur, no edema Chest: normal inspection of chest Abdomen: normal bowel sounds, soft, nontender Musculoskeletal: no LE edema, moves extremities Skin: warm and dry Neurologic: PERRL, EOMI, no face palsy, no dysarthria, moves all extremities Psychiatric: A+Ox3, euthymic affect Results & Data Results & Data Vital Signs (Past 12 Hours) Vital Signs Temp Pulse Pulse Resp BP Pulse Ox O2 Del Method 05/23/23 09:17 36.8 C 75 18 138/88 94 Room Air 05/23/23 09:02 36.8 C 73 18 146/84 H 99 Room Air 05/23/23 07:58 36.8 C 72 18 126/93 95 Room Air 05/23/23 07:57 71 05/23/23 07:20 36.8 C 77 18 119/73 97 Room Air 05/23/23 03:50 36.6 C 86 18 109/66 98 Room Air 05/23/23 00:09 69 05/22/23 23:35 36.6 C 71 18 175/81 H 96 Room Air Laboratory Results 05/23/23 05/22/23 05/22/23 Range/Units 05:51 20:20 15:08 WBC 5.19 6.53 (4.8-10.8) K/ul RBC 3.78 L 4.12 L (4.20-5.40) M/uL Hgb 11.9 L 13.1 (12.0-16.0) g/dl Hct 35.1 L 38.2 (37.0-47.0) % MCV 92.9 92.7 (80.0-100.0) fL MCH 31.5 31.8 (25.0-34.0) pg MCHC 33.9 34.3 (32.0-36.0) g/dL RDW Std Deviation 45.5 44.7 (36.4-46.3) fL RDW Coeff of [place]by 13.2 13.2 (11.5-14.5) % Plt Count 213 270 (130-400) K/uL MPV 9.7 9.7 (9.4-12.4) fL Immature Gran % (Auto) 0.2 0.2 % Neut % (Auto) 65.4 66.2 % Lymph % (Auto) 19.5 22.7 % [place] % (Auto) 8.1 7.8 % Eos % (Auto) 6.2 2.5 % Baso % (Auto) 0.6 0.6 % Neut # (Auto) 3.40 4.33 (1.40-6.50) K/uL Lymph # (Auto) 1.01 L 1.48 (1.20-3.40) K/uL [place] # (Auto) 0.42 0.51 (0.11-0.59) K/uL Eos # (Auto) 0.32 0.16 (0.00-0.50) K/uL Baso # (Auto) 0.03 0.04 (0.00-0.20) K/uL Immature Gran # (Auto) 0.01 0.01 (0.01-0.20) K/uL ESR 45 H (0-30) mm/hr PT 10.5 (9.0-12.0) Seconds INR 1.0 (0.9-1.1) APTT 28 (21-31) Seconds PTT Ratio 1.0 Sodium 138 136 (136-145) mmol/L Potassium 4.1 4.0 (3.5-5.1) mmol/L Chloride 109 H 103 (98-107) mmol/L Carbon Dioxide 23 27 (21-32) mmol/L Anion Gap 6 6 (3-11) BUN 17 21 (6-23) mg/dl Creatinine 0.78 0.87 (0.6-1.2) mg/dl Est Cr Clr Drug Dosing 40.5 39.6 ml/min Est GFR ( Amer) 83.8 73.4 ml/min Est GFR (Non-Af Amer) 72.3 63.4 ml/min BUN/Creatinine Ratio 21.8 H 24.1 H (10-20) Glucose 80 95 (70-99(Fasting)) mg/dl Calcium 8.7 9.2 (8.6-10.3) mg/dl Magnesium 2.1 2.3 (1.7-2.4) mg/dl Total Bilirubin 0.3 0.4 (0.2-1.0) mg/dl AST 17 18 (13-39) U/L ALT 8 10 (7-52) U/L Alkaline Phosphatase 99 114 H (34-104) U/L Troponin I High Sens 5.2 (0-14) pg/ml C-Reactive Protein 1.08 H (0-0.5) mg/dl Total Protein 5.9 L 6.7 (6.0-8.3) gm/dl Albumin 3.3 L 3.7 (3.4-5.0) gm/dl Globulin 2.6 3.0 (2.5-4.0) gm/dl Albumin/Globulin Ratio 1.3 1.2 (0.9-2) TSH 1.051 (0.300-4.500) uIu/ml Urine Color Yellow Urine Appearance Cloudy A (Clear) Urine pH 7.0 (4.5-7.5) Ur Specific [place] 1.008 (1.000-1.030) Urine Protein Negative (Negative) Urine Glucose (UA) Negative (Negative) Urine Ketones Negative (Negative) Urine Blood Trace H (Negative) Urine Nitrite Positive A (Negative) Urine Bilirubin Negative (Negative) Urine Urobilinogen Negative (Negative) Ur Leukocyte Esterase 3+ H (Negative) Urine WBC (Auto) >30 H (0-5) /hpf Urine RBC (Auto) 5-10 H (0-4) /hpf U Hyaline Cast (Auto) 1-5 (0-5) /lpf U Epithel Cells (Auto) 10-20 H (0-5) /lpf Urine Bacteria (Auto) 4+ H (Negative) Medications Administered Current Inpatient Medications Acetaminophen (Acetaminophen 325 Mg Tab) 650 mg PO Q4H PRN PRN Reason: Pain or Fever Stop: 06/21/23 22:35 Al Hydrox/Mg Hydrox/Simethicone (Aluminum/Magnesium Susp 30 Ml Udc) 15 ml PO Q4H PRN PRN Reason: Dyspepsia Stop: 06/21/23 22:35 Cyanocobalamin (Cyanocobalamin (B-12) 500 Mcg Tablet) 1,000 mcg PO DAILY [facility] Stop: 06/22/23 08:59 Last Admin: 05/23/23 09:45 Dose: 1,000 mcg Duloxetine HCl (Duloxetine Hcl 20 Mg Cap) 20 mg PO BID MARGARETH Stop: 06/21/23 22:35 Last Admin: 05/23/23 09:45 Dose: 20 mg Gabapentin (Gabapentin 600 Mg Tab) 600 mg PO TID MARGARETH Stop: 06/21/23 22:35 Last Admin: 05/23/23 09:45 Dose: 600 mg Vancomycin HCl 1,000 mg/ (Sodium Chloride) 270 mls @ 200 mls/hr IV Q24H MARGARETH Stop: 07/04/23 15:59 Ceftriaxone Sodium 2,000 mg/ (Dextrose) 50 mls @ 100 mls/hr IV Q24H MARGARETH Stop: 05/28/23 09:59 Last Admin: 05/23/23 10:20 Dose: 100 mls/hr Magnesium Hydroxide (Magnesium Hydroxide Susp 30 Ml Udc) 30 ml PO Q12H PRN PRN Reason: Constipation Stop: 06/21/23 22:35 Magnesium Oxide (Magnesium Oxide 400 Mg Tab) 400 mg PO QPM MARGARETH Stop: 06/21/23 22:35 Last Admin: 05/22/23 22:59 Dose: 400 mg Miscellaneous Information (Vancomycin Consult Active) 1 each N/A UD PRN PRN Reason: Consult Stop: 06/21/23 19:34 Multivitamins/Minerals (Cerovite Adv Formula Tab) 1 tab PO QAM [facility] Stop: 06/22/23 08:59 Last Admin: 05/23/23 09:45 Dose: 1 tab Ondansetron HCl (Ondansetron Inj 2 Mg/Ml 2 Ml Vial) 4 mg IV Q6H PRN PRN Reason: Nausea Stop: 06/21/23 22:35 Polyethylene Glycol (Polyethylene (Miralax) 17 Gm Pack) 17 gm PO DAILY PRN PRN Reason: Constipation Stop: 06/21/23 22:35 Saccharomyces Boulardii (Saccharomyces Boulardii 250 Mg Cap) 250 mg PO BID [facility] Stop: 06/21/23 22:35 Last Admin: 05/23/23 09:45 Dose: 250 mg Vitamin D (Cholecalciferol 25 Mcg (1000 Units) Tab) 50 mcg PO QAM [facility] Stop: 06/22/23 08:59 Last Admin: 05/23/23 09:45 Dose: 50 mcg
--- NOTE | 2023-05-23 16:10 | Electrocardiogram Report ---
Test Reason : Blood Pressure : / mmHG Vent. Rate : 079 BPM Atrial Rate : 079 BPM P-R Int : 124 ms QRS Dur : 096 ms QT Int : 382 ms P-R-T Axes : 072 010 072 degrees QTc Int : 438 ms Normal sinus rhythm Low voltage QRS Incomplete right bundle branch block Nonspecific T wave abnormality Abnormal ECG When compared with ECG of 13-OCT-2020 14:31, No significant change was found Confirmed by Shashi Connelly ([id number]) on 05/23/2023 4:09:49 PM Referred By: Confirmed By:Shashi Connelly
[2023-05-23] MEDS: VANCOMYCIN HCL 1,000 MG in SODIUM CHLORIDE 0.9% 250 ML IV SCH (16:15)
[2023-05-24 06:25] LABS: Hematocrit (blood only) 37.1 % (37.0-47.0); Hemoglobin 12.6 g/dl (12.0-16.0); Mean Corpuscular Hemoglobin 31.5 pg (25.0-34.0); Mean Corpuscular Volume 92.8 fL (80.0-100.0); Mean Platelet Volume 9.5 fL (9.4-12.4); Platelet Count 212 K/uL (130-400); RDW Coefficient of Variation 13.1 % (11.5-14.5); RDW Standard Deviation 44.8 fL (36.4-46.3); White Blood Count 4.94 K/ul (4.8-10.8)
[2023-05-24 06:45] LABS: BUN Creatinine Ratio 22.2 (10-20); Calcium 8.6 mg/dl (8.6-10.3); Est GFR (African American) 98.9 ml/min; Est GFR (Non-African American) 85.3 ml/min; Magnesium 2.1 mg/dl (1.7-2.4); Phosphorus 3.6 mg/dl (2.5-4.9); Potassium 4.4 mmol/L (3.5-5.1)
--- NOTE | 2023-05-24 19:17 | Hospitalist Progress Note ---
Date of Service May 24, 2023 Assessment & Plan (1) Abnormal echocardiogram: (2) Chronic infection of knee joint prosthesis: Plan This is a 77 yo F w/ osteoarthritis, multiple orthopedic issues, history of lumbar laminectomy and iron deficiency anemia who was referred to ED by cardiology due to concern for infective endocarditis Abnormal Echocardiogram Fatigue Chronic infection of R knee prosthesis PCU outpatient echo revealed EF 65 to 69% with a mobile echodensity of the left atrial aspect of the posterior mitral valve that is 0.6 cm in length with noted mitral annular calcification and possible subtle vegetation. There also was a focal echodensity of the aortic valve likely along the noncoronary cusp consistent with aortic valve sclerosis however vegetation cannot be excluded. Blood cultures were drawn in outpatient as well as ED - pending Lab work looks unremarkable and she is afebrile Cardiology consulted - ABIODUN (05/22) -mild sclerotic changes of the aortic and mitral valve. No vegetations or abscesses identified. No echocardiographic findings of cardiac infection. Hold pt home doxycycline for her chronic suppressive therapy ( Her previous R knee prosthetic infection was culture negative) Empiric IV Vancomycin for now UTI Ucultx posit. for Gram negat. bacilli-> E.coli - cont. Rocephin emp. for now DVT ppx: SCDS for now FULL CODE PCP: Dr. Jones Dispo: PCU Admission and Anticipated Discharge Date Admission Date: May 22, 2023 Subjective Pt seen in follow up of poss. endocarditis. Ucultx positive ABIODUN - w/o any vegetations Currently sitting up in chair in NAD Reports that she gets easily short of breath, feels little better today but not to her baseline Denies chest pain, fever, chills, abd. pain, n/v Review of Systems Review of Systems: All systems reviewed & are unremarkable except as noted in Subjective Physical Exam Physical Exam: Constitutional: WD/WN F in NAD Head: Normocephalic, Atraumatic Eyes: PERRL, conjunctivae normal, anicteric sclerae Neck: normal visual inspection Respiratory: normal respiratory effort, lungs clear to auscultation, no wheeze, rales, rhonchi. Cardiovascular: RRR, no murmur, no edema Chest: normal inspection of chest Abdomen: normal bowel sounds, soft, nontender Musculoskeletal: no LE edema, moves extremities Skin: warm and dry Neurologic: PERRL, EOMI, no face palsy, no dysarthria, moves all extremities Psychiatric: A+Ox3, euthymic affect Results & Data Results & Data Vital Signs (Past 12 Hours) Vital Signs Temp Pulse Pulse Resp BP BP Pulse Ox 05/24/23 16:55 71 05/24/23 16:30 36.8 C 80 19 135/74 95 05/24/23 12:24 36.2 C L 77 16 129/78 97 05/24/23 08:00 05/24/23 07:43 70 O2 Del Method 05/24/23 16:55 05/24/23 16:30 Room Air 05/24/23 12:24 Room Air 05/24/23 08:00 Room Air 05/24/23 07:43 Laboratory Results 05/24/23 Range/Units 05:48 WBC 4.94 (4.8-10.8) K/ul RBC 4.00 L (4.20-5.40) M/uL Hgb 12.6 (12.0-16.0) g/dl Hct 37.1 (37.0-47.0) % MCV 92.8 (80.0-100.0) fL MCH 31.5 (25.0-34.0) pg MCHC 34.0 (32.0-36.0) g/dL RDW Std Deviation 44.8 (36.4-46.3) fL RDW Coeff of [place] 13.1 (11.5-14.5) % Plt Count 212 (130-400) K/uL MPV 9.5 (9.4-12.4) fL Sodium 139 (136-145) mmol/L Potassium 4.4 (3.5-5.1) mmol/L Chloride 109 H (98-107) mmol/L Carbon Dioxide 23 (21-32) mmol/L Anion Gap 7 (3-11) BUN 14 (6-23) mg/dl Creatinine 0.63 (0.6-1.2) mg/dl Est Cr Clr Drug Dosing 53.0 ml/min Est GFR ( Amer) 98.9 ml/min Est GFR (Non-Af Amer) 85.3 ml/min BUN/Creatinine Ratio 22.2 H (10-20) Glucose 79 (70-99(Fasting)) mg/dl Calcium 8.6 (8.6-10.3) mg/dl Phosphorus 3.6 (2.5-4.9) mg/dl Magnesium 2.1 (1.7-2.4) mg/dl Medications Administered Current Inpatient Medications Acetaminophen (Acetaminophen 325 Mg Tab) 650 mg PO Q4H PRN PRN Reason: Pain or Fever Stop: 06/21/23 22:35 Al Hydrox/Mg Hydrox/Simethicone (Aluminum/Magnesium Susp 30 Ml Udc) 15 ml PO Q4H PRN PRN Reason: Dyspepsia Stop: 06/21/23 22:35 Cyanocobalamin (Cyanocobalamin (B-12) 500 Mcg Tablet) 1,000 mcg PO DAILY MARGARETH Stop: 06/22/23 08:59 Last Admin: 05/24/23 08:42 Dose: 1,000 mcg Duloxetine HCl (Duloxetine Hcl 20 Mg Cap) 20 mg PO BID MARGARETH Stop: 06/21/23 22:35 Last Admin: 05/24/23 08:42 Dose: 20 mg Gabapentin (Gabapentin 600 Mg Tab) 600 mg PO TID MARGARETH Stop: 06/21/23 22:35 Last Admin: 05/24/23 13:42 Dose: 600 mg Vancomycin HCl 1,000 mg/ (Sodium Chloride) 270 mls @ 200 mls/hr IV Q24H MARGARETH Stop: 07/04/23 15:59 Last Infusion: 05/24/23 17:38 Dose: Infused Ceftriaxone Sodium 2,000 mg/ (Dextrose) 50 mls @ 100 mls/hr IV Q24H MARGARETH Stop: 05/28/23 09:59 Last Infusion: 05/24/23 10:00 Dose: Infused Magnesium Hydroxide (Magnesium Hydroxide Susp 30 Ml Udc) 30 ml PO Q12H PRN PRN Reason: Constipation Stop: 06/21/23 22:35 Magnesium Oxide (Magnesium Oxide 400 Mg Tab) 400 mg PO QPM MARGARETH Stop: 06/21/23 22:35 Last Admin: 05/23/23 20:22 Dose: 400 mg Miscellaneous Information (Vancomycin Consult Active) 1 each N/A UD PRN PRN Reason: Consult Stop: 06/21/23 19:34 Multivitamins/Minerals (Cerovite Adv Formula Tab) 1 tab PO QAM MARGARETH Stop: 06/22/23 08:59 Last Admin: 05/24/23 08:42 Dose: 1 tab Ondansetron HCl (Ondansetron Inj 2 Mg/Ml 2 Ml Vial) 4 mg IV Q6H PRN PRN Reason: Nausea Stop: 06/21/23 22:35 Polyethylene Glycol (Polyethylene (Miralax) 17 Gm Pack) 17 gm PO DAILY PRN PRN Reason: Constipation Stop: 06/21/23 22:35 Saccharomyces Boulardii (Saccharomyces Boulardii 250 Mg Cap) 250 mg PO BID [facility] Stop: 06/21/23 22:35 Last Admin: 05/24/23 08:42 Dose: 250 mg Vitamin D (Cholecalciferol 25 Mcg (1000 Units) Tab) 50 mcg PO QAM MARGARETH Stop: 06/22/23 08:59 Last Admin: 05/24/23 08:42 Dose: 50 mcg
[2023-05-25 06:09] LABS: Hemoglobin 12.8 g/dl (12.0-16.0); Mean Corpuscular Hemoglobin 30.9 pg (25.0-34.0); Mean Corpuscular Volume 96.6 fL (80.0-100.0); Mean Platelet Volume 9.6 fL (9.4-12.4); Platelet Count 213 K/uL (130-400); RDW Coefficient of Variation 13.2 % (11.5-14.5); RDW Standard Deviation 46.7 fL (36.4-46.3); Red Blood Count 4.14 M/uL (4.20-5.40); White Blood Count 4.94 K/ul (4.8-10.8)
[2023-05-25 06:47] LABS: Calcium 8.9 mg/dl (8.6-10.3); Magnesium 2.1 mg/dl (1.7-2.4); Potassium 4.3 mmol/L (3.5-5.1)
[2023-05-25 06:53] LABS: BUN Creatinine Ratio 20.3 (10-20); Creatinine Clr Calc Pharmacy 47.6 ml/min; Est GFR (Non-African American) 82.8 ml/min; Phosphorus 4.4 mg/dl (2.5-4.9)
--- NOTE | 2023-05-25 12:09 | Discharge Summary ---
Date of Service May 25, 2023 Admission HPI Per Admitting Provider This is a 77-year-old female who has a significant past medical history of osteoarthritis, multiple orthopedic issues, history of lumbar laminectomy and iron deficiency anemia who was referred to ED by cardiology today due to concern for infective endocarditis. She was seen in clinic today by Dr. Ramos. Her outpatient EPIC record was reviewed. She is a patient of 65 forward. She follows with [facility] with a R knee prosthesis. 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 She was last hospitalized in 01/2022 for this. She was referred to cardiology due to considerable fatigue. She denied fever, chills, sweats, shortness of breath, orthopnea, chest pain, lightheadedness, dizziness, nausea, vomiting, abdominal pain. She has recently noticed some weight loss. She had an echocardiogram done in clinic today with concerns for endocarditis. Revealed EF 65 to 69% with a mobile echodensity of the left atrial aspect of the posterior mitral valve that is 0.6 cm in length with noted mitral annular calcification and possible subtle vegetation. There also was a focal echodensity of the aortic valve likely along the noncoronary cusp consistent with aortic valve sclerosis however vegetation cannot be excluded. Blood cultures were drawn in outpatient clinic. She recently had lab work done on 05/19 which was relatively unremarkable. Her white count was within normal limits. Her TSH was within normal limits. Currently she feels well other than just being grossly tired. This has been on going for the last week. She has no energy to do daily activities. No sick contacts. She denies f/c/s, chest pain, sob, cough, hemopytsis, n/v/d. She does occasionally get diarrhea and she takes a probiotic and this is attributed to her chronic antibiotic therapy. Admission Exam Per Admitting Provider Constitutional: WD/WN, vitals as above, NAD, sitting up in bed, pleasant, conversing easily Head: Normocephalic, Atraumatic Eyes: PERRL, conjunctivae normal, anicteric sclerae ENMT: external ear and nose normal, oropharynx normal Neck: trachea midline, no thyromegaly normal visual inspection Respiratory: normal respiratory effort, lungs clear to auscultation, no wheeze, rales, rhonchi. Normal insp/exp effort, no accessory muscle use Cardiovascular: RRR, no murmur, no edema Vessels: no JVD or carotid bruit Chest: normal inspection of chest Abdomen: normal bowel sounds, soft, nontender, no hepatosplenomegaly Musculoskeletal: no cyanosis or clubbing, AROM x 4 Skin: no rashes, warm and dry normal turgor Neurologic: PERRL, EOMI, accommodation nl, no face palsy, no dysarthria CN's II-XI intact bilaterally and moves all extremities Psychiatric: A+Ox3, euthymic affect Lymphatic: no cervical or axillary lymphadenopathy : deferred Principal Diagnosis UTI Concern for endocarditis Discharge Exam Constitutional: WD/WN F in NAD Head: Normocephalic, Atraumatic Eyes: PERRL, conjunctivae normal, anicteric sclerae Neck: normal visual inspection Respiratory: normal respiratory effort, lungs clear to auscultation, no wheeze, rales, rhonchi. Cardiovascular: RRR, no murmur, no edema Chest: normal inspection of chest Abdomen: normal bowel sounds, soft, nontender Musculoskeletal: no LE edema, moves extremities Skin: warm and dry Neurologic: PERRL, EOMI, no face palsy, no dysarthria, moves all extremities Psychiatric: A+Ox3, euthymic affect Discharge Data Allergies Allergy/AdvReac Type Severity Reaction Status Date / Time Penicillins Allergy Intermediate SWELLING Verified 02/01/22 22:12 OF EYES, HIVES & RASH hydrocodone AdvReac Mild NAUSEA AND Verified 02/01/22 22:12 VOMITING Consultations 05/22/23 18:12 ED Decision to Admit Stat 05/22/23 22:36 Consult Cardiology Routine Procedures Performed Operation Date: 05/23/23 08:00 Actual Procedures p Echo Transesophageal - Elia Brooks MD s Echo Color Flow - Elia Brooks MD Hospital Course (1) Abnormal echocardiogram: (2) Chronic infection of knee joint prosthesis: Plan This is a 77 yo F w/ osteoarthritis, multiple orthopedic issues, history of lumbar laminectomy and iron deficiency anemia who was referred to ED by cardiology due to concern for infective endocarditis Abnormal Echocardiogram Fatigue Chronic infection of R knee prosthesis PCU outpatient echo revealed EF 65 to 69% with a mobile echodensity of the left atrial aspect of the posterior mitral valve that is 0.6 cm in length with noted mitral annular calcification and possible subtle vegetation. There also was a focal echodensity of the aortic valve likely along the noncoronary cusp consistent with aortic valve sclerosis however vegetation cannot be excluded. Blood cultures were drawn in outpatient as well as ED - blood cultx negat. for 48 hrs - follow final results as oupt Lab work looks unremarkable and pt is afebrile Cardiology consulted - ABIODUN (05/22) -mild sclerotic changes of the aortic and mitral valve. No vegetations or abscesses identified. No echocardiographic findings of cardiac infection. Hold pt home doxycycline for her chronic suppressive therapy ( Her previous R knee prosthetic infection was culture negative) Empiric IV Vancomycin while inpt 05/24 Discussed w/ ID - ok to stop vancomycin as endocarditis was ruled out. Cont. home doxycycline. UTI Ucultx posit. for Gram negat. bacilli-> E.coli - Rocephin while inpt -> switch to cefuroxime on dc Total Time Total Time Spent Total Time Spent (In Minutes): 40 Discharge Plan Discharge Items Patient Disposition: Home - Self-Care Reason For Visit: ENDOCARDITIS WORK UP Discharge Diagnosis: UTI Concern for endocarditis Activity: Per Instructions section Non-emergency contact: Primary Care Provider Call non-emergency contact if: you have any medication questions and your symptoms worsen Follow-up/Referrals: Leta Jones DO [Primary Care Provider] - Diet: Regular Addtl Attending Provider Instructions: Follow up with your primary care doctor within 1 week. Finish antibiotic treatment as prescribed. You have already received antibiotics today in the hospital, start taking antibiotic pills at home tomorrow morning. Continue taking doxycycline as well (as previously prescribed for your chronic knee infection). Pending Studies at Discharge: Yes Studies:: final blood cultx results Stand-Alone Forms: My [facility] [employer], Smoking Cessation Medications and DC Order Prescriptions: New cefuroxime axetil 250 mg tablet 250 mg PO BID 3 Days Qty: 6 0RF Continued magnesium 250 mg tablet 250 mg PO QPM medical marijuana 1 applic topical UD PRN (Reason: Pain) cholecalciferol (vitamin D3) 25 mcg (1,000 unit) capsule 50 mcg PO QAM turmeric 400 mg Capsule 400 mg PO QAM PreserVision AREDS [id number] Capsule 1 cap PO BID gabapentin 600 mg tablet 600 mg PO TID cyanocobalamin (vitamin B-12) 1,000 mcg Tablet 1,000 mcg PO DAILY doxycycline hyclate 100 mg capsule 100 mg PO BID duloxetine 20 mg capsule,delayed release(DR/EC) 20 mg PO [facility] Saccharomyces boulardii [Florastor] 250 mg Capsule 250 mg PO BID Discharge Orders: Discharge Order (Routine); Ordered 05/25/23 Ordered By: Eduardo Rojas Admission Data Admit Date/Time: 05/24/23 19:18 Attending Provider: Eduardo Rojas Admit Provider: Eduardo Rojas Primary Care Provider: Leta Jones Other Providers: Eduardo Rojas; Elia Brooks
== END 2023-05-25 14:30 | disposition home or self-care (01) | DRG 303 ==
LOC: EDINP 14:48 → ED 14:48 → 4W 22:37

== ENCOUNTER 2023-05-26 18:33 | Inpatient (IN) ==
[2023-05-26 20:09] LABS: Basophils # (auto) 0.02 K/uL (0.00-0.20); Basophils % (auto) 0.4 %; Eosinophils # (auto) 0.29 K/uL (0.00-0.50); Eosinophils % (auto) 5.3 %; Hematocrit (blood only) 36.8 % (37.0-47.0); Hemoglobin 12.1 g/dl (12.0-16.0); Immature Granulocytes # (auto) 0.02 K/uL (0.01-0.20); Immature Granulocytes % (auto) 0.4 %; Lymphocytes # (auto) 1.12 K/uL (1.20-3.40); Lymphocytes % (auto) 20.3 %; Mean Corpuscular Hemoglobin 30.9 pg (25.0-34.0); Mean Corpuscular Hgb Conc 32.9 g/dL (32.0-36.0); Mean Corpuscular Volume 93.9 fL (80.0-100.0); Mean Platelet Volume 9.4 fL (9.4-12.4); Monocytes # (auto) 0.47 K/uL (0.11-0.59); Monocytes % (auto) 8.5 %; Neutrophils # (auto) 3.59 K/uL (1.40-6.50); Neutrophils % (auto) 65.1 %; Platelet Count 256 K/uL (130-400); RDW Coefficient of Variation 13.2 % (11.5-14.5); RDW Standard Deviation 45.1 fL (36.4-46.3); Red Blood Count 3.92 M/uL (4.20-5.40); White Blood Count 5.51 K/ul (4.8-10.8)
[2023-05-26 20:22] LABS: Albumin Globulin Ratio 1.2 (0.9-2); Albumin Level 3.4 gm/dl (3.4-5.0); Bilirubin,Total 0.3 mg/dl (0.2-1.0); Calcium 9.2 mg/dl (8.6-10.3); Creatinine Clr Calc Pharmacy 49.7 ml/min; Est GFR (African American) 95.5 ml/min; Est GFR (Non-African American) 82.4 ml/min; Globulin 2.9 gm/dl (2.5-4.0); Potassium 3.8 mmol/L (3.5-5.1); Total Protein 6.3 gm/dl (6.0-8.3)
[2023-05-26 20:28] LABS: Troponin I High Sensitivity 5.5 pg/ml (0-14)
[2023-05-26 20:52] LABS: D Dimer 2500 ug/L FEU (0-500)
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
[2023-05-26] MEDS: OPTIRAY 320 125ml IV ONE (21:52)
--- NOTE | 2023-05-26 22:19 | CT Scan Report ---
Exam(s): CTA CHEST IV Amt: 120 ML OPTIRAY 320 EXAM: CT Angiography Chest With Intravenous Contrast CLINICAL HISTORY: Reason for exam: PE. TECHNIQUE: Axial computed tomographic angiography images of the chest with intravenous contrast. CTDI is 9.5 mGy and DLP is 271.35 mGy-cm. Automated exposure control was utilized for the study. A dose lowering technique was utilized adhering to the principles of ALARA. MIP reconstructed images were created and reviewed. COMPARISON: No relevant prior studies available. FINDINGS: LUNGS: No focal consolidation, pleural effusion, or pneumothorax. Atelectasis at the lung bases. HEART: Cardiomegaly. VASCULATURE: No acute pulmonary embolism. Atherosclerotic changes of the aorta. THYROID: Within normal limits. MEDIASTINUM + LYMPH NODES: There are no pathologically enlarged mediastinal, hilar, or axillary lymph nodes. SUPERIOR ABDOMEN: Hepatic steatosis. MUSCULOSKELETAL: Degenerative changes. IMPRESSION: No acute pulmonary embolism. Electronically signed by: Boone Hill MD 05/26/23 22:18 PM
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
[2023-05-27] MEDS ORDERED: NITROGLYCERIN SL 0.4 MG/TAB TAB SL PRN (00:09)
[2023-05-27] MEDS ORDERED: ACETAMINOPHEN 325 MG TAB PO PRN (00:09)
[2023-05-27] MEDS ORDERED: POLYETHYLENE (MIRALAX) 17 GM PACK PO PRN (00:09)
[2023-05-27] MEDS ORDERED: MEDICAL MARIJUANA INH PRN (00:16)
[2023-05-27] MEDS: cefUROXime axetil 250 MG TABLET PO SCH (01:07)
[2023-05-27] MEDS: DOXYCYCLINE HYCLATE 100 MG CAP PO SCH (01:07)
[2023-05-27] MEDS: DULoxetine HCL 20 MG CAP PO STA (03:50)
[2023-05-27] MEDS: GABAPENTIN 600 MG TAB PO STA (03:52)
--- OUTSIDE RECORDS SUMMARY | 2023-05-27 05:30 | External Medical Summary | Summary of Care ---
Author Name Unknown Organization [facility] Address [address] [place] [address] Phone [phone] Care Team Providers Care Fur Trimmer Name Role Phone Robert Leta Rivera DO Primary Care Provider [phone] Encounter Details Date Type Department Care Team (Late st Contact Info) Description 05/23/2023 Documentation HEALTH & WELLNESS Elvira Silveira, Health Sliding Joint Maker Allergies Active Allergy Reactions Criticality Noted Date Comments Oxycodone Nausea/vomiting 10/15/2020 Penicillins 04/14/2001 rash,hives documented as of this encounter (statuses as of 05/23/2023) Medications Medication Sig Dispensed Refills Start Date [...] as of this encounter (statuses as of 05/23/2023) Active Problems Problem Noted Date Diagnosed Date [...] as of this encounter (statuses as of 05/23/2023) Resolved Problems Problem Noted Date Diagnosed Date [...] as of this encounter (statuses as of 05/23/2023) Immunizations Name Administration Dates Next Due COVID-19 mRNA, LNP-s, No Pre serve, 2-Dose Series (Retrophin) 04/19/2020,03/29/2020 COVID-19, LNP-s, No Preserve , Chico-sucrose, Ages 12+ (Retrophin) 08/14/2021,01/01/2021 COVID-19, MRNA-LNP, 23-24, P F, 30 MCG/0.3 mL, 12 YRS AND ABOVE, IM (Ruxter-ComirnatmPortal) 12/12/2022 Covid-19, Mrna, Lnp-s, Pf, B ivalent, 30 Mcg, IM, 12 yrs and above (Retrophin) 01/07/2022 Pneumococcal Conjugate Vacc, 13 Valent (Prevnar) [...] encounter Progress Notes * Elvira Silveira, Health Sliding Joint Maker - 05/23/2023 11:05 AM EDT Did patient attend session 6 of 10 of the small group balance program? No: Patient did not attend session 1 of 10 of the small group balance program. Patient was unable to attend session 6. documented in this encounter Plan of Treatment Upcoming Encounters Date Type Department Care Team (Late st Contact Info) Description 05/27/2023 9:20 AM EDT Office Visit Family Practice 65 [facility] 293 [facility] [place] [phone] Leta Jones, DO 293 [facility] [place] [address] 07/01/2023 10:30 AM EDT Office Visit Cardiology, [facility] [address] [place] [address] Wagner Ramos, DO [address] [facility] [place] [address] 08/06/2023 11:20 AM EDT Office Visit [facility] Practice 65 [facility] 293 [facility] [place] [phone] Leta Jones, DO 293 [facility] [place] [address] Health Maintenance Due Date Last Done Comments [...] D LEVEL ONCE IN A LIFETIME-USE SMARTSET# [id number] Completed 01/02/2023, 02/12/2021, 07/25/2008 GARDASIL-HPV IMMUNIZATION SERIES Aged Out No longer eligible based on patient's age to complete this topic Hepatitis B Aged Out No longer eligi ble based on patient's age to complete this topic MENINGOCOCCAL (MENACTRA/MENVEO) Aged Out No longer eligible based on patient's age to complete this topic documented as of this encounter Medical Devices Implanted Type Area Quality Assurance Inspector Device Identifier Shelf Expiration Date Model / Serial / Lot Clip Quick 2.8mm 230cm - [id number] Implanted:Qty: 1 on 07/12/2021 by Kate Cancino MD at ENDOSCOPY [facility] [employer] 10/25/2023 HX-202UR.A / / [id number] documented as of this encounter Advance Directives Documents on File Type Date Recorded 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 No Full Code 10/17/2020 3:32 PM [...] Care Agent (per Health Care Power of Parts Inspector document) Care Teams Fur Trimmer Relationship Specialty Start Date End Date Leta Jones DO [address] [place] [address] PCP - General Family Medicine 01/30/22 documented as of this encounter
--- OUTSIDE RECORDS SUMMARY | 2023-05-27 05:30 | External Medical Summary | Summary of Care ---
Author Name Unknown Organization [facility] Address [address] [place] [address] Phone [phone] Care Team Providers Care Environmental Conflict Manager Name Role Phone Leta Jones DO Primary Care Provider [phone] Reason for Visit * Reason Onset Date Comments Test Results 05/22/2023 Rachel Encounter Details Date Type Department Care Team (Late st Contact Info) Description 05/22/2023 Telephone Cardiology, [facility] [address] [place] [address] Wagner Ramos DO [address] [place] [address] Test Results (Rachel) Allergies Active Allergy Reactions Criticality Noted Date Comments Oxycodone Nausea/vomiting 10/15/2020 Penicillins 04/14/2001 rash,hives documented as of this encounter (statuses as of 05/26/2023) Medications Medication Sig Dispensed Refills Start Date [...] as of this encounter (statuses as of 05/26/2023) Active Problems Problem Noted Date Diagnosed Date Caregiver stress 02/28/2023 Pyogenic arthritis of right knee joint 3 Last Assessment & Plan: Self administration of her antibiotics and seems to be doing quite well. 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 HX-SKIN MALIGNANCY NEC - L forearm ([facility]) 10/06/2009 10/20/2019 Overview: 2006 Historical. documented as of this encounter (statuses as of 05/26/2023) Immunizations Name Administration Dates Next Due COVID-19 mRNA, LNP-s, No Pre serve, 2-Dose Series (Forcura) 04/19/2020,03/29/2020 COVID-19, LNP-s, No Preserve , Chico-sucrose, Ages 12+ (Forcura) 08/14/2021,01/01/2021 COVID-19, MRNA-LNP, 23-24, P F, 30 MCG/0.3 mL, 12 YRS AND ABOVE, IM ([facility]) 12/12/2022 Covid-19, Mrna, Lnp-s, Pf, B ivalent, 30 Mcg, IM, 12 yrs and above (Forcura) 01/07/2022 Pneumococcal Conjugate Vacc, 13 Valent (Prevnar) [...] shopping? (15 years old or older) No 08/22/20 21 Cognitive Status Response Date of Assessm ent Because of a physical, menta l, or emotional condition, do you have serious difficulty concentrating, remembering, or making decisions? (5 years old or older) No 10/15/2020 documented as of this encounter Miscellaneous Notes * Telephone Encounter - Summer Hernandez OSA - 05/26/2023 9:42 AM EDT Person calling: Leta Relationship to patient: self Number to return call: [phone] Reason for call: ABIODUN results Pharmacy: na Provider Name:Dr. Ramos Patient calling, she was discharged yesterday from hospital. Wants to know results of ABIODUN and how to proceed from here. Still having SOB. Please advise. Thanks * Telephone Encounter - Leonel Silverio RN - 05/22/2023 1:34 PM EDT Called [...] Team (Late st Contact Info) Description 05/27/2023 10:40 AM EDT Pharmacy Family Practice 65 [facility] 293 [place] [phone] College, Pharmacist [address] [place] [address] 05/27/2023 11:00 AM EDT Office Visit Family Practice 65 [facility] 293 [place] [phone] Leta Jones DO 293 [place] [address] 07/01/2023 10:30 AM EDT Office Visit Cardiology, [facility] [address] [place] [address] Wagner Ramos, DO [address] [place] [address] 08/06/2023 11:20 AM EDT Office Visit Family Practice [address] [place] [address], [place] 293 [place] [address] Leta Jones, DO 293 [place] [address] Health Maintenance Due Date Last Done Comments *BISPHONATE OR OTHER ACCEPTABLE MEDICATION NEEDED FOR OSTEOPOROSIS (REFER TO SMARTSET #1146) 10/24/2022 Influenza Vaccine (FLU shot) (Season Ended) 2023 12/13/2021, 11/24/2020, 11/03/2019, Additional history exists Depression Screening 02/29/2024 02/28/2023 DTaP,Tdap,and Td Vaccines (2 - Td or Tdap) 11/14/2027 11/13/2017, 01/02/2009 Pneumococcal Vaccine: 65+ Years Completed 06/17/2014, 01/02/2009 Zoster Vaccines Completed 05/04/2020, 10/2019, 01/13/2013 DXA Scan Discontinued 04/16/2021, 03/28, 11/30/2012, Additional history exists COVID-19 Vaccine Completed 12/12/2022, , 08/14/2021, Additional history exists VITAMIN D LEVEL ONCE IN A LIFETIME-USE SMARTSET# [id number] Completed 01/02/2023, 02/12/2021, 07/25/2008 GARDASIL-HPV IMMUNIZATION SERIES Aged Out No longer eligible based on patient's age to complete this topic Hepatitis B Aged Out No longer eligi ble based on patient's age to complete this topic MENINGOCOCCAL (MENACTRA/MENVEO) Aged Out No longer eligible based on patient's age to complete this topic documented as of this encounter Medical Devices Implanted Type Area Herpetology Teacher Device Identifier Shelf Expiration Date Model / Serial / Lot Clip Quick 2.8mm 230cm - [id number] Implanted:Qty: 1 on 07/12/2021 by Kate Cancnio MD at ENDOSCOPY [facility] [employer] 10/25/2023 HX-202UR.A / / [id number] documented as of this encounter Advance Directives Documents on File Type Date Recorded 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 No Full Code 10/17/2020 3:32 PM 10/17/2020 4:36 PM This order reflects the patients wishes and were consensually agreed upon. Full Code 10/15/2020 4:47 PM 10/17/2020 3:32 PM This order reflects the patients wishes and were consensually agreed upon. Healthcare Agents on File Name Relationship Healthcare Agent [facility] p Communication Michael Abdul Adult Child Second Alternate Health Care Agent (per Health Care Power of Fundraising Manager document) Care Teams Environmental Conflict Manager Relationship Specialty Start Date End Date Leta Jones DO [address] [place] [address] PCP - General Family Medicine 01/30/22 documented as of this encounter
--- OUTSIDE RECORDS SUMMARY | 2023-05-27 06:42 | External Medical Summary | Summary of Care ---
Author Name Unknown Organization [facility] Address [address] [place] [address] Phone [phone] Care Team Providers Care Electronics Assembler Name Role Phone Leta Jones DO Primary Care Provider Reason for Visit * Reason Onset Date Comments Information 05/26/202305/25 Encounter Details Date Type Department Care Team (Late st Contact Info) Description 05/26/2023 Telephone Family Practice [address] [place] [address] [place] [address] Leta Jones DO [address] [place], [place] [id number] Information (05/25) Allergies Active Allergy Reactions Criticality Noted Date [...] She voices concern about being on antibiotics residential and hoping ortho may be able to [...] Acute. HX-SKIN MALIGNANCY NEC - L forearm ([facility]) 10/06/2009 10/20/2019 Overview: 2006 Historical. documented as of this encounter (statuses as of 05/26/2023) Immunizations Name Administration Dates Next Due COVID-19 mRNA, LNP-s, No Pre serve, 2-Dose Series (Player[employer]) 04/19/2020,03/29/2020 COVID-19, LNP-s, No Preserve , Chico-sucrose, Ages 12+ (Pfizer) 08/14/2021,01/01/2021 COVID-19, MRNA-LNP, 23-24, P F, 30 MCG/0.3 mL, 12 YRS AND ABOVE, IM ([facility]) 12/12/2022 Covid-19, Mrna, Lnp-s, Pf, B [...] Miscellaneous Notes * Telephone Encounter - Cecelia Castro RN - 05/26/2023 4:37 PM EDT Pt returned call. States after talking with the nurse she went back and layed down. Breathing improved. Pulse was 75 and BP was 152/79. But the longer she talked she started to become SOB again. [facility] and it was recommended that is she continued with SOB she should go back to the ER. Pt also having some chest discomfort-states "it doesn't feel like an elephant is on my chest" but she is having discomfort. Again reiterated that it was recommended she should return to the ER-pt verbalized understanding and will go to ER. * Telephone Encounter - Cecelia Rich LPN - 05/26/2023 4:12 PM EDT Called, left message for patient to return call. Spoke to nursing at cardio if sob should go to ER. Thank you * Telephone Encounter - Caron Hernandes RN - 05/26/2023 2:56 PM EDT See alternate telephone encounter 05/22/23. * Telephone Encounter - Cecelia Rich LPN - 05/26/2023 2:49 PM EDT Called patient to check status on her. States during admission had ABIODUN, states she has worsening sob. Denies chest pain. Bp today was 175/86 Pulse 68 Pulse ox "normal". Some chest discomfort. Came home from hospital yesterday afternoon. Asked patient if how she is doing since her return, if worse or better. She states she thinks I am a little better. When hosp doc visited her in hosp yesterday she was not sob since she was sleeping but she is sob. Having trouble with conversation due to sob. documented in this encounter Plan of Treatment Upcoming Encounters Date Type Department Care Team (Late st Contact Info) Description 05/27/2023 10:40 AM EDT Pharmacy Family Practice [address] [place] [address] 293 [facility] [address] College, Pharmacist [address] [address] 05/27/2023 11:00 AM EDT Office Visit Family Practice [address] [place] [address] 293 [facility] [address] Leta Jones, DO [address] [place] [address] 07/01/2023 10:30 AM EDT Office Visit Cardiology, [facility] [address] [place] [address] [place] Ramos, DO [facility] [address] 08/06/2023 11:20 AM EDT Office Visit Family Practice [address] [place] [address] 293 [facility] [address] Leta Jones, DO [address] [place] [address] Health Maintenance Due Date Last Done Comments [...] D LEVEL ONCE IN A LIFETIME-USE SMARTSET# [id number] Completed 01/02/2023, 02/12/2021, 07/25/2008 GARDASIL-HPV IMMUNIZATION SERIES Aged Out No longer eligible based on patient's age to complete this topic Hepatitis B Aged Out No longer eligi ble based on patient's age to complete this topic MENINGOCOCCAL (MENACTRA/MENVEO) Aged Out No longer eligible based on patient's age to complete this topic documented as of this encounter Medical Devices Implanted Type Area Field Captain Device Identifier Shelf Expiration Date Model / Serial / Lot Clip Quick 2.8mm 230cm - [id number] Implanted:Qty: 1 on 07/12/2021 by Kate Cancino MD at ENDOSCOPY [facility] Colon [employer] 10/25/2023 HX-202UR.A / / [id number] documented as of this encounter Advance Directives Documents on File Type Date Recorded Patient Video Production Specialist Expl anation Power of Geospatial Intelligence Analyst 11/29/2016 POWER OF A TTORNEY PACE [...] the patient have Health Care Power of Geospatial Intelligence Analyst? No Full Code 10/17/2020 3:32 PM 10/17/2020 4:36 PM This order reflects the patients wishes and were consensually agreed upon. Full Code 10/15/2020 4:47 PM 10/17/2020 3:32 PM This order reflects the patients wishes and were consensually agreed upon. Healthcare Agents on File Name Relationship Healthcare Agent [facility] p Communication Michael Abdul Adult Child Second Alternate Health Care Agent (per Health Care Power of Geospatial Intelligence Analyst document) Care Teams Electronics Assembler Relationship Specialty Start Date End Date Leta Jones DO [address] [place] [address] PCP - General Family Medicine 01/30/22 documented as of this encounter
--- OUTSIDE RECORDS SUMMARY | 2023-05-27 06:42 | External Medical Summary | Summary of Care ---
Author Name Unknown Organization [facility] Address [address] [place] [address] Phone [phone] Care Team Providers Care Operations Administrative Assistant Name Role Phone Leta Jones DO Primary Care Provider Reason for Visit * Reason Onset Date Comments Test Results 05/22/2023 Rachel Encounter Details Date Type Department Care Team (Late st Contact Info) Description 05/22/2023 Telephone Cardiology, [facility] [address] [place] [address] Wagner Ramos DO [address] [facility] [place] [address] Test Results (Rachel) Allergies Active Allergy Reactions [...] 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 documented as of this encounter (statuses as of 05/26/2023) Immunizations Name Administration Dates Next Due COVID-19 mRNA, LNP-s, No Pre serve, 2-Dose Series ([employer]) 04/19/2020,03/29/2020 COVID-19, LNP-s, No Preserve , Chico-sucrose, Ages 12+ (WordSentry) 08/14/2021,01/01/2021 COVID-19, MRNA-LNP, 23-24, P F, 30 MCG/0.3 mL, 12 YRS AND ABOVE, IM ([facility]) 12/12/2022 Covid-19, Mrna, Lnp-s, Pf, B ivalent, 30 Mcg, IM, 12 yrs and above ([employer]) 01/07/2022 Pneumococcal Conjugate Vacc, 13 Valent (Prevnar) [...] encounter Miscellaneous Notes * Telephone Encounter - Caron Hernandes RN - 05/26/2023 2:55 PM EDT See below information along with information in alternate telephone encounter 05/26/2023. Patient d/c'd from [facility] yesterday; reports ongoing shortness of breath. Please advise. RichCecelia, PACK PULLER MR 05/26/23 2:54 PM Note Called patient to check status on her. [...] Having trouble with conversation due to sob. * Telephone Encounter - Summer Hernandez OSA - 05/26/2023 9:42 AM EDT Person calling: Leta Relationship to patient: self Number to return call: [phone] Reason for call: ABIODUN results Pharmacy: na [...] 10:40 AM EDT Pharmacy Family Practice 65 [facility] 293 [place] [address] College, Pharmacist [address] [address] 05/27/2023 11:00 AM EDT Office Visit Family Practice 65 [facility] 293 [place] [phone] Leta Jones, DO 293 [place] [address] 07/01/2023 10:30 AM EDT Office Visit Cardiology, [facility] 132 [place] [address] Wagner Ramos, 132 [place] [address] 08/06/2023 11:20 AM EDT Office Visit [facility] Practice [address] [place] [phone] Leta Jones, DO [address] [place] [address] Health Maintenance Due Date Last Done Comments [...] D LEVEL ONCE IN A LIFETIME-USE SMARTSET# [id number] Completed 01/02/2023, 02/12/2021, 07/25/2008 GARDASIL-HPV IMMUNIZATION SERIES Aged Out No longer eligible based on patient's age to complete this topic Hepatitis B Aged Out No longer eligi ble based on patient's age to complete this topic MENINGOCOCCAL (MENACTRA/MENVEO) Aged Out No longer eligible based on patient's age to complete this topic documented as of this encounter Medical Devices Implanted Type Area Manager Non Profit Device Identifier Shelf Expiration Date Model / Serial / Lot Clip Quick 2.8mm 230cm - [id number] Implanted:Qty: 1 on 07/12/2021 by Kate Cancino MD at ENDOSCOPY [facility] Colon [employer] 10/25/2023 HX-202UR.A / / [id number] documented as of this encounter Advance Directives Documents on File Type Date Recorded Patient Pesticide Use Medical Coordinator Expl anation Power of Aircraft Electrical Systems Specialist 11/29/2016 POWER OF A TTORNEY PACE [...] the patient have Health Care Power of Aircraft Electrical Systems Specialist? No Full Code 10/17/2020 3:32 PM 10/17/2020 4:36 PM This order reflects the patients wishes and were consensually agreed upon. Full Code 10/15/2020 4:47 PM 10/17/2020 3:32 PM This order reflects the patients wishes and were consensually agreed upon. Healthcare Agents on File Name Relationship Healthcare Agent Relationspa p Communication Michael Abdul Adult Child Second Alternate Health Care Agent (per Health Care Power of Aircraft Electrical Systems Specialist document) Care Teams Operations Administrative Assistant Relationship Specialty Start Date End Date Leta Jones DO [address] [place] [address] PCP - General Family Medicine 01/30/22 documented as of this encounter
--- NOTE | 2023-05-27 07:18 | XRay Report ---
XR chest 1V portable CLINICAL HISTORY: Chest pain, nonspecific TECHNIQUE: Single frontal radiograph of the chest was obtained. Comparison: Comparison is made to chest radiograph 02/04/2022 FINDINGS: No lines and tubes are seen. The cardiomediastinal silhouette is normal. The lungs are clear. No evid ence of pleural effusion or pneumothorax. IMPRESSION: No acute chest disease. ACT 112: Negative or not required by law. Electronically signed by: Nura Cain M.D. 05/27/2023 7:17 AM
[2023-05-27 07:56] LABS: Basophils # (auto) 0.05 K/uL (0.00-0.20); Basophils % (auto) 0.7 %; Eosinophils # (auto) 0.27 K/uL (0.00-0.50); Eosinophils % (auto) 3.9 %; Hematocrit (blood only) 37.1 % (37.0-47.0); Hemoglobin 12.5 g/dl (12.0-16.0); Immature Granulocytes # (auto) 0.02 K/uL (0.01-0.20); Immature Granulocytes % (auto) 0.3 %; Lymphocytes # (auto) 0.92 K/uL (1.20-3.40); Lymphocytes % (auto) 13.4 %; Mean Corpuscular Hemoglobin 31.3 pg (25.0-34.0); Mean Corpuscular Hgb Conc 33.7 g/dL (32.0-36.0); Mean Corpuscular Volume 92.8 fL (80.0-100.0); Mean Platelet Volume 9.4 fL (9.4-12.4); Monocytes # (auto) 0.43 K/uL (0.11-0.59); Monocytes % (auto) 6.2 %; Neutrophils % (auto) 75.5 %; Platelet Count 253 K/uL (130-400); RDW Coefficient of Variation 13.2 % (11.5-14.5); RDW Standard Deviation 45.5 fL (36.4-46.3); White Blood Count 6.89 K/ul (4.8-10.8)
[2023-05-27] MEDS: DULoxetine HCL 20 MG CAP PO SCH (08:20)
[2023-05-27] MEDS: GABAPENTIN 600 MG TAB PO SCH (08:20)
[2023-05-27] MEDS: CHOLECALCIFEROL 25 MCG (1000 UNITS) TAB PO SCH (08:20)
[2023-05-27] MEDS: SACCHAROMYCES BOULARDII 250 MG CAP PO SCH (08:20)
[2023-05-27] MEDS: CYANOCOBALAMIN (B-12) 500 MCG TABLET PO SCH (08:20)
[2023-05-27] MEDS: HEPARIN SOD 5,000 UNIT/0.5 ML VIAL SQ SCH (08:22)
[2023-05-27 08:30] LABS: Troponin I High Sensitivity 5.8 pg/ml (0-14)
[2023-05-27 08:32] LABS: Calcium 8.7 mg/dl (8.6-10.3); Potassium 4.2 mmol/L (3.5-5.1)
[2023-05-27 08:38] LABS: BUN Creatinine Ratio 22.7 (10-20); Est GFR (African American) 87.9 ml/min; Est GFR (Non-African American) 75.8 ml/min
[2023-05-27] MEDS ORDERED: NON-FORMULARY MEDICATION (Vitamins A,C,E-Zinc-Copper [Preservision Areds] 14,320-226-200 u PO SCH (09:00)
--- NOTE | 2023-05-27 13:05 | Cardiology Progress Note ---
Date of Service May 27, 2023 Assessment & Plan (1) Exertional dyspnea: Plan: Transthoracic echocardiogram and transesophageal echocardiogram studies performed last week with preserved ejection fraction, and no significant valvular disease that would explain her symptoms of shortness of breath. EKG x 2 without acute ischemic changes. High sensitive troponin negative x 2 thus far this hospital stay. Patient referred for a Lexiscan nuclear stress test which she has since completed. No symptoms of angina were elicited at the time of the stress test. Perfusion images are currently pending, and additional recommendations will be forthcoming after the perfusion images are available. Rossy Jeffery, DO Admission and Anticipated Discharge Date Admission Date: May 26, 2023 Debo Abdul is a 77 year old female seen in cardiology consult per the request of Dr Lepe for the evaluation of chest pain and shortness of breath. Patient presented to the ED on 05/23/23 after having been seen that day in outpatient cardiology clinic with complaint of generalized easy fatigability. She had a prior history of aseptic right knee for which she is on suppressive antibiotic therapy. A transthoracic echocardiogram revealed focal calcification of posterior mitral valve and aortic valve and superimposed vegetation cannot be excluded. She has therefore undergone transesophageal echocardiogram performed last week by Dr. Brooks of our practice was negative for vegetation. Since discharge on 05/25/23, patient has noted progressive shortness of breath with minimal exertion walking at home. She describes vague transient chest discomfort however she does not characterize this discomfort in detail. She was comfortable at during my assessment in room C10 of the emergency department. Review of Systems Review of Systems: All systems reviewed & are unremarkable except as noted in HPI & below Physical Exam Physical Exam: Temp Pulse Resp BP Pulse Ox O2 Del Method 36.6 C 79 22 159/85 H 98 Room Air 05/26/23 18:43 05/27/23 12:56 05/27/23 12:56 05/27/23 12:56 05/27/23 12:56 05/27/23 12:56 General: no acute distress and stated age Eyes: conjunctiva are pink and non-injected, sclera clear Neck: normal jugular venous pulse, no hepatojugular reflux Chest: normal shape and normal respiratory effort Lungs: clear to auscultation and percussion Cardiac Exam: - regular heart sounds, 1/6 SM Abdomen: abdomen soft, non-tender, no abnormal masses and no hepatosplenomegaly Musculoskeletal: no gait disturbance, no weakness, right knee prosthesis without surrounding swelling or erythema Extremities: no edema and no cyanosis Neuro:awake, conversant, follows commands, no focal motor deficits Psych: appropriate affect and insight. Results & Data Vital Signs (Past 12 Hours) Vital Signs Pulse Pulse Resp BP BP Pulse Ox O2 Del Method 05/27/23 09:11 74 18 146/84 H 97 Room Air 05/27/23 08:23 79 18 140/91 98 Room Air 05/27/23 07:56 85 05/27/23 02:17 80 17 169/88 H 98 Room Air 05/27/23 02:14 86 05/27/23 01:37 86 18 156/80 H 98 Room Air 05/27/23 01:30 99 05/27/23 01:00 97 05/27/23 01:00 69 18 156/80 H 97 Laboratory Results Cardiac Enzymes 05/26/23 05/27/23 Range/Units 18:54 06:59 AST 21 (13-39) U/L Troponin I High Sens 5.5 5.8 (0-14) pg/ml CBC 05/26/23 05/27/23 Range/Units 18:54 06:59 WBC 5.51 6.89 (4.8-10.8) K/ul RBC 3.92 L 4.00 L (4.20-5.40) M/uL Hgb 12.1 12.5 (12.0-16.0) g/dl Hct 36.8 L 37.1 (37.0-47.0) % Plt Count 256 253 (130-400) K/uL Neut # (Auto) 3.59 5.20 (1.40-6.50) K/uL Lymph # (Auto) 1.12 L 0.92 L (1.20-3.40) K/uL [place] # (Auto) 0.47 0.43 (0.11-0.59) K/uL Eos # (Auto) 0.29 0.27 (0.00-0.50) K/uL Baso # (Auto) 0.02 0.05 (0.00-0.20) K/uL Comprehensive Metabolic Panel 05/26/23 05/27/23 Range/Units 18:54 06:59 Sodium 135 L 137 (136-145) mmol/L Potassium 3.8 4.2 (3.5-5.1) mmol/L Chloride 104 107 (98-107) mmol/L Carbon Dioxide 24 21 (21-32) mmol/L BUN 21 17 (6-23) mg/dl Creatinine 0.70 0.75 (0.6-1.2) mg/dl Glucose 92 86 (70-99(Fasting)) mg/dl Calcium 9.2 8.7 (8.6-10.3) mg/dl AST 21 (13-39) U/L ALT 15 (7-52) U/L Alkaline Phosphatase 125 H (34-104) U/L Total Protein 6.3 (6.0-8.3) gm/dl Albumin 3.4 (3.4-5.0) gm/dl Intake and Output 05/26/23 05/27/23 05/27/23 22:59 06:59 14:59 Intake Total 0 / 0 Balance 0 / 0 Intake: Oral 0 / 0 Other: Weight 48.3 kg 48.3 kg 44.82 kg Weight Measurement Method Built in [facility] Built in [facility] Built in [facility] Patient Weight 05/28/23 06:59 Weight 44.82 kg D-dimer 2,500 ug/L Diagnostic Findings EKG tracings performed on presentation again today reveals sinus rhythm with incomplete right bundle branch block, no acute repolarization abnormalities.
--- NOTE | 2023-05-27 14:10 | Myocardial Perfusion Study ---
Date of Service May 27, 2023 Myocardial Perfusion Study [facility] Myocardial Perfusion Study Report Procedure: 1. Myocardial perfusion study performed in multiple views/images 2. Lexiscan pharmacologic stress ECG Indications: 1. Chest discomfort, shortness of breath Ordering physician: Dr Jeffery Procedural details: For the stress portion of the study, Lexiscan 0.4 mg was intravenously administered followed by a saline flush. This was followed by 31.2 mCi of technetium 99m Cardiolite, injected at 11:42 AM on 05/27/2023. 30 minutes following the injection, imaging of the heart was performed in multiple projections. For the rest portion of the study, 10.5 mCi technetium 99m Car diolite was injected intravenously at 9:50 AM on 05/27/2023. 1 hour following the injection, imaging of the heart was performed in the same projections. Lexiscan stress ECG: The patient underwent pharmacologic nuclear stress testing receiving 0.4 mg of regadenoson (Lexiscan). The baseline EKG revealed sinus rhythm at [address] segments. The resting heart rate of 75 bpm nelia to a maximal heart of 112 bpm. This value represents 79% of maximal age-predicted heart rate. The resting blood pressure of 145/88 was the maximum blood pressure during the test. Post Lexiscan, lowest blood pressure observed was 135/84. The stress portion of study was terminated having completed the end of the predetermined protocol. The raw data was reviewed and was normal with no abnormal extracardiac radiopharmaceutical uptake of clinical concern. The patient described headache in the post-rest recovery interval. No symptoms suggestive angina or reported. Heart response to pharmacologic stress was normal. The blood pressure response to pharmacologic stress was normal. The stress EKG response to stress was normal with no evidence of ischemia. No arrhythmias. Findings: Rotating raw imaging demonstrated no significant lung uptake. There is no significant motion artifact. Heart size appeared normal. Myocardial perfusion demonstrated normal stress and normal resting perfusion. Ejection fraction: > 70% Wall motion: Normal No significant transient ischemic dilation. Impression: 1. Normal pharmacologic myocardial perfusion imaging study with no evidence of resting or inducible ischemia. 2. The pharmacologic stress EKG response is negative for ischemia 3. The left ventricular ejection fraction by gated SPECT was calculated to be > 70%.
--- NOTE | 2023-05-27 14:11 | Communication Note ---
Date of Service: May 27, 2023 Addendum: The patient's nuclear stress test is negative for ischemia. Clinical presentation concerning for possible worsening back pain, chronic neuropathic pain. Patient is already on duloxetine and gabapentin. No further cardiac testing recommended at this time. If it is felt the patient needs to remain in the hospital for physical therapy evaluation, stable for admission to telemetry floor from a cardiac perspective. Rossy Jeffery DO
--- NOTE | 2023-05-27 14:40 | Hospitalist Progress Note ---
Date of Service May 27, 2023 Assessment & Plan (1) Exertional dyspnea: Plan: 77-year-old female with past medical history significant for right ventricular conduction delay, pyogenic arthritis of right knee joint, sciatica, osteoarthritis, iron deficiency anemia, multiple orthopedic issues, history of lumbar laminectomy comes in because of dyspnea on exertion and chest pain. Patient was recently in the hospital to rule out infective endocarditis. Outpatient echo showed possible vegetation but in the hospital ABIODUN was unremarkable. She was also found to UTI and on antibiotics. After going home patient still feeling shortness of breath on exertion. Also have chest pain. Chest pain is more with exertion. So she came back. Denies any nausea. No headache. No earache. No runny nose or sore throat. No fevers. No abdominal pain. Normal bowel and bladder movements. Resting comfortably and hemodynamically stable. Dyspnea on exertion with chest pain EKG initial troponin unremarkable CTA chest unremarkable Serial troponins are unremarkable for any ACS Appreciate cardiology input and recommendation Underwent nuclear stress test which was negative for any ischemia Chest pain and exertional dyspnea are not related to heart and she can be dis charged from cardiology point of view She herself believe that the pain she is getting is likely from her upper back with extensive history of multiple back procedures in the past She will have PT and OT evaluation prior to discharge tomorrow Possible deconditioning Has been feeling much better since admission Will have PT and OT evaluation prior to discharge tomorrow UTI Complete antibiotic course-likely to contribute to her current weakness and shortness of breath Urine is growing E. coli from 28th of last month which is pansensitive Will finish the course of antibiotic DVT prophylaxis Heparin subcu Disposition Med/telemetry Full code (2) Osteoarthritis of spine with radiculopathy, cervical region: (3) Lumbar pain: (4) Myofascial pain: (5) Thoracic facet syndrome: Admission and Anticipated Discharge Date Admission Date: May 26, 2023 Subjective 05/27/2023 The patient was seen and examined in emergency room She has had negative nuclear stress test She is strongly feels that the pain she is experiencing is coming from the back She denies any symptoms during examination She will have PT and OT evaluation prior to discharge Review of Systems Review of Systems: All systems reviewed and are unremarkable except as noted below Physical Exam Physical Exam: Lying in bed comfortably Constitutional: average body habitus; not ill appearing Eyes: PERRL, conjunctivae normal, anicteric sclerae ENMT: external ear and nose normal, oropharynx normal Neck: trachea midline, no thyromegaly Respiratory: no respiratory distress Auscultation: lungs clear to auscultation bilaterally; no crackles Cardiovascular: Rate/Rhythm: regular rate and regular rhythm; not tachycardic Heart Sounds: normal S1, normal S2 and + murmur Extremities: no edema Gastrointestinal (Abdomen): Inspection/Auscultation: normal bowel sounds; abdomen not distended Percussion/Palpation: abdomen soft; abdomen nontender Musculoskeletal: No acute arthritis involving any joint Neurologic: Alert, awake and oriented x 3. No focal sensory or motor deficit appreciated Psychiatric: A+Ox3, euthymic affect Lymphatic: no cervical or axillary lymphadenopathy Results & Data Results & Data Vital Signs (Past 12 Hours) Vital Signs Pulse Pulse Resp BP Pulse Ox O2 Del Method 05/27/23 12:56 79 22 159/85 H 98 Room Air 05/27/23 09:11 74 18 146/84 H 97 Room Air 05/27/23 08:23 79 18 140/91 98 Room Air 05/27/23 07:56 85 Laboratory Results Short CBC 05/26/23 05/27/23 Range/Units 18:54 06:59 WBC 5.51 6.89 (4.8-10.8) K/ul Hgb 12.1 12.5 (12.0-16.0) g/dl Hct 36.8 L 37.1 (37.0-47.0) % Plt Count 256 253 (130-400) K/uL BMP 05/26/23 05/27/23 18:54 06:59 Sodium 135 L 137 Potassium 3.8 4.2 Chloride 104 107 Carbon Dioxide 24 21 BUN 21 17 Creatinine 0.70 0.75 Glucose 92 86 Calcium 9.2 8.7 Liver Function 05/26/23 Range/Units 18:54 Total Bilirubin 0.3 (0.2-1.0) mg/dl AST 21 (13-39) U/L ALT 15 (7-52) U/L Alkaline Phosphatase 125 H (34-104) U/L Albumin 3.4 (3.4-5.0) gm/dl Medications Administered Current Inpatient Medications Acetaminophen (Acetaminophen 325 Mg Tab) 650 mg PO Q4H PRN PRN Reason: Pain or Fever Stop: 06/26/23 00:08 Cefuroxime Axetil (Cefuroxime Axetil 250 Mg Tablet) 250 mg PO BID [facility] Stop: 06/06/23 00:08 Last Admin: 05/27/23 08:20 Dose: 250 mg Cyanocobalamin (Cyanocobalamin (B-12) 500 Mcg Tablet) 1,000 mcg PO DAILY MARGARETH Stop: 06/26/23 08:59 Last Admin: 05/27/23 08:20 Dose: 1,000 mcg Doxycycline Hyclate (Doxycycline Hyclate 100 Mg Cap) 100 mg PO BID MARGARETH Stop: 06/26/23 00:08 Last Admin: 05/27/23 08:20 Dose: 100 mg Duloxetine HCl (Duloxetine Hcl 20 Mg Cap) 20 mg PO [facility] MARGARETH Stop: 06/26/23 08:59 Last Admin: 05/27/23 08:20 Dose: 20 mg Gabapentin (Gabapentin 600 Mg Tab) 600 mg PO TID MARGARETH Stop: 06/26/23 08:59 Last Admin: 05/27/23 13:00 Dose: 600 mg Heparin Sodium (Porcine) (Heparin Sod 5,000 Unit/0.5 Ml Vial) 5,000 units SQ Q12 MARGARETH Stop: 06/26/23 08:59 Last Admin: 05/27/23 08:22 Dose: Not Given Magnesium Oxide (Magnesium Oxide 400 Mg Tab) 400 mg PO QPM [facility] Stop: 06/26/23 20:59 Miscellaneous Medication (Medical Marijuana) 1 dose INH UD PRN PRN Reason: Pain Stop: 06/26/23 00:15 Nitroglycerin (Nitroglycerin Sl 0.4 Mg/Tab Tab) 0.4 mg SL Q5M PRN PRN Reason: Chest Pain Stop: 06/26/23 00:08 Polyethylene Glycol (Polyethylene (Miralax) 17 Gm Pack) 17 gm PO DAILY PRN PRN Reason: Constipation Stop: 06/26/23 00:08 Saccharomyces Boulardii (Saccharomyces Boulardii 250 Mg Cap) 250 mg PO BID [facility] Stop: 06/26/23 08:59 Last Admin: 05/27/23 08:20 Dose: 250 mg Vitamin D (Cholecalciferol 25 Mcg (1000 Units) Tab) 25 mcg PO QAM MARGARETH Stop: 06/26/23 08:59 Last Admin: 05/27/23 08:20 Dose: 25 mcg
[2023-05-27] MEDS: REGADENOSON 0.4 MG/5 ML SYR IV ONE (14:43)
[2023-05-27] MEDS: MAGNESIUM OXIDE 400 MG TAB PO SCH (19:11)
--- NOTE | 2023-05-28 12:38 | Hospitalist Progress Note ---
Date of Service May 28, 2023 Assessment & Plan (1) Exertional dyspnea: Plan: 77 yr female with past medical history significant for right ventricular conduction delay, pyogenic arthritis of right knee joint, sciatica, osteoarthritis, iron deficiency anemia, multiple orthopedic issues, history of lumbar laminectomy comes in because of dyspnea on exertion and chest pain. Patient was recently in the hospital to rule out infective endocarditis. Outpatient echo showed possible vegetation but in the hospital ABIODUN was unremarkable. She was also found to UTI and on antibiotics. After going home patient still feeling shortness of breath on exertion. Also have chest pain. Chest pain is more with exertion. So she came back. Denies any nausea. No headache. No earache. No runny nose or sore throat. No fevers. No abdominal pain. Normal bowel and bladder movements. Resting comfortably and hemodynamically stable. Atypical chest pain rule out ACS Dyspnea on exertion with chest pain -CTA: No acute pulmonary embolism. -Myocardial stress test:Normal pharmacologic myocardial perfusion imaging study with no evidence of resting or inducible ischemia. The pharmacologic stress EKG response is negative for ischemia. The left ventricular ejection fraction by gated SPECT was calculated to be > 70%. -Troponin x 3 negative Appreciate cardiology input and recommendation Atypical chest pain Admits to having heartburn recently Also reports intermittent dysphagia to pills Denies any odynophagia Started on Protonix Advised to follow-up with GI as outpatient for possible EGD Possible deconditioning Has been feeling much better since admission UTI Complete antibiotic course-likely to contribute to her current weakness and shortness of breath Urine is growing E. coli from 28th of last month which is pansensitive Continue Ceftin to complete the course DVT prophylaxis Heparin SQ Code Status Full code (2) Osteoarthritis of spine with radiculopathy, cervical region: (3) Lumbar pain: (4) Myofascial pain: (5) Thoracic facet syndrome: Admission and Anticipated Discharge Date Admission Date: May 26, 2023 Subjective Patient is seen and examined at bedside States a lot better today No dyspnea on exertion Reports epigastric abdominal discomfort yesterday which currently resolved Admits to have intermittent trouble swallowing pills No odynophagia Denies any dizziness, nausea, vomiting Plan to be discharged home today Review of Systems Review of Systems: All systems reviewed & are unremarkable except as noted in Subjective Physical Exam Physical Exam: Physical Exam: Vitals signs as noted above General Appearance:Thin, frail, no apparent distress Head: normocephalic, Atraumatic Eyes: normal inspection, EOMI Neck: supple, Trachea midline Respiratory/Chest: Normal breath sounds, CTA, No accessory muscle use Cardiovascular: S1, S2, + murmur Abdomen/GI:Soft, Non tender, Bowel sounds present Extremities/Musculoskeletal:normal inspection, no edema Neurologic/Psych:AAOX3, grossly no focal neurological deficits Skin: normal color, warm Results & Data Results & Data Vital Signs (Past 12 Hours) Vital Signs Temp Pulse Pulse Resp BP BP Pulse Ox 05/28/23 12:03 36.4 C L 74 16 148/71 H 98 05/28/23 08:00 76 16 147/78 H 97 05/28/23 07:30 69 05/28/23 03:01 36.5 C 78 18 124/68 97 O2 Del Method 05/28/23 12:03 Room Air 05/28/23 08:00 Room Air 05/28/23 07:30 05/28/23 03:01 Room Air Laboratory Results Laboratory Results WBC 6.89 K/ul (4.8-10.8) 05/27/23 06:59 RBC 4.00 M/uL (4.20-5.40) L 05/27/23 06:59 Hgb 12.5 g/dl (12.0-16.0) 05/27/23 06:59 Hct 37.1 % (37.0-47.0) 05/27/23 06:59 MCV 92.8 fL (80.0-100.0) 05/27/23 06:59 MCH 31.3 pg (25.0-34.0) 05/27/23 06:59 MCHC 33.7 g/dL (32.0-36.0) 05/27/23 06:59 RDW Std Deviation 45.5 fL (36.4-46.3) 05/27/23 06:59 RDW Coeff of Corby 13.2 % (11.5-14.5) 05/27/23 06:59 Plt Count 253 K/uL (130-400) 05/27/23 06:59 MPV 9.4 fL (9.4-12.4) 05/27/23 06:59 Immature Gran % (Auto) 0.3 % 05/27/23 06:59 Neut % (Auto) 75.5 % 04/02/24 06:59 Lymph % (Auto) 13.4 % 05/27/23 06:59 Hunt % (Auto) 6.2 % 05/27/23 06:59 Eos % (Auto) 3.9 % 05/27/23 06:59 Baso % (Auto) 0.7 % 05/27/23 06:59 Neut # (Auto) 5.20 K/uL (1.40-6.50) 05/27/23 06:59 Lymph # (Auto) 0.92 K/uL (1.20-3.40) L 05/27/23 06:59 Hunt # (Auto) 0.43 K/uL (0.11-0.59) 05/27/23 06:59 Eos # (Auto) 0.27 K/uL (0.00-0.50) 05/27/23 06:59 Baso # (Auto) 0.05 K/uL (0.00-0.20) 05/27/23 06:59 Immature Gran # (Auto) 0.02 K/uL (0.01-0.20) 05/27/23 06:59 D-Dimer 2500 ug/L FEU (0-500) H* 05/26/23 18:54 Sodium 137 mmol/L (136-145) 05/27/23 06:59 Potassium 4.2 mmol/L (3.5-5.1) 05/27/23 06:59 Chloride 107 mmol/L (98-107) 05/27/23 06:59 Carbon Dioxide 21 mmol/L (21-32) 05/27/23 06:59 Anion Gap 9 (3-11) 05/27/23 06:59 BUN 17 mg/dl (6-23) 05/27/23 06:59 Creatinine 0.75 mg/dl (0.6-1.2) 05/27/23 06:59 Est Cr Clr Drug Dosing 43.0 ml/min 05/27/23 06:59 Est GFR ( Amer) 87.9 ml/min 05/27/23 06:59 Est GFR (Non-Af Amer) 75.8 ml/min 05/27/23 06:59 BUN/Creatinine Ratio 22.7 (10-20) H 05/27/23 06:59 Glucose 86 mg/dl (70-99(Fasting)) 05/27/23 06:59 Calcium 8.7 mg/dl (8.6-10.3) 05/27/23 06:59 Magnesium 2.0 mg/dl (1.7-2.4) 05/27/23 06:59 Total Bilirubin 0.3 mg/dl (0.2-1.0) 05/26/23 18:54 AST 21 U/L (13-39) 05/26/23 18:54 ALT 15 U/L (7-52) 05/26/23 18:54 Alkaline Phosphatase 125 U/L (34-104) H 05/26/23 18:54 Troponin I High Sens 6.4 pg/ml (0-14) 05/27/23 14:41 Total Protein 6.3 gm/dl (6.0-8.3) 05/26/23 18:54 Albumin 3.4 gm/dl (3.4-5.0) 05/26/23 18:54 Globulin 2.9 gm/dl (2.5-4.0) 05/26/23 18:54 Albumin/Globulin Ratio 1.2 (0.9-2) 05/26/23 18:54 Lipase 42 U/L (11-82) 05/26/23 18:54 Impressions Chest X-Ray 05/26/23 19:31 XR chest 1V portable CLINICAL HISTORY: Chest pain, nonspecific TECHNIQUE: Single frontal radiograph of the chest was obtained. Comparison: Comparison is made to chest radiograph 02/04/2022 FINDINGS: No lines and tubes are seen. The cardiomediastinal silhouette is normal. The lungs are clear. No evidence of pleural effusion or pneumothorax. IMPRESSION: No acute chest disease. ACT 112: Negative or not required by law. Electronically signed by: Nura Cain M.D. 05/27/2023 7:17 AM Chest CTA 05/26/23 20:59 Exam(s): CTA CHEST IV Amt: 120 ML OPTIRAY 320 EXAM: CT Angiography Chest With Intravenous Contrast CLINICAL HISTORY: Reason for exam: PE. TECHNIQUE: Axial computed tomographic angiography images of the chest with intravenous contrast. CTDI is 9.5 mGy and DLP is 271.35 mGy-cm. Automated exposure control was utilized for the study. A dose lowering technique was utilized adhering to the principles of ALARA. MIP reconstructed images were created and reviewed. COMPARISON: No relevant prior studies available. FINDINGS: LUNGS: No focal consolidation, pleural effusion, or pneumothorax. Atelectasis at the lung bases. HEART: Cardiomegaly. VASCULATURE: No acute pulmonary embolism. Atherosclerotic changes of the aorta. THYROID: Within normal limits. MEDIASTINUM + LYMPH NODES: There are no pathologically enlarged mediastinal, hilar, or axillary lymph nodes. SUPERIOR ABDOMEN: Hepatic steatosis. MUSCULOSKELETAL: Degenerative changes. IMPRESSION: No acute pulmonary embolism. Electronically signed by: Boone iHll MD 05/26/23 22:18 PM
[2023-05-28] MEDS: PANTOprazole 40 MG TAB PO SCH (13:04)
--- NOTE | 2023-05-28 13:09 | Discharge Summary ---
Date of Service May 28, 2023 Admission HPI Per Admitting Provider 77-year-old female with past medical history significant for right ventricular conduction delay, pyogenic arthritis of right knee joint, sciatica, osteoarthritis, iron deficiency anemia, multiple orthopedic issues, history of lumbar laminectomy comes in because of dyspnea on exertion and chest pain. Patient was recently in the hospital to rule out infective endocarditis. Outpatient echo showed possible vegetation but in the hospital ABIODUN was unremarkable. She was also found to UTI and on antibiotics. After going home patient still feeling shortness of breath on exertion. Also have chest pain. Chest pain is more with exertion. So she came back. Denies any nausea. No headache. No earache. No runny nose or sore throat. No fevers. No abdominal pain. Normal bowel and bladder movements. Resting comfortably and hemodynamically stable. Past medical history. As mentioned above. Past surgical history. Arthrocentesis. Colonoscopy and EGD. Right total knee arthroplasty. Reconstruction of right hip socket. Bilateral cataracts. Repair of femur shaft. Femur/knee surgeries. Right open treatment proximal tibia fracture. Bilateral total hip replacements. Social history. . No smoking. Alcohol rarely. No drug use. Family history. Father had heart disorder. CVA. Mother has hypertension. Osteoporosis. PVD. Brother has hypertension. Hyperlipidemia. Diabetes. Admission Exam Per Admitting Provider General-Not in distress Head- atraumatic Eyes- PERRL. ENT- oropharynx clear Neck- supple, no JVD. Lungs- clear to auscultation no wheezing or crackles. Heart- regular rhythm; no murmur, no gallop. Abdomen- normal bowel sounds, soft, nontender, no distension. Extremities- no pretibial edema, no erythema seen Neuro- alert, oriented PERRL, EOMI; no facial palsy; no dysarthria; moves extremities. Principal Diagnosis Atypical chest/epigastric pain Discharge Data Allergies Allergy/AdvReac Type Severity Reaction Status Date / Time Penicillins Allergy Intermediate SWELLING Verified 05/26/23 20:29 OF EYES, HIVES & RASH hydrocodone AdvReac Mild NAUSEA AND Verified 05/26/23 20:29 VOMITING Consultations 05/26/23 22:33 ED Decision to Admit Stat 05/27/23 08:00 Consult Cardiology Routine Procedures Performed Laboratory Results WBC 6.89 K/ul (4.8-10.8) 05/27/23 06:59 RBC 4.00 M/uL (4.20-5.40) L 05/27/23 06:59 Hgb 12.5 g/dl (12.0-16.0) 05/27/23 06:59 Hct 37.1 % (37.0-47.0) 05/27/23 06:59 MCV 92.8 fL (80.0-100.0) 05/27/23 06:59 MCH 31.3 pg (25.0-34.0) 05/27/23 06:59 MCHC 33.7 g/dL (32.0-36.0) 05/27/23 06:59 RDW Std Deviation 45.5 fL (36.4-46.3) 05/27/23 06:59 RDW Coeff of Corby 13.2 % (11.5-14.5) 05/27/23 06:59 Plt Count 253 K/uL (130-400) 05/27/23 06:59 MPV 9.4 fL (9.4-12.4) 05/27/23 06:59 Immature Gran % (Auto) 0.3 % 05/27/23 06:59 Neut % (Auto) 75.5 % 05/27/23 06:59 Lymph % (Auto) 13.4 % 05/27/23 06:59 [place] % (Auto) 6.2 % 05/27/23 06:59 Eos % (Auto) 3.9 % 05/27/23 06:59 Baso % (Auto) 0.7 % 05/27/23 06:59 Neut # (Auto) 5.20 K/uL (1.40-6.50) 05/27/23 06:59 Lymph # (Auto) 0.92 K/uL (1.20-3.40) L 05/27/23 06:59 [place] # (Auto) 0.43 K/uL (0.11-0.59) 05/27/23 06:59 Eos # (Auto) 0.27 K/uL (0.00-0.50) 05/27/23 06:59 Baso # (Auto) 0.05 K/uL (0.00-0.20) 05/27/23 06:59 Immature Gran # (Auto) 0.02 K/uL (0.01-0.20) 05/27/23 06:59 D-Dimer 2500 ug/L FEU (0-500) H* 05/26/23 18:54 Sodium 137 mmol/L (136-145) 05/27/23 06:59 Potassium 4.2 mmol/L (3.5-5.1) 05/27/23 06:59 Chloride 107 mmol/L (98-107) 05/27/23 06:59 Carbon Dioxide 21 mmol/L (21-32) 05/27/23 06:59 Anion Gap 9 (3-11) 05/27/23 06:59 BUN 17 mg/dl (6-23) 05/27/23 06:59 Creatinine 0.75 mg/dl (0.6-1.2) 05/27/23 06:59 Est Cr Clr Drug Dosing 43.0 ml/min 05/27/23 06:59 Est GFR ( Amer) 87.9 ml/min 05/27/23 06:59 Est GFR (Non-Af Amer) 75.8 ml/min 05/27/23 06:59 BUN/Creatinine Ratio 22.7 (10-20) H 05/27/23 06:59 Glucose 86 mg/dl (70-99(Fasting)) 05/27/23 06:59 Calcium 8.7 mg/dl (8.6-10.3) 05/27/23 06:59 Magnesium 2.0 mg/dl (1.7-2.4) 05/27/23 06:59 Total Bilirubin 0.3 mg/dl (0.2-1.0) 05/26/23 18:54 AST 21 U/L (13-39) 05/26/23 18:54 ALT 15 U/L (7-52) 05/26/23 18:54 Alkaline Phosphatase 125 U/L (34-104) H 05/26/23 18:54 Troponin I High Sens 6.4 pg/ml (0-14) 05/27/23 14:41 Total Protein 6.3 gm/dl (6.0-8.3) 05/26/23 18:54 Albumin 3.4 gm/dl (3.4-5.0) 05/26/23 18:54 Globulin 2.9 gm/dl (2.5-4.0) 05/26/23 18:54 Albumin/Globulin Ratio 1.2 (0.9-2) 05/26/23 18:54 Lipase 42 U/L (11-82) 05/26/23 18:54 Impressions Chest X-Ray 05/26/23 19:31 XR chest 1V portable CLINICAL HISTORY: Chest pain, nonspecific TECHNIQUE: Single frontal radiograph of the chest was obtained. Comparison: Comparison is made to chest radiograph 02/04/2022 FINDINGS: No lines and tubes are seen. The cardiomediastinal silhouette is normal. The lungs are clear. No evidence of pleural effusion or pneumothorax. IMPRESSION: No acute chest disease. ACT 112: Negative or not required by law. Electronically signed by: Nura Cain M.D. 05/27/2023 7:17 AM Chest CTA 05/26/23 20:59 Exam(s): CTA CHEST IV Amt: 120 ML OPTIRAY 320 EXAM: CT Angiography Chest With Intravenous Contrast CLINICAL HISTORY: Reason for exam: PE. TECHNIQUE: Axial computed tomographic angiography images of the chest with intravenous contrast. CTDI is 9.5 mGy and DLP is 271.35 mGy-cm. Automated exposure control was utilized for the study. A dose lowering technique was utilized adhering to the principles of ALARA. MIP reconstructed images were created and reviewed. COMPARISON: No relevant prior studies available. FINDINGS: LUNGS: No focal consolidation, pleural effusion, or pneumothorax. Atelectasis at the lung bases. HEART: Cardiomegaly. VASCULATURE: No acute pulmonary embolism. Atherosclerotic changes of the aorta. THYROID: Within normal limits. MEDIASTINUM + LYMPH NODES: There are no pathologically enlarged mediastinal, hilar, or axillary lymph nodes. SUPERIOR ABDOMEN: Hepatic steatosis. MUSCULOSKELETAL: Degenerative changes. IMPRESSION: No acute pulmonary embolism. Electronically signed by: Boone Hill MD 05/26/23 22:18 PM Ordered Studies 05/26/23 20:59 CT for pulmonary embolism PE [CT angio chest PE protocol] Stat Hospital Course (1) Exertional dyspnea: 77 yr female with past medical history significant for right ventricular conduction delay, pyogenic arthritis of right knee joint, sciatica, osteoarthritis, iron deficiency anemia, multiple orthopedic issues, history of lumbar laminectomy comes in because of dyspnea on exertion and chest pain. Patient was recently in the hospital to rule out infective endocarditis. Outpatient echo showed possible vegetation but in the hospital ABIODUN was unremarkable. She was also found to UTI and on antibiotics. After going home patient still feeling shortness of breath on exertion. Also have chest pain. C hest pain is more with exertion. So she came back. Denies any nausea. No headache. No earache. No runny nose or sore throat. No fevers. No abdominal pain. Normal bowel and bladder movements. Resting comfortably and hemodynamically stable. Atypical chest pain rule out ACS Dyspnea on exertion with chest pain -CTA: No acute pulmonary embolism. -Myocardial stress test:Normal pharmacologic myocardial perfusion imaging study with no evidence of resting or inducible ischemia. The pharmacologic stress EKG response is negative for ischemia. The left ventricular ejection fraction by gated SPECT was calculated to be > 70%. -Troponin x 3 negative Appreciate cardiology input and recommendation Atypical chest pain Admits to having heartburn recently Also reports intermittent dysphagia to pills Denies any odynophagia Started on Protonix Advised to follow-up with GI as outpatient for possible EGD Possible deconditioning Has been feeling much better since admission UTI Complete antibiotic course-likely to contribute to her current weakness and shortness of breath Urine is growing E. 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 Jones in 1 week Consider following with gastroenterology for possible upper endoscopy as advised -- Start taking Protonix 40 mg daily until further recommendations by your primary care physician Seek immediate medical attention if your symptoms reoccur or worsen Please take all medications as instructed on discharge list below. Please call if you have any questions or problems. You can reach a [facility] hospitalist on duty at [facility] 24 hours a day by calling [phone] Pending Studies at Discharge: No Stand-Alone Forms: My [facility], Smoking Cessation Medications and DC Order Prescriptions: New pantoprazole 40 mg Tablet,Delayed Release (Dr/Ec) 40 mg PO QAM Qty: 30 0RF Continued magnesium 250 mg tablet 250 mg PO QPM medical marijuana 1 applic topical UD PRN (Reason: Pain) cholecalciferol (vitamin D3) 25 mcg (1,000 unit) capsule 25 mcg PO QAM turmeric 400 mg Capsule 400 mg PO QAM PreserVision AREDS [id number] Capsule 1 cap PO BID gabapentin 600 mg tablet 600 mg PO TID cyanocobalamin (vitamin B-12) 1,000 mcg Tablet 1,000 mcg PO DAILY doxycycline hyclate 100 mg capsule 100 mg PO BID duloxetine 20 mg capsule,delayed release(DR/EC) 20 mg PO [facility]HS Saccharomyces boulardii [Florastor] 250 mg Capsule 250 mg PO BID cefuroxime axetil 250 mg tablet 250 mg PO BID 3 Days Qty: 6 0RF Rx Instructions: STARTED 05/25/23 FOR 3 DAYS Discharge Orders: Discharge Order (Routine); Ordered 05/28/23 Ordered By: Angel Prather Admission Data Admit Date/Time: 05/26/23 23:26 Attending Provider: Angel Prather Admit Provider: Kelechi Lepe Primary Care Provider: Leta Jones Other Providers: Kelechi Lepe; Javier Jeffery
--- NOTE | 2023-05-29 07:09 | Electrocardiogram Report ---
Test Reason : Blood Pressure : / mmHG Vent. Rate : 073 BPM Atrial Rate : 073 BPM P-R Int : 120 ms QRS Dur : 092 ms QT Int : 390 ms P-R-T Axes : 071 001 068 degrees QTc Int : 429 ms Normal sinus rhythm Normal ECG When compared with ECG of 22-MAY-2023 14:53, Nonspecific T wave abnormality has replaced inverted T waves in Anterior leads Confirmed by Xavi Draper ([id number]) on 05/29/2023 7:09:00 AM Referred By: REFERRED SELF Confirmed By:Xavi Draper
--- NOTE | 2023-05-29 07:35 | Electrocardiogram Report ---
Test Reason : Blood Pressure : / mmHG Vent. Rate : 072 BPM Atrial Rate : 072 BPM P-R Int : 132 ms QRS Dur : 096 ms QT Int : 406 ms P-R-T Axes : 063 003 063 degrees QTc Int : 444 ms Normal sinus rhythm Incomplete right bundle branch block Borderline ECG When compared with ECG of 26-MAY-2023 19:11, (unconfirmed) No significant change was found Confirmed by Xavi Draper ([id number]) on 05/29/2023 7:35:05 AM Referred By: REFERRED SELF Confirmed By:Xavi Draper
== END 2023-05-28 16:13 | disposition home or self-care (01) | DRG 313 ==
LOC: ED 18:33 → SUATTDRO 23:26 → EDINP 23:26 → 2N 05-27 14:28